=== PATIENT | male | born 1950 | race Caucasian/White ===

== ENCOUNTER 2023-12-03 20:54 | Inpatient (IN) | payer OTHER, SELFPAY ==
[2023-12-03] VITALS (16 sets, daily range): BP systolic 62–145; BP diastolic 25–106; BMI 23.5
[2023-12-03] MEDS: ROCURONIUM 60 MG IV (18:52)
[2023-12-03] MEDS: NSS 1000 IV (18:52)
[2023-12-03] MEDS: AMIDATE 20 MG IV (18:52)
[2023-12-03] MEDS: LEVOPHED 250 IV (18:58)
[2023-12-03 19:01] LABS: % Basophils 0.4 % (0-2); % Eosinophils 2.1 % (0-6); % Immature Granulocytes 1.1 % (0-0.5); % Lymphocytes 53.6 % (20.5-51.1); % Monocytes 6.8 % (1.7-9.3); Absolute Basophils 0.1 10^3/uL (0-0.2); Absolute Eosinophils 0.3 10^3/uL (0-0.7); Absolute Immature Granulocytes 0.2 10^3/uL (0-0.05); Absolute Lymphocytes 7.4 10^3/uL (1.2-3.4); Absolute Monocytes 0.9 10^3/uL (0.1-0.6); Hematocrit 35.8 % (39.0-52.0); Hemoglobin 12.1 g/dL (13.0-18.0); Mean Corp Hgb Conc. 33.8 g/dL (33.0-37.0); Mean Corpuscular Hgb 28.6 pg (27.0-31.0); Mean Corpuscular Volume 84.6 fL (80.0-94.0); Mean Platelet Volume 10.8 fL (7.4-10.4); Nucleated Red Blood Cells % 0 % (-); Platelet Count 283 10^3/uL (130-400); Red Blood Cell Count 4.23 10^6/uL (4.70-6.10); Red Cell Dist. Width 14.4 % (11.5-14.5); White Blood Cell Count 13.8 10^3/uL (4.8-10.8)
[2023-12-03 19:08] LABS: Glucose - Point of Care 261 mg/dl (70-99)
[2023-12-03 19:11] LABS: INR 1.27; PT 15.7 Sec (11.4-14.6)
[2023-12-03 19:16] LABS: ALT (SGPT) 103 U/L (0-50); AST (SGOT) 127 U/L (17-59); Alkaline Phosphatase 121 U/L (38-126); Blood Urea Nitrogen 16 mg/dl (9-20); Calcium 8.2 mg/dl (8.4-10.2); Carbon Dioxide 17 mmol/L (22-30); Chloride 102 mmol/L (98-107); Glucose 292 mg/dl (70-99); Potassium 2.8 mmol/L (3.5-5.1); Sodium 135 mmol/L (135-145); Total Bilirubin 0.9 mg/dl (0.2-1.3); Total Protein 5.3 g/dl (6.3-8.2); eGFR > 60.00
[2023-12-03 19:25] LABS: Lactic Acid 5.4 mmol/L (0.7-2.0); Troponin I < 0.012 ng/ml
--- NOTE | 2023-12-03 19:46 | HPS.HSE ---
Addendum entered and electronically signed by Josh Hughes MD 12/03/23 21:20:
Patient seen and examined independently with [employer]. 73-year-old male past medical history of nonischemic cardiomyopathy with EF of 10%, hypertension, diabetes presenting for acute onset of feeling like he was in a pass out with sudden difficulty
breathing/snoring and change in color was noticed by . performed CPR and called 911. EMS arrived and patient was shocked 1 time by AED. LMA was placed and patient intubated by EMS and patient was brought to the hospital.
Patient has a history of nonischemic cardiomyopathy with echocardiogram 2 weeks ago showing ejection fraction of 10%. Patient follows trial justice Dr. Hercules. He was offered ICD in the past which he declined. She has been stable on guideline
directed medical therapy. No history of ventricular arrhythmias in the past. Patient has been seen by Dr. Bryant here in the past.
In the emergency room patient was noted to be hypotensive and started on Levophed. He received 2 L of IV fluids. Troponin negative. EKG shows sinus rhythm with PVCs, nonspecific T wave inversions, ST depressions in leads V5�V6. Labs showed
leukocytosis, anion gap metabolic acidosis with bicarb of 17, lactic acidosis, transaminitis, hypokalemia with potassium of 2.8.
Patient suffered cardiac arrest likely secondary to ventricular arrhythmia in the setting of nonischemic cardiomyopathy with reduced EF of 10% possibly exacerbated by hypokalemia/hypomagnesemia.
# Cardiac arrest likely secondary to ventricular arrhythmia
# Possible NSTEMI/ cardiogenic shock
# History of nonischemic cardiomyopathy with reduced EF
# Transaminitis secondary to cardiac arrest
# Anion gap metabolic acidosis secondary to lactic acidosis
-Continue maintenance IV fluids
-Bicarbonate push to be given.
-Replete potassium, check magnesium and empirically provide magnesium
-ER noted patient to have gag reflex. Patient Relations Manager recommended cooling protocol. ER spoke with ironer machine and cardiac catheterization was not recommended. Trend troponins, start rectal aspirin, heparin drip.
-PICC line to be placed
-CT PE pending
-Check blood cultures, empiric Zosyn to cover aspiration pneumonia
#Hypokalemia
-Replete potassium, check magnesium and empirically provide magnesium to prevent torsades
#Hyperglycemia secondary to diabetes
-Insulin sliding scale, consider insulin drip if sugars continue to be uncontrolled
Full code
Original Note:
Family Physician
-
Family Physician: * NONE
Chief Complaint
-
cardiac arrest
History of Present Illness
73 year old with PMH for cardiac cardiomyopathy, CHF, type 2 Dm presented to us with cardiac arrest. patient was complaining of headache for past two days. today after dinner he sat on the chair and yelled out saying that he was going to pass out.
all of a sudden he started breathing loudly. noted changing of color in his face. she started CPR and called 911.
upon my evaluation patient is intubated. initiated on Levophed. admitting to ICU for further managment.
Medical History
Past Medical History
Past Medical History: Reports Other
Additional Past Medical History:
CHF
ischemic cardiomyopathy
type 2 Dm
Past Surgical History: Reports Other
Additional Past Surgical History:
cholecystectomy
Social History
Tobacco: Former Smoker
Alcohol: None
Drug: None
Personal:
Living: With Family
Employment: Employed
Family History
Family History: Not pertinent
Allergies / Home Medications
Allergies reflects when Allergies were last updated in [facility].
Home Medications with original date entered in [facility]
Allergy/Medication List:
Allergies
Allergy/AdvReac Type Severity Reaction Status Date / Time
No Known Allergies Allergy Unverified 03/17/14 08:14
Home Medications
carvedilol 3.125 mg tablet 6.25 mg PO BID 03/16/14
aspirin 81 mg tablet,delayed release 81 mg PO DAILY 03/17/14
atorvastatin 80 mg tablet 40 mg PO DAILY 12/03/23
dapagliflozin propanediol 10 mg tablet (Farxiga) 10 mg PO DAILY 12/03/23
furosemide 40 mg tablet 40 mg PO DAILY 12/03/23
metformin 500 mg tablet 500 mg PO BID 12/03/23
multivitamin 1 tab PO DAILY 12/03/23
omega 6-juj-wbb-fish oil 1,000 mg (120 mg-180 mg) capsule (Fish Oil) 1 cap PO DAILY 12/03/23
sacubitril 49 mg-valsartan 51 mg tablet (Entresto) 1 tab PO BID 12/03/23
semaglutide 7 mg tablet (Rybelsus) 3 mg PO DAILY 12/03/23
Review of Systems
-
Unable to obtain full review of systems at this time due to: Patient Intubation
Physical Exam
Vital Signs
Vital Signs
Pulse Resp BP
84 11 62/25
12/03/23 18:52 12/03/23 18:52 12/03/23 19:10
Physical Exam
General: Well Developed, Well Nourished and No Apparent Distress
HEENT: NormoCephalic, Moist mucous membranes and Atraumatic
Respiratory: Clear
Cardiac: S1/S2 and Regular Rhythm; No Murmur or Rub
GI: Soft, Normal Bowel Sounds and Distended; No Organomegaly
Rectal: Deferred by Provider
Musculoskeletal: No Clubbing, No Cyanosis and No Edema
Skin: No Rash
Neuro: Nonfocal/grossly intact
Laboratory Results
-
12/03/23 18:52
12/03/23 18:53
Laboratory Results
PT 15.7 Sec (11.4-14.6) H 12/03/23 18:53
INR 1.27 12/03/23 18:53
APTT 33.0 Sec (23.4-35.0) 12/03/23 18:53
Lactic Acid 5.4 mmol/L (0.7-2.0) H* 12/03/23 18:52
Total Bilirubin 0.9 mg/dl (0.2-1.3) 12/03/23 18:53
AST 127 U/L (17-59) H 12/03/23 18:53
ALT 103 U/L (0-50) H 12/03/23 18:53
Alkaline Phosphatase 121 U/L (38-126) 12/03/23 18:53
Troponin I < 0.012 ng/ml 12/03/23 18:52
Data Reviewed
-
Lab Data: Labs Reviewed by me
Impression/Plan
-
#possible NSTEMI
-hxt of long standing NICM
-as per refused ICD in the past
-heparin drip
-trend trop
-cardiology consulted
#sepsis likely aspiration pneumonia
-wbc 13.8, lactic acid 5.4, hypotension
-UA pending
-head CT pending
-chest x ray pending
-iv zosyn
-blood culture sent from ER
-trend lactic acid
-monitor wbc
#hypokalemia unclear cause.metabolic acidosis
- k 2.8
-iv kcl in ER
-sodium bicarbonate iv push now
-monitor BMP in am
#elevated transaminase likely dehydration
-ast 127,alt 103
-ctm
#type 2 Dm
-sliding scale
-check blood sugar every 6 hours
#DVT prophylaxis
-heparin drip
#CODE status
-full code
--- NOTE | 2023-12-03 19:49 | ED.GENMED ---
History of Present Illness
General
Chief Complaint: Unresponsive
Source: spouse and ambulance crew
Exam Limitations: clinical condition
Time Seen by Provider: 12/03/23 18:57
Travel History
Have you had any contact with someone who has COVID-19?: Unable to Answer
Do you have any symptoms of coronavirus? Fever > 100 degrees, chills, cough, shortness of breath, sore throat, loss of taste or smell, muscle aches, or headache?: Unable to Answer
History of Present Illness
History of Present Illness:
Patient apparently complaining of some vague headaches last 2 days. However went to sudden cardiac arrest at home. started CPR. Medic arrival had a pulse. However unresponsive with very shallow respirations. During intubation patient went
into cardiac arrest again. Intubated with LMA. Remained hypotensive en route.
Past History
Past History
ED Past Medical History: Other (Nonischemic cardiomyopathy)
Phy Exam
Physical Exam
Physical Exam:
CODE EXAM:
VITAL SIGNS: Barely palpable femoral pulse.
GENERAL EXAM: Cyanotic head and neck. Pale otherwise
EYES: Pupils fixed
ENT: Patient intubated. Via LMA
NECK: No venous distention
RESPIRATORY: Equal breath sounds
CARDIAC: Distant heart sounds
VASCULAR: Weak femoral pulses
ABDOMEN: Soft no masses
GUAIAC: Not done
MUSCULOSKELETAL: Unable to evaluate strength
EXTREMITIES: No edema or contractures
SKIN: No rash
PSYCH: Mood, affect unable to evaluate
Course
Orders/Labs/Results
Orders:
Orders
12/03/23 18:49
Electrocardiogram (*1) Urgent
Reason for Study: Other
Other Reason for Exam: Possible Stroke
Bedside Glucose- Treatment ONCE
EKG- Treatment ONCE
IV Insert/Care/Rem.- Treatment PRN
Vital Signs As Directed
Frequency: Other
Weight As Directed
Frequency: Once
Comment: ZERO STRETCHER SCALE FOR ACCURATE WEIGHT
O2 Therapy [RESP] Urgent
Titrate/Wean O2 to maintain O2 sat greater than (%): 93
Special Instructions: MAINTAIN CONTINUOUS O2 SATS > OR = 93%
12/03/23 18:51
CXR Port [CR Chest Portable - 1 View] Urgent
Comment:
Reason For Exam: intubation
Reason Study Needs to be Portable: Unable to Transport
12/03/23 18:52
Complete Blood Count/With Diff Urgent
Lactic Acid Urgent
Troponin I Urgent
Urinalysis Reflex To Culture Urgent
Date Specimen was Collected: 12/03/23
Time Specimen was Collected: 18:49
12/03/23 18:53
Comprehensive Metabolic Panel Urgent
Magnesium Urgent
Comment: ADD ON
PTT Urgent
Prothrombin Time Urgent
12/03/23 18:57
CT Head W/o Iv Contrast Urgent
Comment:
Reason For Exam: Unresponsive
IV Insert/Care/Rem.- Treatment PRN
0.9% Sodium Chloride 1000 ml [Nss] 1,000 ml IV BOLUS
12/03/23 18:58
NORepinephrine 4 MG/250 ML [Levophed] 4 mg in 250 ml IV NOW
Initial dose in mcg/min, then titrate:: 2
Titrate to keep:: MAP > 65 mmHg
Titrate by mcg/min:: 1-2 mcg/min
Frequency of titrations (minutes):: 5
Maximum dose in ICU in mcg/min:: 30
Maximum dose in IMU in mcg/min:: 8
Maximum dose in IVU in mcg/min:: 4
Begin to taper infusion when:: Remained at goal for 4hrs
Taper by mcg/min:: 1-2 mcg/min
Frequency of taper (minutes) if patient maintains goal:: 30
Taper to off?: Yes
If infusion off & no longer maintaining goal:: Contact Provider
12/03/23 19:35
Etomidate [Amidate] 20 mg IV NOW STA
12/03/23 19:40
Potassium Chloride [KCl] 40 meq 0.9% Sodium Chloride 250 ml [Nss] 250 ml IV NOW
12/03/23 19:48
CT Chest Pe Study Urgent
Comment:
Reason For Exam: cardiac arrest
12/03/23 20:13
Heparin Protocol- PTT Orders As Directed
PTT per Heparin protocol: -Obtain CBC and baseline PTT - if not already collected.
-Obtain PTT 6 hours from start of infusion. Then, every 6 hours until 2 consecutive
PTT's are therapeutic. Then, PTT Daily.
-With each rate change, obtain PTT every 6 hours until 2 consecutive PTT's are
therapeutic. Then, PTT Daily.
Notify MD As Directed
Notify physician if: PTT is greater than or equal to 200.
12/03/23 20:15
Admit/Transfer Patient As Directed
Co-Sign Provider:
Level of Care: Inpatient admission
Assign to:: ICU
Physician / Group: [facility] [email or web address]
Diagnosis: NSTEMI
Reason for Hospitalization: NSTEMI
Expected length of stay greater than two midnights?: Yes
ELOS- Estimated Length of Stay in days: 3
I certify the patient meets the requirements for IP care: Yes
Code Status As Directed
Resuscitation Status: Full Code
Blood Culture Q30M
ARPAN Source: Blood/Venous
Specimen Description:
Heparin 38442 Units/250 ml 25,000 units in 250 ml IV PER PROTOCOL
Weight to be used for heparin protocol in kilograms (kg):: 79.5
Protocol:: Cardiac Tx/Acute Coronary
PTT Goal Range to be used:: PTT 73 to 111 seconds
Order type:: Initial
INITIAL Infusion Dose (UNITS/KG/hr) & then follow protocol:: 12 units/kg/hr
Infusion Dose in UNITS/hr & then follow protocol (UNITS/hr):: 1,000
INFUSION RATE in mL/hr & then follow protocol (mL/hr):: 10
PTT less than or equal to 64 seconds:: Increase rate by 200 units/hr (+ 2 mL/hr)
PTT 64.1 to 72.9 seconds:: Increase rate by 100 units/hr (+ 1 mL/hr)
PTT 73 to 111 seconds:: Target Range. No change in rate.
PTT 111.1 to 130.9 seconds:: Decrease rate by 100 units/hr (- 1 mL/hr)
PTT 131 to 199.9 seconds:: HOLD for 1 hr. Then decrease rate by 200 units/hr (- 2 mL/hr)
PTT greater than or equal to 200 seconds:: HOLD for 2 hrs & Notify Provider. Then decrease by 200 units/hr (-
2 mL/hr)
Lab follow-up:: Each change, PTT q6h until 2 consecutive are therapeutic. Then PTT
daily.
12/03/23 20:22
Sodium Bicarbonate 50 meq IV NOW STA
12/03/23 20:28
CARDIOLOGY CONSULT Routine
Consulting Provider: Tiana Pagan
Was physician already notified: Yes
Heparin 4,000 units IV NOW STA
Nursing to Place Non Medication Order As Directed
Physician Order: PTT 6 hours after initial start of Heparin infusion
Above order entered?: Yes
12/03/23 20:29
[employer] Consult Routine
Consulting Provider: Lori Zacarias
Was physician already notified: Yes
12/03/23 20:30
Heparin 32103 Units/250 ml 25,000 units in 250 ml IV PER PROTOCOL
Weight to be used for heparin protocol in kilograms (kg):: 79.5
Protocol:: Cardiac Tx/Acute Coronary
PTT Goal Range to be used:: PTT 73 to 111 seconds
Order type:: Initial
INITIAL Infusion Dose (UNITS/KG/hr) & then follow protocol:: 12 units/kg/hr
Infusion Dose in UNITS/hr & then follow protocol (UNITS/hr):: 1,000
INFUSION RATE in mL/hr & then follow protocol (mL/hr):: 10
PTT less than or equal to 64 seconds:: Increase rate by 200 units/hr (+ 2 mL/hr)
PTT 64.1 to 72.9 seconds:: Increase rate by 100 units/hr (+ 1 mL/hr)
PTT 73 to 111 seconds:: Target Range. No change in rate.
PTT 111.1 to 130.9 seconds:: Decrease rate by 100 units/hr (- 1 mL/hr)
PTT 131 to 199.9 seconds:: HOLD for 1 hr. Then decrease rate by 200 units/hr (- 2 mL/hr)
PTT greater than or equal to 200 seconds:: HOLD for 2 hrs & Notify Provider. Then decrease by 200 units/hr (-
2 mL/hr)
Lab follow-up:: Each change, PTT q6h until 2 consecutive are therapeutic. Then PTT
daily.
12/03/23 20:35
Arterial Blood Gas Urgent
%Oxygen/Room Air: 100
12/03/23 20:37
PICC Line As Directed
12/03/23 20:38
Add On- LAB Stat
Tests Added?: magnesium
Magnesium Sulfate 1 G/D5w [Magnesium Sulfate] 1 gm in 100 ml IV NOW
12/03/23 22:57
0.9% Sodium Chloride 1000 ml [Nss] 1,000 ml IV 30 mls/hr
Dextrose 50%-Water [Dextrose 50% Syringe] 12.5 grams IV [id number] PRN
Glucagon [GlucaGen] 1 mg IM PRN PRN
NORepinephrine 4 MG/250 ML [Levophed] 4 mg in 250 ml IV PER PROTOCOL
Currently infusing. Continue current dose and titrate:: Yes
Titrate to keep:: SBP > 90 mmHg
Titrate by mcg/min:: 1-2 mcg/min
Frequency of titrations (minutes):: 5
Maximum dose in ICU in mcg/min:: 30
Maximum dose in IMU in mcg/min:: 8
Maximum dose in IVU in mcg/min:: 4
Begin to taper infusion when:: Remained at goal for 4hrs
Taper by mcg/min:: 1-2 mcg/min
Frequency of taper (minutes) if patient maintains goal:: 30
Taper to off?: Yes
If infusion off & no longer maintaining goal:: Contact Provider
12/03/23 22:57
Heparin Protocol- PTT Orders As Directed
PTT per Heparin protocol: -Obtain CBC and baseline PTT - if not already collected.
-Obtain PTT 6 hours from start of infusion. Then, every 6 hours until 2 consecutive
PTT's are therapeutic. Then, PTT Daily.
-With each rate change, obtain PTT every 6 hours until 2 consecutive PTT's are
therapeutic. Then, PTT Daily.
Activity As Directed
Activity Level: Bedrest
Bedside Glucose Monitoring As Directed
Frequency: Q6H
Comment: Change to q6h if pt on TPN, tube feeding or not eating
Notify MD As Directed
Notify physician if: PTT is greater than or equal to 200.
Vital Signs As Directed
Frequency: Per unit guidelines
12/03/23 23:00
Complete Blood Count/No Diff Urgent
Comment: Obtain baseline before beginning heparin infusion if not already collected
Lactic Acid Q4H
12/04/23 00:00
Insulin Aspart Corrective Low [Novolog Flexpen-Low Resistance] See Protocol SC Q6
Piperacillin/Tazo 3.375 Gram [Zosyn] 3.375 gram in 50 ml IV Q6H
12/04/23 01:15
Troponin I Q6H
12/04/23 04:14
Complete Blood Count/No Diff IN AM
Glycohemoglobin (HgbA1c) IN AM
Lactic Acid Q4H
Troponin I Q6H
12/04/23 08:00
Aspirin 300 mg RECTAL DAILY
12/05/23 02:46
Complete Blood Count/No Diff Q2D
Comment: Notify MD if platelet count is <130,000 or decreases by 50% from baseline
12/06/23 04:28
Complete Blood Count/No Diff IN AM
12/07/23 03:27
Basic Metabolic Panel IN AM
Complete Blood Count/No Diff Q2D
Comment: Notify MD if platelet count is <130,000 or decreases by 50% from baseline
12/08/23 04:21
Basic Metabolic Panel IN AM
Complete Blood Count/No Diff IN AM
12/09/23 03:52
Complete Blood Count/No Diff Q2D
Comment: Notify MD if platelet count is <130,000 or decreases by 50% from baseline
12/11/23 06:00
Complete Blood Count/No Diff Q2D
Comment: Notify MD if platelet count is <130,000 or decreases by 50% from baseline
12/13/23 06:00
Complete Blood Count/No Diff Q2D
Comment: Notify MD if platelet count is <130,000 or decreases by 50% from baseline
12/15/23 06:00
Complete Blood Count/No Diff Q2D
Comment: Notify MD if platelet count is <130,000 or decreases by 50% from baseline
12/17/23 06:00
Complete Blood Count/No Diff Q2D
Comment: Notify MD if platelet count is <130,000 or decreases by 50% from baseline
12/19/23 06:00
Complete Blood Count/No Diff Q2D
Comment: Notify MD if platelet count is <130,000 or decreases by 50% from baseline
Abnormal Lab Results
12/03/23 12/03/23 12/03/23
18:52 18:53 19:06
WBC 13.8 H 10^3/uL
(4.8-10.8)
RBC 4.23 L 10^6/uL
(4.70-6.10)
Hgb 12.1 L g/dL
(13.0-18.0)
Hct 35.8 L %
(39.0-52.0)
MPV 10.8 H fL
(7.4-10.4)
Abs Immat Gran (auto) 0.2 H 10^3/uL
(0-0.05)
Absolute Lymphs (auto) 7.4 H 10^3/uL
(1.2-3.4)
Absolute Monos (auto) 0.9 H 10^3/uL
(0.1-0.6)
Immature Gran % 1.1 H %
(0-0.5)
Neutrophils % 36.0 L %
(42.2-75.2)
Lymphocytes % 53.6 H %
(20.5-51.1)
PT 15.7 H Sec
(11.4-14.6)
pH
pO2
HCO3
ABG O2 Sat (Measured)
Potassium 2.8 L mmol/L
(3.5-5.1)
Carbon Dioxide 17 L mmol/L
(22-30)
Glucose 292 H mg/dl
(70-99)
Lactic Acid 5.4 H* mmol/L
(0.7-2.0)
Calcium 8.2 L mg/dl
(8.4-10.2)
AST 127 H U/L
(17-59)
ALT 103 H U/L
(0-50)
Total Protein 5.3 L g/dl
(6.3-8.2)
Albumin 3.0 L g/dl
(3.5-5.0)
Urine Glucose 3+ A
(Negative)
POC Glucose 261 H mg/dl
(70-99)
12/03/23
20:35
WBC
RBC
Hgb
Hct
MPV
Abs Immat Gran (auto)
Absolute Lymphs (auto)
Absolute Monos (auto)
Immature Gran %
Neutrophils %
Lymphocytes %
PT
pH 7.19 L*
(7.35-7.45)
pO2 110 H mmHg
(83-108)
HCO3 17.2 L mmol/L
(21-28)
ABG O2 Sat (Measured) 98.4 H %
(94-98)
Potassium
Carbon Dioxide
Glucose
Lactic Acid
Calcium
AST
ALT
Total Protein
Albumin
Urine Glucose
POC Glucose
12/03/23 18:52
12/03/23 18:53
Vital Signs
Initial and Last Documented VS:
Initial Vital Signs
Pulse Resp BP
84 11 88/56
12/03/23 18:52 12/03/23 18:52 12/03/23 18:52
Last Documented Vital Signs
Temp Pulse Resp BP Pulse Ox
97.9 F 90 21 103/71 94
12/09/23 07:21 12/09/23 07:00 12/09/23 07:00 12/09/23 07:00 12/09/23 07:00
Procedures
Intubations
Procedure completed by: Myself
Method of Intubation: glidescope
Tube size (cm): 7.5
Placement confirmed by: auscutation, CXR, capnography, placement corrected and direct visualization
Breath sounds after intubation: equal
Intubation complications: no complications
*Radiology
Radiology exam reviewed: preliminary read by ED provider (Tube slightly down the right mainstem) and radiology read reviewed (Negative head CT. No pulmonary emboli. Possible aspiration pneumonia versus CHF. Edema to the thyroid gland)
*Pulse Oximetry
Patient hypoxic: no
*EKG
Interpretation: abnormal
Comparison EKG: no comparison EKG present
Heart Rate: 85
Rate: normal
Rhythm: sinus and PVC's
Ischemia: other (Anterolateral biphasic T waves with ST depressions laterally.)
*Critical Care Note
Total Time (30-74mins, 75-104mins- exclusive of procedures): 50
Update Note
Update Note:
Multiple discussions with cardiology/invasive. No indication for Engineer Second Assistant at this time. Patient is being supported with pressors. Intubated. Pulse ox stable. I reviewed the CT and see nothing acute. Treating hypokalemia. For completeness a CT
of the chest will be done to rule out pulmonary emboli.
ED Attending Note
-
Portions of this chart may have been created with voice recognition software.� Occasional wrong word or��sound alike� substitutions may have occurred due to the inherent limitations of voice recognition software.
Discharge Plan
Departure
Patient Disposition: Admit
Date of Disposition: 12/03/23
Time of Disposition: 19:54
Presentation/result/management discussed w/ accepting MD/DO: Invasive cardiology/cardi
Discharge Problem:
Cardiopulmonary arrest, History of nonischemic cardiomyopathy
Interventions
Interventions:
*General Assessment Last Done: 12/03/23 18:52
*Neglect/Abuse Screening Last Done: 12/03/23 23:10
ED- Fall Risk Assessment Last Done: 12/03/23 23:23
*Nursing Disposition Last Done: 12/03/23 23:23
ED- Neurological Assessment Last Done: 12/03/23 21:12
Discharge Date and Time
Discharge Date/Time: 12/03/23 23:25
[2023-12-03 19:54] LABS: Urine Albumin Trace (Neg - Trace); Urine Bilirubin Negative (Negative); Urine Character Clear (Clear); Urine Color Yellow; Urine Glucose 3+ (Negative); Urine Ketone Negative (Negative); Urine Leukocyte Negative (Negative); Urine Nitrite Negative (Negative); Urine Occult Blood Negative (Negative); Urine Specific Gravity 1.015 (<1.030); Urine Urobilinogen Negative (Neg - 1+)
[2023-12-03] MEDS: KCL 270 MEQ IV (20:23)
[2023-12-03 20:42] LABS: B.E. -10.7 mmol/L; HCO3 17.2 mmol/L (21-28); O2 Saturation % 98.4 % (94-98); PCO2 45 mmHg (35-48); PO2 110 mmHg (83-108)
[2023-12-03 20:43] LABS: pH 7.19 (7.35-7.45)
[2023-12-03] MEDS: SODIUM BICARBONATE 50 MEQ IV (20:55)
[2023-12-03 21:17] LABS: Magnesium 2.3 mg/dl (1.6-2.3)
[2023-12-03] MEDS: HEPARIN 25000 UNITS/250 ML IV (21:35)
--- NOTE | 2023-12-03 21:37 | CON.CAR ---
Consultation
Consultation Request
Date/Time Consultation Requested: 12/03/23
Date/Time Consultation Performed: 11/2023
Reason for Consultation: Cardiac arrest
Medical History
-
Chief Complaint: cardiac arrest
History of Present Illness:
Primary Fur Dresser: Dr. Bryant / Delisa Morales.
73-year-old male past medical history of nonischemic cardiomyopathy with EF of 10%, hypertension, diabetes presenting for acute onset of feeling like he was in a pass out with sudden difficulty breathing/snoring and change in color was noticed by
.� performed CPR and called 911.� EMS arrived and patient was shocked 1 time by AED.� LMA was placed and patient intubated by EMS and patient was brought to the hospital.
He was having some vague headaches last 2 days.� However went to sudden cardiac arrest at home.� started CPR.� Medic arrival had a pulse.� However unresponsive with very shallow respirations.� During intubation patient went into cardiac arrest
again and shocked x 1.� Intubated with LMA.� Remained hypotensive en route.
In the ER had ETT placed. Head CT done that showed no sign of acute abnormality. Remained hypotensive on pressors. He was unresponsive.
EKG was done that showed nom ischemic. He has a well known hx of HFrEF and had declined ICD in the past. Discussed code status with family and they all in agreement for full code for now.
His mental status remained unchanged.
Bed side ECHO was done that showed no sign of pericardial effusion. The LVEF was roughly 25%. No sign of RV distention.
Past Medical History
Past Medical History: CHF (LVEF 10% @ [facility] - 2 weeks ago. ) and NIDDM
Past Surgical History: Cholecystectomy
Social History
Tobacco: Former Smoker
Alcohol: None
Drug: None
Personal:
Living: With Family
Family History
Family History: Reviewed & Not Pertinent
Allergies / Home Medications
Allergy/AdvReac Type Severity Reaction Status Date / Time
Sulfa (Sulfonamide Allergy Unknown Verified 02/20/24 21:14
Antibiotics)
sulfamethoxazole Allergy Unknown Verified 12/03/23 21:14
[From Bactrim]
trimethoprim [From Bactrim] Allergy Unknown Verified 12/03/23 21:14
Medication Instructions Recorded Confirmed Type
carvedilol 3.125 mg tablet 6.25 mg PO BID 03/16/14 12/03/23 History
aspirin 81 mg tablet,delayed 81 mg PO DAILY 03/17/14 12/03/23 History
release
atorvastatin 80 mg tablet 40 mg PO DAILY 12/03/23 12/03/23 History
dapagliflozin propanediol 10 mg 10 mg PO DAILY 12/03/23 12/03/23 History
tablet (Farxiga)
furosemide 40 mg tablet 40 mg PO DAILY 12/03/23 12/03/23 History
metformin 500 mg tablet 500 mg PO BID 12/03/23 12/03/23 History
multivitamin 1 tab PO DAILY 12/03/23 12/03/23 History
omega 6-wcs-hvl-fish oil 1,000 mg 1 cap PO DAILY 12/03/23 12/03/23 History
(120 mg-180 mg) capsule (Fish Oil)
sacubitril 49 mg-valsartan 51 mg 1 tab PO BID 12/03/23 12/03/23 History
tablet (Entresto)
semaglutide 7 mg tablet (Rybelsus) 3 mg PO DAILY 12/03/23 12/03/23 History
Review of Systems
-
Unable to obtain full review of systems at this time due to: Patient Intubation
History Source: Family
All other systems: Negative unless noted
Physical Exam
Vital Signs
Temp Pulse Resp BP Pulse Ox
96.8 F L 118 16 128/90 98
12/03/23 19:41 12/03/23 21:00 12/03/23 21:00 12/03/23 21:00 12/03/23 21:00
Lab Results
12/03/23 18:53
Troponin I < 0.012 ng/ml 12/03/23 18:52
Physical Exam
General: Intubated
HEENT: Normocephalic
Respiratory: Clear; Negative Crackles
Cardiac: S1/S2, Regular Rhythm (sinus tach) and JVD
GI: Soft and Normal Bowel Sounds
Musculoskeletal: No Clubbing, No Cyanosis and No Edema
Skin: Warm, Dry and Other (was cold and clammy at the time of arrival to the ER)
Neuro: Other
Impression / Plan
-
73 yrs old man with non-ischemic cardiomyopathy, LVEF 10% with recent COVID had vague headaches and developed cardiac arrest at home - possible PEA and got CPR from and was noted to have pulse at the arrival of paramedics and developed
shockable rhythm s/p shock (refused ICD in the past) and is intubated in the field.
Cardiac arrest
- Unclear etiology
- Likely PEA arrest
- EKG is essentially non-ischemic
- Trop is negative
- Bed side ECHO showed no sign of pericardial effusion
- LVEF is probably better than previously reported 10% - may be due to pressors
- Possibility of coronary event is less likely but cannot be ruled out.
- OK to start Heparin - no need for the bolus as patient is going for hypothermia protocol.
- Reassess after warming up to check the mental status.
- Neurology is on board.
Resp failure
- s/p intubated.
- Hypothermia protocol
- admit to ICU
Hypotension
-Previously on Coreg, farxiga, lasix, Entresto, Lipitor and ASA
-Now on pressors.
-wean pressors as tolerated.
-ABG/Arterial line as per cyber systems administrator.
Data Reviewed
-
EKG: Tracing Personally Visualized and interpreted
Radiology: Report Reviewed by me
Ultrasound: Image Personally Visualized and interpreted
Labs: Labs Reviewed by me, Discussed with Physician and Discussed with Family
Old Records: Reviewed
Critical Care Time (in minutes): 65
[2023-12-03] MEDS: MAGNESIUM SULFATE 100 IV (21:57)
--- NOTE | 2023-12-03 22:14 | W.PN.UPDATE ---
Update Note
Progress Note Update
Procedure Note: Arterial Line�
� Left Wrist Arrow 20 (12/15)�
Diagnosis:��Cardiac arrest//hypothermia procotol
IV Line Comments: Uneventful Procedure�
Eric's test completed pre-procedure: Yes�
A-Line Comments: Sterile technique as per standard protocol, Ultrasound guided insertion�
Functioning A-line in situ: Yes�
A-line Insertion Start Time: 2144��
A-line in at:��2149
--- NOTE | 2023-12-03 23:17 | PTCARENOTE ---
patient arrived 1840 via ems from home for cardiac arrest.
1851 patient was bagged suctioned and intubated. patient remained unresponsive however jagged slightly through intubation. ventilator started with 100% oxygen delivered. Levophed started at 1857 (please see DEC). Marroquin cath inserted.
[2023-12-04] VITALS (20 sets, daily range): BP systolic 59–125; BP diastolic 43–94; BMI 22.8
[2023-12-04] MEDS: SUBLIMAZE 50 MCG IV ×3 (00:18→08:33)
[2023-12-04 00:27] LABS: B.E. -5.7 mmol/L; HCO3 19.4 mmol/L (21-28); Ionized Calcium 1.06 mMOL/L (1.15-1.33); O2 Saturation % 99.7 % (94-98); PCO2 36 mmHg (35-48); PO2 194 mmHg (83-108); Sodium 137 mMOL/L (136-145); pH 7.34 (7.35-7.45)
--- NOTE | 2023-12-04 00:29 | W.PN.UPDATE ---
Addendum entered and electronically signed by CINDY Lockwood 12/04/23 04:14:
Rogers replaced, TTM protocol was stopped after 30 to 45 minutes of initiating.
Original Note:
Update Note
Progress Note Update
Patient pulled out samantha with movement. While assessing patient he began to follow commands. TTM protocol stopped.
[2023-12-04 00:34] LABS: Hematocrit 40.7 % (39.0-52.0); Hemoglobin 13.8 g/dL (13.0-18.0); Mean Corp Hgb Conc. 33.9 g/dL (33.0-37.0); Mean Corpuscular Hgb 28.6 pg (27.0-31.0); Mean Corpuscular Volume 84.3 fL (80.0-94.0); Mean Platelet Volume 10.9 fL (7.4-10.4); Platelet Count 320 10^3/uL (130-400); Red Blood Cell Count 4.83 10^6/uL (4.70-6.10); Red Cell Dist. Width 14.5 % (11.5-14.5); White Blood Cell Count 15.2 10^3/uL (4.8-10.8)
[2023-12-04 00:40] LABS: Lactic Acid 3.2 mmol/L (0.7-2.0)
[2023-12-04] MEDS: DIPRIVAN 100 IV ×3 (00:41→23:20)
[2023-12-04] MEDS: NOVOLOG FLEXPEN-LOW RESISTANCE 3 UNITS SC (00:45)
[2023-12-04] MEDS: NSS 1000 IV ×2 (00:53→13:03)
[2023-12-04] MEDS: ZOSYN 50 IV ×2 (00:53→06:21)
[2023-12-04 00:55] LABS: Glucose - Point of Care 276 mg/dl (70-99)
[2023-12-04] MEDS: CALCIUM CHLORIDE 10% SYRINGE 60 MG IV ×2 (01:01→23:05)
[2023-12-04 04:15] LABS: Prealbumin (Transthyretin) 19.7 mg/dl (17.6-36.0); Triglycerides 348 mg/dl (10-149)
[2023-12-04 04:18] LABS: Troponin I 0.181 ng/ml
[2023-12-04 04:25] LABS: HCO3 19.6 mmol/L (21-28); Ionized Calcium 1.22 mMOL/L (1.15-1.33); O2 Saturation % 97.3 % (94-98); PCO2 38 mmHg (35-48); PO2 85 mmHg (83-108); Potassium 3.7 mMOL/L (3.5-5.1); Sodium 139 mMOL/L (136-145); pH 7.32 (7.35-7.45)
[2023-12-04 04:25] LABS: Hematocrit 38.4 % (39.0-52.0); Hemoglobin 13.1 g/dL (13.0-18.0); Mean Corp Hgb Conc. 34.1 g/dL (33.0-37.0); Mean Corpuscular Hgb 28.4 pg (27.0-31.0); Mean Corpuscular Volume 83.3 fL (80.0-94.0); Mean Platelet Volume 10.5 fL (7.4-10.4); Platelet Count 261 10^3/uL (130-400); Red Blood Cell Count 4.61 10^6/uL (4.70-6.10); Red Cell Dist. Width 14.5 % (11.5-14.5); White Blood Cell Count 16.5 10^3/uL (4.8-10.8)
[2023-12-04] MEDS: NSS 250 IV ×2 (04:25→05:03)
--- NOTE | 2023-12-04 04:26 | DOWNTIME ---
There was a [facility] Client Pediatric Immunologist Downtime on 12/04/2023 from 0111 to 12/04/2023 at 0405. Downtime documentation of patient's care, including medication administrations, has been reconciled in the electronic record per guidelines. Refer to the
patient's paper chart under the miscellaneous tab to see printed paper medication records and downtime forms.
[2023-12-04 04:37] LABS: Lactic Acid 2.4 mmol/L (0.7-2.0)
[2023-12-04 04:46] LABS: APTT 84.2 Sec (23.4-35.0)
[2023-12-04 05:02] LABS: ALT (SGPT) 212 U/L (0-50); AST (SGOT) 236 U/L (17-59); Albumin 2.9 g/dl (3.5-5.0); Alkaline Phosphatase 228 U/L (38-126); Blood Urea Nitrogen 22 mg/dl (9-20); Calcium 9.1 mg/dl (8.4-10.2); Carbon Dioxide 18 mmol/L (22-30); Chloride 109 mmol/L (98-107); Direct Bilirubin 1.1 mg/dl (0.0-0.4); Estimated Creatinine Clearance 89 ml/min; Glucose 252 mg/dl (70-99); Potassium 3.8 mmol/L (3.5-5.1); Sodium 140 mmol/L (135-145); Total Bilirubin 1.8 mg/dl (0.2-1.3); Total Protein 5.2 g/dl (6.3-8.2); eGFR > 60.00
[2023-12-04 05:03] LABS: NT-proBNP 4590 pg/ml; Troponin I 0.295 ng/ml
[2023-12-04] MEDS: LEVOPHED 250 IV ×3 (05:04→09:43)
--- NOTE | 2023-12-04 06:00 | PTCARENOTE ---
Addendum entered by Jaimie Alves RN 12/04/23 08:14:
Restraints on for patient protection.
Original Note:
Received patient from ED around 2300, on norepinephrine and heparin gtt. Patient minimally responsive, not following commands, nonpurposeful movements in upper extremities. Began cooling 2322. 0015 patient pulled out samantha with movement, Vamsi
Del [place]illo STAFF MIDWIFE/APPRENTICESHIP DIRECTOR to bedside, while assessing patient began following commands, TTM stopped. Neuro checks Q4, pupils 2, sluggish. Blinks spontaneously, moves all extremities. Started on fentanyl and propofol around 0000, titrated per protocol. Patient
agitated, RASS +2-+3, intermittently following commands. Normal sinus 80s-90s. BP 80s-90s/50s-60s, on norepinephrine and vasopressin gtt titrating per protocol. Received 250 ml bolus x2, see MAR for details. Palpable radial and pedal pulses
bilaterally. 7.5 ETT tube, 23 at the lip, 16/450/40+5. Lung sounds coarse throughout. Thick, sánchez/brown secretions. Abdomen distended, round, obese. Right nare NG tube placed, low intermittent suction. Irrigated with 300 mls of tap water throughout
shift, 300 ml of brown, chunky output. Patient vomited twice, once at 0320, again in the morning around 0530/0600, STAFF MIDWIFE/APPRENTICESHIP DIRECTOR aware. Sputum sent. Patient had large liquid bowel movement, FMS placed, drained 200 of brown liquid stool. Marroquin in place,
draining yellow urine, total output about 1350 for the shift. Marroquin care done. Complete bed bath done twice. Right DL PICC patent, norepinephrine, vasopressin, fentanyl, and propofol infusing through one lumen, bicarb drip infusing through other
lumen, see worklist for details. Right wrist 18 patent, dressing WNL, heparin gtt infusing, see worklist for details. Left AC 18 capped, patent, dressing WNL. Left wrist samantha flushed, zeroed, and leveled. Skin ashy, pale, intact. Labs drawn and
sent. Hourly rounding and patient safety checks ongoing.
[2023-12-04] MEDS: SODIUM BICARBONATE 1150 MEQ IV ×2 (06:12→22:27)
[2023-12-04] MEDS: NOVOLOG FLEXPEN-MODERATE RESISTANCE 3 UNITS SC ×3 (06:18→23:50)
[2023-12-04 06:27] LABS: Glucose - Point of Care 230 mg/dl (70-99)
[2023-12-04] MEDS: PITRESSIN 100 IV ×2 (07:16→17:27)
[2023-12-04] MEDS: NSS IV (07:48)
--- NOTE | 2023-12-04 07:49 | PTCARENOTE ---
Received patient from shift production supervisor. Patient is intubated and sedated. RASS 0 at handoff, patient was able to open eyes and follow some commands, attempted to reach for tube. Adjusted propofol gtt as Kekanto is here for study. Patient is
intubated with #7.5 AC 16/450/5/40%, vent checks as charted. pulse ox at 98%. Patient is in sinus rhythm with PVCs, left radial samantha zero'ed to atmospheric pressure and leveled at phlebostatic axis. Correlating with cuff pressure. Patient NPO,
abdomen softly distended, NG tube to right nare low intermittent suction. FMS for stool collection. Marroquin draining yellow urine. Bilateral wrist restaints on for safety. Will review orders. Infusions and lines as charted in worklist.
--- NOTE | 2023-12-04 07:50 | CON.INTV ---
Consultation
Consultation Request
Date/Time Consultation Requested: 12/04
Date/Time Consultation Performed: 12/04
Reason for Consultation: Critical care
Medical History
-
History of Present Illness:
History obtained from the chart, medical records and obtaining history from by phone and at bedside. 73-year-old male with history of nonischemic cardiomyopathy EF 25%, diabetes, whose history dates back to 10/18/2023 when he was found to have
COVID. The month of October had increased shortness of breath, prompting visit with his primary and cardiology. He was treated with 7 to 10 days of steroids towards the end of October with improvement. Over the last few days he has developed
increased headaches, poor appetite. Yesterday p.m., after dinner he went to sit on the recliner and felt he was going to pass out and called out his 's name. He then became unresponsive, snoring. 911 was called, CPR initiated by .
states that within minutes, ambulance arrived and took over CPR. AED identified shockable rhythm, 1 shock provided. Records suggest that patient had very shallow respirations and had another episode of cardiac arrest during intubation in the field
with LMA. Patient was brought to [facility], where upon arrival pulse 84, breathing 11, blood pressure 88/56. Patient was intubated, CT chest without PE, head CT without acute findings. Cardiology was consulted, ischemia was not
suspected. Heparin drip was started. Patient was unresponsive to stimuli therefore TTM protocol initiated and patient admitted to ICU for further management
Since admission, during initiation of TTM protocol, patient awoke, moving extremities, following commands. TTM protocol discontinued. Patient required pressors, persistent hypotension noted.
Apparently 3 weeks prior to admission had an echocardiogram which showed EF 10%. Bedside echocardiogram suggested 25% ejection fraction
Patient has been on diabetic therapy through endocrinology, is lost 20 pounds with therapy over the last 6 months. However he has had persistent nausea and fatigue from medications per
.
PMH: Covid 10/18/23, CM EF 10% per ECHO 11/2023, hx of NICM, DM
Past Medical History
Past Medical History: None (See above)
Past Surgical History: None (See above)
Social History
Tobacco: Former Smoker
Alcohol: None
Drug: None
Personal:
Living: With Family
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
Family History
Family History: Other (3 sisters Alive with COPD, 7 children alive and well, M , F . Neg for Lung cancer, blood clots)
Allergies / Home Medications
Allergies
Allergy/AdvReac Type Severity Reaction Status Date / Time
Sulfa (Sulfonamide Allergy Unknown Verified 12/03/23 21:14
Antibiotics)
sulfamethoxazole Allergy Unknown Verified 12/03/23 21:14
[From Bactrim]
trimethoprim [From Bactrim] Allergy Unknown Verified 12/03/23 21:14
Home Medications
Medication Instructions Recorded Confirmed Last Taken Type
carvedilol 3.125 mg tablet 6.25 mg PO BID 03/16/14 12/03/23 03/17/14 06:00 History
aspirin 81 mg tablet,delayed 81 mg PO DAILY 03/17/14 12/03/23 03/17/14 06:00 History
release
atorvastatin 80 mg tablet 40 mg PO DAILY 12/03/23 12/03/23 Unknown History
dapagliflozin propanediol 10 mg 10 mg PO DAILY 12/03/23 12/03/23 Unknown History
tablet (Farxiga)
furosemide 40 mg tablet 40 mg PO DAILY 12/03/23 12/03/23 Unknown History
metformin 500 mg tablet 500 mg PO BID 12/03/23 12/03/23 Unknown History
multivitamin 1 tab PO DAILY 12/03/23 12/03/23 Unknown History
omega 2-wkb-lzy-fish oil 1,000 mg 1 cap PO DAILY 12/03/23 12/03/23 Unknown History
(120 mg-180 mg) capsule (Fish Oil)
sacubitril 49 mg-valsartan 51 mg 1 tab PO BID 12/03/23 12/03/23 Unknown History
tablet (Entresto)
semaglutide 7 mg tablet (Rybelsus) 3 mg PO DAILY 12/03/23 12/03/23 Unknown History
Review of Systems
-
Unable to Obtain full review of systems at this time due to: Patient Intubation
History Source: Family
Vitals / Labs / Diagnostic Testing
Vital Signs
Temp Pulse Resp BP Pulse Ox
97.8 F 89 16 80/54 98
12/04/23 07:01 12/04/23 07:00 12/04/23 07:00 12/04/23 07:00 12/04/23 07:25
Lab Data
12/04/23 04:14
12/04/23 05:08
Laboratory Results
12/03/23 12/03/23 12/04/23
18:53 20:35 00:11
PT 15.7 H
INR 1.27
APTT 33.0
pH 7.19 L* 7.34 L
pCO2 45 36
pO2 110 H 194 H
HCO3 17.2 L 19.4 L
O2 Delivery Level
12/04/23 12/04/23
04:14 04:17
PT
INR
APTT 84.2 H
pH 7.32 L
pCO2 38
pO2 85
HCO3 19.6 L
O2 Delivery Level
Diagnostic Testing:
Physical Exam
-
HEENT: Normocephalic, Anicteric and Other (Right IJ, left upper extremity A-line)
Cardiovascular: S1/S2, Regular Rhythm, Murmur (n) and Peripheral Edema (tr)
Respiratory: Wheeze (n), Rales (Few at base), Rhonchi (n), Non-Labored Respirations and Other (ET tube, NG tube)
GI: Soft, Non Distended and Non Tender
Neurology: Other (Sedated but does follow commands, moves extremities)
Skin: Other (No clubbing, cyanosis, no rash)
General: Comfortable
Assessment
-
73-year-old male with history of nonischemic cardiomyopathy EF 10%, recent COVID infection requiring steroids October 2023, diabetes, presents with cardiac arrest, CPR/shock x 1, intubation. Patient unresponsive in the ED, negative CT chest,
negative head CT. TTM protocol initiated and patient admitted to ICU
S/p Cardiac arrest
Arrhythmia versus PEA
CPR/shock x 1 in the field
VDRF, LMA in the field
Intubated in ED
Hypotension, requiring pressors
Etiology unknown (cardiac, sepsis, metabolic)
Leukocytosis
Metabolic acidemia, elevated lactate
Hyperglycemia
Recent Covid 10/18/2023
Conditions present prior to admission
Diabetes, poorly controlled
NICM, EF 10%
Follows cardiology ([facility])
Refused ICD 2016 ([place])
Hypertension/hyperlipidemia
20 pound weight loss
On Rybelsus
Follows endocrine (Bravo)
Distant tobacco history, quit
Plan/recommendations
At this time, patient is critically ill remains on pressors, ventilator dependent
Requiring pressors, currently on vasopressin, norepinephrine. Echocardiogram few weeks ago, EF 10%, presently 25%
Presentation suggest cardiac arrhythmia, PEA. Cannot rule out pulmonary cause/respiratory cause although denies any significant respiratory symptoms
Of note, patient was more short of breath 3 to 4 weeks ago post COVID, completed course of steroid therapy with improvement
Moving forward
Continue with mechanical ventilation, volume-cycled ventilation
Will assess for extubation later today
Metabolic acidemia noted. Wean as able
Continue sedation, wean as able
Airway pressures adequate
Continue antibiotics for possible commune acquired pneumonia based on CT imaging
Antibiotics will be changed from Zosyn to ceftriaxone/doxycycline
Cardiology following, ischemia not suspected
Heparin drip initiated in ED, will discontinue per discussion with cardiology
Patient was unresponsive at time of presentation, woke up during initiation of TTM protocol
Head CT unremarkable
Currently following commands
Continue aspirin therapy
Patient apparently refused ICD around 2015 at which time it was recommended
Daily EKG, follow electrolytes, QT
Sputum culture, blood cultures. UA unremarkable
Check influenza, Covid
Urine output adequate, creatinine stable
Patient on bicarbonate drip since admission
Discontinue, continue KVO
If hypotension persists, we do have some room with boluses, following oxygenation carefully
Maintain potassium greater than 4, magnesium greater than 2
Patient with nausea/emesis overnight, NG tube placed abdominal film with
Gaseous distention of the stomach. Maintain NG tube for now
PPI therapy
Check TSH, check random cortisol
If patient has persistent hypotension, may require stress dose steroids. Completed course of steroids about 3 weeks ago as outpatient
Check lower extremity Dopplers. CT chest negative for PE
Continue mechanical and pharmacological prophylaxis for DVT
Depending on clinical course throughout the day, may require nutrition
Head of bed elevated, aspiration precautions
Reviewed with critical care nursing, respiratory care, pharmacy
Reviewed with primary service, cardiology, diabetic GENERAL SUPERINTENDENT
Reviewed with sister, at bedside
TCCT 55 min
--- NOTE | 2023-12-04 07:50 | CARDSERVDEF ---
Echocardiogram with Definity completed after protocol screening completed. Allergies verified.
Patent IV site: ____Rt AC
IV site flushed with 0.9% NaCl pre and post administration.
Diluted bolus method utilized to enhance visualization of ventricular crockett.
Total volume given: __3.0_ mL
Patient tolerated all procedures well without complications.
--- NOTE | 2023-12-04 08:25 | W.PN.CD ---
Today's Communication / Plan
-
- ECHO today
- wean mechanical ventilation.
- Pressors support - wean levophed. continue vasopressin for now.
Impression / Plan
-
73 yrs old man with non-ischemic cardiomyopathy, LVEF 10% with recent COVID had vague headaches and developed cardiac arrest at home - possible PEA and got CPR from and was noted to have pulse at the arrival of paramedics and developed
shockable rhythm s/p shock (refused ICD in the past) and is intubated in the field.
Cardiac arrest
- Unclear etiology - Leukocytosis with lymphocytosis and recent COVID
- Likely PEA arrest
- EKG is essentially non-ischemic
- Trop is negative
- Bed side ECHO showed no sign of pericardial effusion
- Full ECHO today - with definity - LVEF is 20%. Officical read is pending.
- Possibility of coronary event is less likely but cannot be ruled out.
- Waking up this AM and has purposeful movement. Encouraging but increasing pressors need.
- Neurology is on board.
Resp failure
- s/p intubated.
- ABG improved but still acidotic
- Vent management as per ICU
Hypotension
-Previously on Coreg, farxiga, lasix, Entresto, Lipitor and ASA
-Now on pressors - Levophed and Vasopressin
-Max-ed on Levo and started Vaso overnight.
-Behaving like sepsis.
-wean pressors as tolerated.
HFrEF
-LVEF 10% at baseline
-refused ICD in the past.
-Re-evaluate once recovers
-Hypotensive now - holding GDMT.
Physical Exam
Vital Signs/Labs
Vital Signs
Temp Pulse Resp BP Pulse Ox
97.8 F 97 16 82/64 99
12/04/23 07:01 12/04/23 08:00 12/04/23 08:00 12/04/23 08:00 12/04/23 08:21
12/03/23 12/04/23 12/05/23
06:59 06:59 06:59
Actual Weight 74.09 kg
12/04/23 04:14
12/04/23 05:08
PT 15.7 Sec (11.4-14.6) H 12/03/23 18:53
INR 1.27 12/03/23 18:53
APTT 84.2 Sec (23.4-35.0) H 12/04/23 04:14
Magnesium 2.3 mg/dl (1.6-2.3) 12/03/23 18:53
Triglycerides 348 mg/dl (10-149) H 12/04/23 01:15
12/04/23
04:14
[id number] Pept 4590
LAB Results
12/03/23 12/04/23 12/04/23
18:52 01:15 04:14
Troponin I < 0.012 0.181 H* D 0.295 H* D
Physical Exam
Constitutional: No acute distress and Comfortable
Cardiovascular: Rhythm & rate is regular, JVD present and S1S2 is normal
Respiratory: Labored respirations and Rhonchi Present
GI: Soft and Normal bowel sounds
Neuro/Psych: Other (intubated. purposeful movements. )
Data Reviewed
-
Date of Service: December 04, 2023
Medical Decision Making: Reviewed Test Results, Independent Historian Assessment, Test Interpretation and Review of Case with other Provider
EKG: Tracing Personally Visualized and interpreted
Echo: Tracing Personally Visualized and interpreted
Labs: Labs Reviewed by me
Old Records: Reviewed
Critical Care Time (in minutes): 35
[2023-12-04] MEDS: NSS (PRESERVATIVE FREE) 10 ML IV (08:33)
[2023-12-04] MEDS: PROTONIX IV 40 MG IV (08:33)
[2023-12-04 08:59] LABS: Glycohemoglobin (HgbA1c) 9.5 % (4.0-5.6)
[2023-12-04 09:11] LABS: B.E. -5.1 mmol/L; HCO3 19.9 mmol/L (21-28); O2 Saturation % 99.6 % (94-98); PCO2 36 mmHg (35-48); PO2 154 mmHg (83-108); pH 7.35 (7.35-7.45)
[2023-12-04] MEDS: SUBLIMAZE 100 IV (09:17)
[2023-12-04 09:34] LABS: COVID-19 Antigen Negative (Negative)
--- NOTE | 2023-12-04 09:34 | W.PN.HOSP.TC ---
Today's Communication/Plan
-
see plan in its entirety
Assessment / Plan
Assessment / Plan
Gen: NAD, NCAT, well developed/nourished
Eyes: EOMI, PERRLA, no scleral icterus.
Neck: supple.
CV: RRR, +S1/S2, no m/r/g.
Resp: CTAB, no rales, wheezes, or rhonchi.
Abd: +BS, soft, NT, ND
Skin: No rashes.
Neuro: CN 2-12 intact, non-focal.
Psych: calm.
CTA chest 12/03/23: No PE. There is a confluent parenchymal opacity within the posterior aspect of both lungs, most likely representing pneumonia. No evidence for associated pleural effusion bilaterally. Significantly dilated and rounded left
ventricle. Suggestion of Rishi B lines within the lateral aspect of both lungs, which could represent changes of acute and/or chronic heart failure. Heterogeneity of the thyroid isthmus and the right lobe of the thyroid, with suggestion of edema
adjacent to the thyroid. If further imaging evaluation of the thyroid is desired, consideration for thyroid ultrasound.�
CXR 12/04/23AM: No focal alveolar airspace disease. No large pleural effusions.
Cardiac arrest likely secondary to ventricular arrhythmia:
-with NSTEMI and cardiogenic shock (POA)
-h/o NICM with EF 10% nonischemic cardiomyopathy with reduced EF
-Transaminitis/shock liver secondary to cardiac arrest
-Anion gap metabolic acidosis secondary to lactic acidosis. Lactic acidosis improving, last anion gap was 13.
-currently on Levophed/vasopressin/propofol/fentanyl/bicarb infusion
-Replete potassium, check magnesium and empirically provide magnesium
-ER noted patient to have gag reflex.� Lumber Cutter recommended cooling protocol.� ER spoke with fairing worker and cardiac catheterization was not recommended.�Pt was cooled for about 40min.
-cont ASA/Heparin gtt
Other problems:
Leukocytosis: Doubt acute infection (including pneumonia). Pt remains on empiric Zosyn. Follow BCxs.
Hypokalemia, resolved. Note Mg normal.
DM2 with hyperglycemia: a1c 9.5%, currently on SSI only. Will need basal/bolus insulin. Consult diabetes MANNEQUIN REFINISHER.
Patient's updated at bedside.
Prognosis is unfortunately poor.
Full code
Discussed with RN and Dr. Zacarias.
Total critical care time spent = 48 min
Anticipated Discharge: > 48 hours
Subjective/Interval History
-
Date of Service: December 04, 2023
Intubated/sedated. Opens eyes to touch and voice.
Objective Data
-
Labs:
Laboratory Results
12/04/23 12/04/23 12/04/23
00:11 04:14 04:17
WBC 15.2 H 16.5 H
Hgb 13.8 13.1
Hct 40.7 38.4 L
Plt Count 320 261
APTT 84.2 H
HCO3 19.4 L 19.6 L
Sodium 140
Potassium 3.8 D
Chloride 109 H
Carbon Dioxide 18 L
BUN 22 H
Creatinine 0.8
Glucose 252 H
Calcium 9.1
Total Bilirubin 1.8 H
AST 236 H
ALT 212 H
Alkaline Phosphatase 228 H
12/04/23 12/04/23 12/04/23
05:08 09:04 10:00
WBC
Hgb
Hct
Plt Count
APTT Pending
HCO3 19.9 L
Sodium Cancelled
Potassium Cancelled
Chloride Cancelled
Carbon Dioxide Cancelled
BUN Cancelled
Creatinine Cancelled
Glucose Cancelled
Calcium Cancelled
Total Bilirubin
AST
ALT
Alkaline Phosphatase
Vital Signs:
Vital Signs
Temp Pulse Resp BP Pulse Ox
97.8 F 97 16 82/64 99
12/04/23 07:01 12/04/23 08:00 12/04/23 08:00 12/04/23 08:00 12/04/23 08:21
I&O
12/03/23 12/04/23 12/05/23
06:59 06:59 06:59
Intake Total 1629.0 / 1629.0 468.7 / 468.7
Output Total 2751 / 2751 425 / 425
Balance -1122.0 / -1122.0 43.7 / 43.7
--- NOTE | 2023-12-04 10:07 | PN.DE.MGMTRT ---
Insulin Management
- -
12/04/2023 Diabetes Management Consult
Patient admitted s/p cardiac arrest, currently on ventilator. PMH includes type 2 diabetes, cardiomyopathy. Prior to admission was taking Farxiga 10 mg daily, Rybelsus 3 mg daily metformin 500 mg BID.. reports he really was not that good
with his diabetes,did not check blood sugar. He does see Dr. Bravo, endocrine, and is due for a follow up soon. A1C on admission 9.5%, cr .8, egfr >60.
Glucose has been > 200 on corrective insulin only. Will start lantus 15 units now and daily and continue corrective insulin Q 6 hours. Spoke with Medical Dir, if patient is not extubated by end of day and glucose is not improved will start
glycemic protocol.
Diabetes History
- -
Type of Diabetes: 2
Pre-Admission Diabetes Regimen
12/03/23 12/04/23 12/04/23
18:53 04:14 05:08
Creatinine 1.0 0.8 Cancelled
Lab Results
Hemoglobin A1c 9.5 % (4.0-5.6) H 12/04/23 04:14
Insulin Pump Settings
IP Diabetes Regimen
12/03/23 12/03/23 12/04/23
18:53 19:06 00:44
Glucose 292 H
POC Glucose 261 H 276 H
12/04/23 12/04/23 12/04/23
04:14 05:08 06:15
Glucose 252 H Cancelled
POC Glucose 230 H
Patient Education
[2023-12-04 11:04] LABS: APTT 81.4 Sec (23.4-35.0)
[2023-12-04 11:11] LABS: Magnesium 2.2 mg/dl (1.6-2.3); Potassium 3.7 mmol/L (3.5-5.1)
[2023-12-04] MEDS: LANTUS 0.149999999999999994 UNITS SC (11:19)
[2023-12-04 11:21] LABS: Troponin I 0.569 ng/ml
[2023-12-04] MEDS: ROCEPHIN 1000 MG IV (11:37)
[2023-12-04] MEDS: ASPIRIN 325 MG TUBE (11:37)
[2023-12-04] MEDS: VIBRAMYCIN 100 MG TUBE ×2 (11:37→23:21)
[2023-12-04] MEDS: STERILE WATER FOR INJECTION 10 ML IV (11:37)
[2023-12-04 11:47] LABS: TSH Reflex To Free T4 1.04 uIU/ml (0.47-4.68)
--- NOTE | 2023-12-04 12:00 | PTCARENOTE ---
Patient has been on SBT since 11:15. Family is present, Christina is present at bedside, family extremely supportive. Have turned off Fentanyl gtt as patient is still continuing to have small periods of apnea. Notified painter hand and resident
that fentanyl gtt is on standby. Will send ABG around 12:45
--- NOTE | 2023-12-04 12:04 | CON.INTV ---
Addendum entered and electronically signed by Lori Zacarias MD 12/04/23 13:46:
Patient seen and examined independently by myself.
Agree with below.
Please see my admission note
Original Note:
Documented by User: Mena Rockwell MD, Resident 12/04/23 13:32
Consultation
Consultation Request
Date/Time Consultation Requested: 08:00am
Date/Time Consultation Performed: 08:00am
Medical History
-
Chief Complaint: Cardiac arrest
History of Present Illness:
Pt is a 73 year old male with a history of HFrEF with EF 10%, hypertension, Non-insulin dependent Diabetes, who was at home with his yesterday evening when he complained of feeling like he was going to pass out. He shortly became unresponsive
with labored breathing. His called 911 and administered CPR. EMS arrived and administered one shock. He was intubated by EMS and found to be hypotensive. Continued to be hypotensive requiring pressors. Heparin was given and hypothermic protocol
started. Admitted to ICU.
Of note, he had covid infection around October 18 and was treated with 5 day steroid taper, and complained of headaches within the 2 days leading up to admission.
On arrival, EKG showed non-specific ST abnormalities, Troponin was negative but trended to 0.295 this morning. Bedside Echo (s/p pressors) showed E/F with no evidence of RV distension, Chest CT showed possible HF no PE, CXR showed some pulmonary
edema, possible pneumonia.
Labs showed elevated white count, mildly increased lactate, hypokalemia, hypomagnesemia, ABGs showed improving metabolic acidosis.
�
Past Medical History
Past Medical History: CHF, HTN and NIDDM
Past Surgical History: Cholecystectomy
Social History
Tobacco: Former Smoker (remote history, quit in the )
Alcohol: None
Drug: None
Personal:
Living: With Family
Employment: Employed
Family History
Family History: Reviewed & Not Pertinent
Allergies / Home Medications
Allergies
Allergy/AdvReac Type Severity Reaction Status Date / Time
Sulfa (Sulfonamide Allergy Unknown Verified 12/03/23 21:14
Antibiotics)
sulfamethoxazole Allergy Unknown Verified 12/03/23 21:14
[From Bactrim]
trimethoprim [From Bactrim] Allergy Unknown Verified 12/03/23 21:14
Home Medications
Medication Instructions Recorded Confirmed Last Taken Type
carvedilol 3.125 mg tablet 6.25 mg PO BID Blood Pressure 03/16/14 12/03/23 03/17/14 06:00 History
aspirin 81 mg tablet,delayed 81 mg PO DAILY Blood Clot 03/17/14 12/03/23 03/17/14 06:00 History
release Prevention/Tx
atorvastatin 80 mg tablet 40 mg PO DAILY High Cholesterol 12/03/23 12/03/23 Unknown History
dapagliflozin propanediol 10 mg 10 mg PO DAILY Diabetes 12/03/23 12/03/23 Unknown History
tablet (Farxiga)
furosemide 40 mg tablet 40 mg PO DAILY Fluid 12/03/23 12/03/23 Unknown History
Retention/Swelling
metformin 500 mg tablet 500 mg PO BID Diabetes 12/03/23 12/03/23 Unknown History
multivitamin 1 tab PO DAILY Supplement 12/03/23 12/03/23 Unknown History
omega 8-evm-dnv-fish oil 1,000 mg 1 cap PO DAILY Supplement 12/03/23 12/03/23 Unknown History
(120 mg-180 mg) capsule (Fish Oil)
sacubitril 49 mg-valsartan 51 mg 1 tab PO BID Heart Failure 12/03/23 12/03/23 Unknown History
tablet (Entresto)
semaglutide 7 mg tablet (Rybelsus) 3 mg PO DAILY Diabetes 12/03/23 12/03/23 Unknown History
Review of Systems
-
Unable to Obtain full review of systems at this time due to: Patient Intubation
History Source: Family
Vitals / Labs / Diagnostic Testing
Vital Signs
Temp Pulse Resp BP Pulse Ox
97.8 F 97 14 82/64 99
12/04/23 07:01 12/04/23 11:31 12/04/23 11:31 12/04/23 08:00 12/04/23 11:31
Lab Data
12/04/23 04:14
Laboratory Results
12/03/23 12/03/23 12/04/23
18:53 20:35 00:11
PT 15.7 H
INR 1.27
APTT 33.0
pH 7.19 L* 7.34 L
pCO2 45 36
pO2 110 H 194 H
HCO3 17.2 L 19.4 L
O2 Delivery Level
12/04/23 12/04/23 12/04/23
04:14 04:17 09:04
PT
INR
APTT 84.2 H
pH 7.32 L 7.35
pCO2 38 36
pO2 85 154 H
HCO3 19.6 L 19.9 L
O2 Delivery Level
12/04/23
10:44
PT
INR
APTT 81.4 H
pH
pCO2
pO2
HCO3
O2 Delivery Level
Microbiology
12/04/23 09:05 Nasal Swab Influenza Types A & B (ELLIOT) - Final
Negative for Influenza A & B, NAAT
Negative results must be combined with clinical observations
and patient history.
Nucleic Acid Amplification test (NAAT)performed on the
[employer] platform.
12/04/23 06:15 Endotracheal Gram Stain - Preliminary
Diagnostic Testing:
Physical Exam
-
HEENT: Normocephalic
Cardiovascular: S1/S2, Regular Rhythm, Murmur (negative), Rub (negative), Peripheral Edema (negative) and JVD (negative)
Respiratory: Clear and Other (intubated)
GI: Soft, Other (NG tube) and Other (diarrhea)
Neurology: Other (sedated, some purrposeful movement)
Skin: Warm, Dry and Good Color
General: Fever (negative)
Assessment
-
73-year-old male with history of nonischemic cardiomyopathy EF 10%, recent COVID infection requiring steroids October 2023, diabetes, presents with cardiac arrest, CPR/shock x 1, intubation. Patient unresponsive in the ED, negative CT chest,
negative head CT. TTM protocol initiated and patient admitted to ICU
S/p Cardiac arrest
Arrhythmia versus PEA
CPR/shock x 1 in the field
VDRF, LMA in the field
Intubated in ED
Hypotension, requiring pressors
Etiology unknown (cardiac, sepsis, metabolic)
Leukocytosis
Metabolic acidemia, elevated lactate
Hyperglycemia
Recent Covid 10/18/2023
Conditions present prior to admission
Diabetes, poorly controlled
NICM, EF 10%
Follows cardiology (O'Chaney)
Refused ICD 2016 ([place])
Hypertension/hyperlipidemia
20 pound weight loss
On Rybelsus
Follows endocrine (Bravo)
Distant tobacco history, quit
Plan/recommendations
At this time, patient is critically ill remains on pressors, ventilator dependent.
Ischemic vs arrhythmic cause of cardiac arrest. Unlikely ischemic, heparin discontinued. Continuously hypotensive: Norepinephrine and vasopressin for pressure support. Repeat echo today
Pt is ventilated and sedated. LE Venous doppler pending. Discontinued Zosyn, started Ceftriaxone and Doxycycline (Abx day 1 of 7). Blood and sputum Cx pending. Negative for Covid and Flu. To wean off ventilator support today.
PPI for GI prophylaxis
Non-anion gap metabolic acidosis, resolving. Kidney function normal
Elevated blood sugar: All diabetic medications held. Lantus + corrective insulin Q6 for glycemic control
PT/OT/ SP after extubation. NPO at this time.
Full code

Documented by User: Lori Zacarias MD 12/04/23 13:43
Medical History
-
History of Present Illness:
Pt is a 73 year old male with a history of HFrEF with EF 10%, hypertension, Non-insulin dependent Diabetes, who was at home with his yesterday evening when he complained of feeling like he was going to pass out. He shortly became unresponsive
with labored breathing. His called 911 and administered CPR. EMS arrived and administered one shock. He was intubated by EMS and found to be hypotensive. Continued to be hypotensive requiring pressors. Heparin was given and hypothermic protocol
started. Admitted to ICU.
Of note, he had covid infection around October 18 and was treated with 5 day steroid taper, and complained of headaches within the 2 days leading up to admission.
On arrival, EKG showed non-specific ST abnormalities, Troponin was negative but trended to 0.295 this morning. Bedside Echo (s/p pressors) showed E/F with no evidence of RV distension, Chest CT showed possible HF no PE, CXR showed some pulmonary
edema, possible pneumonia.
Labs showed elevated white count, mildly increased lactate, hypokalemia, hypomagnesemia, ABGs showed improving metabolic acidosis.
�
[2023-12-04] MEDS: LEVOPHED 258 MG IV ×3 (12:09→23:21)
[2023-12-04] MEDS: KCL ELIXIR 20 MEQ TUBE (12:31)
[2023-12-04 12:39] LABS: Glucose - Point of Care 224 mg/dl (70-99)
[2023-12-04 13:06] LABS: B.E. -7.2 mmol/L; HCO3 17.9 mmol/L (21-28); O2 Saturation % 98.6 % (94-98); PCO2 34 mmHg (35-48); PO2 171 mmHg (83-108); pH 7.33 (7.35-7.45)
[2023-12-04 13:22] LABS: Cortisol, Random 46.2 ug/dl
--- NOTE | 2023-12-04 13:46 | W.PN.UPDATE ---
Addendum entered and electronically signed by Lori Zacarias MD 12/04/23 14:22:
Correction
weaning not bleeding
Original Note:
Update Note
Progress Note Update
Patient has been bleeding throughout the day, initially on ASV 100%, then CPAP 5/8, then CPAP 5/5.
Spontaneous tidal volume 700-800, but occasional episodes of apnea noted
Patient appears to be comfortable, Arousable, following commands
Electrolytes adequate, received 20 mEq of potassium earlier this morning.
ABG with persistent metabolic acidemia, likely nongap. Patient having diarrhea, but this is not confirmed preadmission.
Patient had episode of NSVT while I was in the room, appeared to be approximately 15-20 beats. Unfortunately monitoring system is currently down.
Remains on norepinephrine at 24 mcg, vasopressin
On exam, moving air well. Extremities are cool, no rash
Patient completed echocardiogram earlier today, currently obtaining Doppler study.
Moving forward
We will continue with mechanical ventilation for now, transition back to ASV 80%
ABG in the morning
Unclear why patient has metabolic acidemia, may be from diarrhea. Follow metabolic panel
Will give 1 dose of amiodarone 150 mg x 1 bolus
Reviewed with cardiology. Dr. Gutierrez to evaluate.
May require amiodarone drip
Trop trend noted. ASA continues
Cards following
I would prefer to hold off on extubation until amiodarone therapy is started and acidemia has improved.
Check daily EKG as previously discussed
Reviewed above at length with critical care nursing, respiratory care
Briefly reviewed with cardiology (Ej)
Reviewed with at bedside.
TCCT 30 min
[2023-12-04 13:47] LABS: HCO3 19.6 mmol/L (21-28); O2 Saturation % 99.6 % (94-98); PCO2 38 mmHg (35-48); PO2 168 mmHg (83-108); pH 7.32 (7.35-7.45)
--- NOTE | 2023-12-04 14:23 | PTCARENOTE ---
Patient back on ASV, patient still continued to have episodes of apnea. Had run of VT while being assessed and preparing for extubation. Dr. Zacarias called Cardiology and amiodarone dose ordered. Will hold off on extubation at this time,
restarted fentanyl gtt at 25mcg and propfol at 10 as charted on DEC.
--- NOTE | 2023-12-04 14:26 | W.PN.UPDATE ---
Update Note
Progress Note Update
Dr. Zacarias notified us that pt had run of NSVT.
Given recent cardiac arrest terminated with AED shock we will initiate IV amiodarone. Pt has a central line.
[2023-12-04] MEDS: CORDARONE 103 MG IV (14:27)
[2023-12-04] MEDS: CORDARONE 518 MG IV (15:08)
[2023-12-04] MEDS: SOLU-CORTEF 50 MG IV ×2 (15:17→22:27)
--- NOTE | 2023-12-04 15:17 | CM ---
CM met with pt spouse, dtr and multiple extended family members in ICU waiting room
Pt and spouse reside in a 2[address] with 1 JOLIE
Full flight to second floor (6, landing, 6)
Pt is independent at baseline with his ADLs without any ADs, drives+
Pt only DME is [facility]
Pt has no hx of VN or SNF
Pt insured through [facility] with Rx coverage
PCP- Diego Estevez
Rx- Cheryl/Violet
Pt currently in ICU on vent
Family educated on role of CM and scope of services discussed
CM will continue to follow pt for dc planning
Pt will likely benefit from PT/OT once medically appropriate
Discharge Disposition- plan for home, watch for higher needs
[2023-12-04 15:18] LABS: Lipase 84 U/L (23-300)
--- NOTE | 2023-12-04 16:30 | PTCARENOTE ---
Patient remains intubated, restarted sedation and pain medication. Family support provided, as they were upset regarding decision to not extubate today. Have started amio gtt. Holding NSS @30 at this time. Steroids given, will recheck POC sugar
at 1800. Full bed bath and linen change.
[2023-12-04] MEDS: LOVENOX 40 MG SC (17:27)
[2023-12-04] MEDS: NOVOLOG FLEXPEN-MODERATE RESISTANCE 1 UNITS SC (17:36)
[2023-12-04 17:39] LABS: Glucose - Point of Care 193 mg/dl (70-99)
[2023-12-04 17:42] LABS: Magnesium 2.2 mg/dl (1.6-2.3)
--- NOTE | 2023-12-04 20:12 | PTCARENOTE ---
Addendum entered by Jaimie Alves RN 12/04/23 22:24:
Right DL PICC patent, WNL. PIVs patent, WNL.
Original Note:
Received patient in bed, family at bedside. Intubated, sedated, restrained. Titrating norepinephrine per order for MAP >65, pressure 80s/50s. Palpable radial and pedal pulses bilaterally, weak pedal pulses. Normal sinus, 70s-80s. 7.5 ETT, 22 at the
lip. ASV, 80% MV, 40% FiO2, PEEP of 5. Lung sounds coarse posteriorly. Saturating 98%. Abdomen soft, round, distended. Hypoactive bowel sounds. Marroquin in place, draining yellow urine. FMS in place, draining brown liquid stool. Norepinephrine,
vasopressin, fentanyl, propofol, and amiodarone gtt on, see worklist for details. Emotional support provided to family. Hourly rounding and patient safety checks ongoing.
[2023-12-04 20:43] LABS: B.E. -7.4 mmol/L; HCO3 17.3 mmol/L (21-28); Ionized Calcium 1.14 mMOL/L (1.15-1.33); O2 Saturation % 99.4 % (94-98); PCO2 32 mmHg (35-48); PO2 164 mmHg (83-108); pH 7.34 (7.35-7.45)
[2023-12-04 21:10] LABS: Blood Urea Nitrogen 25 mg/dl (9-20); Calcium 8.4 mg/dl (8.4-10.2); Carbon Dioxide 14 mmol/L (22-30); Chloride 106 mmol/L (98-107); Estimated Creatinine Clearance 78 ml/min; Glucose 226 mg/dl (70-99); Sodium 138 mmol/L (135-145); eGFR > 60.00
[2023-12-04] MEDS: SODIUM BICARBONATE 50 MEQ IV (22:27)
[2023-12-04 23:50] LABS: Glucose - Point of Care 207 mg/dl (70-99)
[2023-12-05] VITALS (18 sets, daily range): BP systolic 89–108; BP diastolic 59–72; BMI 23.9
--- NOTE | 2023-12-05 | PTCARENOTE ---
Patient assessment unchanged from previous. Responds to verbal and tactile stimulation. Labs sent, mouth care done, repositioned. Hourly rounding and patient safety checks ongoing.
[2023-12-05 03:07] LABS: Hematocrit 36.8 % (39.0-52.0); Hemoglobin 12.6 g/dL (13.0-18.0); Mean Corp Hgb Conc. 34.2 g/dL (33.0-37.0); Mean Corpuscular Hgb 28.3 pg (27.0-31.0); Mean Corpuscular Volume 82.7 fL (80.0-94.0); Mean Platelet Volume 11.1 fL (7.4-10.4); Platelet Count 359 10^3/uL (130-400); Red Blood Cell Count 4.45 10^6/uL (4.70-6.10); Red Cell Dist. Width 14.9 % (11.5-14.5); White Blood Cell Count 17.2 10^3/uL (4.8-10.8)
[2023-12-05 03:54] LABS: ALT (SGPT) 190 U/L (0-50); AST (SGOT) 75 U/L (17-59); Albumin 3.1 g/dl (3.5-5.0); Alkaline Phosphatase 205 U/L (38-126); Blood Urea Nitrogen 26 mg/dl (9-20); Carbon Dioxide 17 mmol/L (22-30); Chloride 109 mmol/L (98-107); Direct Bilirubin 0.8 mg/dl (0.0-0.4); Estimated Creatinine Clearance 70 ml/min; Glucose 209 mg/dl (70-99); Potassium 4.1 mmol/L (3.5-5.1); Sodium 139 mmol/L (135-145); Total Bilirubin 1.1 mg/dl (0.2-1.3); Total Protein 5.4 g/dl (6.3-8.2); eGFR > 60.00
[2023-12-05] MEDS: SOLU-CORTEF 50 MG IV ×2 (04:15→10:35)
--- NOTE | 2023-12-05 04:49 | PTCARENOTE ---
Patient assessment unchanged from previous. ETT yu replaced, tube moved to the left side. Mouth care and jones care done. CHG bed bath done, put on new sheets. Repositioned. Hourly rounding and patient safety checks ongoing.
[2023-12-05 05:03] LABS: Cortisol, Random 62.7 ug/dl
[2023-12-05] MEDS: LEVOPHED 258 MG IV ×2 (05:05→12:06)
[2023-12-05] MEDS: NOVOLOG FLEXPEN-MODERATE RESISTANCE 1 UNITS SC (05:08)
[2023-12-05 05:19] LABS: Glucose - Point of Care 184 mg/dl (70-99)
--- NOTE | 2023-12-05 07:15 | PTCARENOTE ---
Received patient from operations supervisor 2nd shift. Patient intubated, sedated, RASS -2. Patient remains on ASV, oxygen saturation is 99%, vent checks as charted in worklist. PAtient is SR on monitor with frequent PVCs, no edema noted, bilatera lower extremiteis
are cool, pulses weak. Patient has NG tube to right nare, low intermittent suction, brown bilious drainage noted. Patient also has FMS in place. Vikas mccartney for critical I&Os. All medication gtts verified during hand off as charted. Will review
orders
[2023-12-05] MEDS: LANTUS 0.149999999999999994 UNITS SC (07:20)
[2023-12-05] MEDS: LOW STRENGTH ASPIRIN 81 MG TUBE (07:20)
[2023-12-05] MEDS: NSS (PRESERVATIVE FREE) 10 ML IV (07:21)
[2023-12-05] MEDS: PROTONIX IV 40 MG IV (07:21)
--- NOTE | 2023-12-05 07:39 | W.PN.INTV ---
Today's Communication / Plan
Recommendations
Wean sedation, SBT as able
Wean off pressors
Remains on amiodarone drip
Continue antibiotics, follow cultures
Follow blood sugars, moderate sliding scale
Mechanical and pharmacological DVT prophylaxis
Assessment
-
73-year-old male with history of nonischemic cardiomyopathy EF 10%, recent COVID infection requiring steroids October 2023, diabetes, presents with cardiac arrest, CPR/shock x 1, intubation. Patient unresponsive in the ED, negative CT chest,
negative head CT. TTM protocol initiated and patient admitted to ICU
S/p Cardiac arrest
Arrhythmia versus PEA
CPR/shock x 1 in the field
VDRF, LMA in the field
Intubated in ED
Hypotension, requiring pressors
Etiology unknown (cardiac, sepsis, metabolic)
Leukocytosis
Metabolic acidemia, elevated lactate
Hyperglycemia
Recent Covid 10/18/2023
Conditions present prior to admission
Diabetes, poorly controlled
NICM, EF 10%
Follows cardiology (O'Chaney)
Refused ICD 2016 ([place])
Hypertension/hyperlipidemia
20 pound weight loss
On Rybelsus
Follows endocrine (Bravo)
Distant tobacco history, quit
Plan/recommendations
At this time, patient is critically ill remains on pressors, ventilator dependent
Currently on norepinephrine at 20 mcg, vasopressin
Mild secretions noted. Bicarbonate drip started overnight by BUS CLEANER for serum bicarbonate of 14
Urine output adequate
Remains on ASV 80%, adequate ventilation, oxygenation. Nongap acidosis noted
Echocardiogram few weeks ago, EF 10%, presently 25%
Presentation suggest cardiac arrhythmia, PEA. Cannot rule out pulmonary cause/respiratory cause although denies any significant respiratory symptoms
Of note, patient was more short of breath 3 to 4 weeks ago post COVID, completed course of steroid therapy with improvement
Moving forward
We will pursue SBT today
Discontinue bicarbonate drip, transition to LR
Hopefully can extubate later today
Metabolic acidemia noted. Wean as able
Chest x-ray without acute findings
Airway pressures adequate
Continue antibiotics for possible commune acquired pneumonia based on CT imaging
Antibiotics will be changed from Zosyn to ceftriaxone/doxycycline
Cardiology following, ischemia not suspected
Heparin drip discontinued
Patient was unresponsive at time of presentation, woke up during initiation of TTM protocol
Head CT unremarkable
Currently following commands
Continue aspirin therapy
Patient apparently refused ICD around 2015 at which time it was recommended
Daily EKG, follow electrolytes, QT
Eventual ischemic workup
Remains on amiodarone
Sputum culture, blood cultures. UA unremarkable
Influenza, COVID-negative
Urine output adequate, creatinine stable
If hypotension persists, we do have some room with boluses, following oxygenation carefully
Maintain potassium greater than 4, magnesium greater than 2
Patient with nausea/emesis overnight, NG tube placed abdominal film with
Gaseous distention of the stomach. Maintain NG tube for now
PPI therapy
Continue stress dose steroids for now but based on cortisol measurements prior to initiation of therapy, likely not adrenal deficient
Appreciate input from diabetic BUS CLEANER, follow blood sugars
Dopplers negative for DVT
CT chest negative for PE
Continue mechanical and pharmacological prophylaxis for DVT
Depending on clinical course throughout the day, may require nutrition
Head of bed elevated, aspiration precautions
Reviewed with critical care nursing, respiratory care, pharmacy
Reviewed with primary service, cardiology
Reviewed with at bedside
TCCT 40 min
Subjective Dataa
Subjective Data
Date of Service:
Date of Service: December 05, 2023
Subjective:
Patient remains critically ill, on norepinephrine and vasopressin. Required sedation overnight. Bicarbonate drip was started overnight for serum bicarbonate of 14. Blood sugars remain elevated. Remains afebrile. Maintained on ASV overnight.
Minimal secretions
Objective Data
Data Reviewed
Vital Signs / I&O / Oxygen:
Vital Signs
Temp Pulse Resp BP Pulse Ox
98.2 F 73 12 76/57 99
12/05/23 04:32 12/05/23 06:00 12/05/23 06:00 12/04/23 20:00 12/05/23 06:00
Intake and Output
12/04/23 12/05/23 12/06/23
06:59 06:59 06:59
Intake Total 1629.0 / 1629.0 3060.2 / 3060.2
Output Total 2751 / 2751 2329 / 2329
Balance -1122.0 / -1122.0 731.2 / 731.2
SaO2 [ASV] 99
SaO2 [CPAP/PSV] 99
SaO2 [A/C] 99
SaO2 99
Physical Exam
General: Comfortable and Other (Right IJ, upper extremity a-line)
HEENT: Normocephalic and Anicteric
Cardiovascular: S1-S2, Regular Rhythm, Murmur (n), Rub (n) and Peripheral Edema (tr)
Respiratory: Wheeze (n), Crackles (n), Rhonchi (n), Non-Labored Respirations and ET Tube
GI: Soft, Non Distended and Non Tender
Neurology: Lethargic (Sedated, moves extremities, follows commands)
Skin: Cyanosis (n), Jaundice (n) and Rash (n)
Labs/Micro/Reports
Lab Data
12/05/23 02:46
12/05/23 02:46
Laboratory Results
12/04/23 12/04/23 12/04/23
09:04 10:44 12:55
APTT 81.4 H
pH 7.35 7.33 L
pCO2 36 34 L
pO2 154 H 171 H
HCO3 19.9 L 17.9 L
O2 Delivery Level
12/04/23 12/04/23
13:36 20:25
APTT
pH 7.32 L 7.34 L
pCO2 38 32 L
pO2 168 H 164 H
HCO3 19.6 L 17.3 L
O2 Delivery Level
Microbiology
12/04/23 04:56 Blood/Venous Blood Culture - Preliminary
No Growth in 24 hours- Final report to follow
12/04/23 02:53 Blood/Venous Blood Culture - Preliminary
No Growth in 24 hours- Final report to follow
12/04/23 09:05 Nasal Swab Influenza Types A & B (ELLIOT) - Final
Negative for Influenza A & B, NAAT
Negative results must be combined with clinical observations
and patient history.
Nucleic Acid Amplification test (NAAT)performed on the
[employer] platform.
12/04/23 06:15 Endotracheal Gram Stain - Preliminary
--- NOTE | 2023-12-05 07:56 | PTCARENOTE ---
Stopped bicarb gtt per Dr. Zacarias.
[2023-12-05] MEDS: DIPRIVAN 100 IV (08:16)
[2023-12-05 08:20] LABS: HCO3 18.8 mmol/L (21-28); O2 Saturation % 99.9 % (94-98); PCO2 34 mmHg (35-48); PO2 182 mmHg (83-108); pH 7.35 (7.35-7.45)
--- NOTE | 2023-12-05 08:25 | W.PN.CD ---
Addendum entered and electronically signed by Yamil Bryant MD 12/05/23 10:34:
reviewed with interventional . Possible cath tomorrow
Original Note:
Today's Communication / Plan
-
-Patient remains on pressors. Wean as tolerated. Would wean vasopressin first
-Continue IV amiodarone-
-Continue to assess mental status as he recovers
-Vent management and weaning as directed by Dr Zacarias
-Will continue to assess timing for cardiac catheterization. Will continue to monitor mental status and clinical course as we determine appropriateness for ICD
Impression / Plan
-
73 yrs old man with non-ischemic cardiomyopathy, LVEF 10% with recent COVID had vague headaches and developed cardiac arrest at home - possible PEA and got CPR from and was noted to have pulse at the arrival of paramedics and developed
shockable rhythm s/p shock (refused ICD in the past) and is intubated in the field.
Cardiac arrest
-
- Witnessed arrest. initiated CPR review of records from doubler operator suggest patient had a EGD shockable rhythm and 1 shock provided. Patient brought to ER with pulse and ultimately was intubated in ER. Has remained on pressors.
-Known history of nonischemic cardiomyopathy with no recent assessment of CAD ejection fraction on echo this admission 15-20%Unclear etiology - Leukocytosis with lymphocytosis and recent COVID
-Peak troponin 0.5.
- Opens eyes to voice and was moving fingers to command yesterday. Patient with some purposeful movements today trying to pull ET tube out currently on propofol.
-Maintained on Levophed and vasopressin.
- Eventual plan for cardiac catheterization and based on mental status and clinical course will assess appropriateness and timing of ICD
VT. -in the setting of severely reduced left ventricular function note suggest patient had 1 shock by AED in the field yesterday while in ICU a self-limited run of VT was reported and patient now on IV amiodarone. Due to some technical issues there
is not a printed strip of the rhythm above..
-Continue IV amiodarone
Hypotension Wean pressors as tolerated would favor weaning vasopressin first.
VDRF
- Vent management And weaningas per Pulmonary/critical care.
HFrEF
-LVEF 10% at baseline
-refused ICD in the past.
-GDMT limited by hypotension
-Eventual catheter reassess for coronary artery disease
Physical Exam
Vital Signs/Labs
Vital Signs
Temp Pulse Resp BP Pulse Ox
98.1 F 74 11 76/57 99
12/05/23 08:02 12/05/23 07:00 12/05/23 07:00 12/04/23 20:00 12/05/23 07:45
12/04/23 12/05/23 12/06/23
06:59 06:59 06:59
Actual Weight 74.09 kg 77.8 kg
12/05/23 02:46
12/05/23 02:46
PT 15.7 Sec (11.4-14.6) H 12/03/23 18:53
INR 1.27 12/03/23 18:53
APTT 81.4 Sec (23.4-35.0) H 12/04/23 10:44
Magnesium 2.2 mg/dl (1.6-2.3) 12/04/23 17:15
Triglycerides 348 mg/dl (10-149) H 12/04/23 01:15
12/04/23
04:14
Lja-X-Rzbltkmbmoo Pept 4590
LAB Results
12/03/23 12/04/23 12/04/23
18:52 01:15 04:14
Troponin I < 0.012 0.181 H* D 0.295 H* D
12/04/23
10:44
Troponin I 0.569 H* D
Physical Exam
Constitutional: Other (Vented sedated. Periodically movements to try to pull ET tube)
Cardiovascular: Rhythm & rate is regular
Respiratory: Other (Clear vented breath sounds anteriorly no wheezes or rhonchi)
GI: Soft and Other (No masses)
Neuro/Psych: Other (Sedated. Mental status as noted above)
. Radial A-line and PICC line
Data Reviewed
-
Date of Service: December 05, 2023
--- NOTE | 2023-12-05 09:12 | PN.DE.MGMTRT ---
Insulin Management
- -
12/04/2023 Diabetes Management Consult
Patient admitted s/p cardiac arrest, currently on ventilator. PMH includes type 2 diabetes, cardiomyopathy. Prior to admission was taking Farxiga 10 mg daily, Rybelsus 3 mg daily metformin 500 mg BID.. reports he really was not that good
with his diabetes,did not check blood sugar. He does see Dr. Bravo, endocrine, and is due for a follow up soon. A1C on admission 9.5%, cr .8, egfr >60.
Glucose has been > 200 on corrective insulin only. Will start lantus 15 units now and daily and continue corrective insulin Q 6 hours. Spoke with Hide Or Skin Buffer, if patient is not extubated by end of day and glucose is not improved will start
glycemic protocol.
12/05/2023 Diabetes Management Follow up
Patient remains intubated. Received Lantus 15 units in AM started yesterday with corrective insulin. Glucose remained stable overnight requiring 1 to 3 units corrective insulin Q 6 hours. Will continue lantus 15 units in AM and add novolog 3
units Q 6 hours. Will change moderate corrective to low.
Diabetes History
- -
Type of Diabetes: 2
Pre-Admission Diabetes Regimen
12/04/23 12/05/23
20:25 02:46
Creatinine 0.9 1.0
Lab Results
Hemoglobin A1c 9.5 % (4.0-5.6) H 12/04/23 04:14
Insulin Pump Settings
IP Diabetes Regimen
12/04/23 12/04/23 12/04/23
12:27 17:28 20:25
Glucose 226 H
POC Glucose 224 H 193 H
12/04/23 12/05/23 12/05/23
23:40 02:46 05:08
Glucose 209 H
POC Glucose 207 H 184 H
Meal type: Breakfast
Patient Education
[2023-12-05] MEDS: LR 1000 IV (10:36)
[2023-12-05 11:01] LABS: B.E. -6.6 mmol/L; HCO3 18.3 mmol/L (21-28); O2 Saturation % 99.7 % (94-98); PCO2 34 mmHg (35-48); PO2 180 mmHg (83-108); pH 7.34 (7.35-7.45)
[2023-12-05 11:25] LABS: Troponin I 0.313 ng/ml
--- NOTE | 2023-12-05 11:58 | W.PN.UPDATE ---
Update Note
Progress Note Update
Patient weaned on CPAP throughout this morning.
Significant coughing, pulling for tube, agitation. Heart rate goes up in the 120s.
When calm down, heart rate improved to 100s
Chest exam with few scattered rhonchi
ABG reviewed. Persistent metabolic acidosis noted
Moving forward
Proceeded to extubation without difficulty.
Patient does have adequate cough but does not need reminding for airway clearance
NG tube remains in place
Chest exam with few rhonchi, no wheezes, good air exchange
Discussed with patient importance of airway clearance
Will have BiPAP to be used as needed and place nightly given metabolic acidemia
Can try ice chips
Follow NG output. Consider discontinuing NG tube depending on GI status
Patient is following commands, shrug shoulders, does not like idea of possible reintubation
and daughter at bedside. Unclear what type of hypoxic damage may have been done to the brain with cardiac arrest.
Also brought up CODE STATUS given patient's refusal of ICD in the past and risk for reintubation, risk for recurrent arrhythmias
Reviewed this at length multiple times with
Encouraged ongoing discussion with patient and family members
Reviewed with critical care nursing, respiratory care, family at bedside
Updated cardiology and primary service
TCCT 37 min
--- NOTE | 2023-12-05 12:00 | PTCARENOTE ---
Received patient from wash and greaser. Patient intubated, sedated, RASS -2. Patient remains on ASV, oxygen saturation is 99%, vent checks as charted in worklist. PAtient is SR on monitor with frequent PVCs, no edema noted, bilatera lower extremiteis
are cool, pulses weak. Patient has NG tube to right nare, low intermittent suction, brown bilious drainage noted. Patient also has FMS in place. Vikas mccartney for critical I&Os. All medication gtts verified during hand off as charted. Will review
orders
--- NOTE | 2023-12-05 12:03 | PTCARENOTE ---
Patient has been successfully extubated, vasopressin is off, levophed down to 12mcg. Patient is conversant with family at bedside. NG tube will remain in place at this time.
[2023-12-05 12:04] LABS: Glucose - Point of Care 212 mg/dl (70-99)
--- NOTE | 2023-12-05 12:06 | W.PN.HOSP.TC ---
Today's Communication/Plan
-
see bold
Assessment / Plan
Assessment / Plan
Gen: NAD, opens eyes to voice, NCAT, well developed/nourished
Eyes: EOMI, PERRLA, no scleral icterus.
Neck: supple.
CV: RRR, +S1/S2, no m/r/g.
Resp: CTAB anteriorly, no rales, wheezes, or rhonchi.
Abd: +BS, soft, NT, ND
Skin: No rashes.
Neuro: CN 2-12 intact, non-focal.
Psych: calm.
12/04/23 06:15 Endotracheal Respiratory Culture - Preliminary
Usual Respiratory Nelda
12/04/23 06:15 Endotracheal Gram Stain - Preliminary
12/04/23 04:56 Blood/Venous Blood Culture - Preliminary
No Growth in 24 hours- Final report to follow
12/04/23 02:53 Blood/Venous Blood Culture - Preliminary
No Growth in 24 hours- Final report to follow
12/04/23 09:05 Nasal Swab Influenza Types A & B (ELLIOT) - Final
Negative for Influenza A & B, NAAT
Negative results must be combined with clinical observations
and patient history.
Nucleic Acid Amplification test (NAAT)performed on the
[employer] ID NOW platform.
CTA chest 12/03/23: No PE. There is a confluent parenchymal opacity within the posterior aspect of both lungs, most likely representing pneumonia. No evidence for associated pleural effusion bilaterally. Significantly dilated and rounded left
ventricle. Suggestion of Rishi B lines within the lateral aspect of both lungs, which could represent changes of acute and/or chronic heart failure. Heterogeneity of the thyroid isthmus and the right lobe of the thyroid, with suggestion of edema
adjacent to the thyroid. If further imaging evaluation of the thyroid is desired, consideration for thyroid ultrasound.�
CXR 12/04/23AM: No focal alveolar airspace disease. No large pleural effusions.
Echo: Severely reduced left ventricular systolic function.Left ventricle is
�moderately dilated. Global severe hypokinesis.
�Left ventricular ejection fraction is 15-20% by Watkins's method.
�Normal right ventricular systolic function.
�Mild-moderate central mitral regurgitation.
�Compared to prior study of 02/09/16 LVEF was 25 to 30% with severe global
�hypokinesis also noted at that time.
Cardiac arrest due to VT:
-1 AED shock in the field (refused ICD in the past for chronic NICM/HFrEF)
-ER noted patient to have gag reflex.� Marketing Sales Supervisor recommended cooling protocol.� ER spoke with office cashier and cardiac catheterization was not recommended.�Pt was cooled for about 40min.
-with NSTEMI and cardiogenic shock (POA)
-h/o NICM with EF 10% nonischemic cardiomyopathy with reduced EF. Echo above with EF 15-20%.
-Transaminitis/shock liver secondary to cardiac arrest
-Anion gap metabolic acidosis secondary to lactic acidosis (lactic acidosis now resolved). Last anion gap was 13.
-was on Levophed/vasopressin/propofol/fentanyl/bicarb infusion, now on Levophed only from this list of meds, wean as tolerated
-was on heparin gtt, now off
-Currently on stress dose steroids
-cont Amio gtt
-cont ASA
-extubated 12/05/23AM
-cath at some point
Other problems:
Leukocytosis: Doubt acute infection (including pneumonia). Pt was on empiric Zosyn, now on Rocephin/Doxy. BCxs NGTD. check Procal.
Hypokalemia, resolved. Note Mg normal.
DM2 with hyperglycemia: a1c 9.5%, cont Lantus/Novolog Q6H, SSI/accuchecks. Diabetes IMPROVEMENT SPECIALIST following.
Patient's updated at bedside.
Prognosis is unfortunately poor.
FULL/Lovenox
Discussed with RN and Dr. Zacarias.
Total critical care time spent = 33 min
Anticipated Discharge: > 48 hours
Subjective/Interval History
-
Date of Service: December 05, 2023
Pt opens eyes to voice. Has been asking for water.
Objective Data
-
Labs:
Laboratory Results
12/05/23 12/05/23 12/05/23
02:46 08:11 10:54
WBC 17.2 H
Hgb 12.6 L
Hct 36.8 L
Plt Count 359 D
HCO3 18.8 L 18.3 L
Sodium 139
Potassium 4.1
Chloride 109 H
Carbon Dioxide 17 L
BUN 26 H
Creatinine 1.0
Glucose 209 H
Calcium 9.0
Total Bilirubin 1.1
AST 75 H
ALT 190 H
Alkaline Phosphatase 205 H
Vital Signs:
Vital Signs
Temp Pulse Resp BP Pulse Ox
98.6 F 85 16 108/69 98
12/05/23 11:18 12/05/23 10:17 12/05/23 10:17 12/05/23 10:00 12/05/23 11:10
I&O
12/04/23 12/05/23 12/06/23
06:59 06:59 06:59
Intake Total 1629.0 / 1629.0 3060.2 / 3258.6 527.1 / 527.1
Output Total 2751 / 2751 2329 / 2349 170 / 170
Balance -1122.0 / -1122.0 731.2 / 909.6 357.1 / 357.1
[2023-12-05] MEDS: NOVOLOG FLEXPEN 3 UNITS SC ×2 (12:08→17:24)
[2023-12-05] MEDS: FLUSH (NSS) 1 FLUSH IV ×2 (12:08→12:09)
[2023-12-05] MEDS: NOVOLOG FLEXPEN-LOW RESISTANCE 2 UNITS SC ×2 (12:08→17:24)
[2023-12-05] MEDS: FLUSH (NSS) 10 FLUSH IV ×2 (12:09→12:10)
[2023-12-05] MEDS: STERILE WATER FOR INJECTION 10 ML IV (12:15)
[2023-12-05] MEDS: ROCEPHIN 1000 MG IV (12:15)
[2023-12-05] MEDS: VIBRAMYCIN 100 MG TUBE (12:16)
[2023-12-05] MEDS: CORDARONE 518 MG IV (13:01)
--- NOTE | 2023-12-05 14:11 | CM ---
CM following re: discharge planning.
Discussed in rounds, reviewed pt's chart, met with pt and pt's family during Rounds meeting. Per Rounds meeting, pt admitted with cardiac arrest due to VT, intubated by EMS and found to be hypotensive. Pt successfully extubated today at 11:15 a.m
to 4L NC with saturation of 94%.
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
PT and OT will evaluate the pt to determine a level of functioning and after care recommendations.
D/C plan: sebastian lovett anticipated no needs. Spouse to transport at discharge.
CM will follow with discharge plan updates as hospitalization progresses
--- NOTE | 2023-12-05 15:37 | PTCARENOTE ---
Patient has been awake, cooperative, speaking with family, bilateral wrist restraints removed. Now plan is to wean off levo gtt. currently at 10mcg. Full bed bath and linen change complete.
[2023-12-05 15:43] LABS: Procalcitonin 3.73 ng/ml (0.0-0.25)
[2023-12-05] MEDS: LOVENOX 40 MG SC (17:23)
[2023-12-05 17:29] LABS: Glucose - Point of Care 201 mg/dl (70-99)
[2023-12-05] MEDS: SUBLIMAZE 25 MCG IV (21:04)
--- NOTE | 2023-12-05 21:18 | PTCARENOTE ---
received pt from tamara RN, family at bedside while assessments completed. patient offers no c/o pain at this time, lungs remain decreased with poor inspiratory effort, coarse in b/l bases. patient has soft whispering voice, and is using his
acapella device as ordered. patient is axox3, with soft whisper like voice but patient able to follow commands, b/l pedal pulses absent, posterior tibial present with Doppler, Left weaker than Right. NG tube intact and clamped, Marroquin patent for
yellow urine. Levo remains at 8 mcg with a map of 66.
family leaving for evening will update with any changes if needed
[2023-12-05 23:31] LABS: Glucose - Point of Care 151 mg/dl (70-99)
[2023-12-06] VITALS (103 sets, daily range): BP systolic 89–161; BP diastolic 52–145; BMI 24.1
[2023-12-06] MEDS: SUBLIMAZE 25 MCG IV (00:01)
[2023-12-06] MEDS: NOVOLOG FLEXPEN 3 UNITS SC ×3 (00:02→17:26)
[2023-12-06] MEDS: NOVOLOG FLEXPEN-LOW RESISTANCE 1 UNITS SC ×2 (00:02→05:58)
[2023-12-06] MEDS: VIBRAMYCIN 100 MG TUBE ×2 (00:10→11:54)
[2023-12-06] MEDS: ZOFRAN 4 MG IV (01:24)
[2023-12-06] MEDS: LEVOPHED 258 MG IV (03:21)
[2023-12-06 04:37] LABS: B.E. 1.5 mmol/L; HCO3 25.9 mmol/L (21-28); O2 Saturation % 99.5 % (94-98); PCO2 39 mmHg (35-48); PO2 131 mmHg (83-108); pH 7.43 (7.35-7.45)
[2023-12-06 04:38] LABS: Hematocrit 34.8 % (39.0-52.0); Hemoglobin 11.8 g/dL (13.0-18.0); Mean Corp Hgb Conc. 33.9 g/dL (33.0-37.0); Mean Corpuscular Hgb 28.4 pg (27.0-31.0); Mean Corpuscular Volume 83.9 fL (80.0-94.0); Mean Platelet Volume 10.8 fL (7.4-10.4); Platelet Count 327 10^3/uL (130-400); Red Blood Cell Count 4.15 10^6/uL (4.70-6.10); Red Cell Dist. Width 15.4 % (11.5-14.5); White Blood Cell Count 15.7 10^3/uL (4.8-10.8)
[2023-12-06 05:28] LABS: ALT (SGPT) 132 U/L (0-50); AST (SGOT) 38 U/L (17-59); Albumin 2.9 g/dl (3.5-5.0); Alkaline Phosphatase 159 U/L (38-126); Blood Urea Nitrogen 34 mg/dl (9-20); Calcium 8.5 mg/dl (8.4-10.2); Carbon Dioxide 23 mmol/L (22-30); Chloride 111 mmol/L (98-107); Direct Bilirubin 0.7 mg/dl (0.0-0.4); Estimated Creatinine Clearance 79 ml/min; Glucose 162 mg/dl (70-99); Potassium 3.7 mmol/L (3.5-5.1); Sodium 140 mmol/L (135-145); Total Bilirubin 0.7 mg/dl (0.2-1.3); Total Protein 5.3 g/dl (6.3-8.2); eGFR > 60.00
[2023-12-06 06:19] LABS: Glucose - Point of Care 155 mg/dl (70-99)
[2023-12-06] MEDS: PROTONIX IV 40 MG IV (07:46)
[2023-12-06] MEDS: LOW STRENGTH ASPIRIN 81 MG TUBE (07:47)
[2023-12-06] MEDS: NSS (PRESERVATIVE FREE) 10 ML IV (07:47)
[2023-12-06] MEDS: LANTUS 0.149999999999999994 UNITS SC (07:47)
[2023-12-06 07:59] LABS: Glucose - Point of Care 160 mg/dl (70-99)
--- NOTE | 2023-12-06 07:59 | PN.DE.MGMTRT ---
Insulin Management
- -
12/04/2023 Diabetes Management Consult
Patient admitted s/p cardiac arrest, currently on ventilator. PMH includes type 2 diabetes, cardiomyopathy. Prior to admission was taking Farxiga 10 mg daily, Rybelsus 3 mg daily metformin 500 mg BID.. reports he really was not that good
with his diabetes,did not check blood sugar. He does see Dr. Bravo, endocrine, and is due for a follow up soon. A1C on admission 9.5%, cr .8, egfr >60.
Glucose has been > 200 on corrective insulin only. Will start Lantus 15 units now and daily and continue corrective insulin Q 6 hours. Spoke with Radioisotope Technologist, if patient is not extubated by end of day and glucose is not improved will start
glycemic protocol.
12/05/2023 Diabetes Management Follow up
Patient remains intubated. Received Lantus 15 units in AM started yesterday with corrective insulin. Glucose remained stable overnight requiring 1 to 3 units corrective insulin Q 6 hours. Will continue Lantus 15 units in AM and add NovoLog 3
units Q 6 hours. Will change moderate corrective to low.
12/06/2023: Diabetes Management F/U:
Pt was extubated yesterday but remains NPO with ice chips, awaiting speech eval.
Was started on NovoLog 3 units Q6 hrs due to persistent Hyperglycemia. Glucose has improved, FBG 162 this AM.
Will make no changes to current regimen: Lantus 15 units in AM and NovoLog 3 units Q6H with low corrective Q6 hrs
Will closely follow and make necessary changes from Q6 hrs insulin to his OP regimen in addition to the Lantus once cleared for a diet.
Diabetes History
- -
Type of Diabetes: 2 requiring insulin
Pre-Admission Diabetes Regimen
12/06/23
04:28
Creatinine 0.9
Lab Results
Hemoglobin A1c 9.5 % (4.0-5.6) H 12/04/23 04:14
Insulin Pump Settings
IP Diabetes Regimen
12/05/23 12/05/23 12/05/23
11:54 17:18 23:20
Glucose
POC Glucose 212 H 201 H 151 H
12/06/23 12/06/23
04:28 05:58
Glucose 162 H
POC Glucose 155 H
Meal type: Breakfast
Patient Education
--- NOTE | 2023-12-06 08:40 | W.PN.CD ---
Today's Communication / Plan
-
mental status improving
cath today
transition amiodarone to oral after cath if patient able to take PO
Patietn will be seen by EP over weekend and appropriate timing of ICD can be assessed.
Impression / Plan
-
73 yrs old man with non-ischemic cardiomyopathy, LVEF 10% with recent COVID had vague headaches and developed cardiac arrest at home - possible PEA and got CPR from and was noted to have pulse at the arrival of paramedics and developed
shockable rhythm s/p shock (refused ICD in the past) and is intubated in the field.
Cardiac arrest
-
- Witnessed arrest. initiated CPR review of records from loom cleaner suggest patient had a EGD shockable rhythm and 1 shock provided. Patient brought to ER with pulse and ultimately was intubated in ER. Has remained on pressors.
-Known history of nonischemic cardiomyopathy with no recent assessment of CAD ejection fraction on echo this admission 15-20%Unclear etiology - Leukocytosis with lymphocytosis and recent COVID
-Peak troponin 0.5.
-Extubated 12/05/23
-More awake and interactive - oreinted to DH
-weaning pressors now down to Levo - 4
- Plan for cath today reviewed procedure and risks with patietn and with . Both in agreement.
- ICD - declined in past. Await cath and EP to assess appropriate timing. Hopefully patien will now be agreeable.
VT. -in the setting of severely reduced left ventricular function note suggest patient had 1 shock by AED in the field yesterday while in ICU a self-limited run of VT was reported and patient now on IV amiodarone. Due to some technical issues there
is not a printed strip of the rhythm above..
-Continue IV amiodarone
Hypotension Wean pressors as tolerated would favor weaning vasopressin first.
VDRF
- extubated 12/05/23. Rest status stable
HFrEF
-LVEF 10% at baseline
-refused ICD in the past.
-GDMT limited by hypotension
-Eventual catheter reassess for coronary artery disease
mental status - improving . More awake and interactive - oriented to DH
Physical Exam
Vital Signs/Labs
Vital Signs
Temp Pulse Resp BP Pulse Ox
98.6 F 96 17 106/73 95
12/06/23 00:19 12/06/23 08:00 12/06/23 08:00 12/06/23 08:00 12/06/23 08:00
12/05/23 12/06/23 12/07/23
06:59 06:59 06:59
Actual Weight 77.8 kg 78.2 kg
12/06/23 04:28
12/06/23 04:28
PT 15.7 Sec (11.4-14.6) H 12/03/23 18:53
INR 1.27 12/03/23 18:53
APTT 81.4 Sec (23.4-35.0) H 12/04/23 10:44
Magnesium 2.2 mg/dl (1.6-2.3) 12/04/23 17:15
Triglycerides 348 mg/dl (10-149) H 12/04/23 01:15
12/04/23
04:14
Zry-N-Prpmtspwyhk Pept 4590
LAB Results
12/03/23 12/04/23 12/04/23
18:52 01:15 04:14
Troponin I < 0.012 0.181 H* D 0.295 H* D
12/04/23 12/05/23
10:44 10:54
Troponin I 0.569 H* D 0.313 H*
Physical Exam
Constitutional: No acute distress
Cardiovascular: Rhythm & rate is regular
Respiratory: Respiratory effort normal
GI: Soft
Neuro/Psych: Alert and Other (tired but oriented to DH)
Data Reviewed
-
Date of Service: December 06, 2023
Medical Decision Making: Reviewed Test Results
Medical Tests (PFT, Pathology etc): Report Reviewed by me
Labs: Labs Reviewed by me
--- NOTE | 2023-12-06 09:28 | PTCARENOTE ---
Pt oriented x3, drowsy but easily aroused.
Sinus rhythm with first degree and BBB.
A-line no longer reading BP therefore d/c'd
Received on 4L NC. Attempted to wean off. 89% on room air. Now 94% on 2L.
Bibasilar crackles noted posteriorly
NGT clamped. Speech consult ordered but on hold d/t plan for cath today.
Marroquin draining clear yellow.
Remains on Amio gtt. Levophed weaned to 4mcg/min
CHG, cath care, and mouth care complete.
--- NOTE | 2023-12-06 11:01 | W.PN.HOSP.TC ---
Addendum entered and electronically signed by Byron Rossi MD 12/06/23 13:07:
Acute hypoxemic respiratory failure
Original Note:
Today's Communication/Plan
-
see bold
Assessment / Plan
Assessment / Plan
Gen: NAD, awake and alert, NCAT, well developed/nourished
Eyes: EOMI, PERRLA, no scleral icterus.
Neck: supple.
CV: remains RRR, +S1/S2, no m/r/g.
Resp: remains CTAB anteriorly, no rales, wheezes, or rhonchi.
Abd: +BS, soft, NT, ND
Skin: No rashes.
Neuro: CN 2-12 intact, non-focal.
Psych: calm.
12/04/23 06:15 Endotracheal Respiratory Culture - Preliminary
Usual Respiratory Nelda
12/04/23 06:15 Endotracheal Gram Stain - Preliminary
12/04/23 04:56 Blood/Venous Blood Culture - Preliminary
No Growth in 24 hours- Final report to follow
12/04/23 02:53 Blood/Venous Blood Culture - Preliminary
No Growth in 24 hours- Final report to follow
12/04/23 09:05 Nasal Swab Influenza Types A & B (ELLIOT) - Final
Negative for Influenza A & B, NAAT
Negative results must be combined with clinical observations
and patient history.
Nucleic Acid Amplification test (NAAT)performed on the
[employer] ID NOW platform.
CTA chest 12/03/23: No PE. There is a confluent parenchymal opacity within the posterior aspect of both lungs, most likely representing pneumonia. No evidence for associated pleural effusion bilaterally. Significantly dilated and rounded left
ventricle. Suggestion of Rishi B lines within the lateral aspect of both lungs, which could represent changes of acute and/or chronic heart failure. Heterogeneity of the thyroid isthmus and the right lobe of the thyroid, with suggestion of edema
adjacent to the thyroid. If further imaging evaluation of the thyroid is desired, consideration for thyroid ultrasound.�
CXR 12/04/23AM: No focal alveolar airspace disease. No large pleural effusions.
Echo: Severely reduced left ventricular systolic function.Left ventricle is
�moderately dilated. Global severe hypokinesis.
�Left ventricular ejection fraction is 15-20% by Watkins's method.
�Normal right ventricular systolic function.
�Mild-moderate central mitral regurgitation.
�Compared to prior study of 02/09/16 LVEF was 25 to 30% with severe global
�hypokinesis also noted at that time.
Cardiac arrest due to VT:
-1 AED shock in the field (refused ICD in the past for chronic NICM/HFrEF)
-ER noted patient to have gag reflex.� Recreation Aide recommended cooling protocol.� ER spoke with director summer sessions and cardiac catheterization was not recommended.�Pt was cooled for about 40min.
-with NSTEMI and cardiogenic shock (POA)
-h/o NICM with EF 10% nonischemic cardiomyopathy with reduced EF. Echo above with EF 15-20%.
-Transaminitis/shock liver secondary to cardiac arrest
-Anion gap metabolic acidosis secondary to lactic acidosis (lactic acidosis now resolved). Last anion gap was 13.
-was on Levophed/vasopressin/propofol/fentanyl/bicarb infusion, now on Levophed only from this list of meds, wean as tolerated
-was on heparin gtt, now off
-Currently on stress dose steroids
-cont Amio gtt
-cont ASA
-extubated 12/05/23AM
-cath today
Other problems:
Leukocytosis: with elevated procal, bacterial pneumonia is a possibiligy. Pt was on empiric Zosyn, cont on Rocephin/Doxy. BCxs NGTD.
Hypokalemia, resolved. Note Mg normal.
DM2 with hyperglycemia: a1c 9.5%, cont Lantus/Novolog Q6H, SSI/accuchecks. Diabetes HELPER MARBLE FINISHER following.
Patient's updated at bedside.
Prognosis is unfortunately poor.
FULL/Lovenox
Anticipated Discharge: > 48 hours
Subjective/Interval History
-
Date of Service: December 06, 2023
Objective Data
-
Labs:
Laboratory Results
12/06/23
04:28
WBC 15.7 H
Hgb 11.8 L
Hct 34.8 L
Plt Count 327
HCO3 25.9
Sodium 140
Potassium 3.7
Chloride 111 H
Carbon Dioxide 23
BUN 34 H
Creatinine 0.9
Glucose 162 H
Calcium 8.5
Total Bilirubin 0.7
AST 38
ALT 132 H
Alkaline Phosphatase 159 H
Vital Signs:
Vital Signs
Temp Pulse Resp BP Pulse Ox
98.6 F 89 12 97/66 96
12/06/23 00:19 12/06/23 10:23 12/06/23 10:23 12/06/23 10:23 12/06/23 10:23
I&O
12/05/23 12/06/23 12/07/23
06:59 06:59 06:59
Intake Total 3060.2 / 3258.6 1912.0 / 1983.7 337.4 / 337.4
Output Total 2329 / 2349 1160 / 1160 130 / 130
Balance 731.2 / 909.6 752.0 / 823.7 207.4 / 207.4
[2023-12-06] MEDS: LR 1000 IV (11:44)
[2023-12-06] MEDS: ROCEPHIN 1000 MG IV (11:46)
[2023-12-06] MEDS: STERILE WATER FOR INJECTION 10 ML IV (11:46)
[2023-12-06] MEDS: NOVOLOG FLEXPEN-LOW RESISTANCE SC ×3 (11:47→23:38)
[2023-12-06] MEDS: FLUSH (NSS) 10 FLUSH IV (11:47)
[2023-12-06] MEDS: NOVOLOG FLEXPEN SC (11:48)
[2023-12-06] MEDS: FLUSH (NSS) 1 FLUSH IV (11:52)
[2023-12-06 11:56] LABS: Glucose - Point of Care 135 mg/dl (70-99)
--- NOTE | 2023-12-06 12:06 | PN.CDI ---
CDI
- -
CDI:
Physician Documentation Request
Admit Date: 12/03/23 20:54
Dear Doctor Flo,
Patient admitted following cardiac arrest.
12/03 Cardiology Consult: 'presenting for acute onset of feeling like he was in a pass out with sudden difficulty breathing/snoring and change in color was noticed by ...Medic arrival had a pulse.� However unresponsive with very shallow
respirations.'
12/04 Railroad Construction Director Consult: 'VDRF, LMA in the field, Intubated in ED'
12/04 PCN: '16/450/40+5. Lung sounds coarse throughout. Thick, sánchez/brown secretions.'
Selected Entries
12/03/23
20:18 12/03/23
20:48
% Oxygen delivered 100 100
Clarify which of the following accurately represents the diagnosis associated with intubation:
Acute respiratory failure, POA, resolved (specify hypoxic, hypercapnic, ect.)
Airway protection
Other
Unable to determine
Additional information for Respiratory Failure:
Recognized criteria for Respiratory Failure (Source: [facility] Hospitalist Aug 2013)
ABGs: (1 or more) Symptoms Please indicate type if known
1. p)2 <60 or RA SPO2 <91% on RA 1. Tachypnea, SOB, dyspnea Hypoxic
2. pCO2 50 and pH <7.35 2. Use of accessory muscles Hypercapnic
3. pO2 decrease of pCO2 increase by 3. Pallor or cyanosis Hypoxic and Hypercapnic
10 mmHg from baseline if known 4. Anxiety or restlessness Unable to determine
5. Unable to speak in full sentences
Supplemental O2 of > 40% (5LPM) Intubation is not required
Use of terms such as suspected, likely, concern for, or probable (associated with a specific diagnosis that is being evaluated, monitored, or treated as if it exists) are acceptable and can be coded in the inpatient setting, when documented at the
time of discharge.
Thank you,
Liane Walden RN, BSN
CDI Specialist
Available via [employer] text
Please use your independent medical judgment in providing your response.
--- NOTE | 2023-12-06 12:12 | PTCARENOTE ---
All assessments unchanged. Pt transferred to feed mill lab technician.
[2023-12-06 13:46] LABS: ACT-LR - POC 266 Seconds (116-155)
--- NOTE | 2023-12-06 14:05 | ITS.CL.ANGIO ---
Plate Painter Apprentice - Angioplasty
Angioplasty
Procedure Report:
CARDIAC CATHETERIZATION REPORT
Date of Procedure: 12/06/2023
Referring: Yamil Bryant M.D.
Indication: [id number] cardiac arrest, cardiogenic shock.
PROCEDURE:
1. Right heart catheterization.
2. Left heart catheterization.
3. Coronary angiography.
4. Successful PCI of a 90% distal AV groove circumflex lesion.
5. Successful PCI of a 90% mid AV groove circumflex into the primary obtuse marginal.
ACCESS:
6 Swedish right radial artery.
5 Swedish left antecubital vein using modified Seldinger technique under ultrasound guidance.
CATHETERS:
1. 5 Swedish balloon wedge.
2. 5 Swedish JL 3.5.
3. 5 Swedish JR4.
4. 6 Swedish EBU 3.5 guiding catheter
HEMODYNAMIC DATA
Weight (kg): 78.0
AO (s/d/x mmHg): 89/64/74
LV (s/x mmHg): 90/24
PCWP (a/v/x mmHg): 36/42/32
PA (s/d/x mmHg): 60/35/43
RV (s/x mmHg): 60/15
RA (a/v/x mmHg): 17/18/15
SVC SvO2 (%): 63.6
PA SvO2 (%): 53.0
SaO2 (%): 91.0
Hbg (g/dL): 11.8
CO (L/min): 3.98
CI (L/min/m2): 2.02
TPG (mmHg): 11
PVR (Garcia Units): 2.76
SVR (dynes*seconds*cm^-5): 1186
AVO2 Diff (Volume %): 6.10
AV gradient (x, mmHg): None.
AV area (cm2): Normal.
LEFT VENTRICULOGRAPHY: Not performed.
CORONARY ANGIOGRAPHY
Dominance: Right.
Left Main: Normal size, bifurcating vessel. There is some minor plaquing at the distal aspect.
LAD: Normal size vessel giving rise to 2 diagonals. There is diffuse, moderate disease without discrete stenosis in the entire mid vessel.
Ramus: Congenitally absent.
Circumflex: Normal size, nondominant vessel giving rise to 2 obtuse marginals. OM1 is a small, sub-1 mm vessel. OM 2 is a significant vessel supplying much of the lateral wall. There is a 90% lesion in the mid circumflex, right at the origin of
the second obtuse marginal. There is a 90% lesion in the AV groove circumflex, distal to the OM2 ostium. There is EVAN II flow in the distal circumflex/OM 2 vessels.
RCA: Normal size, dominant vessel that appears chronically totally occluded in its mid section. The distal RCA supplied by collaterals from the left system.
INTERVENTIONS
1. Successful PCI of the 90% distal AV groove circumflex lesion (Medtronic [place] 2.0 x 15 VICKY) with reduction in stenosis to 0%, maintaining EVAN-3 flow.
2. Successful PCI of the 90% mid AV groove circumflex into the dominant marginal (Medtronic [place] 2.25 x 18 VICKY) with reduction in stenosis to 0%, restoring EVAN-3 flow.
Narrative:
I had a thoughtful and thorough discussion with Dr. Bryant regarding the appropriateness of PCI in this context, specifically the low level of troponin, his rapid atrial fibrillation and relatively low blood pressure. Ultimately, the decision was
made to proceed with percutaneous coronary intervention. The diagnostic catheter was removed over a wire and a 6Fr EBU 3.5 guiding catheter was advanced to the aortic root and seated in the left main coronary artery. Additional heparin was given and
a Power Turn Flex wire was advanced into the second obtuse marginal. The 90% mid circumflex lesion was predilated with a 2.0 x 12 semi-compliant balloon to 12 lisa. On repeat angiography, it became clear that the AV groove circumflex lesion was more
severe and the vessel somewhat larger than originally appreciated. The power turn flex wire was pulled back to the bifurcation and redirected into the AV groove circumflex. The 90% circumflex lesion was dilated with a 2.0 x 12 semicompliant
balloon. The semi-compliant balloon was removed and a Medtronic [place] 2.0 x 15 drug-eluting stent was advanced into the distal circumflex, beyond the origin of the second obtuse marginal. The stent was deployed at 12 atmospheres. The stent
balloon was removed. The power turn flex wire was then pulled back into the circumflex and redirected into the obtuse marginal. A Medtronic [place] 2.25 x 18 drug-eluting stent was advanced. Meticulous care was taken while positioning the
stent, ensuring that the entire lesion was covered, jailing the AV groove circumflex but preserving flow into the larger vessel. The stent was deployed at 12 lisa. Angiography was performed in orthogonal views, confirming good stent expansion and
an excellent angiographic result with preservation of flow in both the obtuse marginal as well as the AV groove circumflex. Nitroglycerin 100 mcg was given intracoronary with improved size of the AV groove circumflex. The coronary wire was
withdrawn and the guide was disengaged from the artery. The catheter was removed over a standard J-wire.
Closure Device: Vascular band for the right radial artery, manual pressure for the left antecubital vein.
Radiation dose (mGy): 659.93
DAP (cm2.Gy): 44.2559
Fluoroscopy time (minutes): 9.4
Sedation time (minutes): 0
CONCLUSIONS:
1. 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
and a 90% mid circumflex lesion leading into the second OM, status post successful PCI (Medtronic [place] 2.25 x 18 VICKY) with reduction in all stenoses to 0%, jailing the origin of the distal circumflex but restoring EVAN-3 flow throughout the
entire circumflex system.
2. Severely elevated filling pressures (LVEDP = 24 mmHg, PCWP = 32 mmHg at 78.0 kg) with depressed cardiac index on vasopressor/inotrope (CI = 2.02 L/min/m� on norepinephrine 3 mcg/kg/min) consistent with cardiogenic shock.
3. Atrial fibrillation with rapid ventricular response.
4. At least moderate pulmonary hypertension, WHO group 2.
RECOMMENDATIONS:
1. Expectant management after cardiac catheterization via right radial and left antecubital approach.
2. Limited weight bearing on the right wrist for one week.
3. Antithrombotic therapy with clopidogrel and therapeutic anticoagulation for at least 12 months.
4. Consider DC cardioversion for atrial fibrillation with poor hemodynamics.
5. The patient may require mechanical circulatory support.
Copy to: Yamil Bryant M.D., Aquiles Card D.Aster.
Checo Drew DO, FACC, FACP
--- NOTE | 2023-12-06 14:35 | CM ---
CM following re: discharge planning.
Discussed in rounds, reviewed pt's chart, met with pt . Pt's spouse participated in Rounds meeting. Per Rounds meeting, pt admitted with cardiac arrest due to VT, intubated by EMS and found to be hypotensive. Pt successfully extubated yesterday at
11:15 a.m to 4L NC with saturation of 94%. Currently requires 4L NC, remains NPO.
Pt lives with spouse 2SH, 2 steps to enter and pt is independent in all areas COPPER PLATER.
PT and OT will evaluate the pt to determine a level of functioning and after care recommendations.
D/C plan: uncertain at this time and will depend on pt's progress
CM will follow with discharge plan updates as hospitalization progresses
--- NOTE | 2023-12-06 15:10 | PTOTSP ---
Speech Language Pathology
Pt seen for clinical bedside swallow evaluation completed. Pt drowsy but responding to HYDRO PLANT TECHNICIAN. Large bore NGT in place to suction. P.O. trials of ice chips and thin water via straw (x1) provided. Adequate oral phase with extremely limited
consistencies trialed. Immediate wet cough with each trial. Further trials deferred. Pt is at increased risk for aspiration given hoarse vocal quality and recent intubation.
Recommend:
(1) NPO
(2) Oral care 4x/day with suctioning as needed
(3) Allow ice chips post oral care given supervision per Aspiration Risk Hydration Protocol (ARHP)
(4) HYDRO PLANT TECHNICIAN to continue to follow
--- NOTE | 2023-12-06 15:38 | PTCARENOTE ---
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 New afib. Per labor gang supervisor RN, pt arrived to labor gang supervisor afib 130s. Pt was sinus rhythm in 90s on departure. EKG done. Cardiology notified. Amio gtt continues. Levophed increased from 3 to 8mcg/min while in labor gang supervisor. Right
TR band intact. Left brachial access d/c'd with manual pressure per labor gang supervisor. Palpable left radial and brachial pulses. Good cap refill bilaterally. Trace edema RUE, +1 LUE.
Pt reported chest pain on arrival to unit but when further investigated stated, 'no, it's my stomach'. Pt reports nausea. NGT hooked back up to suction on arrival to unit. No output at this time.
97% on 3L NC.
clear yellow urine via jones.
Doppler pedal pulses.
all other assessments unchanged.
--- NOTE | 2023-12-06 15:50 | W.PN.INTV ---
Addendum entered and electronically signed by Lori Zacarias MD 12/06/23 16:46:
Patient seen and examined independently by myself.
Agree with plan below. Please review my note as well.
Original Note:
Today's Communication / Plan
Recommendations
Dual antiplatelet therapy
Continue amioderone for arrhythmia
Monitor BMP
Wean off pressors as tolerated
Okay to remove jones when weaned off levo
Continue broad spectrum abx
Assessment
-
73-year-old male with history of nonischemic cardiomyopathy EF 10%, recent COVID infection requiring steroids October 2023, diabetes, presents with cardiac arrest, CPR/shock x 1, intubation. Patient unresponsive in the ED, negative CT chest,
negative head CT. TTM protocol initiated and patient admitted to ICU
S/p Cardiac arrest
Arrhythmia versus PEA
CPR/shock x 1 in the field
VDRF, LMA in the field
Intubated in ED
Hypotension, requiring pressors
Etiology unknown (cardiac, sepsis, metabolic)
Leukocytosis
Metabolic acidemia, elevated lactate
Hyperglycemia
Recent Covid 10/18/2023
Conditions present prior to admission
Diabetes, poorly controlled
NICM, EF 10%
Follows cardiology ([facility])
Refused ICD 2016 ([place])
Hypertension/hyperlipidemia
20 pound weight loss
On Rybelsus
Follows endocrine ([facility])
Distant tobacco history, quit
Plan/recommendations
Metabolic acidosis currently resolved
Echocardiogram few weeks ago, EF 10%, presently 25%
Presentation suggest cardiac arrhythmia, PEA. Cannot rule out pulmonary cause/respiratory cause although denies any significant respiratory symptoms
Of note, patient was more short of breath 3 to 4 weeks ago post COVID, completed course of steroid therapy with improvement
Moving forward
We will pursue SBT today
Discontinue bicarbonate drip, transition to LR
Hopefully can extubate later today
Metabolic acidemia noted. Wean as able
Chest x-ray without acute findings
Airway pressures adequate
Continue antibiotics for possible commune acquired pneumonia based on CT imaging
Antibiotics will be changed from Zosyn to ceftriaxone/doxycycline
Cardiology following, cardiac cathterization done to explore ischemic cause on 12/06. Report as follows:
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
and a 90% mid circumflex lesion leading into the second OM, status post successful PCI (Medtronic [place] 2.25 x 18 VICKY) with reduction in all stenoses to 0%, jailing the origin of the distal circumflex but restoring EVAN-3 flow throughout the
entire circumflex system.
2.� Severely elevated filling pressures (LVEDP = 24 mmHg, PCWP = 32 mmHg at 78.0 kg) with depressed cardiac index on vasopressor/inotrope (CI = 2.02 L/min/m� on norepinephrine 3 mcg/kg/min) consistent with cardiogenic shock.
3.� Atrial fibrillation with rapid ventricular response.
4.� At least moderate pulmonary hypertension, WHO group 2.
EKG 12/06 showed afib with RVR
Dual antiplatelet therapy with Aspirin + clopidogrel
Patient apparently refused ICD around 2015 at which time it was recommended
Daily EKG, follow electrolytes, QT
Remains on amiodarone
Sputum culture, blood cultures. UA unremarkable
Influenza, COVID-negative
Urine output adequate, creatinine stable
If hypotension persists, we do have some room with boluses, following oxygenation carefully
Maintain potassium greater than 4, magnesium greater than 2
Patient with nausea/emesis. Possible ileus. Abdominal film nonobstructive with gaseous distention of the stomach. Maintain NG tube for now.
PPI therapy
Dopplers negative for DVT
CT chest negative for PE
Continue mechanical and pharmacological prophylaxis for DVT
Depending on clinical course throughout the day, may require nutrition
Head of bed elevated, aspiration precautions
Subjective Dataa
Subjective Data
Date of Service:
Date of Service: December 06, 2023
Subjective:
Pt with improved mental status. Appropriate responses to questions
Review of Systems
Cardiopulmonary: Sputum Production and Chest Pain
GI: Abdominal Pain and Nausea
Genitourinary: Jones
Objective Data
Data Reviewed
Vital Signs / I&O / Oxygen:
Vital Signs
Temp Pulse Resp BP Pulse Ox
98 F 133 20 109/99 94
12/06/23 14:56 12/06/23 14:30 12/06/23 14:30 12/06/23 14:30 12/06/23 14:30
Intake and Output
12/05/23 12/06/23 12/07/23
06:59 06:59 06:59
Intake Total 3060.2 / 3258.6 1912.0 / 1983.7 459.5 / 459.5
Output Total 2329 / 2349 1160 / 1160 160 / 160
Balance 731.2 / 909.6 752.0 / 823.7 299.5 / 299.5
SaO2 [ASV] 99
SaO2 [CPAP/PSV] 99
SaO2 [A/C] 99
SaO2 94
Nasal Cannula flow liters per 2
minute
Physical Exam
General: Comfortable and Other (Right IJ, upper extremity a-line)
HEENT: Normocephalic, Anicteric and Other (nasogastric tube)
Cardiovascular: S1-S2, Regular Rhythm (tachycardic), Murmur (n), Rub (n), Peripheral Edema (tr) and Cool Extremities
Respiratory: Clear, Wheeze (n), Crackles (n), Rhonchi (n) and Non-Labored Respirations
GI: Soft, Non Distended and Non Tender
Neurology: Awake, Alert, Oriented and Other (fatigued)
Skin: Warm, Dry, Cyanosis (n), Jaundice (n) and Rash (n)
Labs/Micro/Reports
Lab Data
12/06/23 04:28
12/06/23 04:28
Laboratory Results
12/06/23
04:28
pH 7.43
pCO2 39
pO2 131 H
HCO3 25.9
O2 Delivery Level Not Reportable
Microbiology
12/04/23 06:15 Endotracheal Respiratory Culture - Final
Dari albicans
12/04/23 06:15 Endotracheal Gram Stain - Final
12/04/23 04:56 Blood/Venous Blood Culture - Preliminary
No Growth in 48 hours- Final report to follow
12/04/23 02:53 Blood/Venous Blood Culture - Preliminary
No Growth in 48 hours- Final report to follow
12/04/23 09:05 Nasal Swab Influenza Types A & B (ELLIOT) - Final
Negative for Influenza A & B, NAAT
Negative results must be combined with clinical observations
and patient history.
Nucleic Acid Amplification test (NAAT)performed on the
[employer] platform.
[2023-12-06] MEDS: CORDARONE 103 MG IV ×2 (16:13→21:33)
--- NOTE | 2023-12-06 16:29 | W.PN.INTV ---
Today's Communication / Plan
Recommendations
Status post catheterizations, results reviewed
Antiplatelet therapy continues
Maintain n.p.o., failed speech and swallow eval. NG tube in place
Anticoagulation per cardiology status post cardioversion
Continue amiodarone
Remains high risk situation
Assessment
-
73-year-old male with history of nonischemic cardiomyopathy EF 10%, recent COVID infection requiring steroids October 2023, diabetes, presents with cardiac arrest, CPR/shock x 1, intubation. Patient unresponsive in the ED, negative CT chest,
negative head CT. TTM protocol initiated and patient admitted to ICU
S/p Cardiac arrest
Arrhythmia versus PEA
CPR/shock x 1 in the field
VDRF, LMA in the field
Intubated in ED
Hypotension, requiring pressors
Etiology unknown (cardiac, sepsis, metabolic)
S/p RHC/LHC 12/06/2023
PCWP 32, mPAP 43, cardiac index 2.02.
PCI 90% distal circumflex lesion, PCI 90% mid circumflex
Atrial fibrillation with rapid ventricular response
Leukocytosis
Metabolic acidemia, elevated lactate
Hyperglycemia
Recent Covid 10/18/2023
Conditions present prior to admission
Diabetes, poorly controlled
NICM, EF 10%
Follows cardiology ([facility])
Refused ICD 2016 ([place])
Hypertension/hyperlipidemia
20 pound weight loss
On Rybelsus
Follows endocrine ([facility])
Distant tobacco history, quit
Plan/recommendations
At this time, patient remains critically ill
Reviewed catheterization results, PCI x 2 circumflex
Significant elevated filling pressures noted
Patient with atrial fibrillation, rapid ventricular response, heart rate 120s to 150s
Moving forward
Given ischemic cardiomyopathy, ongoing intermittent shortness of breath, chest pain, nausea, plan for DC cardioversion
Amiodarone therapy has been going since last 36 hours
Cardiology at the bedside. Anesthesia at the bedside.
Dipper Van, etomidate given, 300 J DC cardioversion completed with conversion to sinus rhythm. Blood pressure systolic 90s post cardioversion. Precardioversion systolic pressure 110s
Patient metabolic acidosis has resolved
Would prefer BiPAP at night. We will order BiPAP at night 10/5 with 2 L
Continue amiodarone per cardiology
Echocardiogram few weeks ago, EF 10%, presently 25%
Given cardiac catheterization findings, likely arrhythmia/PEA
Dual antiplatelet therapy with Aspirin + clopidogrel
Patient apparently refused ICD around 2015 at which time it was recommended
Daily EKG, follow electrolytes, QT
Continue antibiotics for possible commune acquired pneumonia based on CT imaging
Antibiotics will be changed from Zosyn to ceftriaxone/doxycycline, will discontinue doxycycline
Sputum culture, blood cultures. UA unremarkable
Influenza, COVID-negative
Urine output adequate, creatinine stable
If hypotension persists, we do have some room with boluses, following oxygenation carefully
Maintain potassium greater than 4, magnesium greater than 2
Will discontinue norepinephrine and continue vasopressin, minimize inotropic/chronotropic stimulus
Patient with nausea/emesis. Possible ileus. Abdominal film on nonobstructive with gaseous distention of the stomach. Maintain NG tube for now.
PPI therapy
Suspect nausea may be related to tachycardia, ischemia. Follow
Dopplers negative for DVT
CT chest negative for PE
Continue mechanical and pharmacological prophylaxis for DVT
Will likely require initiation of anticoagulation. Will defer to cardiology.
Depending on clinical course throughout the day, may require nutrition
Head of bed elevated, aspiration precautions
The above reviewed at length with critical care nursing, respiratory care, pharmacy, cardiology, primary service throughout the day
TCCT 85 min
DATA
Cardiology following, cardiac cathterization done to explore ischemic cause on 12/06. Report as follows:
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
and a 90% mid circumflex lesion leading into the second OM, status post successful PCI (Medtronic [place] 2.25 x 18 VICKY) with reduction in all stenoses to 0%, jailing the origin of the distal circumflex but restoring EVAN-3 flow throughout the
entire circumflex system.
2.� Severely elevated filling pressures (LVEDP = 24 mmHg, PCWP = 32 mmHg at 78.0 kg) with depressed cardiac index on vasopressor/inotrope (CI = 2.02 L/min/m� on norepinephrine 3 mcg/kg/min) consistent with cardiogenic shock.
3.� Atrial fibrillation with rapid ventricular response.
4.� At least moderate pulmonary hypertension, WHO group 2.
Subjective Dataa
Subjective Data
Date of Service:
Date of Service: December 06, 2023
Subjective:
Patient remains critically ill. Complaining of nausea, shortness of breath, chest pain intermittently throughout the day. NG tube in place. Norepinephrine was weaned down to 4 mcg. Catheterization completed. Patient now on atrial fibrillation
with rapid ventricular response
Objective Data
Data Reviewed
Vital Signs / I&O / Oxygen:
Vital Signs
Temp Pulse Resp BP Pulse Ox
98 F 133 20 109/99 94
12/06/23 14:56 12/06/23 14:30 12/06/23 14:30 12/06/23 14:30 12/06/23 14:30
Intake and Output
12/05/23 12/06/23 12/07/23
06:59 06:59 06:59
Intake Total 3060.2 / 3258.6 1912.0 / 1983.7 667.1 / 667.1
Output Total 2329 / 2349 1160 / 1160 370 / 370
Balance 731.2 / 909.6 752.0 / 823.7 297.1 / 297.1
SaO2 [ASV] 99
SaO2 [CPAP/PSV] 99
SaO2 [A/C] 99
SaO2 94
Nasal Cannula flow liters per 2
minute
Physical Exam
General: Comfortable and Other (Right upper extremity PICC line)
HEENT: Normocephalic, Anicteric and Other (nasogastric tube)
Cardiovascular: S1-S2, Irregular Rhythm, Murmur (n), Rub (n), Peripheral Edema (tr) and Cool Extremities
Respiratory: Clear, Wheeze (n), Crackles (n), Rhonchi (n) and Non-Labored Respirations
GI: Soft, Non Distended and Non Tender
Neurology: Awake, Alert and Other (fatigued)
Skin: Warm, Dry, Cyanosis (n), Jaundice (n) and Rash (n)
Labs/Micro/Reports
Lab Data
12/06/23 04:28
12/06/23 04:28
Laboratory Results
12/06/23
04:28
pH 7.43
pCO2 39
pO2 131 H
HCO3 25.9
O2 Delivery Level Not Reportable
Microbiology
12/04/23 06:15 Endotracheal Respiratory Culture - Final
Dari albicans
12/04/23 06:15 Endotracheal Gram Stain - Final
12/04/23 04:56 Blood/Venous Blood Culture - Preliminary
No Growth in 48 hours- Final report to follow
12/04/23 02:53 Blood/Venous Blood Culture - Preliminary
No Growth in 48 hours- Final report to follow
12/04/23 09:05 Nasal Swab Influenza Types A & B (ELLIOT) - Final
Negative for Influenza A & B, NAAT
Negative results must be combined with clinical observations
and patient history.
Nucleic Acid Amplification test (NAAT)performed on the
[employer] platform.
--- NOTE | 2023-12-06 16:36 | PTCARENOTE ---
Cardioverted 300J at 1622 with anaesthesia, Dr Shepherd and Dr Zacarias at bedside. Converted from Afib 120-150s to NSR HR 85. Levophed off. BP 103/60
--- NOTE | 2023-12-06 16:40 | W.PN.UPDATE ---
Update Note
Progress Note Update
Called to see patient for AF with RVR. Patient does not feel it. Review of tele shows it started around 12:10 PM. HR is marginal despite being on amiodarone since admit. Likewise, he just came off pressors and may need to restart given sagging BP.
I would call this AF/RVR with hemodynamic compromise and pursue DCCV. I discussed with the patient the risks, benefits, and alternatives of DCCV including stroke, , and intubation. He deferred the decision to his . She would like to
proceed.
A single 300J shock resulted in NSR. His BP decreased with anesthesia but rebounded with treatment.
Will add AC to his DAPT for one week (no evidence of bleeding) and then stop ASA
Critically ill 70 minutes including coordination with nursing, poly operator, anesthesia, and family.
[2023-12-06 17:34] LABS: Glucose - Point of Care 146 mg/dl (70-99)
--- NOTE | 2023-12-06 20:00 | PTCARENOTE ---
Received pt resting in bed with family at bedside. Pt. drowsy but arouses easily. Ox3. Flat affect. Complaints of being uncomfortable. Repositioned. Reports nausea- IM tigan given. No chest pain or SOB at this time. NSR on tele. HR 80s. BP stable
off pressors. Amio gtt at 0.5mg/min infusing via R PICC. L brachial pulse and R radial pulse normal (cath sites). UEs warm. Cath sites with bandaids c/d/i. L arm with ecchymosis and +1 edema, soft. R DP pulse weak, L DP by doppler, B/L PTs by
doppler. Feet cold- reportedly unchanged from prior. On 3L NC. Spo2 97%. Lungs with fine crackles half way up posteriorly. Poor effort. NG tube to LIWS with min to no output currently. Placement verified. Hypoactive bowel sounds. Marroquin in place
draining yellow urine- see I&O. R PICC with amio and LR @ 40ml/hr as ordered. L Hand INT patent and capped. Mouth care provided
[2023-12-06] MEDS: ELIQUIS 5 MG PO (20:12)
[2023-12-06] MEDS: CORDARONE 518 MG IV (20:24)
[2023-12-06] MEDS: TIGAN 200 MG IM (20:34)
--- NOTE | 2023-12-06 21:25 | W.PN.UPDATE ---
Update Note
Progress Note Update
Patient heart rate now back in Afib rate 110-120s sustained, SBP 100s. Patient denies chest pain or discomfort. Discussed with Dr. Gutierrez, filing and polishing supervisor, recommendations received: restart amiodarone gtt at 1mg, restart amio protocol and give 150mg
amio bolus over 30 minutes (hopefully to avoid hypotension.) Updated RN and placed orders.
--- NOTE | 2023-12-06 21:35 | PTCARENOTE ---
Pt. back into afib at about 2110. HR 120s-130s. BULL LADLE TENDER notified and discussed with cardiology. Rebolus amio and then increase amio gtt to 1mg/min from 0.5. BP 110s/60s. Pt asymptomatic.
--- NOTE | 2023-12-06 22:29 | PTCARENOTE ---
L brachial pulse weakened from prior site check. Remains palpable. Arm appears more ecchymotic than prior. Edema unchanged. Remains soft. CONTROLLER MECHANIC notified. Ultrasound of LUE ordered. Will monitor closely
[2023-12-06] MEDS: BENADRYL 25 MG IV (22:58)
[2023-12-06 23:35] LABS: Glucose - Point of Care 130 mg/dl (70-99)
[2023-12-07] VITALS (34 sets, daily range): BP systolic 88–140; BP diastolic 60–89; BMI 24.5
--- NOTE | 2023-12-07 | PTCARENOTE ---
Pt reassessed. Back in NSR, HR 80s. VSS. Pt. resting
[2023-12-07] MEDS: NOVOLOG FLEXPEN 3 UNITS SC ×4 (00:32→18:24)
[2023-12-07] MEDS: VIBRAMYCIN 100 MG TUBE (00:32)
[2023-12-07] MEDS: TIGAN 200 MG IM ×2 (03:17→17:23)
[2023-12-07 03:55] LABS: Hematocrit 34.7 % (39.0-52.0); Hemoglobin 11.6 g/dL (13.0-18.0); Mean Corp Hgb Conc. 33.4 g/dL (33.0-37.0); Mean Corpuscular Hgb 29.1 pg (27.0-31.0); Mean Platelet Volume 11.1 fL (7.4-10.4); Platelet Count 244 10^3/uL (130-400); Red Blood Cell Count 3.99 10^6/uL (4.70-6.10); Red Cell Dist. Width 15.3 % (11.5-14.5)
[2023-12-07] MEDS: MORPHINE SULFATE 1 MG IV ×3 (03:59→21:36)
--- NOTE | 2023-12-07 04:02 | PTCARENOTE ---
Pt complaining of nausea- Tigan given with decent effect per pt. Also complaining of chest pain that he states 'has been ongoing' but he has reported no pain when asked other times throughout the night. SCADA OPERATOR notified. Morphine ordered and given.
Remains NSR, HR 80-90s, BP stable. Weaned to 2L.
[2023-12-07 04:16] LABS: Blood Urea Nitrogen 33 mg/dl (9-20); Calcium 8.3 mg/dl (8.4-10.2); Carbon Dioxide 26 mmol/L (22-30); Chloride 110 mmol/L (98-107); Estimated Creatinine Clearance 79 ml/min; Glucose 152 mg/dl (70-99); Potassium 3.9 mmol/L (3.5-5.1); Sodium 139 mmol/L (135-145); eGFR > 60.00
--- NOTE | 2023-12-07 05:04 | PTCARENOTE ---
Pt been NSR since before 2300 last night. Discussed with MARINE RAILWAY OPERATOR and decided to trial amio gtt down to 0.5mg/min- gtt adjusted.
[2023-12-07] MEDS: NOVOLOG FLEXPEN-LOW RESISTANCE SC ×2 (05:41→12:51)
[2023-12-07 05:48] LABS: Glucose - Point of Care 141 mg/dl (70-99)
[2023-12-07] MEDS: KCL ELIXIR 20 MEQ PO (05:59)
--- NOTE | 2023-12-07 07:11 | W.PN.INTV ---
Today's Communication / Plan
Recommendations
Eliquis has been started per cardiology
Left upper extremity DVT noted. Repeat ultrasound next week
Continue amiodarone
Remove NG tube
Speech and swallow evaluation
Diuresis per cardiology, follow electrolytes
Assessment
-
73-year-old male with history of nonischemic cardiomyopathy EF 10%, recent COVID infection requiring steroids October 2023, diabetes, presents with cardiac arrest, CPR/shock x 1, intubation. Patient unresponsive in the ED, negative CT chest,
negative head CT. TTM protocol initiated and patient admitted to ICU
S/p Cardiac arrest
Arrhythmia versus PEA
CPR/shock x 1 in the field
VDRF, LMA in the field
Intubated in ED
Hypotension, requiring pressors
Etiology unknown (cardiac, sepsis, metabolic)
S/p RHC/LHC 12/06/2023
PCWP 32, mPAP 43, cardiac index 2.02.
PCI 90% distal circumflex lesion, PCI 90% mid circumflex
Atrial fibrillation with rapid ventricular response
s/p DCV 12/06/23
Leukocytosis
Metabolic acidemia, elevated lactate
Hyperglycemia
Recent Covid 10/18/2023
Left upper extremity DVT per ultrasound
Conditions present prior to admission
Diabetes, poorly controlled
NICM, EF 10%
Follows cardiology (RossyChaney)
Refused ICD 2016 (Manny)
Hypertension/hyperlipidemia
20 pound weight loss
On Rybelsus
Follows endocrine ([facility])
Distant tobacco history, quit
Plan/recommendations
At this time, patient remains critically ill, on amiodarone drip
Patient has not right a complains including nausea, abdominal pain, shortness of breath
Reviewed catheterization results, PCI x 2 circumflex
Significant elevated filling pressures noted
Patient with atrial fibrillation, rapid ventricular response, heart rate 120s to 150s, presently improved intermittently with sinus/atrial fibrillation status post DC cardioversion 12/06
Chest x-ray suggestive of heart failure, pulm edema
Moving forward
Continue with management per cardiology
Amiodarone therapy continues
Plan for diuresis noted
Patient metabolic acidosis has resolved
Would prefer BiPAP at night. Patient not using
Will discontinue
Continue amiodarone per cardiology
Echocardiogram few weeks ago, EF 10%, presently 25%
Given cardiac catheterization findings, likely arrhythmia/PEA
Dual antiplatelet therapy with Aspirin + clopidogrel
Patient apparently refused ICD around 2015 at which time it was recommended
EKG 12/07 normal sinus rhythm, QTc 483
Daily EKG, follow electrolytes, QT
Remains on Eliquis
Continue antibiotics for possible commune acquired pneumonia based on CT imaging
Remains on ceftriaxone
Sputum culture, blood cultures. UA unremarkable
Influenza, COVID-negative
Urine output adequate, creatinine stable
Discontinue NG tube, no drainage
PPI therapy
Suspect nausea may be related to tachycardia, ischemia. Follow
Left upper extremity Doppler positive for DVT. Patient on Eliquis
Repeat in the next week
CT chest negative for PE
Continue mechanical and pharmacological prophylaxis for DVT
Eliquis has been started per cardiology
Reevaluate speech and swallow once NG tube removed
The above reviewed at length with critical care nursing, respiratory care, cardiology
TCCT 35 min
DATA
Cardiology following, cardiac cathterization done to explore ischemic cause on 12/06. Report as follows:
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
and a 90% mid circumflex lesion leading into the second OM, status post successful PCI (Medtronic [place] 2.25 x 18 VICKY) with reduction in all stenoses to 0%, jailing the origin of the distal circumflex but restoring EVAN-3 flow throughout the
entire circumflex system.
2.� Severely elevated filling pressures (LVEDP = 24 mmHg, PCWP = 32 mmHg at 78.0 kg) with depressed cardiac index on vasopressor/inotrope (CI = 2.02 L/min/m� on norepinephrine 3 mcg/kg/min) consistent with cardiogenic shock.
3.� Atrial fibrillation with rapid ventricular response.
4.� At least moderate pulmonary hypertension, WHO group 2.
Subjective Dataa
Subjective Data
Date of Service:
Date of Service: December 07, 2023
Subjective:
Patient remains comfortable appearing but has bright complaints including nausea, abdominal pain, shortness of breath. NG tube in place but minimal drainage. Family at bedside. Remains on amiodarone drip, in and out of atrial fibrillation/sinus
rhythm. Remains critically ill
Objective Data
Data Reviewed
Vital Signs / I&O / Oxygen:
Vital Signs
Temp Pulse Resp BP Pulse Ox
97.5 F 93 12 134/75 96
12/07/23 05:41 12/07/23 06:00 12/07/23 06:00 12/07/23 06:00 12/07/23 06:00
Intake and Output
12/06/23 12/07/23 12/08/23
06:59 06:59 06:59
Intake Total 1912.0 / 1983.7 1777.1 / 1777.1
Output Total 1160 / 1160 950 / 950
Balance 752.0 / 823.7 827.1 / 827.1
SaO2 [ASV] 99
SaO2 [CPAP/PSV] 99
SaO2 [A/C] 99
SaO2 96
Nasal Cannula flow liters per 3
minute
Physical Exam
General: Comfortable and Other (Right upper extremity PICC line)
HEENT: Normocephalic, Anicteric and Other (nasogastric tube)
Cardiovascular: S1-S2, Irregular Rhythm, Murmur (n), Rub (n), Peripheral Edema (tr) and Cool Extremities
Respiratory: Clear, Wheeze (n), Crackles (n), Rhonchi (n) and Non-Labored Respirations
GI: Soft, Non Distended and Non Tender
Neurology: Awake, Alert and Other (fatigued)
Skin: Warm, Dry, Cyanosis (n), Jaundice (n) and Rash (n)
Labs/Micro/Reports
Lab Data
12/07/23 03:27
12/07/23 03:27
Microbiology
12/04/23 04:56 Blood/Venous Blood Culture - Preliminary
No Growth in 72 hours- Final report to follow
12/04/23 02:53 Blood/Venous Blood Culture - Preliminary
No Growth in 72 hours- Final report to follow
12/04/23 06:15 Endotracheal Respiratory Culture - Final
Dari albicans
12/04/23 06:15 Endotracheal Gram Stain - Final
12/04/23 09:05 Nasal Swab Influenza Types A & B (ELLIOT) - Final
Negative for Influenza A & B, NAAT
Negative results must be combined with clinical observations
and patient history.
Nucleic Acid Amplification test (NAAT)performed on the
[employer] platform.
[2023-12-07 08:14] LABS: Glucose - Point of Care 155 mg/dl (70-99)
--- NOTE | 2023-12-07 08:31 | W.PN.HOSP.TC ---
Today's Communication/Plan
-
see bold
Assessment / Plan
Assessment / Plan
Gen: NAD, awake and alert, NCAT, well developed/nourished
Eyes: EOMI, PERRLA, no scleral icterus.
Neck: supple.
CV: continues to remain RRR, +S1/S2, no m/r/g. sternal palpation reproduces chest pain.
Resp: continues to remain CTAB anteriorly, no rales, wheezes, or rhonchi.
Abd: +BS, soft, NT, ND
Skin: No rashes.
Neuro: CN 2-12 intact, non-focal.
Psych: normal mood and affect
12/04/23 04:56 Blood/Venous Blood Culture - Preliminary
No Growth in 72 hours- Final report to follow
12/04/23 02:53 Blood/Venous Blood Culture - Preliminary
No Growth in 72 hours- Final report to follow
12/04/23 06:15 Endotracheal Respiratory Culture - Final
Dari albicans
12/04/23 06:15 Endotracheal Gram Stain - Final
12/04/23 09:05 Nasal Swab Influenza Types A & B (ELLIOT) - Final
Negative for Influenza A & B, NAAT
Negative results must be combined with clinical observations
and patient history.
Nucleic Acid Amplification test (NAAT)performed on the
[employer] platform.
CTA chest 12/03/23: No PE. There is a confluent parenchymal opacity within the posterior aspect of both lungs, most likely representing pneumonia. No evidence for associated pleural effusion bilaterally. Significantly dilated and rounded left
ventricle. Suggestion of Rishi B lines within the lateral aspect of both lungs, which could represent changes of acute and/or chronic heart failure. Heterogeneity of the thyroid isthmus and the right lobe of the thyroid, with suggestion of edema
adjacent to the thyroid. If further imaging evaluation of the thyroid is desired, consideration for thyroid ultrasound.�
CXR 12/04/23AM: No focal alveolar airspace disease. No large pleural effusions.
Echo: Severely reduced left ventricular systolic function.Left ventricle is
�moderately dilated. Global severe hypokinesis.
�Left ventricular ejection fraction is 15-20% by Watkins's method.
�Normal right ventricular systolic function.
�Mild-moderate central mitral regurgitation.
�Compared to prior study of 02/09/16 LVEF was 25 to 30% with severe global
�hypokinesis also noted at that time.
Cardiac cath 12/06/23:
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
and a 90% mid circumflex lesion leading into the second OM, status post successful PCI (Medtronic [place] 2.25 x 18 VIKCY) with reduction in all stenoses to 0%, jailing the origin of the distal circumflex but restoring EVAN-3 flow throughout the
entire circumflex system.
2.� Severely elevated filling pressures (LVEDP = 24 mmHg, PCWP = 32 mmHg at 78.0 kg) with depressed cardiac index on vasopressor/inotrope (CI = 2.02 L/min/m� on norepinephrine 3 mcg/kg/min) consistent with cardiogenic shock.
3.� Atrial fibrillation with rapid ventricular response.
4.� At least moderate pulmonary hypertension, WHO group 2.
Cardiac arrest due to VT:
-1 AED shock in the field (refused ICD in the past for chronic NICM/HFrEF)
-ER noted patient to have gag reflex.� Drafter Refrigeration recommended cooling protocol.� ER spoke with planting machine crewman and cardiac catheterization was not recommended.�Pt was cooled for about 40min.
-with NSTEMI and cardiogenic shock (POA)
-h/o NICM with EF 10% nonischemic cardiomyopathy with reduced EF. Echo above with EF 15-20%.
-Transaminitis/shock liver secondary to cardiac arrest
-Anion gap metabolic acidosis secondary to lactic acidosis (lactic acidosis now resolved). Last anion gap was 13.
-was on Levophed/vasopressin/propofol/fentanyl/bicarb infusion, now off of all of these meds
-extubated 12/05/23AM
-was on heparin gtt, now off
-was on stress dose steroids, now off
-cath 12/06/23 as above, notable for placement of 2 stents, depressed cardiac index on vasopressor/inotrope consistent with cardiogenic shock, moderate pulmonary hypertension
-cont ASA/Plavix
Afib with RVR
-s/p cardioversion on 12/06/23
-cont Amio gtt, Eliquis
Other problems:
Leukocytosis: with elevated procal, bacterial pneumonia is likely. Pt was on empiric Zosyn, cont on Rocephin/Doxy. BCxs NGTD. Leukocytosis has now resolved.
Hypokalemia, resolved. Note Mg normal.
DM2 with hyperglycemia: a1c 9.5%, cont Lantus/Novolog Q6H, SSI/accuchecks. Diabetes ADMINISTRATIVE AND PROGRAM SPECIALIST following.
Patient's updated at bedside.
Prognosis is unfortunately poor.
FULL/Lovenox
Anticipated Discharge: > 48 hours
Subjective/Interval History
-
Date of Service: December 07, 2023
Pt continues to c/o chest discomfort. Also 'stomach pain.'
Objective Data
-
Labs:
Laboratory Results
12/07/23
03:27
WBC 9.0
Hgb 11.6 L
Hct 34.7 L
Plt Count 244 D
Sodium 139
Potassium 3.9
Chloride 110 H
Carbon Dioxide 26
BUN 33 H
Creatinine 0.9
Glucose 152 H
Calcium 8.3 L
Vital Signs:
Vital Signs
Temp Pulse Resp BP Pulse Ox
97.7 F 93 12 134/75 96
12/07/23 07:38 12/07/23 06:00 12/07/23 06:00 12/07/23 06:00 12/07/23 06:00
I&O
12/06/23 12/07/23 12/08/23
06:59 06:59 06:59
Intake Total 1912.0 / 1983.7 1777.1 / 1777.1
Output Total 1160 / 1160 950 / 950
Balance 752.0 / 823.7 827.1 / 827.1
[2023-12-07] MEDS: ELIQUIS 5 MG PO ×2 (08:53→20:05)
[2023-12-07] MEDS: LOW STRENGTH ASPIRIN 81 MG TUBE (08:53)
[2023-12-07] MEDS: PROTONIX IV 40 MG IV (08:53)
[2023-12-07] MEDS: PLAVIX 75 MG PO (08:53)
[2023-12-07] MEDS: LANTUS 0.149999999999999994 UNITS SC (08:54)
[2023-12-07] MEDS: NSS (PRESERVATIVE FREE) 10 ML IV (08:54)
--- NOTE | 2023-12-07 09:00 | PTCARENOTE ---
Pt received this am. Assessment as documented. Resting with eyes closed but answers appropriately. Pt denies pain. No SOB. NGT + placement via air bolus. Marroquin draining kristina urine.
--- NOTE | 2023-12-07 11:58 | W.PN.CD ---
Today's Communication / Plan
-
Diuresis, IV
Later add GDMT for HFrEF
Later decide when to stop the ASA
Amio IV for now
ICD just prior to hospital discharge if patient wishes
Impression / Plan
-
73 yrs old man with non-ischemic cardiomyopathy, LVEF 10% with recent COVID had vague headaches and developed cardiac arrest at home - possible PEA and got CPR from and was noted to have pulse at the arrival of paramedics and developed
shockable rhythm s/p shock (refused ICD in the past) and is intubated in the field.
Cardiac arrest, shock delivered by AED (see above)
- NSVT here
- Cardiac arrest was therefore from VT/VF
- ICD predischarge if pt wishes. Amio for at least 6-12 months if he gets ICD and mcfp Amio if no ICD. If amio tolerated. Will need amio surveillance
Paroxysmal AFib
- Now in NSR after more amiodarone
- At least short term amiodarone but given cardiac arrest Amio for 1 year is reasonable
- On Eliquis 5 BID
CAD
- S/p PCI to mLCx and an OM on 12/06/2023
- Residual 100% RCA
- On ASA + Plavix. Also on Eliquis. At some point will go to Plavix + Eliquis for the one year post PCI then possibly single agent Eliquis...
Acute HFrEF
- at cath 12/06/2023: LVEDP = 24 mmHg, PCWP = 32 mmHg at 78.0 kg
- heart failure worsening on CXR
- He should have all GDMT as tolerated added over time (not all at once): SGLT2-I, MRA, HF BB, RAAS (REEAM-i or ARB or ARNI) as tolerated
- Needs IV diuresis now
Physical Exam
Vital Signs/Labs
Vital Signs
Temp Pulse Resp BP Pulse Ox
97.7 F 87 17 133/80 96
12/07/23 07:38 12/07/23 11:00 12/07/23 11:00 12/07/23 11:00 12/07/23 11:00
12/06/23 12/07/23 12/08/23
06:59 06:59 06:59
Actual Weight 78.2 kg 79.7 kg
12/07/23 03:27
12/07/23 03:27
PT 15.7 Sec (11.4-14.6) H 12/03/23 18:53
INR 1.27 12/03/23 18:53
APTT 81.4 Sec (23.4-35.0) H 12/04/23 10:44
Magnesium 2.2 mg/dl (1.6-2.3) 12/04/23 17:15
Triglycerides 348 mg/dl (10-149) H 12/04/23 01:15
12/04/23
04:14
[id number] Pept 4590
LAB Results
12/05/23 12/07/23
10:54 06:00
Troponin I 0.313 H* Cancelled
Physical Exam
EENT: Anicteric
Cardiovascular: Rhythm & rate is regular, Pedal edema is absent and JVD present
Respiratory: Respiratory effort normal and Crackles Present
GI: Soft and Distention absent
Data Reviewed
-
Date of Service: December 07, 2023
[2023-12-07] MEDS: FLUSH (NSS) 10 FLUSH IV (12:05)
[2023-12-07 12:36] LABS: Glucose - Point of Care 146 mg/dl (70-99)
[2023-12-07] MEDS: STERILE WATER FOR INJECTION 10 ML IV (12:49)
[2023-12-07] MEDS: ROCEPHIN 1000 MG IV (12:49)
[2023-12-07] MEDS: LASIX 40 MG IV ×2 (12:49→17:04)
[2023-12-07] MEDS: FLUSH (NSS) 1 FLUSH IV ×2 (12:50→15:13)
--- NOTE | 2023-12-07 13:00 | PTOTSP ---
ST Dysphagia Follow up/Tx
Mild oral dysphagia; mildly extended yet effective mastication with min oral residuals which cleared with thin liquid wash
Pt received awake/alert at the bedside. RN removed NG prior to session. Multiple family members were present. HOB raised upright for PO trials of puree, regular solids and thin liquids. Demo mildly extended yet effective mastication with min oral
residuals which cleared with thin liquid wash. Thin liquids by straw sip swallow appears prompt. No overt s/sx of aspiration observed during this session.
Recommend
1. Advance to Regular Solids / Thin liquids
2. Maintain aspiration precautions and meal set up with feeding assist as needed
3. Small bites, moisten solids with gravy/sauce as needed, small/single sips and slow rate
4. Meds whole/single with sips of water or placed in apple sauce
5. VASCULAR SURGEON following; monitor diet tolerance, strategy training/education as indicated
--- NOTE | 2023-12-07 13:00 | PTCARENOTE ---
NGT removed per pattern grader. Pt AAOx3. Family at bedside. Update given. Support offered.
[2023-12-07] MEDS: CORDARONE 103 MG IV (15:14)
[2023-12-07] MEDS: LR 1000 IV (16:43)
[2023-12-07] MEDS: VIBRAMYCIN 100 MG PO (16:43)
[2023-12-07] MEDS: VIBRAMYCIN TUBE (16:47)
--- NOTE | 2023-12-07 16:52 | PTCARENOTE ---
Addendum entered by Karena Paulino RN 12/07/23 16:54:
Late entry 1500
Original Note:
Pt noted to be in Afib. HR 120-150. Dr Gutierrez aware. Amio bolus given and drip increased to 1. Pt now in SR. rate 90's.
--- NOTE | 2023-12-07 16:54 | PTCARENOTE ---
Pt OOB in chair with mod assist of 2. Tolerated well.
[2023-12-07] MEDS: CORDARONE 518 MG IV (17:05)
[2023-12-07 17:24] LABS: Glucose - Point of Care 175 mg/dl (70-99)
[2023-12-07] MEDS: NOVOLOG FLEXPEN-LOW RESISTANCE 1 UNITS SC (18:24)
--- NOTE | 2023-12-07 20:00 | PTCARENOTE ---
Patient received in bed, AAOX3, flat affect. NSR on monitor, afebrile, blood pressure as documented. Bilateral upper extremities with trace edema, palpable pulses R>L, no edema noted to lower extremities, cool and pale, doppler pulses bilaterally.
Lungs diminished, pulse ox 97% on 2L. Shallow. Abdomen soft with positive bowel sounds, complaining of nausea. Left arm with bruising. RDL PICC with IVF and Amiodarone gtt infusing as documented. Updated on plan of care, call acstro within reach.
Family at bedside
--- NOTE | 2023-12-07 21:42 | PTCARENOTE ---
Patient complaining of generalized pain, prn morphine given, at bedside. No other changes in assessment
[2023-12-07] MEDS: BENADRYL 25 MG IV (22:18)
[2023-12-08] VITALS (25 sets, daily range): BP systolic 89–118; BP diastolic 57–87; BMI 24.2
[2023-12-08] MEDS: VIBRAMYCIN 100 MG PO ×3 (00:11→19:29)
[2023-12-08] MEDS: NOVOLOG FLEXPEN-LOW RESISTANCE SC ×5 (00:11→16:57)
[2023-12-08 00:21] LABS: Glucose - Point of Care 125 mg/dl (70-99)
[2023-12-08] MEDS: NOVOLOG FLEXPEN 3 UNITS SC (00:30)
[2023-12-08] MEDS: TIGAN 200 MG IM ×2 (01:47→08:42)
--- NOTE | 2023-12-08 01:50 | PTCARENOTE ---
Patient complaining of nausea and chest discomfort with coughing, notified Mary WHITE, prn tigan and morphine given.
[2023-12-08] MEDS: MORPHINE SULFATE 2 MG IV ×2 (02:18→06:12)
--- NOTE | 2023-12-08 04:33 | PTCARENOTE ---
Patient resting with eyes closed, labs drawn. No other changes in assessment
[2023-12-08 04:40] LABS: Hematocrit 34.9 % (39.0-52.0); Hemoglobin 11.8 g/dL (13.0-18.0); Mean Corp Hgb Conc. 33.8 g/dL (33.0-37.0); Mean Corpuscular Volume 85.7 fL (80.0-94.0); Mean Platelet Volume 10.8 fL (7.4-10.4); Platelet Count 260 10^3/uL (130-400); Red Blood Cell Count 4.07 10^6/uL (4.70-6.10); Red Cell Dist. Width 14.8 % (11.5-14.5); White Blood Cell Count 9.2 10^3/uL (4.8-10.8)
[2023-12-08 05:12] LABS: Blood Urea Nitrogen 38 mg/dl (9-20); Carbon Dioxide 26 mmol/L (22-30); Chloride 106 mmol/L (98-107); Estimated Creatinine Clearance 65 ml/min; Glucose 123 mg/dl (70-99); Magnesium 2.1 mg/dl (1.6-2.3); Potassium 3.4 mmol/L (3.5-5.1); Sodium 135 mmol/L (135-145); eGFR > 60.00
[2023-12-08] MEDS: KCL 270 MEQ IV (06:11)
--- NOTE | 2023-12-08 07:17 | W.PN.INTV ---
Today's Communication / Plan
Recommendations
Advance diet as able
Repeat procalcitonin. If normal, discontinue antibiotics
Amiodarone, Lasix per cardiology
Plavix/aspirin/Eliquis per cardiology
Eventual ICD
Assessment
-
73-year-old male with history of nonischemic cardiomyopathy EF 10%, recent COVID infection requiring steroids October 2023, diabetes, presents with cardiac arrest, CPR/shock x 1, intubation. Patient unresponsive in the ED, negative CT chest,
negative head CT. TTM protocol initiated and patient admitted to ICU
S/p Cardiac arrest
Arrhythmia versus PEA
CPR/shock x 1 in the field
VDRF, LMA in the field
Intubated in ED
Hypotension, requiring pressors
Etiology unknown (cardiac, sepsis, metabolic)
S/p RHC/LHC 12/06/2023
PCWP 32, mPAP 43, cardiac index 2.02.
PCI 90% distal circumflex lesion, PCI 90% mid circumflex
Atrial fibrillation with rapid ventricular response
s/p DCV 12/06/23
Leukocytosis
Metabolic acidemia, elevated lactate
Hyperglycemia
Recent Covid 10/18/2023
Left upper extremity DVT per ultrasound
Conditions present prior to admission
Diabetes, poorly controlled
NICM, EF 10%
Follows cardiology (O'Chaney)
Refused ICD 2015 (Manny)
Hypertension/hyperlipidemia
20 pound weight loss
On Rybelsus
Follows endocrine ([facility])
Distant tobacco history, quit
Plan/recommendations
At this time, patient remains critically ill, on amiodarone drip
Heart rate at times goes up into the 130s�140s, spontaneously [id number] between sinus rhythm and atrial fibrillation
Dry heaving this morning
NG tube removed
Patient has not eaten or drank due to emesis/nausea
Moving forward
Reviewed catheterization results, PCI x 2 circumflex
Significant elevated filling pressures noted
Patient with atrial fibrillation, rapid ventricular response, heart rate 120s to 150s, presently improved intermittently with sinus/atrial fibrillation status post DC cardioversion 12/06
Chest x-ray suggestive of heart failure, pulm edema
Has yet to be negative fluid status.
Lasix per cardiology, following closely
Amiodarone therapy continues, being transitioned by mouth
Of note, patient required DC cardioversion 12/06
Echocardiogram few weeks ago, EF 10%, presently 25%
Given cardiac catheterization findings, likely arrhythmia/PEA
Dual antiplatelet therapy with Aspirin + clopidogrel. Eliquis resumed
Patient apparently refused ICD around 2015 at which time it was recommended
Daily EKG, follow electrolytes, QT
Patient metabolic acidosis has resolved
Would prefer BiPAP at night. Patient not using
Will discontinue
Continue antibiotics for possible commune acquired pneumonia based on CT imaging
Remains on ceftriaxone
Sputum culture, blood cultures. UA unremarkable
Influenza, COVID-negative
White count resolved
Trend procalcitonin with low threshold to discontinue if normal
Urine output adequate, creatinine stable
Discontinue NG tube, no drainage
PPI therapy
Suspect nausea may be related to tachycardia, ischemia. Follow
Left upper extremity Doppler positive for DVT. Patient on Eliquis
Repeat in the next week
CT chest negative for PE
Continue mechanical and pharmacological prophylaxis for DVT
Eliquis has been started per cardiology
Reevaluate speech and swallow
NG tube has been removed. Advance diet per speech and swallow
Continue with aspiration precautions
The above reviewed at length with critical care nursing, respiratory care
TCCT 31 min
DATA
Cardiology following, cardiac cathterization done to explore ischemic cause on 12/06. Report as follows:
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
and a 90% mid circumflex lesion leading into the second OM, status post successful PCI (Medtronic [place] 2.25 x 18 VICKY) with reduction in all stenoses to 0%, jailing the origin of the distal circumflex but restoring EVAN-3 flow throughout the
entire circumflex system.
2.� Severely elevated filling pressures (LVEDP = 24 mmHg, PCWP = 32 mmHg at 78.0 kg) with depressed cardiac index on vasopressor/inotrope (CI = 2.02 L/min/m� on norepinephrine 3 mcg/kg/min) consistent with cardiogenic shock.
3.� Atrial fibrillation with rapid ventricular response.
4.� At least moderate pulmonary hypertension, WHO group 2.
Subjective Dataa
Subjective Data
Date of Service:
Date of Service: December 08, 2023
Subjective:
Patient remains critically ill, on amiodarone drip. Does feel slightly improved compared to yesterday, more conversant. Still has occasional chest pain, shortness of breath, dry heaving/nausea. NG tube has been removed. Urine output adequate.
Intermittent tachycardia noted, seems to be improved compared to yesterday p.m.
Objective Data
Data Reviewed
Vital Signs / I&O / Oxygen:
Vital Signs
Temp Pulse Resp BP Pulse Ox
97.7 F 80 9 93/67 97
12/08/23 03:20 12/08/23 04:00 12/08/23 02:00 12/08/23 04:00 12/08/23 04:00
Intake and Output
12/07/23 12/08/23 12/09/23
06:59 06:59 06:59
Intake Total 1777.1 / 1833.8 2083.2 / 2083.2
Output Total 950 / 1000 1020 / 1020
Balance 827.1 / 833.8 1063.2 / 1063.2
SaO2 [ASV] 99
SaO2 [CPAP/PSV] 99
SaO2 [A/C] 99
SaO2 97
Nasal Cannula flow liters per 2
minute
Physical Exam
General: Comfortable and Other (Right upper extremity PICC line)
HEENT: Normocephalic, Anicteric and Other (nasogastric tube)
Cardiovascular: S1-S2, Irregular Rhythm, Murmur (n), Rub (n), Peripheral Edema (tr) and Cool Extremities
Respiratory: Clear, Wheeze (n), Crackles (n), Rhonchi (n) and Non-Labored Respirations
GI: Soft, Non Distended and Non Tender
Neurology: Awake, Alert and Other (fatigued)
Skin: Warm, Dry, Cyanosis (n), Jaundice (n) and Rash (n)
Labs/Micro/Reports
Lab Data
12/08/23 04:21
12/08/23 04:21
Microbiology
12/04/23 04:56 Blood/Venous Blood Culture - Preliminary
No Growth in 4 days- Final report to follow
12/04/23 02:53 Blood/Venous Blood Culture - Preliminary
Positive culture in progress
12/04/23 02:53 Blood/Venous Gram Stain - Preliminary
12/04/23 06:15 Endotracheal Respiratory Culture - Final
Dari albicans
12/04/23 06:15 Endotracheal Gram Stain - Final
[2023-12-08 07:58] LABS: Glucose - Point of Care 126 mg/dl (70-99)
[2023-12-08] MEDS: PLAVIX 75 MG PO (07:58)
[2023-12-08] MEDS: ELIQUIS 5 MG PO ×2 (07:58→19:29)
[2023-12-08] MEDS: LOW STRENGTH ASPIRIN 81 MG TUBE (07:58)
[2023-12-08] MEDS: PROTONIX IV 40 MG IV (07:59)
[2023-12-08] MEDS: LANTUS 0.149999999999999994 UNITS SC (07:59)
[2023-12-08] MEDS: NSS (PRESERVATIVE FREE) 10 ML IV (07:59)
[2023-12-08] MEDS: LASIX 40 MG IV ×2 (07:59→16:51)
--- NOTE | 2023-12-08 08:16 | W.PN.HOSP.TC ---
Today's Communication/Plan
-
see bold
Assessment / Plan
Assessment / Plan
Gen: NAD, awake and alert, NCAT, well developed/nourished
Eyes: EOMI, PERRLA, no scleral icterus.
Neck: supple.
CV: continues to remain RRR, +S1/S2, no m/r/g. sternal palpation reproduces chest pain.
Resp: continues to remain CTAB anteriorly, no rales, wheezes, or rhonchi.
Abd: +BS, soft, NT, ND
Skin: No rashes.
Neuro: CN 2-12 intact, non-focal.
Psych: normal mood and affect
12/04/23 04:56 Blood/Venous Blood Culture - Preliminary
No Growth in 4 days- Final report to follow
12/04/23 02:53 Blood/Venous Blood Culture - Preliminary
Positive culture in progress
12/04/23 02:53 Blood/Venous Gram Stain - Preliminary
12/04/23 06:15 Endotracheal Respiratory Culture - Final
Dari albicans
12/04/23 06:15 Endotracheal Gram Stain - Final
12/04/23 09:05 Nasal Swab Influenza Types A & B (ELLIOT) - Final
Negative for Influenza A & B, NAAT
Negative results must be combined with clinical observations
and patient history.
Nucleic Acid Amplification test (NAAT)performed on the
[employer] ID NOW platform.
CTA chest 12/03/23: No PE. There is a confluent parenchymal opacity within the posterior aspect of both lungs, most likely representing pneumonia. No evidence for associated pleural effusion bilaterally. Significantly dilated and rounded left
ventricle. Suggestion of Rishi B lines within the lateral aspect of both lungs, which could represent changes of acute and/or chronic heart failure. Heterogeneity of the thyroid isthmus and the right lobe of the thyroid, with suggestion of edema
adjacent to the thyroid. If further imaging evaluation of the thyroid is desired, consideration for thyroid ultrasound.�
CXR 2/21/24AM: No focal alveolar airspace disease. No large pleural effusions.
Echo: Severely reduced left ventricular systolic function.Left ventricle is
�moderately dilated. Global severe hypokinesis.
�Left ventricular ejection fraction is 15-20% by Watkins's method.
�Normal right ventricular systolic function.
�Mild-moderate central mitral regurgitation.
�Compared to prior study of 02/09/16 LVEF was 25 to 30% with severe global
�hypokinesis also noted at that time.
Cardiac cath 12/06/23:
1.� Right dominant circulation with a chronic total occlusion of the mid RCA, moderate, diffuse disease of the mid LAD without discrete lesion, a 90% lesion in the distal AV groove circumflex status post PCI (Medtronic Trevor [place] 2.0 x 15 VICKY)
and a 90% mid circumflex lesion leading into the second OM, status post successful PCI (Medtronic Trevor [place] 2.25 x 18 VICKY) with reduction in all stenoses to 0%, jailing the origin of the distal circumflex but restoring EVAN-3 flow throughout the
entire circumflex system.
2.� Severely elevated filling pressures (LVEDP = 24 mmHg, PCWP = 32 mmHg at 78.0 kg) with depressed cardiac index on vasopressor/inotrope (CI = 2.02 L/min/m� on norepinephrine 3 mcg/kg/min) consistent with cardiogenic shock.
3.� Atrial fibrillation with rapid ventricular response.
4.� At least moderate pulmonary hypertension, WHO group 2.
Cardiac arrest due to VT:
-1 AED shock in the field (refused ICD in the past for chronic NICM/HFrEF)
-ER noted patient to have gag reflex.� Frame Tender recommended cooling protocol.� ER spoke with psychometrist and cardiac catheterization was not recommended.�Pt was cooled for about 40min.
-with NSTEMI and cardiogenic shock (POA)
-h/o NICM with EF 10% nonischemic cardiomyopathy with reduced EF. Echo above with EF 15-20%.
-Transaminitis/shock liver secondary to cardiac arrest
-Anion gap metabolic acidosis secondary to lactic acidosis (lactic acidosis now resolved). Last anion gap was 13.
-was on Levophed/vasopressin/propofol/fentanyl/bicarb infusion, now off of all of these meds
-extubated 12/05/23AM
-was on heparin gtt, now off
-was on stress dose steroids, now off
-cath 12/06/23 as above, notable for placement of 2 stents, depressed cardiac index on vasopressor/inotrope consistent with cardiogenic shock, moderate pulmonary hypertension
-cont ASA/Plavix
-ICD just prior to discharge (assuming pt agrees)
Acute on chronic HFrEF:
-IV Lasix started 12/07/24
Afib with RVR:
-s/p cardioversion on 12/06/23
-on 12/07/23 pt was in afib to 140s, Amio gtt remains at 1mg/hr, converted back to SR
-cont Amio gtt, Eliquis
Other problems:
Leukocytosis: with elevated procal, bacterial pneumonia is likely. Pt was on empiric Zosyn (started 12/04/23AM), cont on Rocephin/Doxy. BCxs NGTD. Leukocytosis has now resolved.
Hypokalemia, resolved. Note Mg normal.
DM2 with hyperglycemia: a1c 9.5%, cont Lantus/Novolog Q6H, SSI/accuchecks. Diabetes WOOD ROUTER following.
Patient's updated at bedside.
Prognosis is unfortunately poor.
FULL/Eliquis
Anticipated Discharge: > 48 hours
Subjective/Interval History
-
Date of Service: December 08, 2023
Pt says CP improving. c/o nausea and vomiting.
Objective Data
-
Labs:
Laboratory Results
12/08/23
04:21
WBC 9.2
Hgb 11.8 L
Hct 34.9 L
Plt Count 260
Sodium 135
Potassium 3.4 L
Chloride 106
Carbon Dioxide 26
BUN 38 H
Creatinine 1.1
Glucose 123 H
Calcium 8.0 L
Vital Signs:
Vital Signs
Temp Pulse Resp BP Pulse Ox
97.8 F 80 9 93/67 97
12/08/23 07:55 12/08/23 04:00 12/08/23 02:00 12/08/23 04:00 12/08/23 04:00
I&O
12/07/23 12/08/23 12/09/23
06:59 06:59 06:59
Intake Total 1777.1 / 1833.8 2083.2 / 2083.2
Output Total 950 / 1000 1020 / 1020
Balance 827.1 / 833.8 1063.2 / 1063.2
[2023-12-08] MEDS: CORDARONE 518 MG IV (08:37)
[2023-12-08] MEDS: NOVOLOG FLEXPEN SC ×4 (08:49→16:57)
--- NOTE | 2023-12-08 09:08 | PTCARENOTE ---
Pt received this am. Assessment as documented. + nausea and gagging. Tigan given as ordered. Pt resting in bed. Denies SOD. c/o occasional pain center of chest with palpation and movement.
--- NOTE | 2023-12-08 10:29 | W.PN.CD ---
Today's Communication / Plan
-
Continue IV Lasix, has not lost weight yet
Add Aldactone 25 a day
Add Farxiga 10 mg a day
Later add HF BB and RAAS (REEMA-i/ARB/ARNI)
Dry weight has not been determined
Stop IV Amio today and move to PO Amio
Pt agreeable to predischarge ICD placment
Impression / Plan
-
73 yrs old man with non-ischemic cardiomyopathy, LVEF 10% with recent COVID had vague headaches and developed cardiac arrest at home - possible PEA and got CPR from and was noted to have pulse at the arrival of paramedics and developed
shockable rhythm s/p shock (refused ICD in the past) and is intubated in the field.
Cardiac arrest, shock delivered by AED (see above)
- NSVT here
- Cardiac arrest was therefore from VT/VF
- ICD predischarge
- Amio for at least 6-12 months if he gets ICD and assisted Amio if no ICD. If amio tolerated. Will need amio surveillance
Paroxysmal AFib
- Now in NSR after more amiodarone
- At least short term amiodarone but given cardiac arrest Amio for 1 year is reasonable
- On Eliquis 5 BID
CAD
- S/p PCI to mLCx and an OM on 12/06/2023
- Residual 100% RCA
- On ASA + Plavix. Also on Eliquis. At some point will go to Plavix + Eliquis for the one year post PCI then possibly single agent Eliquis...
Acute HFrEF
- at cath 12/06/2023: LVEDP = 24 mmHg, PCWP = 32 mmHg at 78.0 kg
- heart failure worsening on CXR
- He should have all GDMT as tolerated added over time (not all at once): SGLT2-I, MRA, HF BB, RAAS (REEMA-i or ARB or ARNI) as tolerated
- Needs IV diuresis now
Physical Exam
Vital Signs/Labs
Vital Signs
Temp Pulse Resp BP Pulse Ox
97.8 F 89 18 94/73 96
12/08/23 07:55 12/08/23 08:00 12/08/23 08:00 12/08/23 08:00 12/08/23 09:06
12/07/23 12/08/23 12/09/23
06:59 06:59 06:59
Actual Weight 79.7 kg
12/08/23 04:21
12/08/23 04:21
PT 15.7 Sec (11.4-14.6) H 12/03/23 18:53
INR 1.27 12/03/23 18:53
APTT 81.4 Sec (23.4-35.0) H 12/04/23 10:44
Magnesium 2.1 mg/dl (1.6-2.3) 12/08/23 04:21
Triglycerides 348 mg/dl (10-149) H 12/04/23 01:15
12/04/23
04:14
Oet-E-Oqchareqtfs Pept 4590
LAB Results
12/05/23 12/07/23
10:54 06:00
Troponin I 0.313 H* Cancelled
Physical Exam
Constitutional: No acute distress
Cardiovascular: Rhythm & rate is regular and Pedal edema is absent
Respiratory: Respiratory effort normal and Lungs clear to auscul.
GI: Soft and Distention absent
Neuro/Psych: AO x 3
Data Reviewed
-
Date of Service: December 08, 2023
[2023-12-08 11:51] LABS: Glucose - Point of Care 129 mg/dl (70-99)
[2023-12-08] MEDS: ALDACTONE 25 MG PO (13:46)
[2023-12-08] MEDS: ROCEPHIN 1000 MG IV (13:46)
[2023-12-08] MEDS: FLUSH (NSS) 1 FLUSH IV (13:47)
[2023-12-08] MEDS: STERILE WATER FOR INJECTION 10 ML IV (13:47)
--- NOTE | 2023-12-08 15:17 | PTCARENOTE ---
Pt OOB with assist of 2. AM care complete. Family at bedside
[2023-12-08] MEDS: FLUSH (NSS) 10 FLUSH IV (16:48)
[2023-12-08] MEDS: MUCINEX 600 MG PO ×2 (16:51→19:29)
[2023-12-08 17:06] LABS: Glucose - Point of Care 138 mg/dl (70-99)
--- NOTE | 2023-12-08 20:00 | PTCARENOTE ---
Received pt resting in bed with family at bedside. AAOx3. Anxious at times. PADRON but weak LEs. No complaints of pain at this time. NSR on tele, HR 80-90s. BP 108/75. Afebrile. B/L PT and R DP pulses weak on palpation, L DP by doppler. LEs cool and
pale. R radial normal, L radial weak. L arm with ecchymosis and +1 edema. On 2L NC, pulse ox 97%. Lungs CTA. 1800cal diab diet with 1200ml fluid restriction. Very poor appetite, taking sips of water and [place]. Reports flatus. + bowel sounds.
Marroquin draining yellow urine. R DL PICC with amio gtt and LR as ordered. Amio at 1mg/min at change of shift, discussed with STICK INSERTER and decided to trial back down to 0.5mg. Will monitor closely.
[2023-12-08 21:06] LABS: Glucose - Point of Care 127 mg/dl (70-99)
[2023-12-08] MEDS: LR IV (21:45)
[2023-12-09] VITALS (28 sets, daily range): BP systolic 83–140; BP diastolic 47–106; BMI 24.8
[2023-12-09] MEDS: CORDARONE 518 MG IV (03:42)
[2023-12-09 04:04] LABS: Hematocrit 33.8 % (39.0-52.0); Hemoglobin 11.6 g/dL (13.0-18.0); Mean Corp Hgb Conc. 34.3 g/dL (33.0-37.0); Mean Corpuscular Hgb 28.9 pg (27.0-31.0); Mean Corpuscular Volume 84.3 fL (80.0-94.0); Platelet Count 253 10^3/uL (130-400); Red Blood Cell Count 4.01 10^6/uL (4.70-6.10); Red Cell Dist. Width 14.5 % (11.5-14.5); White Blood Cell Count 9.4 10^3/uL (4.8-10.8)
[2023-12-09 04:19] LABS: ALT (SGPT) 71 U/L (0-50); AST (SGOT) 25 U/L (17-59); Blood Urea Nitrogen 37 mg/dl (9-20); Calcium 7.7 mg/dl (8.4-10.2); Carbon Dioxide 25 mmol/L (22-30); Chloride 104 mmol/L (98-107); Estimated Creatinine Clearance 71 ml/min; Glucose 120 mg/dl (70-99); Potassium 3.3 mmol/L (3.5-5.1); Sodium 132 mmol/L (135-145); eGFR > 60.00
--- NOTE | 2023-12-09 04:23 | PTCARENOTE ---
Pt rested on and off overnight. Pt. seems in better spirits this AM, discussing what he wants to order for breakfast. AM labs obtained. Weaned off O2, pulse ox 96% on RA. Remains NSR, amio gtt at 0.5mg/min.
[2023-12-09 04:34] LABS: Procalcitonin 0.23 ng/ml (0.0-0.25)
[2023-12-09] MEDS: KCL 270 MEQ IV (04:43)
[2023-12-09] MEDS: NOVOLOG FLEXPEN-LOW RESISTANCE SC ×3 (07:33→16:51)
[2023-12-09] MEDS: NOVOLOG FLEXPEN SC ×3 (07:33→16:50)
[2023-12-09 07:40] LABS: Glucose - Point of Care 81 mg/dl (70-99)
--- NOTE | 2023-12-09 08:12 | W.PN.INTV ---
Today's Communication / Plan
Recommendations
Transitioned to oral Amioderone
Repeat EKG to re-asess QTc
Repeat abdominal xray --> noncontributory
Started Buspirone for anxiety
Continue ceftriaxone only, Doxycycline discontinued -finish 7 days of ceftriaxone
NPO past midnight for ICD implantation tomorrow
Assessment
-
73-year-old male with history of nonischemic cardiomyopathy EF 10%, recent COVID infection requiring steroids October 2023, diabetes, presents with cardiac arrest, CPR/shock x 1, intubation. Patient unresponsive in the ED, negative CT chest,
negative head CT. TTM protocol initiated and patient admitted to ICU
S/p Cardiac arrest
Arrhythmia versus PEA
CPR/shock x 1 in the field
VDRF, LMA in the field
Intubated in ED
Hypotension, requiring pressors
Etiology unknown (cardiac, sepsis, metabolic)
S/p RHC/LHC 12/06/2023
PCWP 32, mPAP 43, cardiac index 2.02.
PCI 90% distal circumflex lesion, PCI 90% mid circumflex
Atrial fibrillation with rapid ventricular response
s/p DCV 12/06/23
Leukocytosis
Acute HFrEF
Metabolic acidemia, elevated lactate
Hyperglycemia
Recent Covid 10/18/2023
Left upper extremity occlusive superficial thrombus per ultrasound on 12/07/2023
Conditions present prior to admission
Diabetes, poorly controlled
NICM, EF 10%
Follows cardiology ([facility])
Refused ICD 2015 (Manny)
Hypertension/hyperlipidemia
20 pound weight loss
On Rybelsus
Follows endocrine ([facility])
Distant tobacco history, quit
Hx of anxiety
Plan/recommendations
Patient is starting to improve --> he is NPO p MN for ICD placement tomorrow
Patient still has episodic A-fib with RVR episodes with HR jumping into mid 130s --> continuous telemetry, goal HR <110bpm, may need to be re-loaded with amio 150mg x 10 mins, keep K>4, Mg>2
Heart rate spontaneously [id number] between sinus rhythm and atrial fibrillation
Nausea and dry heaving resolved after PO doxy stopped
Patient has not eaten or drank due to emesis/nausea --> he is now able to tolerate PO diet since doxy was stopped
Moving forward
Reviewed catheterization results, PCI x 2 circumflex
Significant elevated filling pressures noted
Patient with atrial fibrillation, rapid ventricular response, heart rate 120s to 150s, presently improved intermittently with sinus/atrial fibrillation status post DC cardioversion 12/06, although he still has episodic tachycardia
Chest x-ray suggestive of heart failure, pulm edema
Has yet to be negative fluid status.
Lasix per cardiology, following closely
Amiodarone therapy continues, now on PO load
Echocardiogram few weeks ago, EF 10%, presently 15-20%
Given cardiac catheterization findings, likely arrhythmia/PEA
Dual antiplatelet therapy with Aspirin + clopidogrel. Eliquis resumed
Patient apparently refused ICD around 2015 at which time it was recommended
Daily EKG, follow electrolytes, QT
He is now NPO p MN for ICD placement for secondary prevention given his Hx of cardiac arrest and low LVEF and he is at high risk for SCD
Patient metabolic acidosis has resolved
Would prefer BiPAP at night. Patient not using
It was discontinued
Continue antibiotics for possible community acquired pneumonia based on CT imaging
Remains on ceftriaxone/doxy --> given his normal WBC for 3rd day in row and has gotten 5 days already of doxy, can DC PO doxy today, and continue rocephin for total of 7 days
Sputum culture, blood cultures. UA unremarkable
Influenza, COVID-negative
White count resolved
Trend procalcitonin to assure there is source control
Urine output adequate, creatinine stable
NG tube previously DC'd
PPI therapy
Suspect nausea may be related to PO doxy, perhaps in setting of recent Rybelsus - continue to monitor.
Considering pt has Hx of anxiety and seems overwhelmed as per , I will start Buspar and assess for response. Will continue to follow clinically and adjust as needed. Will consult psych if needed.
Left upper extremity Doppler positive for superficial thrombus --> given it is occlusive, continue Eliquis
Repeat in the next week
CT chest negative for PE
Continue mechanical and pharmacological prophylaxis for DVT
Eliquis has been started per cardiology given a-fib
Reevaluate speech and swallow
NG tube has been removed. DIGESTER CAPPER saw patient today --> recommended to continue regular solids/thin liquids with general aspiration precautions. Consider VSE if difficulty noted with meals. DIGESTER CAPPER to continue to follow
The above reviewed at length with critical care nursing, respiratory care and patient's bedside RN.
Critical care statement: A total of 40 minutes of critical care time was provided for this patient today. This includes management of unstable vital signs, evaluation of the patient at bedside, reviewing the patient's pertinent medical records
including radiographs, microbiology, laboratory evaluations, and discussion with primary team, consultants, pharmacy, nutrition, physical therapy, case management, charge nurse, critical care nursing, and respiratory therapy.
DATA:
Cardiology following, cardiac cathterization done to explore ischemic cause on 12/06. Report as follows:
1.� Right dominant circulation with a chronic total occlusion of the mid RCA, moderate, diffuse disease of the mid LAD without discrete lesion, a 90% lesion in the distal AV groove circumflex status post PCI (Medtronic Trevor [place] 2.0 x 15 VICKY)
and a 90% mid circumflex lesion leading into the second OM, status post successful PCI (Medtronic Trevor [place] 2.25 x 18 VICKY) with reduction in all stenoses to 0%, jailing the origin of the distal circumflex but restoring EVAN-3 flow throughout the
entire circumflex system.
2.� Severely elevated filling pressures (LVEDP = 24 mmHg, PCWP = 32 mmHg at 78.0 kg) with depressed cardiac index on vasopressor/inotrope (CI = 2.02 L/min/m� on norepinephrine 3 mcg/kg/min) consistent with cardiogenic shock.
3.� Atrial fibrillation with rapid ventricular response.
4.� At least moderate pulmonary hypertension, WHO group 2.
Left Upper Extremity US 12-07-2023:
Impression: ACUTE OCCLUSIVE THROMBOSIS throughout the LEFT CEPHALIC VEIN in the left upper arm.
Subjective Dataa
Subjective Data
Date of Service:
Date of Service: December 09, 2023
Chief Complaint: Box Lidder Follow Up
Subjective:
Seen this AM. HR 91, BP 110/87. O2-sat 95% on room air. Remains nauseous when he tries to eat or take pills. Off pressors since Saturday. Spoke with this morning during rounds. Answered all her questions to her satisfaction. Patient has
been afebrile overnight.
Review of Systems
General: Other (Negative unless mentioned above)
Objective Data
Data Reviewed
Vital Signs / I&O / Oxygen:
Vital Signs
Temp Pulse Resp BP Pulse Ox
97.9 F 90 21 103/71 94
12/09/23 07:21 12/09/23 07:00 12/09/23 07:00 12/09/23 07:00 12/09/23 07:00
Intake and Output
12/08/23 12/09/23 12/10/23
06:59 06:59 06:59
Intake Total 2229.8 / 2303.1 2146.6 / 2163.3 33.4 / 33.4
Output Total 1020 / 1045 1110 / 1110 55 / 55
Balance 1209.8 / 1258.1 1036.6 / 1053.3 -21.6 / -21.6
SaO2 [ASV] 99
SaO2 [CPAP/PSV] 99
SaO2 [A/C] 99
SaO2 94
Nasal Cannula flow liters per 2
minute
Physical Exam
General: Comfortable and Other (Right upper extremity PICC line)
HEENT: Normocephalic and Anicteric
Cardiovascular: S1-S2, Murmur (n), Rub (n), Peripheral Edema (negative b/l) and Cool Extremities
Respiratory: Wheeze (n), Crackles (left anterior hemithorax), Rhonchi (n), Non-Labored Respirations and Accessory Resp Muscle Use (negative)
GI: Soft, Non Distended and Non Tender
Neurology: Awake and Alert
Skin: Warm, Dry, Cyanosis (n), Jaundice (n) and Rash (n)
Labs/Micro/Reports
Lab Data
12/09/23 03:52
12/09/23 03:52
Microbiology
12/04/23 04:56 Blood/Venous Blood Culture - Final
No Growth - Final Report
12/04/23 02:53 Blood/Venous Blood Culture - Preliminary
Diptheroids
12/04/23 02:53 Blood/Venous Gram Stain - Preliminary
12/04/23 06:15 Endotracheal Respiratory Culture - Final
Dari albicans
12/04/23 06:15 Endotracheal Gram Stain - Final
[2023-12-09] MEDS: FARXIGA 10 MG PO (08:14)
[2023-12-09] MEDS: PACERONE 400 MG PO ×2 (08:14→19:49)
[2023-12-09] MEDS: VIBRAMYCIN 100 MG PO (08:14)
[2023-12-09] MEDS: PLAVIX 75 MG PO (08:14)
[2023-12-09] MEDS: MUCINEX 600 MG PO ×2 (08:15→19:49)
[2023-12-09] MEDS: ALDACTONE 25 MG PO (08:15)
[2023-12-09] MEDS: PROTONIX IV 40 MG IV (08:15)
[2023-12-09] MEDS: ELIQUIS 5 MG PO ×2 (08:15→19:51)
[2023-12-09] MEDS: NSS (PRESERVATIVE FREE) 10 ML IV (08:15)
[2023-12-09] MEDS: LOW STRENGTH ASPIRIN 81 MG TUBE (08:15)
[2023-12-09] MEDS: LASIX 40 MG IV ×2 (08:17→16:47)
--- NOTE | 2023-12-09 08:22 | W.PN.HOSP.TC ---
Today's Communication/Plan
-
ICD tomorrow
Please see below
Assessment / Plan
Assessment / Plan
Physical Exam
Gen: Not in acute distress
HEENT: Normocephalic
Neck: Supple.
CV: continues to remain RRR, +S1/S2
Resp: continues to remain CTAB anteriorly, no rales, wheezes, or rhonchi.
Abd: +BS, soft, NT, ND
Skin: Warm. Dry.
Neuro: CN 2-12 intact, non-focal.
Psych: normal mood and affect

12/04/23 04:56 Blood/Venous Blood Culture - Preliminary
No Growth in 4 days- Final report to follow
12/04/23 02:53 Blood/Venous Blood Culture - Preliminary
Positive culture in progress
12/04/23 02:53 Blood/Venous Gram Stain - Preliminary
12/04/23 06:15 Endotracheal Respiratory Culture - Final
Dari albicans
12/04/23 06:15 Endotracheal Gram Stain - Final
12/04/23 09:05 Nasal Swab Influenza Types A & B (ELLIOT) - Final
Negative for Influenza A & B, NAAT
Negative results must be combined with clinical observations
and patient history.
Nucleic Acid Amplification test (NAAT)performed on the
[employer] ID NOW platform.
CTA chest 12/03/23: No PE. There is a confluent parenchymal opacity within the posterior aspect of both lungs, most likely representing pneumonia. No evidence for associated pleural effusion bilaterally. Significantly dilated and rounded left
ventricle. Suggestion of Rishi B lines within the lateral aspect of both lungs, which could represent changes of acute and/or chronic heart failure. Heterogeneity of the thyroid isthmus and the right lobe of the thyroid, with suggestion of edema
adjacent to the thyroid. If further imaging evaluation of the thyroid is desired, consideration for thyroid ultrasound.�
CXR 12/04/23AM: No focal alveolar airspace disease. No large pleural effusions.
Echo: Severely reduced left ventricular systolic function.Left ventricle is
�moderately dilated. Global severe hypokinesis.
�Left ventricular ejection fraction is 15-20% by Watkins's method.
�Normal right ventricular systolic function.
�Mild-moderate central mitral regurgitation.
�Compared to prior study of 02/09/16 LVEF was 25 to 30% with severe global
�hypokinesis also noted at that time.
Cardiac cath 12/06/23:
1.� Right dominant circulation with a chronic total occlusion of the mid RCA, moderate, diffuse disease of the mid LAD without discrete lesion, a 90% lesion in the distal AV groove circumflex status post PCI (Medtronic Trevor [place] 2.0 x 15 VICKY)
and a 90% mid circumflex lesion leading into the second OM, status post successful PCI (Medtronic [place] 2.25 x 18 VICKY) with reduction in all stenoses to 0%, jailing the origin of the distal circumflex but restoring EVAN-3 flow throughout the
entire circumflex system.
2.� Severely elevated filling pressures (LVEDP = 24 mmHg, PCWP = 32 mmHg at 78.0 kg) with depressed cardiac index on vasopressor/inotrope (CI = 2.02 L/min/m� on norepinephrine 3 mcg/kg/min) consistent with cardiogenic shock.
3.� Atrial fibrillation with rapid ventricular response.
4.� At least moderate pulmonary hypertension, WHO group 2.

Assessment/Plan
Cardiac arrest due to VT, shock delivered by AED
Non-Sustained Ventricular Tachycardia
Cardiogenic Shock
-1 AED shock in the field (refused ICD in the past for chronic NICM/HFrEF)
-ER noted patient to have gag reflex.� Body Shop Worker recommended cooling protocol.� ER spoke with chief deputy sheriff and cardiac catheterization was not recommended.�Pt was cooled for about 40min.
-with NSTEMI and cardiogenic shock (POA)
-h/o NICM with EF 10% nonischemic cardiomyopathy with reduced EF. Echo above with EF 15-20%.
-Transaminitis/shock liver secondary to cardiac arrest
-Anion gap metabolic acidosis secondary to lactic acidosis (lactic acidosis now resolved). Last anion gap was 13.
-was on Levophed/vasopressin/propofol/fentanyl/bicarb infusion, now off of all of these meds
-extubated 12/05/23AM
-was on heparin gtt, now off
-was on stress dose steroids, now off
-cath 12/06/23 as above, notable for placement of 2 stents, depressed cardiac index on vasopressor/inotrope consistent with cardiogenic shock, moderate pulmonary hypertension
-cont ASA/Plavix
-ICD planned for 12/09/23
Acute on chronic HFrEF
-IV Lasix started 12/07/24
-Patient should have all GDMT as tolerated added over time (not all at once): SGLT2-I, MRA, HF BB, RAAS (REEMA-i or ARB or ARNI) as tolerated
Afib with RVR
-s/p cardioversion on 12/06/23
-on 12/07/23 pt was in afib to 140s, Amio gtt remains at 1mg/hr, converted back to SR
-Continue Amiodarone gtt, Eliquis
Hypokalemia
-Replaced, monitor
Other problems:
Leukocytosis: with elevated procal, bacterial pneumonia is likely. Pt was on empiric Zosyn (started 12/04/23AM), cont on Rocephin/Doxy. BCxs NGTD. Leukocytosis has now resolved.
Hypokalemia, resolved. Note Mg normal.
DM2 with hyperglycemia: a1c 9.5%, cont Lantus/Novolog Q6H, SSI/accuchecks. Diabetes OPHTHALMIC PHOTOGRAPHER following.
Patient's updated at bedside.
Prognosis is unfortunately poor.
FULL/Eliquis
Anticipated Discharge: > 48 hours
Subjective/Interval History
-
Date of Service: December 09, 2023
Patient was seen and examined. He reported nausea and vomiting, chest pain has improved.
Objective Data
-
Labs:
Laboratory Results
12/09/23
03:52
WBC 9.4
Hgb 11.6 L
Hct 33.8 L
Plt Count 253
Sodium 132 L
Potassium 3.3 L
Chloride 104
Carbon Dioxide 25
BUN 37 H
Creatinine 1.0
Glucose 120 H
Calcium 7.7 L
AST 25
ALT 71 H
Vital Signs:
Vital Signs
Temp Pulse Resp BP Pulse Ox
97.9 F 90 21 103/71 94
12/09/23 07:21 12/09/23 07:00 12/09/23 07:00 12/09/23 07:00 12/09/23 07:00
I&O
12/08/23 12/09/23 12/10/23
06:59 06:59 06:59
Intake Total 2229.8 / 2303.1 2146.6 / 2163.3 16.7 / 16.7
Output Total 1020 / 1045 1110 / 1110
Balance 1209.8 / 1258.1 1036.6 / 1053.3 16.7 / 16.7
--- NOTE | 2023-12-09 08:33 | PN.DE.MGMTRT ---
Insulin Management
- -
12/04/2023 Diabetes Management Consult
Patient admitted s/p cardiac arrest, currently on ventilator. PMH includes type 2 diabetes, cardiomyopathy. Prior to admission was taking Farxiga 10 mg daily, Rybelsus 3 mg daily metformin 500 mg BID.. reports he really was not that good
with his diabetes,did not check blood sugar. He does see Dr. Bravo, endocrine, and is due for a follow up soon. A1C on admission 9.5%, cr .8, egfr >60.
Glucose has been > 200 on corrective insulin only. Will start Lantus 15 units now and daily and continue corrective insulin Q 6 hours. Spoke with New Car Salesperson, if patient is not extubated by end of day and glucose is not improved will start
glycemic protocol.
12/05/2023 Diabetes Management Follow up
Patient remains intubated. Received Lantus 15 units in AM started yesterday with corrective insulin. Glucose remained stable overnight requiring 1 to 3 units corrective insulin Q 6 hours. Will continue Lantus 15 units in AM and add NovoLog 3
units Q 6 hours. Will change moderate corrective to low.
12/06/2023: Diabetes Management F/U:
Pt was extubated yesterday but remains NPO with ice chips, awaiting speech eval.
Was started on NovoLog 3 units Q6 hrs due to persistent Hyperglycemia. Glucose has improved, FBG 162 this AM.
Will make no changes to current regimen: Lantus 15 units in AM and NovoLog 3 units Q6H with low corrective Q6 hrs
Will closely follow and make necessary changes from Q6 hrs insulin to his OP regimen in addition to the Lantus once cleared for a diet.
12/09/2023: Diabetes Management F/U:
Pt was started on a diet, appetite is poor, states he feels better today. Family at bedside.
Glucose stable, FBG 120 this AM, premeal 81 to 138.
Will make no changes to current regimen: Lantus 15 units in AM and NovoLog 3 units AC with low corrective
Pt states that he was having a lot of GI adverse rxns to oral regimen which is why he stopped taking the Rybelsus and Metformin. He is requesting no oral meds and states he is willing to continue insulin injections at discharge.
Diabetes History
- -
Type of Diabetes: 2 requiring insulin
Pre-Admission Diabetes Regimen
12/09/23
03:52
Creatinine 1.0
Lab Results
Hemoglobin A1c 9.5 % (4.0-5.6) H 12/04/23 04:14
Insulin Pump Settings
IP Diabetes Regimen
12/08/23 12/08/23 12/08/23
11:39 16:55 20:55
Glucose
POC Glucose 129 H 138 H 127 H
12/09/23 12/09/23
03:52 07:29
Glucose 120 H
POC Glucose 81
Meal type: Lunch
Amount consumed: 75%
Patient Education
--- NOTE | 2023-12-09 08:51 | PTCARENOTE ---
Pt reports nausea. Gagging and coughing up mucus. Pt refused Tigan. States that he thinks it is from too many pills.
--- NOTE | 2023-12-09 09:20 | W.PN.INTV ---
Today's Communication / Plan
Recommendations
Transitioned to oral Amioderone
Repeat EKG
Repeat abdominal xray
Started Buspirone for anxiety
Continue ceftriaxone only, Doxycycline discontinued
Assessment
-
73-year-old male with history of nonischemic cardiomyopathy EF 10%, recent COVID infection requiring steroids October 2023, diabetes, presents with cardiac arrest, CPR/shock x 1, intubation. Patient unresponsive in the ED, negative CT chest,
negative head CT. TTM protocol initiated and patient admitted to ICU
S/p Cardiac arrest
Arrhythmia versus PEA
CPR/shock x 1 in the field
VDRF, LMA in the field
Intubated in ED
Hypotension, requiring pressors
Etiology unknown (cardiac, sepsis, metabolic)
S/p RHC/LHC 12/06/2023
PCWP 32, mPAP 43, cardiac index 2.02.
PCI 90% distal circumflex lesion, PCI 90% mid circumflex
Atrial fibrillation with rapid ventricular response
s/p DCV 12/06/23
Leukocytosis
Metabolic acidemia, elevated lactate
Hyperglycemia
Recent Covid 10/18/2023
Left upper extremity DVT per ultrasound
Conditions present prior to admission
Diabetes, poorly controlled
NICM, EF 10%
Follows cardiology (O'Chaney)
Refused ICD 2016 (Manny)
Hypertension/hyperlipidemia
20 pound weight loss
On Rybelsus
Follows endocrine (Bravo)
Distant tobacco history, quit
Plan/recommendations
At this time, patient remains critically ill, on PO Amioderone
NG tube removed 12/07
Patient has been unable to tolerate PO intake due to nausea/dry heaving
Moving forward
Patient has been in sinus rhythm for the past day, status post DC cardioversion 12/06 and subsequent switching from sinus rhythm to afib+RVR
Chest x-ray suggestive of heart failure, pulm edema: appropriate urine output but I&O not yet negative. Continue Lasix and Spironolactone per cardiology
Amiodarone therapy continues, transitioned to oral 400mg BID today
Cardiac cath + 2 stents 12/06. Dual antiplatelet therapy with Aspirin + clopidogrel. Eliquis resumed
Consider resuming beta huy
Patient refused ICD around 2015 at which time it was recommended. states that he is agreeable to it now.
Daily EKG, follow electrolytes, QT
Patient metabolic acidosis has resolved
Abx day 6 for possible commune acquired pneumonia based on CT imaging. Continue ceftriaxone. Doxycycline discontinued due to nausea, abdominal pain
Sputum culture, blood cultures. UA unremarkable
Influenza, COVID-negative
White count resolved
Urine output adequate, creatinine stable.
PPI therapy. Suspect nausea may be related to acute coronary syndrome. Trimethrobenzamide has not helped nausea. Will repeat abdominal xray today.
Left upper extremity Doppler positive for DVT. Patient on Eliquis
Repeat in the next week
CT chest negative for PE
Continue mechanical and pharmacological prophylaxis for DVT
Pt on diabetic diet if tolerable
Continue with aspiration precautions
Subjective Dataa
Subjective Data
Date of Service:
Date of Service: December 09, 2023
Subjective:
Pt looks and feels better today. He has remained in sinus rhythm throughout yesterday leading to today. He is more conversant and expressive, responds to questions adequately. Complains of fatigue, poor sleep overnight, chest pain and nausea with
inability to tolerate food or liquids.
Review of Systems
General: Fever (n) and Satisfactory Appetite (n)
Cardiopulmonary: Dyspnea, Sputum Production, Chest Pain, Edema (n) and Lower Extremity Pain (n)
GI: Abdominal Pain, Nausea, Vomiting and Diarrhea (n)
Genitourinary: [place]
Objective Data
Data Reviewed
Vital Signs / I&O / Oxygen:
Vital Signs
Temp Pulse Resp BP Pulse Ox
97.9 F 103 19 138/87 95
02/26/24 07:21 12/09/23 09:00 12/09/23 09:00 12/09/23 09:00 12/09/23 09:00
Intake and Output
12/08/23 12/09/23 12/10/23
06:59 06:59 06:59
Intake Total 2229.8 / 2303.1 2146.6 / 2163.3 33.4 / 33.4
Output Total 1020 / 1045 1110 / 1110 55 / 55
Balance 1209.8 / 1258.1 1036.6 / 1053.3 -21.6 / -21.6
SaO2 [ASV] 99
SaO2 [CPAP/PSV] 99
SaO2 [A/C] 99
SaO2 95
Nasal Cannula flow liters per 2
minute
Physical Exam
General: Comfortable, Poor Appetite and Other (Right upper extremity PICC line)
HEENT: Normocephalic, Anicteric and Other (nasogastric tube)
Cardiovascular: S1-S2, Murmur (n), Rub (n), Peripheral Edema (n) and Calf Tenderness (n)
Respiratory: Clear, Wheeze (n), Crackles (n), Rhonchi (n) and Non-Labored Respirations
GI: Non Distended
Neurology: Awake, Alert, Oriented and Other (fatigued)
Skin: Warm, Dry, Cyanosis (n), Jaundice (n), Rash (n) and Bruising (n)
Labs/Micro/Reports
Lab Data
12/09/23 03:52
12/09/23 03:52
Microbiology
12/04/23 04:56 Blood/Venous Blood Culture - Final
No Growth - Final Report
12/04/23 02:53 Blood/Venous Blood Culture - Preliminary
Diptheroids
12/04/23 02:53 Blood/Venous Gram Stain - Preliminary
12/04/23 06:15 Endotracheal Respiratory Culture - Final
Dari albicans
12/04/23 06:15 Endotracheal Gram Stain - Final
[2023-12-09] MEDS: LANTUS 0.149999999999999994 UNITS SC (10:50)
--- NOTE | 2023-12-09 11:30 | W.PN.CD ---
Today's Communication / Plan
-
- ICD in AM
- RHC in AM
- NPO afte midnight.
Impression / Plan
-
73 yrs old man with non-ischemic cardiomyopathy, LVEF 10% with recent COVID had vague headaches and developed cardiac arrest at home - possible PEA and got CPR from and was noted to have pulse at the arrival of paramedics and developed
shockable rhythm s/p shock (refused ICD in the past) and is intubated in the field.
Cardiac arrest, shock delivered by AED (see above)
- NSVT here
- Cardiac arrest was therefore from VT/VF
- ICD plan for tomorrow. WBC count is normalized. still on Rocephin. Will give gram postive coverage for implant.
- Amio for at least 6-12 months if he gets ICD and custodial Amio if no ICD. If amio tolerated. Will need amio surveillance
Paroxysmal AFib
- Now in NSR after more amiodarone
- At least short term amiodarone but given cardiac arrest Amio for 1 year is reasonable
- On Eliquis 5 BID
Hypokalemia
-s/p supplemented
-Normal Cr, will give another dose this evening.
CAD
- S/p PCI to mLCx and an OM on 12/06/2023
- Residual 100% RCA
- On ASA + Plavix. Also on Eliquis. At some point will go to Plavix + Eliquis for the one year post PCI then possibly single agent Eliquis...
Acute HFrEF
- at cath 12/06/2023: LVEDP = 24 mmHg, PCWP = 32 mmHg at 78.0 kg
- heart failure worsening on CXR
- He should have all GDMT as tolerated added over time (not all at once): SGLT2-I, MRA, HF BB, RAAS (REEMA-i or ARB or ARNI) as tolerated
- Needs IV diuresis now
- Plan for RHC with ICD implant.
Physical Exam
Vital Signs/Labs
Vital Signs
Temp Pulse Resp BP Pulse Ox
98.2 F 103 19 138/87 95
12/09/23 11:21 12/09/23 09:00 12/09/23 09:00 12/09/23 09:00 12/09/23 09:00
12/08/23 12/09/23 12/10/23
06:59 06:59 06:59
Actual Weight 80.5 kg
12/09/23 03:52
12/09/23 03:52
PT 15.7 Sec (11.4-14.6) H 12/03/23 18:53
INR 1.27 12/03/23 18:53
APTT 81.4 Sec (23.4-35.0) H 12/04/23 10:44
Magnesium 2.1 mg/dl (1.6-2.3) 12/08/23 04:21
Triglycerides 348 mg/dl (10-149) H 12/04/23 01:15
12/04/23
04:14
R[place]-O-[place] Pept 4590
LAB Results
12/07/23
06:00
Troponin I Cancelled
Physical Exam
Constitutional: No acute distress and Comfortable
EENT: Anicteric and Moist mucous membranes
Cardiovascular: Rhythm & rate is regular, Pedal edema is absent, JVD pressure is normal and Systolic murmur absent
Respiratory: Respiratory effort normal and Lungs clear to auscul.
GI: Soft, Non tender and Normal bowel sounds
Neuro/Psych: Alert, Oriented and AO x 3
Other: Cardiac Device Site
Data Reviewed
-
Date of Service: December 09, 2023
Medical Decision Making: Reviewed Test Results, Independent Historian Assessment, Test Interpretation and Review of Case with other Provider
EKG: Tracing Personally Visualized and interpreted (Went back to AF this AM - now in sinus rhythm. )
Echo: Report Reviewed by me
Labs: Labs Reviewed by me
Old Records: Reviewed
Critical Care Time (in minutes): 31
[2023-12-09] MEDS: FLUSH (NSS) IV ×2 (12:15→12:17)
[2023-12-09] MEDS: ROCEPHIN 1000 MG IV (12:15)
[2023-12-09] MEDS: STERILE WATER FOR INJECTION 10 ML IV (12:15)
[2023-12-09] MEDS: BUSPAR PO (12:15)
[2023-12-09 12:21] LABS: Glucose - Point of Care 104 mg/dl (70-99)
--- NOTE | 2023-12-09 12:48 | PTCARENOTE ---
Pt AAOx3. States, 'I feel better today'
Transitioned from IV to PO Amiodarone this am. Sinus rhythm at that time. At 10:11, went back into Afib. EKG done. Dr Pagan notified. New order for Digoxin. At 11:56, transitioned back into NSR prior to med given. Again spoke with MD.
Holding Digoxin at this time.
Pt denies nausea at this time. Ordered lunch.
Good urine output after receiving IV Lasix. See I&Os.
All other assessments unchanged.
[2023-12-09] MEDS: KCL 40 MEQ PO (14:49)
--- NOTE | 2023-12-09 15:02 | PTCARENOTE ---
Pt OOB in chair. 2 assist. Gait unsteady.
Remains NSR with occasional PVCs.
Lungs CTA On room air.
Improved appetite for lunch. Denies nausea at this time.
To bedside commode for small brown formed stool with steak of bright red blood. Reports straining. made aware.
Clear yellow urine via jones.
All other assessments unchanged.
--- NOTE | 2023-12-09 15:08 | CM ---
Chart reviewed. CM following for d/c planning
NGT d/'ed on 12/07. NPO - n/v
Remains on antibiotics
Transitioning to oral amioderone
CM will follow for needs at d/c
[2023-12-09 17:01] LABS: Glucose - Point of Care 127 mg/dl (70-99)
[2023-12-09] MEDS: BUSPAR 10 MG PO (19:51)
[2023-12-09] MEDS: KCL 20 MEQ PO (19:51)
--- NOTE | 2023-12-09 20:44 | PTCARENOTE ---
received pt from [facility], assessments completed and charted. patient OOB to chair, family at beside. patient offers no c/o nausea at this time , he has felt better since eating some lunch and dinner. patient knows he will be NPO at midnight for
AICD procedure in am.
patient taking his HS pills with jello and applesauce to avoid any nausea, patient wants all pills at once so he can try to sleep tonight without interruption if possible
jones patient for large amounts of clear yellow urine, patient ast x2 to BS, had medium BM at 1930.
phone and personal belongings with in reach - family planning on leaving at 9pm.
[2023-12-09 23:15] LABS: Glucose - Point of Care 197 mg/dl (70-99)
[2023-12-10] VITALS (20 sets, daily range): BP systolic 84–123; BP diastolic 44–98; BMI 24.6
--- NOTE | 2023-12-10 04:15 | PTCARENOTE ---
patient resting comfortably all night, offers no c//o pain or discomfort. no c/o nausea. remains npo for aicd today
no changes in assessment, personal belongings with in reach at all times
[2023-12-10 05:29] LABS: Hematocrit 33.4 % (39.0-52.0); Hemoglobin 11.7 g/dL (13.0-18.0); Mean Corpuscular Hgb 29.5 pg (27.0-31.0); Mean Corpuscular Volume 84.1 fL (80.0-94.0); Platelet Count 286 10^3/uL (130-400); Red Blood Cell Count 3.97 10^6/uL (4.70-6.10); Red Cell Dist. Width 14.4 % (11.5-14.5); White Blood Cell Count 10.2 10^3/uL (4.8-10.8)
[2023-12-10 05:51] LABS: Blood Urea Nitrogen 32 mg/dl (9-20); Calcium 8.1 mg/dl (8.4-10.2); Carbon Dioxide 29 mmol/L (22-30); Chloride 100 mmol/L (98-107); Estimated Creatinine Clearance 79 ml/min; Glucose 103 mg/dl (70-99); Potassium 3.7 mmol/L (3.5-5.1); Sodium 134 mmol/L (135-145); eGFR > 60.00
[2023-12-10 07:38] LABS: Glucose - Point of Care 108 mg/dl (70-99)
--- NOTE | 2023-12-10 07:49 | PN.DE.MGMTRT ---
Insulin Management
- -
12/04/2023 Diabetes Management Consult
Patient admitted s/p cardiac arrest, currently on ventilator. PMH includes type 2 diabetes, cardiomyopathy. Prior to admission was taking Farxiga 10 mg daily, Rybelsus 3 mg daily metformin 500 mg BID.. reports he really was not that good
with his diabetes,did not check blood sugar. He does see Dr. Bravo, endocrine, and is due for a follow up soon. A1C on admission 9.5%, cr .8, egfr >60.
Glucose has been > 200 on corrective insulin only. Will start Lantus 15 units now and daily and continue corrective insulin Q 6 hours. Spoke with Landing Gear Mechanic, if patient is not extubated by end of day and glucose is not improved will start
glycemic protocol.
12/05/2023 Diabetes Management Follow up
Patient remains intubated. Received Lantus 15 units in AM started yesterday with corrective insulin. Glucose remained stable overnight requiring 1 to 3 units corrective insulin Q 6 hours. Will continue Lantus 15 units in AM and add NovoLog 3
units Q 6 hours. Will change moderate corrective to low.
12/06/2023: Diabetes Management F/U:
Pt was extubated yesterday but remains NPO with ice chips, awaiting speech eval.
Was started on NovoLog 3 units Q6 hrs due to persistent Hyperglycemia. Glucose has improved, FBG 162 this AM.
Will make no changes to current regimen: Lantus 15 units in AM and NovoLog 3 units Q6H with low corrective Q6 hrs
Will closely follow and make necessary changes from Q6 hrs insulin to his OP regimen in addition to the Lantus once cleared for a diet.
12/09/2023: Diabetes Management F/U:
Pt was started on a diet, appetite is poor, states he feels better today. Family at bedside.
Glucose stable, FBG 120 this AM, premeal 81 to 138.
Will make no changes to current regimen: Lantus 15 units in AM and NovoLog 3 units AC with low corrective
Pt states that he was having a lot of GI adverse rxns to oral regimen which is why he stopped taking the Rybelsus and Metformin. He is requesting no oral meds and states he is willing to continue insulin injections at discharge.
12/10/2023 Diabetes management Follow up
Glucose remains stable, 81 to 127 with one elevation 197 @ hs most likely due to taking hs medication with applesauce and jello. Patient appetite poor yesterday but did take small amount lunch and dinner. Fasting this AM 108. Patient for procedure
today. Will make no change to current regimen lantus 15 units in AM with 3 units novolog AC. Will follow.
Diabetes History
- -
Type of Diabetes: 2 requiring insulin
Pre-Admission Diabetes Regimen
12/10/23
04:57
Creatinine 0.9
Lab Results
Hemoglobin A1c 9.5 % (4.0-5.6) H 12/04/23 04:14
Insulin Pump Settings
IP Diabetes Regimen
12/09/23 12/09/23 12/09/23
12:10 16:50 23:03
Glucose
POC Glucose 104 H 127 H 197 H
12/10/23 12/10/23
04:57 07:27
Glucose 103 H
POC Glucose 108 H
Meal type: Breakfast
Patient Education
[2023-12-10] MEDS: NOVOLOG FLEXPEN-LOW RESISTANCE SC ×3 (08:00→18:01)
[2023-12-10] MEDS: NOVOLOG FLEXPEN SC (08:00)
[2023-12-10] MEDS: LOW STRENGTH ASPIRIN 81 MG TUBE (08:07)
[2023-12-10] MEDS: PACERONE 400 MG PO ×2 (08:07→19:58)
[2023-12-10] MEDS: NSS (PRESERVATIVE FREE) 10 ML IV (08:07)
[2023-12-10] MEDS: PLAVIX 75 MG PO (08:07)
[2023-12-10] MEDS: MUCINEX 600 MG PO ×2 (08:07→19:59)
[2023-12-10] MEDS: ALDACTONE 25 MG PO (08:07)
[2023-12-10] MEDS: PROTONIX IV 40 MG IV (08:07)
[2023-12-10] MEDS: FARXIGA 10 MG PO (08:07)
[2023-12-10] MEDS: LASIX 40 MG IV ×2 (08:08→15:40)
[2023-12-10] MEDS: BUSPAR 10 MG PO ×2 (08:08→19:59)
--- NOTE | 2023-12-10 08:11 | PN.CDI ---
CDI
- -
CDI:
Physician Documentation Request
Admit Date: 12/03/23 20:54
Dear Doctor Armando,
Patient admitted following cardiac arrest.
12/08 Cardiology PN: 'Acute HFrEF
- at cath 12/06/2023: LVEDP = 24 mmHg, PCWP = 32 mmHg at 78.0 kg
- heart failure worsening on CXR
- He should have all GDMT as tolerated added over time (not all at once): SGLT2-I, MRA, HF BB, RAAS (REEMA-i or ARB or ARNI) as tolerated
- Needs IV diuresis now'
12/09 Hospitalist PN: 'Acute on chronic HFrEF -IV Lasix started 12/07/24'
Please provide further specificity regarding the most likely acuity of CHF you are evaluating, treating or monitoring.
Acute
Acute on chronic
Other
Use of terms such as suspected, likely, concern for, or probable (associated with a specific diagnosis that is being evaluated, monitored, or treated as if it exists) are acceptable and can be coded in the inpatient setting, when documented at the
time of discharge.
Thank you,
Liane Walden RN, BSN
CDI Specialist
Available via [place] text
Please use your independent medical judgment in providing your response.
--- NOTE | 2023-12-10 08:15 | PN.CDI ---
CDI
- -
CDI:
Physician Documentation Request
Admit Date: 12/03/23 20:54
Dear Doctor Armando,
Patient admitted following cardiac arrest.
12/07 Peripheral venous upper extremity left: 'ACUTE OCCLUSIVE THROMBOSIS throughout the LEFT CEPHALIC VEIN in the left upper arm.'
Please indicate in your progress notes if you are in agreement that the above diagnosis is valid for this patient:
____ - Acute thrombus is a valid diagnosis (Please include it in your progress notes)
____ - Acute thrombus is not a valid diagnosis for this patient
____ - Acute thrombus is not yet confirmed but remains a suspected condition
____ - Other
____ - Unable to determine
Use of terms such as suspected, likely, concern for, or probable are acceptable for a diagnosis that is being evaluated, monitored or treated as if it exists and can be coded in the inpatient setting, when documented at the time of discharge.
Thank you,
Liane Walden RN, BSN
CDI Specialist
Available via [place] text
Please use your independent medical judgment in providing your response.
--- NOTE | 2023-12-10 08:43 | W.PN.INTV ---
Today's Communication / Plan
Recommendations
s/p ICD today
PT
Replete K>4, Mg>2
Last day ABx today
Recommend to repeat CXR in 4-6 weeks to follow his PNA to resolution.
Downgrade pt out of ICU to IVU. Stress Engineer/pulmonary service will now sign off. Please reconsult if there are any additional questions/concerns, or if respiratory status deteriorates.
Assessment
-
73-year-old male with history of nonischemic cardiomyopathy EF 10%, recent COVID infection requiring steroids October 2023, diabetes, presents with cardiac arrest, CPR/shock x 1, intubation. Patient unresponsive in the ED, negative CT chest,
negative head CT. TTM protocol initiated and patient admitted to ICU
S/p Cardiac arrest
Arrhythmia versus PEA
CPR/shock x 1 in the field
VDRF, LMA in the field
Intubated in ED
CAP in lower lobes b/l
Hypotension, requiring pressors - pt now normotensive
Etiology mixed between cardiac & sepsis from PNA with hypovolemia
S/p RHC/LHC 12/06/2023
PCWP 32, mPAP 43, cardiac index 2.02.
PCI 90% distal circumflex lesion, PCI 90% mid circumflex
Atrial fibrillation with rapid ventricular response
s/p DCV 12/06/23
Leukocytosis
Acute HFrEF
Metabolic acidemia, elevated lactate
Hyperglycemia
Recent Covid 10/18/2023
Left upper extremity occlusive superficial thrombus per ultrasound on 12/07/2023
Conditions present prior to admission
Diabetes, poorly controlled
NICM, EF 10%
Follows cardiology ([facility])
Refused ICD 2016 (Manny)
Hypertension/hyperlipidemia
20 pound weight loss
On Rybelsus
Follows endocrine ([facility])
Distant tobacco history, quit
Hx of anxiety
Plan/recommendations
Patient has markedly improved; he underwent ICD placement today and there were no complications.
No more episodes of tachycardia since yesterday
Heart rate spontaneously [id number] between sinus rhythm and atrial fibrillation
Nausea and dry heaving resolved after PO doxy stopped
Patient has not eaten or drank due to emesis/nausea --> he is now able to tolerate PO diet since doxy was stopped
Moving forward
Reviewed catheterization results, PCI x 2 circumflex
Significant elevated filling pressures noted
Chest x-ray suggestive of heart failure, pulm edema
Maintain net negative fluid balance as tolerated
Lasix per cardiology, following closely
Amiodarone therapy continues, now on PO load
Echocardiogram few weeks ago, EF 10%, presently 15-20%
Given cardiac catheterization findings, likely arrhythmia/PEA
Dual antiplatelet therapy with Aspirin + clopidogrel. Eliquis resumed
Patient apparently refused ICD around 2015 at which time it was recommended
Daily EKG, follow electrolytes, QTc - improved today as of today - 443ms
Patient metabolic acidosis has resolved
Would prefer BiPAP at night. Patient not using
It was discontinued
Continue antibiotics for possible community acquired pneumonia based on CT imaging
Remains on ceftriaxone/doxy --> given his normal WBC for 3 days in a row (as of 12/09) and had received 5 days already of doxy, PO doxy DC'd on 12/09, and continue rocephin for total of 7 days - last day today
Sputum culture, blood cultures. UA unremarkable
Influenza, COVID-negative
White count resolved
Trend procalcitonin to assure there is source control
Recommend to repeat CXR in 4-6 weeks to follow his PNA to resolution.
Urine output adequate, creatinine stable
NG tube previously DC'd
PPI therapy
Suspect nausea related to PO doxy, perhaps in setting of recent Rybelsus - continue to monitor.
Considering pt has Hx of anxiety and seems overwhelmed as per , started Buspar on 12/09 and assess for response. Will continue to follow clinically and adjust as needed. Will consult psych if needed.
Left upper extremity Doppler positive for superficial thrombus --> given it is occlusive, continue Eliquis
Repeat in the next week
CTA chest negative for PE on 12/03/2023
Continue mechanical and pharmacological prophylaxis for DVT
Eliquis has been started per cardiology given a-fib
Reevaluate speech and swallow
NG tube has been removed. AVIONICS MANAGER saw patient on 12/09 --> recommended to continue regular solids/thin liquids with general aspiration precautions. Consider VSE if difficulty noted with meals. AVIONICS MANAGER to continue to follow
The above reviewed at length with critical care nursing, respiratory care and patient's bedside RN.
Dispo: Downgrade pt out of ICU to IVU. Patient doing well on room air, saturating 98%. Stress Engineer/pulmonary service will now sign off. Thank you for allowing us to be involved in the care of this patient. Please reconsult if there are any
additional questions/concerns, or if respiratory status deteriorates.
DATA:
Cardiology following, cardiac cathterization done to explore ischemic cause on 12/06. Report as follows:
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
and a 90% mid circumflex lesion leading into the second OM, status post successful PCI (Medtronic Sellers Gerlaw 2.25 x 18 VICKY) with reduction in all stenoses to 0%, jailing the origin of the distal circumflex but restoring EVAN-3 flow throughout the
entire circumflex system.
2.� Severely elevated filling pressures (LVEDP = 24 mmHg, PCWP = 32 mmHg at 78.0 kg) with depressed cardiac index on vasopressor/inotrope (CI = 2.02 L/min/m� on norepinephrine 3 mcg/kg/min) consistent with cardiogenic shock.
3.� Atrial fibrillation with rapid ventricular response.
4.� At least moderate pulmonary hypertension, WHO group 2.
Left Upper Extremity US 2-24-2024:
Impression: ACUTE OCCLUSIVE THROMBOSIS throughout the LEFT CEPHALIC VEIN in the left upper arm.
CXR 12-10-2923:
Left-sided cardiac device insertion.
Right PICC line with tip in SVC.
No pneumothorax.
Mild patchy right basilar opacification which could represent subsegmental atelectasis and/or pneumonia as well as minor right costophrenic angle blunting which could represent tiny right pleural effusion.
Subjective Dataa
Subjective Data
Date of Service:
Date of Service: December 10, 2023
Chief Complaint: Stress Engineer Follow Up
Subjective:
Seen this AM. Going for ICD today. Abdominal pain improved. Nausea almost fully resolved. Bowel movement yesterday with few blood streaks - Hb stable this AM.. No repeat BM since yesterday, but he says his abd pain is better. No esau blood
seen from rectum.
Review of Systems
General: Other (12 point ROS performed and is negative unless mentioned above.)
Objective Data
Data Reviewed
Vital Signs / I&O / Oxygen:
Vital Signs
Temp Pulse Resp BP Pulse Ox
98.3 F 87 12 97/65 96
12/10/23 07:43 12/09/23 19:49 12/09/23 18:00 12/09/23 19:49 12/09/23 20:00
Intake and Output
12/09/23 12/10/23 12/11/23
06:59 06:59 06:59
Intake Total 2146.6 / 2163.3 1173.4 / 1173.4
Output Total 1110 / 1110 3620 / 3620
Balance 1036.6 / 1053.3 -2446.6 / -2446.6
SaO2 [ASV] 99
SaO2 [CPAP/PSV] 99
SaO2 [A/C] 99
SaO2 96
Nasal Cannula flow liters per 2
minute
Physical Exam
General: Comfortable and Other (Right upper extremity PICC line)
HEENT: Normocephalic and Anicteric
Cardiovascular: S1-S2, Murmur (n), Rub (n) and Peripheral Edema (negative b/l)
Respiratory: Clear, Wheeze (n), Crackles (negative), Rhonchi (n), Non-Labored Respirations and Accessory Resp Muscle Use (negative)
GI: Soft, Non Distended, Tender (slightly tender in periumbilical region) and Normal Bowel Sounds
Neurology: AO x 3 and Tremors (negative)
Skin: Warm, Dry, Cyanosis (n), Jaundice (n), Rash (n) and Bruising (n)
Labs/Micro/Reports
Lab Data
12/10/23 04:57
12/10/23 04:57
Microbiology
12/04/23 04:56 Blood/Venous Blood Culture - Final
No Growth - Final Report
12/04/23 02:53 Blood/Venous Blood Culture - Preliminary
Diptheroids
12/04/23 02:53 Blood/Venous Gram Stain - Preliminary
--- NOTE | 2023-12-10 10:00 | PTCARENOTE ---
Pt received this am. Assessment as documented. Pt pleasant and cooperative. Support offered. Report given and pt to laboratory technologist for AICD insertion.
--- NOTE | 2023-12-10 11:17 | W.PN.CD ---
Today's Communication / Plan
-
- ICD today
Impression / Plan
-
73 yrs old man with non-ischemic cardiomyopathy, LVEF 10% with recent COVID had vague headaches and developed cardiac arrest at home - possible PEA and got CPR from and was noted to have pulse at the arrival of paramedics and developed
shockable rhythm s/p shock (refused ICD in the past) and is intubated in the field.
Cardiac arrest, shock delivered by AED (see above)
- NSVT here
- Cardiac arrest was therefore from VT/VF
- ICD today
- Amio for at least 6-12 months if he gets ICD and buttermilk drier operator Amio if no ICD. If amio tolerated. Will need amio surveillance
Paroxysmal AFib
- Now in NSR after more amiodarone
- At least short term amiodarone but given cardiac arrest Amio for 1 year is reasonable
- On Eliquis 5 BID
Hypokalemia
-s/p supplemented
-Normal Cr, will give another dose this evening.
CAD
- S/p PCI to mLCx and an OM on 12/06/2023
- Residual 100% RCA
- On ASA + Plavix. Also on Eliquis. At some point will go to Plavix + Eliquis for the one year post PCI then possibly single agent Eliquis...
Acute HFrEF
- at cath 12/06/2023: LVEDP = 24 mmHg, PCWP = 32 mmHg at 78.0 kg
- heart failure stable.
- He should have all GDMT as tolerated added over time (not all at once): SGLT2-I, MRA, HF BB, RAAS (REEMA-i or ARB or ARNI) as tolerated
- appears well compensated now.
- Diuresis as needed.
Physical Exam
Vital Signs/Labs
Vital Signs
Temp Pulse Resp BP Pulse Ox
98.3 F 88 12 114/68 96
12/10/23 07:43 12/10/23 09:00 12/10/23 09:00 12/10/23 09:00 12/09/23 20:00
12/09/23 12/10/23 12/11/23
06:59 06:59 06:59
Actual Weight 80.5 kg 80.1 kg
12/10/23 04:57
12/10/23 04:57
PT 15.7 Sec (11.4-14.6) H 12/03/23 18:53
INR 1.27 12/03/23 18:53
APTT 81.4 Sec (23.4-35.0) H 12/04/23 10:44
Magnesium 2.1 mg/dl (1.6-2.3) 12/08/23 04:21
Triglycerides 348 mg/dl (10-149) H 12/04/23 01:15
12/04/23
04:14
Jfr-F-Flluopnykpt Pept 4590
Physical Exam
Constitutional: No acute distress and Comfortable
EENT: Anicteric and Moist mucous membranes
Cardiovascular: Rhythm & rate is regular, Pedal edema is absent and Systolic murmur present
Respiratory: Respiratory effort normal, Lungs clear to auscul. and Wheeze Absent
GI: Soft, Distention absent and Non tender
Neuro/Psych: Alert, Oriented and AO x 3
Other: Cardiac Device Site
Data Reviewed
-
Date of Service: December 10, 2023
Medical Decision Making: Reviewed Test Results, Tests Ordered, Independent Historian Assessment, Test Interpretation and Review of Case with other Provider
EKG: Tracing Personally Visualized and interpreted
Echo: Report Reviewed by me
X-Ray/CT/US/MRI/NUC/PET: Image Personally Visualized and interpreted
Labs: Labs Reviewed by me
Old Records: Reviewed
Critical Care Time (in minutes): 31
--- NOTE | 2023-12-10 11:19 | ITS.CL.ICD ---
Digital Circuit Designer - ICD
Implantable Cardioverter Defibrillator
Procedure Report:
Dual Chamber Implantable Cardioverter Defibrillator Placement:
Mr. Aldana is a very pleasant 73 years old gentleman with cardiac arrest with LVEF of 15-20% on GDMT for years and had refused ICD in the past but now s/p cardiac arrest and is interested in ICD implantation, underwent cardaic cath as well and has
100% occluded RCA and LCx and OM was treated. He also has paroxysmal atrial fibrillation and now on Amiodarone is recommended a dual chamber ICD placement.
Indications: Secondary prevention of ventricular arrhythmia.
Date of the Procedure: 12/10/2023
Pre-Operative Diagnosis: Ischemic cardiomyopathy with sustained Ventricular Tachycardia with infarcted scar substrate
Post-Operative Diagnosis: Ischemic cardiomyopathy with sustained Ventricular Tachycardia with infarcted scar substrate
Procedure Performed: DUAL CHAMBER IMPLANTABLE CARDIOVERTER DEFIBRILLATOR IMPLANTATION
Performing Physician:
Tiana Pagan MD
Assistants:
EP staff
Anesthesia:
See anesthesia records
Detailed Description of the Procedure:
The patient was identified using hospital identification and informed consent obtained for the procedure. The risks were explained including, but not limited to: Bleeding, infection, arrhythmia, stroke, vascular/cardiac/lung puncture, surgery,
pacemaker dependency/device malfunction. All questions were answered.
The patient was brought to the electrophysiology laboratory in stable condition in fasting state. Continuous electrocardiographic and hemodynamic monitoring was initiated. The initial rhythm was atrial fibrillation.
The procedure site was meticulously prepared with surgical scrub and allowed to dry with no pooling. Sterile draping was applied to cover the procedure site. The image intensifier was draped with sterile bag and positioned over the patient.
The left infraclavicular region was prepped and draped in the usual sterile fashion. Local anesthesia was administered subcutaneously using 1% lidocaine / epinephrine.
The axillary vein was accessed using the fluoroscopic guidance using the micro-puncture apparatus and vascular sheath was introduced over the guidewire for lead access. The guide wire was advanced into the inferior vena cava. The wire was retained
and two guide wires were placed in axillary vein. Using the sheaths, atrial and ventricular leads were placed. These were advanced into the right ventricle and the right atrium.
The right ventricular lead was secured in position with an active fixation technique at the apical septal location.
Cardioversion:
A 150 J was applied that failed to convert him to sinus rhythm.
The RA lead was attached in the right atrial appendage with active fixation. The atrial lead dislodged spontaneously. The lead was repositioned.
Another 200J shock was given to test the atrial lead. The shock was again and sinus achieved but it was short lived.
The atrial lead was dislodged again. The decision was made to replace the active atrial lead to passive lead.
The passive atrial lead was deployed into the right atrial appendage with passive ari lodging.
There was excellent sensing, pacing, and impedance from the leads, with no diaphragmatic stimulation at 10 V output.�Bovie cautery, antibiotics, and fluoroscopy were used.
The sheath was withdrawn, and the thresholds remained acceptable. A pursestring suture using 2-0 Vicryl was made around the insertion of the leads. The leads were secured in position at the venous entry site with 0-silk. A pocket was fashioned
contiguous to the incision. The electrode terminals were connected to the pulse generator, which was placed into the pocket.
The generator was anchored to the underlying fascia using silk suture.
The wound was irrigated thoroughly with antibiotic solution.
A TYRX pouch was placed around the generator and leads.
A surgiflo was deposited into the pocket due to triple anticoagulation.
The wound was closed in 3 layers using 2-0 VLoc sutures followed by 2 layers of 4-0 V-loc sutures. Steri-Strips and a bandage were applied externally.�
Procedure End:
The procedure was tolerated well. A pressure bandage was applied to the incision area.
Estimated Blood loss:
5 cc
Fluoro time:
1.4min / 4.6mGy
Specimens Removed:
No cultures and no specimens were obtained. No intraoperative pathology was identified.
Urine output:
None
Packs / Drains/ Tubes:
None
Instrument / Sponge Count Correct:
Yes
Complications of the Procedure:
None
Condition of Patient at Time of Transfer:
Hemodynamically stable with no neurological or vascular compromise.
Device information:�
Generator: Zyante; Model: [id number]; Serial # [id number]�
Atrial Lead: Medtronic; Model: 4574-53; Serial # [id number]�
Measured data in the right atrium was sensing of 2 mV, impedance of 779 ohms and threshold of 0.75 V at 0.4ms�
RV Lead: Medtronic; Model: 6935M-62; Serial # [id number]
Measured data in the RV lead was sensing of 20 mV, impedance of 551ohms and threshold of 0.75 V at 0.4ms�
PROGRAMMING PARAMETERS:�
Devyn parameter settings were AAIR <=>DDDR 60-130 bpm. �
����������� Mode switch: On
����������� Paced AV delay: 130 ms
����������� Sensed AV delay: 100 ms
����������� Rate Adaptive A-V Interval: Off
Output parameters:
����������������������� Amplitude (V)������������� Pulse Width (ms)������� Sensitivity (mV)
����������� RA: ����� 3.5 ����������������� 0.4������������������ 0.3
����������� RV:������ 3.5������������������ 0.4������������������ 0.3
Tachy parameter settings:
����������� SVT discrimination: On
����������� AF/AFl: On
����������� SVT limit: 260 msec
����������� VT zone:
����������������������� Slow VT: 133 - 167 bpm --> Monitor
����������������������� Fast VT : 167 - 188 bpm --> ATP x 3 then Shock x4 �
����������������������� VF: >88 bpm--> shock x6 (ATP before and during)
Summary:
Successful implantation of MRI compatible dual chamber Medtronic implantable Cardioverter Defibrillator.�
Results/Recommendations:
-Please follow up CXR�
1. Please provide patient with adequate pain control�
Instructions to be given to patient:�
- Please follow up with [facility] at [address] [place] [address] ([phone]) to get your wound checked within 14 days of your discharge.
- Do not soak incision site until after it is evaluated at cardiology clinic. OK to showers followed by dab dry the area. No baths or swimming until then. Sponge baths are OK.�
- Allow 'steri strips' to fall off on their own�
- Do not lift left elbow above shoulder, particularly with sudden jerking movements, for 1 month�
- Do not lift anything weighing more than 5 pounds with the left arm for 1 month�
- If you notice any fevers, shortness of breath, lightheadedness, chest pain, or worsening swelling in the wound site, please contact the arrhythmia clinic, contact your review coordinator, or present to the hospital for evaluation.�
Tiana Pagan MD [facility]
Electrophysiology
[2023-12-10] MEDS: LANTUS 0.149999999999999994 UNITS SC (11:21)
[2023-12-10 11:46] LABS: Phosphorus 3.1 mg/dl (2.5-4.5)
[2023-12-10] MEDS: NOVOLOG FLEXPEN 3 UNITS SC ×2 (11:51→17:59)
[2023-12-10 11:52] LABS: Glucose - Point of Care 87 mg/dl (70-99)
[2023-12-10 12:19] LABS: Magnesium 1.9 mg/dl (1.6-2.3)
[2023-12-10] MEDS: KCL 40 MEQ PO (12:21)
[2023-12-10] MEDS: ROCEPHIN 1000 MG IV (12:36)
[2023-12-10] MEDS: STERILE WATER FOR INJECTION 10 ML IV (12:36)
--- NOTE | 2023-12-10 12:53 | PTCARENOTE ---
Pt returned from carpenter/labor. L shoulder dressing dry and intact. Arm immobilizer in place.
--- NOTE | 2023-12-10 13:42 | W.PN.INTV ---
Today's Communication / Plan
Recommendations
Status post successful ICD implantation, monitor closely
Cardiac PT consult
Follow electrolytes and replenish as needed
Possible downgrade from ICU today
Assessment
-
73-year-old male with history of nonischemic cardiomyopathy EF 10%, recent COVID infection requiring steroids October 2023, diabetes, presents with cardiac arrest, CPR/shock x 1, intubation. Patient unresponsive in the ED, negative CT chest,
negative head CT. TTM protocol initiated and patient admitted to ICU
S/p Cardiac arrest
Arrhythmia versus PEA
CPR/shock x 1 in the field
VDRF, LMA in the field
Intubated in ED
Hypotension, requiring pressors
Etiology unknown (cardiac, sepsis, metabolic)
S/p RHC/LHC 12/06/2023
PCWP 32, mPAP 43, cardiac index 2.02.
PCI 90% distal circumflex lesion, PCI 90% mid circumflex
Atrial fibrillation with rapid ventricular response
s/p DCV 12/06/23
Leukocytosis
Acute HFrEF
Metabolic acidemia, elevated lactate
Hyperglycemia
Recent Covid 10/18/2023
Left upper extremity occlusive superficial thrombus per ultrasound on 12/07/2023
Conditions present prior to admission
Diabetes, poorly controlled
NICM, EF 10%
Follows cardiology (O'Chaney)
Refused ICD 2016 (Manny)
Hypertension/hyperlipidemia
20 pound weight loss
On Rybelsus
Follows endocrine ([facility])
Distant tobacco history, quit
Hx of anxiety
Plan/recommendations
S/P ICD implantation
Patient still has episodic A-fib with RVR episodes with HR jumping into mid 130s --> continuous telemetry, goal HR <110bpm, may need to be re-loaded with amio 150mg x 10 mins, keep K>4, Mg>2
Heart rate spontaneously fidy-drh-axejf between sinus rhythm and atrial fibrillation
Nausea and dry heaving resolved after PO doxy stopped
Patient has not eaten or drank due to emesis/nausea --> he is now able to tolerate PO diet since doxy was stopped
Moving forward
Reviewed catheterization results, PCI x 2 circumflex
Significant elevated filling pressures noted
Patient with atrial fibrillation, rapid ventricular response, heart rate 120s to 150s, presently improved intermittently with sinus/atrial fibrillation status post DC cardioversion 12/06, although he still has episodic tachycardia
Chest x-ray suggestive of heart failure, pulm edema
Has yet to be negative fluid status.
Lasix per cardiology, following closely
Amiodarone therapy continues, now on PO load
Echocardiogram few weeks ago, EF 10%, presently 15-20%
Given cardiac catheterization findings, likely arrhythmia/PEA
Dual antiplatelet therapy with Aspirin + clopidogrel. Eliquis resumed
Patient apparently refused ICD around 2015 at which time it was recommended, agreeable now
Daily EKG, follow electrolytes, QT
ICD placement this AM given his Hx of cardiac arrest and low LVEF and he is at high risk for SCD
Patient metabolic acidosis has resolved
Would prefer BiPAP at night. Patient not using
It was discontinued
Day 7 of abx treatment for community acquired pneumonia based on CT imaging
Doxycycline discontinued due to abdominal discomfort and nausea. Leukocytosis resolved 4 days ago. Ceftriaxone course completed today
Sputum culture, blood cultures. UA unremarkable
Influenza, COVID-negative
Urine output adequate, creatinine stable
NG tube previously DC'd
PPI therapy: IV converted to PO today
Nausea resolved after DC'd Doxy, perhaps in setting of recent Rybelsus
Considering pt has Hx of anxiety and seems overwhelmed as per , Buspar started. Assess for response. Will continue to follow clinically and adjust as needed. Will consult psych if needed.
Left upper extremity Doppler positive for superficial thrombus --> given it is occlusive, continue Eliquis
Repeat in the next week
CT chest negative for PE
Continue mechanical and pharmacological prophylaxis for DVT
Eliquis has been started per cardiology given a-fib
Diet is regular (diabetic/low cholesterol) solids/thin liquids with general aspiration precautions. Consider VSE if difficulty noted with meals. CALENDER RUNNER to continue to follow
Subjective Dataa
Subjective Data
Date of Service:
Date of Service: December 10, 2023
Chief Complaint: Community Midwife Follow Up
Subjective:
Pt feels better, appetite is improved, nausea is mostly resolved. There is mild chest pain and cough.
Review of Systems
General: Fever (n) and Satisfactory Appetite
Cardiopulmonary: Cough, Sputum Production, Chest Pain, Edema (n) and Lower Extremity Pain (n)
GI: Abdominal Pain (mild), Nausea (n), Vomiting (n), Diarrhea (n) and Constipation (n)
Genitourinary: Marroquin
Objective Data
Data Reviewed
Vital Signs / I&O / Oxygen:
Vital Signs
Temp Pulse Resp BP Pulse Ox
97.4 F 81 15 94/74 96
12/10/23 12:03 12/10/23 12:07 12/10/23 12:07 12/10/23 12:07 12/09/23 20:00
Intake and Output
12/09/23 12/10/23 12/11/23
06:59 06:59 06:59
Intake Total 2146.6 / 2163.3 1173.4 / 1173.4
Output Total 1110 / 1110 3620 / 3620
Balance 1036.6 / 1053.3 -2446.6 / -2446.6
SaO2 [ASV] 99
SaO2 [CPAP/PSV] 99
SaO2 [A/C] 99
SaO2 96
Nasal Cannula flow liters per 2
minute
Physical Exam
General: Comfortable and Other (Right upper extremity PICC line)
HEENT: Normocephalic and Anicteric
Cardiovascular: S1-S2, Murmur (n), Rub (n), Peripheral Edema (negative b/l) and Cool Extremities
Respiratory: Clear, Wheeze (n), Non-Labored Respirations and Accessory Resp Muscle Use (negative)
GI: Soft, Non Distended and Tender (mildly tender)
Neurology: Awake, Alert, Oriented and AO x 3
Skin: Warm, Dry, Cyanosis (n), Jaundice (n), Rash (n) and Bruising (n)
Labs/Micro/Reports
Lab Data
12/10/23 04:57
12/10/23 04:57
Microbiology
12/04/23 02:53 Blood/Venous Blood Culture - Final
Diptheroids
12/04/23 02:53 Blood/Venous Gram Stain - Final
12/04/23 04:56 Blood/Venous Blood Culture - Final
No Growth - Final Report
--- NOTE | 2023-12-10 15:21 | CM ---
CM following re: discharge planning.
Discussed in rounds, reviewed pt's chart, met with pt and pt's spouse at bedside.
Per Spouse pt is very very weak. CM requested PT, OT and tour production supervisor consult to evaluate the pt. ST indicates skilled services at discharge. Pt might need acute level of rehab.
D/C plan: Awaiting for PT, OT, tour production supervisor evaluations to determine a level of care at discharge.
CM will follow with discharge plan updates as hospitalization progresses
[2023-12-10] MEDS: ANCEF 5 IV ×2 (15:39→23:55)
--- NOTE | 2023-12-10 16:11 | PTCARENOTE ---
recd pt 1515, handoff at bedside. arm immobilizer in place. Bruising remains unchanged L arm, PICC intact R arm. denies need for pain med at present. In recliner, visiting with family. Will use IS with encouragement 750 ml
--- NOTE | 2023-12-10 18:00 | PTCARENOTE ---
taken to radiology for chest xray. back to room, gown changed, forgetful at times. family visiting.
[2023-12-10 18:01] LABS: Glucose - Point of Care 113 mg/dl (70-99)
--- NOTE | 2023-12-10 18:41 | W.PN.HOSP.TC ---
Today's Communication/Plan
-
Please see below
Transfer to IVU
Assessment / Plan
Assessment / Plan
Physical Exam
Gen: Not in acute distress
HEENT: Normocephalic
Neck: Supple.
CV: continues to remain RRR, +S1/S2
Resp: continues to remain CTAB anteriorly, no rales, wheezes, or rhonchi.
Abd: +BS, soft, NT, ND
Skin: Warm. Dry.
Neuro: CN 2-12 intact, non-focal.
Psych: normal mood and affect

12/04/23 04:56 Blood/Venous Blood Culture - Preliminary
No Growth in 4 days- Final report to follow
12/04/23 02:53 Blood/Venous Blood Culture - Preliminary
Positive culture in progress
12/04/23 02:53 Blood/Venous Gram Stain - Preliminary
12/04/23 06:15 Endotracheal Respiratory Culture - Final
Dari albicans
12/04/23 06:15 Endotracheal Gram Stain - Final
12/04/23 09:05 Nasal Swab Influenza Types A & B (ELLIOT) - Final
Negative for Influenza A & B, NAAT
Negative results must be combined with clinical observations
and patient history.
Nucleic Acid Amplification test (NAAT)performed on the
[employer] NOW platform.
CTA chest 12/03/23: No PE. There is a confluent parenchymal opacity within the posterior aspect of both lungs, most likely representing pneumonia. No evidence for associated pleural effusion bilaterally. Significantly dilated and rounded left
ventricle. Suggestion of Rishi B lines within the lateral aspect of both lungs, which could represent changes of acute and/or chronic heart failure. Heterogeneity of the thyroid isthmus and the right lobe of the thyroid, with suggestion of edema
adjacent to the thyroid. If further imaging evaluation of the thyroid is desired, consideration for thyroid ultrasound.�
CXR 12/04/23AM: No focal alveolar airspace disease. No large pleural effusions.
Echo: Severely reduced left ventricular systolic function.Left ventricle is
�moderately dilated. Global severe hypokinesis.
�Left ventricular ejection fraction is 15-20% by Watkins's method.
�Normal right ventricular systolic function.
�Mild-moderate central mitral regurgitation.
�Compared to prior study of 02/09/16 LVEF was 25 to 30% with severe global
�hypokinesis also noted at that time.
Cardiac cath 12/06/23:
1.� Right dominant circulation with a chronic total occlusion of the mid RCA, moderate, diffuse disease of the mid LAD without discrete lesion, a 90% lesion in the distal AV groove circumflex status post PCI (Medtronic [place] 2.0 x 15 VICKY)
and a 90% mid circumflex lesion leading into the second OM, status post successful PCI (Medtronic [place] 2.25 x 18 VICKY) with reduction in all stenoses to 0%, jailing the origin of the distal circumflex but restoring EVAN-3 flow throughout the
entire circumflex system.
2.� Severely elevated filling pressures (LVEDP = 24 mmHg, PCWP = 32 mmHg at 78.0 kg) with depressed cardiac index on vasopressor/inotrope (CI = 2.02 L/min/m� on norepinephrine 3 mcg/kg/min) consistent with cardiogenic shock.
3.� Atrial fibrillation with rapid ventricular response.
4.� At least moderate pulmonary hypertension, WHO group 2.

Assessment/Plan
Cardiac arrest due to VT, shock delivered by AED
Non-Sustained Ventricular Tachycardia
Cardiogenic Shock
-1 AED shock in the field (refused ICD in the past for chronic NICM/HFrEF)
-ER noted patient to have gag reflex.� Guest History Clerk recommended cooling protocol.� ER spoke with drama director and cardiac catheterization was not recommended.�Pt was cooled for about 40min.
-with NSTEMI and cardiogenic shock (POA)
-h/o NICM with EF 10% nonischemic cardiomyopathy with reduced EF. Echo above with EF 15-20%.
-Transaminitis/shock liver secondary to cardiac arrest
-Anion gap metabolic acidosis secondary to lactic acidosis (lactic acidosis now resolved). Last anion gap was 13.
-was on Levophed/vasopressin/propofol/fentanyl/bicarb infusion, now off of all of these meds
-extubated 12/05/23AM
-was on heparin gtt, now off
-was on stress dose steroids, now off
-cath 12/06/23 as above, notable for placement of 2 stents, depressed cardiac index on vasopressor/inotrope consistent with cardiogenic shock, moderate pulmonary hypertension
-cont ASA/Plavix
-ICD placed on 12/10/23 morning
Acute on chronic HFrEF
-IV Lasix started 12/07/24
-Patient should have all GDMT as tolerated added over time (not all at once): SGLT2-I, MRA, HF BB, RAAS (REEMA-i or ARB or ARNI) as tolerated
Afib with RVR
-s/p cardioversion on 12/06/23
-on 12/07/23 pt was in afib to 140s, Amio gtt, converted back to SR
-Continue Amiodarone, Eliquis (on Aspirin, Plavix and Eliquis - at some point as per cardiology, will go to Plavix + Eliquis for the one year post PCI then possibly single agent Eliquis)
ACUTE OCCLUSIVE THROMBOSIS throughout the LEFT CEPHALIC VEIN in the left upper arm
-Continue Eliquis
Hypokalemia
-Replaced, monitor
Other problems:
Leukocytosis: with elevated procal, bacterial pneumonia is likely. Pt was on empiric Zosyn (started 12/04/23AM), cont on Rocephin completed on 12/10/23; Doxy dc'd due to GI symptoms (nausea and dry heaving). BCxs NGTD. Leukocytosis has now resolved.
Repeat CXR in 4-6 weeks to follow his PNA to resolution.
Hypokalemia, resolved. Note Mg normal.
DM2 with hyperglycemia: a1c 9.5%, cont Lantus/Novolog Q6H, SSI/accuchecks. Diabetes BOTANY TEACHER following.
Anxiety - Continue Buspar as per documentation designer
Patient's updated at bedside.
Re-evaluate speech and swallow.
Prognosis is unfortunately poor.
FULL/Eliquis
Anticipated Discharge: > 48 hours
Subjective/Interval History
-
Date of Service: December 10, 2023
Objective Data
-
Vital Signs:
Vital Signs
Temp Pulse Resp BP Pulse Ox
97.8 F 90 17 101/74 100
12/10/23 15:11 12/10/23 16:00 12/10/23 16:00 12/10/23 16:00 12/10/23 16:00
I&O
12/09/23 12/10/23 12/11/23
06:59 06:59 06:59
Intake Total 2146.6 / 2163.3 1173.4 / 1173.4 1250 / 1250
Output Total 1110 / 1110 3620 / 3620 700 / 700
Balance 1036.6 / 1053.3 -2446.6 / -2446.6 550 / 550
[2023-12-10] MEDS: ELIQUIS 5 MG PO (19:59)
--- NOTE | 2023-12-10 20:31 | PTCARENOTE ---
Received patient OOB to chair, family at bedside. AAOx3, following commands, moves all extremities, left arm immobilizer in place. Gait steady, one person assist, assisted back to bed. Normal sinus, 90s. AICD in place, dressing CDI, original post-op
dressing intact. Weak palpable pedal pulses bilaterally, palpable radial pulses bilaterally. +1 bilateral edema in ankles, trace generalized anasarca. Left arm bruised. 100% on room air, diminished lung sounds throughout. Decreased appetite but
improving, ate 85% of dinner. Hypoactive bowel sounds, abdomen soft. Urinal to void, put out 300 ml of clear yellow urine. Right DL PICC patent, WNL. Hourly rounding and patient safety checks ongoing.
[2023-12-10] MEDS: TYLENOL 650 MG PO (20:54)
[2023-12-10] MEDS: MORPHINE SULFATE 1 MG IV (22:52)
[2023-12-10 23:00] LABS: Glucose - Point of Care 103 mg/dl (70-99)
[2023-12-11] VITALS (22 sets, daily range): BP systolic 76–153; BP diastolic 53–124; PULSE 97–110; O2SAT 97; BMI 23.6
--- NOTE | 2023-12-11 00:06 | PTCARENOTE ---
Patient complaining of 8/10 pain in left shoulder, gave tylenol, patient reports it did not help. Patient received morphine, reports pain is tolerable now at a 5/10. Otherwise patient assessment unchanged from previous, hourly rounding and patient
safety checks ongoing.
[2023-12-11] MEDS: TYLENOL 650 MG PO ×3 (02:17→22:48)
[2023-12-11 04:32] LABS: Hemoglobin 10.7 g/dL (13.0-18.0); Mean Corp Hgb Conc. 34.5 g/dL (33.0-37.0); Mean Corpuscular Hgb 28.6 pg (27.0-31.0); Mean Corpuscular Volume 82.9 fL (80.0-94.0); Mean Platelet Volume 10.6 fL (7.4-10.4); Platelet Count 284 10^3/uL (130-400); Red Blood Cell Count 3.74 10^6/uL (4.70-6.10); Red Cell Dist. Width 14.7 % (11.5-14.5); White Blood Cell Count 9.8 10^3/uL (4.8-10.8)
--- NOTE | 2023-12-11 04:53 | PTCARENOTE ---
Report given to Rayray PACHECO in IVU, patient transferred via wheelchair with no issues.
[2023-12-11 05:10] LABS: Blood Urea Nitrogen 21 mg/dl (9-20); Calcium 7.8 mg/dl (8.4-10.2); Carbon Dioxide 32 mmol/L (22-30); Chloride 102 mmol/L (98-107); Estimated Creatinine Clearance 79 ml/min; Glucose 95 mg/dl (70-99); Magnesium 1.9 mg/dl (1.6-2.3); Potassium 3.5 mmol/L (3.5-5.1); Sodium 134 mmol/L (135-145); eGFR > 60.00
[2023-12-11 05:20] LABS: NT-proBNP 7520 pg/ml
--- NOTE | 2023-12-11 05:24 | PTCARENOTE ---
received patient from the ICU. AAOx3. patient appears to be impulsive in his movements-needs frequent reminders. SR on tele. bp 124/74. L chest site CDI. patient states improved pain after Tylenol dose. arm immobilizer intact. oob x1 assist,
unsteady at times. reviewed plan of care with patient and verbalized understanding. patient updated his Christina on new room. call castro within reach.
[2023-12-11] MEDS: MUCINEX 600 MG PO ×2 (08:23→20:29)
[2023-12-11] MEDS: ELIQUIS 5 MG PO ×2 (08:23→20:29)
[2023-12-11] MEDS: PACERONE 400 MG PO ×2 (08:23→20:29)
[2023-12-11] MEDS: PROTONIX 40 MG PO (08:23)
[2023-12-11] MEDS: LOW STRENGTH ASPIRIN 81 MG TUBE (08:23)
--- NOTE | 2023-12-11 08:23 | PTOTSP ---
Speech Language Pathology
New PARAFFIN PLANT OPERATOR orders required post general anesthesia to continue to follow.
[2023-12-11] MEDS: PLAVIX 75 MG PO (08:24)
[2023-12-11] MEDS: FARXIGA 10 MG PO (08:24)
[2023-12-11] MEDS: BUSPAR 10 MG PO ×2 (08:24→20:29)
[2023-12-11] MEDS: LASIX 40 MG IV ×2 (08:24→16:24)
[2023-12-11] MEDS: ALDACTONE 25 MG PO (08:24)
[2023-12-11 08:30] LABS: Glucose - Point of Care 123 mg/dl (70-99)
[2023-12-11 08:30] LABS: Glucose - Point of Care 114 mg/dl (70-99)
[2023-12-11] MEDS: NOVOLOG FLEXPEN-LOW RESISTANCE SC ×3 (08:32→17:51)
[2023-12-11] MEDS: LANTUS 0.149999999999999994 UNITS SC (08:39)
[2023-12-11] MEDS: NOVOLOG FLEXPEN 3 UNITS SC ×2 (08:40→17:53)
--- NOTE | 2023-12-11 08:42 | PN.DE.MGMTRT ---
Insulin Management
- -
12/04/2023 Diabetes Management Consult
Patient admitted s/p cardiac arrest, currently on ventilator. PMH includes type 2 diabetes, cardiomyopathy. Prior to admission was taking Farxiga 10 mg daily, Rybelsus 3 mg daily metformin 500 mg BID.. reports he really was not that good
with his diabetes,did not check blood sugar. He does see Dr. Bravo, endocrine, and is due for a follow up soon. A1C on admission 9.5%, cr .8, egfr >60.
Glucose has been > 200 on corrective insulin only. Will start Lantus 15 units now and daily and continue corrective insulin Q 6 hours. Spoke with Instrument Technologist, if patient is not extubated by end of day and glucose is not improved will start
glycemic protocol.
12/05/2023 Diabetes Management Follow up
Patient remains intubated. Received Lantus 15 units in AM started yesterday with corrective insulin. Glucose remained stable overnight requiring 1 to 3 units corrective insulin Q 6 hours. Will continue Lantus 15 units in AM and add NovoLog 3
units Q 6 hours. Will change moderate corrective to low.
12/06/2023: Diabetes Management F/U:
Pt was extubated yesterday but remains NPO with ice chips, awaiting speech eval.
Was started on NovoLog 3 units Q6 hrs due to persistent Hyperglycemia. Glucose has improved, FBG 162 this AM.
Will make no changes to current regimen: Lantus 15 units in AM and NovoLog 3 units Q6H with low corrective Q6 hrs
Will closely follow and make necessary changes from Q6 hrs insulin to his OP regimen in addition to the Lantus once cleared for a diet.
12/09/2023: Diabetes Management F/U:
Pt was started on a diet, appetite is poor, states he feels better today. Family at bedside.
Glucose stable, FBG 120 this AM, premeal 81 to 138.
Will make no changes to current regimen: Lantus 15 units in AM and NovoLog 3 units AC with low corrective
Pt states that he was having a lot of GI adverse rxns to oral regimen which is why he stopped taking the Rybelsus and Metformin. He is requesting no oral meds and states he is willing to continue insulin injections at discharge.
12/10/2023 Diabetes management Follow up
Glucose remains stable, 81 to 127 with one elevation 197 @ hs most likely due to taking hs medication with applesauce and jello. Patient appetite poor yesterday but did take small amount lunch and dinner. Fasting this AM 108. Patient for procedure
today. Will make no change to current regimen lantus 15 units in AM with 3 units novolog AC. Will follow.
12/11/2023 Diabetes management Follow up
S/P ICD placement yesterday, doing well. Glucose remains stable 87 to 113. Will make no change to current regimen, lantus 15 units in AM with novolog 3 units AC. Required no corrective insulin for past 48 hours.
Diabetes History
- -
Type of Diabetes: 2 requiring insulin
Pre-Admission Diabetes Regimen
12/11/23
04:16
Creatinine 0.9
Lab Results
Hemoglobin A1c 9.5 % (4.0-5.6) H 12/04/23 04:14
Insulin Pump Settings
IP Diabetes Regimen
12/10/23 12/10/23 12/10/23
11:41 17:50 22:48
Glucose
POC Glucose 87 113 H 103 H
12/11/23 12/11/23 12/11/23
04:16 08:02 08:29
Glucose 95
POC Glucose 114 H 123 H
Meal type: Dinner
Meal type: Lunch
Amount consumed: 85%
Amount consumed: 75%
Patient Education
[2023-12-11 10:51] LABS: Albumin 2.8 g/dl (3.5-5.0)
--- NOTE | 2023-12-11 11:17 | W.PN.CD ---
Today's Communication / Plan
-
- PT/OT
- Cardiac rehab
- Replace K (3.5 today)
Impression / Plan
-
73 yrs old man with non-ischemic cardiomyopathy, LVEF 10% with recent COVID had vague headaches and developed cardiac arrest at home - possible PEA and got CPR from and was noted to have pulse at the arrival of paramedics and developed
shockable rhythm s/p shock (refused ICD in the past) and is intubated in the field.
Cardiac arrest, shock delivered by AED (see above)
- NSVT here
- Cardiac arrest was therefore from VT/VF
- s/p ICD - Medtronic dual chamber 12/10/23
- Amio for at least 6-12 months if he gets ICD and terminal make up operator Amio if no ICD. If amio tolerated. Will need amio surveillance
Paroxysmal AFib
- Now in NSR after more amiodarone
- Amiodarone with cardiac arrest -for 1 year is reasonable
- On Eliquis 5 BID
Hypokalemia
-s/p supplemented
-Normal Cr, will give another dose this evening.
CAD
- S/p PCI to mLCx and an OM on 12/06/2023
- Residual 100% RCA
- Plan for ASA, Plavix and Eliquis. Plan for triple therapy for a week then switch to Eliquis /Plavix. Plan for Eliquis alone from december 2024 if no change.
- Last dose of ASA on 12/13/23.
Acute HFrEF
- at cath 12/06/2023: LVEDP = 24 mmHg, PCWP = 32 mmHg at 78.0 kg
- heart failure stable.
- He should have all GDMT as tolerated added over time (not all at once): SGLT2-I, MRA, HF BB, RAAS (REEMA-i or ARB or ARNI) as tolerated
- appears well compensated now.
- Diuresis as needed.
Physical Exam
Vital Signs/Labs
Vital Signs
Temp Pulse Resp BP Pulse Ox
97.2 F 105 16 126/97 100
12/11/23 08:18 12/11/23 09:20 12/11/23 08:18 12/11/23 09:20 12/11/23 08:18
12/10/23 12/11/23 12/12/23
06:59 06:59 06:59
Actual Weight 80.1 kg 76.6 kg
12/11/23 04:16
12/11/23 04:16
PT 15.7 Sec (11.4-14.6) H 12/03/23 18:53
INR 1.27 12/03/23 18:53
APTT 81.4 Sec (23.4-35.0) H 12/04/23 10:44
Magnesium 1.9 mg/dl (1.6-2.3) 12/11/23 04:16
Triglycerides 348 mg/dl (10-149) H 12/04/23 01:15
12/04/23 12/11/23
04:14 04:16
Wcy-[id number]-Cctrjapnplt Pept [id number]
Physical Exam
Constitutional: No acute distress and Comfortable
EENT: Anicteric and Moist mucous membranes
Cardiovascular: Rhythm & rate is regular, Pedal edema is absent, JVD pressure is normal and Systolic murmur present
Respiratory: Respiratory effort normal, Wheeze Absent and Crackles Absent
GI: Soft, Non tender and Normal bowel sounds
Neuro/Psych: Alert, Oriented, AO x 3 and Motor deficits absent
Other: Cardiac Device Site
Data Reviewed
-
Date of Service: December 11, 2023
Medical Decision Making: Reviewed Test Results, Independent Historian Assessment and Test Interpretation
EKG: Tracing Personally Visualized and interpreted
Echo: Report Reviewed by me
Labs: Labs Reviewed by me
Old Records: Reviewed
[2023-12-11 11:55] LABS: Glucose - Point of Care 93 mg/dl (70-99)
[2023-12-11 13:22] LABS: Glucose - Point of Care 73 mg/dl (70-99)
[2023-12-11] MEDS: NOVOLOG FLEXPEN SC (13:26)
--- NOTE | 2023-12-11 14:27 | W.PN.HOSP.TC ---
Today's Communication/Plan
-
PT/OT
IV Lasix
Pain control
Assessment / Plan
Assessment / Plan
Physical Exam
Gen: Not in acute distress
HEENT: Normocephalic
Neck: Supple.
CV: continues to remain RRR, +S1/S2
Resp: continues to remain CTAB anteriorly, no rales, wheezes, or rhonchi.
Abd: +BS, soft, NT, ND
Skin: Warm. Dry.
Neuro: CN 2-12 intact, non-focal.
Psych: Normal mood and affect

12/04/23 04:56 Blood/Venous Blood Culture - Preliminary
No Growth in 4 days- Final report to follow
12/04/23 02:53 Blood/Venous Blood Culture - Preliminary
Positive culture in progress
12/04/23 02:53 Blood/Venous Gram Stain - Preliminary
12/04/23 06:15 Endotracheal Respiratory Culture - Final
Dari albicans
12/04/23 06:15 Endotracheal Gram Stain - Final
12/04/23 09:05 Nasal Swab Influenza Types A & B (ELLIOT) - Final
Negative for Influenza A & B, NAAT
Negative results must be combined with clinical observations
and patient history.
Nucleic Acid Amplification test (NAAT)performed on the
[employer] NOW platform.
CTA chest 12/03/23: No PE. There is a confluent parenchymal opacity within the posterior aspect of both lungs, most likely representing pneumonia. No evidence for associated pleural effusion bilaterally. Significantly dilated and rounded left
ventricle. Suggestion of Rishi B lines within the lateral aspect of both lungs, which could represent changes of acute and/or chronic heart failure. Heterogeneity of the thyroid isthmus and the right lobe of the thyroid, with suggestion of edema
adjacent to the thyroid. If further imaging evaluation of the thyroid is desired, consideration for thyroid ultrasound.�
CXR 12/04/23AM: No focal alveolar airspace disease. No large pleural effusions.
Echo: Severely reduced left ventricular systolic function.Left ventricle is
�moderately dilated. Global severe hypokinesis.
�Left ventricular ejection fraction is 15-20% by Watkins's method.
�Normal right ventricular systolic function.
�Mild-moderate central mitral regurgitation.
�Compared to prior study of 02/09/16 LVEF was 25 to 30% with severe global
�hypokinesis also noted at that time.
Cardiac cath 12/06/23:
1.� Right dominant circulation with a chronic total occlusion of the mid RCA, moderate, diffuse disease of the mid LAD without discrete lesion, a 90% lesion in the distal AV groove circumflex status post PCI (Medtronic [place] 2.0 x 15 VICKY)
and a 90% mid circumflex lesion leading into the second OM, status post successful PCI (Medtronic [place] 2.25 x 18 VICKY) with reduction in all stenoses to 0%, jailing the origin of the distal circumflex but restoring EVAN-3 flow throughout the
entire circumflex system.
2.� Severely elevated filling pressures (LVEDP = 24 mmHg, PCWP = 32 mmHg at 78.0 kg) with depressed cardiac index on vasopressor/inotrope (CI = 2.02 L/min/m� on norepinephrine 3 mcg/kg/min) consistent with cardiogenic shock.
3.� Atrial fibrillation with rapid ventricular response.
4.� At least moderate pulmonary hypertension, WHO group 2.

Assessment/Plan
Cardiac arrest due to VT, shock delivered by AED
Non-Sustained Ventricular Tachycardia
Cardiogenic Shock
-1 AED shock in the field (refused ICD in the past for chronic NICM/HFrEF)
-ER noted patient to have gag reflex.� Senior Policy Advisor recommended cooling protocol.� ER spoke with editor newspaper and cardiac catheterization was not recommended.�Pt was cooled for about 40min.
-with NSTEMI and cardiogenic shock (POA)
-h/o NICM with EF 10% nonischemic cardiomyopathy with reduced EF. Echo above with EF 15-20%.
-Transaminitis/shock liver secondary to cardiac arrest
-was on Levophed/vasopressin/propofol/fentanyl/bicarb infusion, now off of all of these meds
-extubated 12/05/23AM
-was on heparin gtt, now off
-was on stress dose steroids, now off
-cath 12/06/23 as above, notable for placement of 2 stents, depressed cardiac index on vasopressor/inotrope consistent with cardiogenic shock, moderate pulmonary hypertension
-cont ASA/Plavix/Eliquis plan for triple therapy for a week then switch to Eliquis /Plavix. Plan for Eliquis alone from december 2024 if no change, as per cardiology
-Last dose of Aspirin should be on 12/13/23
-ICD placed on 12/10/23 morning - Medtronic dual chamber 12/10/23
-Continue Amiodarone
Acute on Chronic HFrEF
-IV Lasix started 12/07/24
-Patient should have all GDMT as tolerated added over time (not all at once): SGLT2-I, MRA, HF BB, RAAS (REEMA-i or ARB or ARNI) as tolerated
Atrial Fibrillation with Rapid Ventricular Response
-s/p cardioversion on 12/06/23
-on 12/07/23 pt was in afib to 140s, Amio gtt, converted back to SR
-Continue Amiodarone, Eliquis (on Aspirin, Plavix and Eliquis - �plan for triple therapy for a week then switch to Eliquis /Plavix. Plan for Eliquis alone from december 2024 if no change)
-Last dose of Aspirin should be on 12/13/23
ACUTE OCCLUSIVE THROMBOSIS throughout the LEFT CEPHALIC VEIN in the left upper arm
-Continue Eliquis
Hypokalemia
-Replaced, monitor
Other problems:
Leukocytosis: with elevated procal, bacterial pneumonia is likely. Pt was on empiric Zosyn (started 12/04/23AM), cont on Rocephin completed on 12/10/23; Doxy dc'd due to GI symptoms (nausea and dry heaving). BCxs NGTD. Leukocytosis has now resolved.
Repeat CXR in 4-6 weeks to follow his PNA to resolution.
Hypokalemia, resolved. Note Mg normal.
DM2 with hyperglycemia: a1c 9.5%, cont Lantus/Novolog Q6H, SSI/accuchecks. Diabetes CALL OUT CLERK following. (Patient stated that he was having a lot of gastrointestinal adverse reactions to oral regimen which is why he stopped taking the Rybelsus and
Metformin. He is requesting no oral meds and states he is willing to continue insulin injections at discharge).
Anxiety - Continue Buspar as per child welfare consultant
Patient's updated at bedside.
Re-evaluate speech and swallow.
Prognosis is unfortunately poor.
FULL/Eliquis
Anticipated Discharge: 24 - 48 hours
Subjective/Interval History
-
Date of Service: December 11, 2023
Patient was seen and examined. He reported soreness and his pain at his ICD implantation site, denied any other new significant complaints or issues.
Objective Data
-
Labs:
Laboratory Results
12/11/23
04:16
WBC 9.8
Hgb 10.7 L
Hct 31.0 L
Plt Count 284
Sodium 134 L
Potassium 3.5
Chloride 102
Carbon Dioxide 32 H
BUN 21 H
Creatinine 0.9
Glucose 95
Calcium 7.8 L
Vital Signs:
Vital Signs
Temp Pulse Resp BP Pulse Ox
98 F 86 16 139/84 97
12/11/23 11:38 12/11/23 12:00 12/11/23 11:38 12/11/23 11:38 12/11/23 11:38
I&O
12/10/23 12/11/23 12/12/23
06:59 06:59 06:59
Intake Total 1173.4 / 1173.4 1520 / 1520
Output Total 3620 / 3620 1800 / 1800 600 / 600
Balance -2446.6 / -2446.6 -280 / -280 -600 / -600
--- NOTE | 2023-12-11 15:54 | CM ---
CM following for DC planning needs.
Pt. transferred to IVU from ICU.
Reviewed initial assessment. Pt. resides w/ spouse in a private, 2 story home. Functionally, patient is quite indep. w/ ADLs, mobility without the use of any assisted device.
Spoke w/ PT, recommendation is for acute rehab placement.
Met w/ patient at bedside. AUGUSTINE was also present. Reviewed PT recommendation. Discussed [place] [facility]. Pt. amendable to this. He is hopeful that his functionality will cont. to improve and he may not need rehab but would agree to it if needed. Referral
sent to [facility]. Will await determination. Will need PMR eval; consult placed 12/10.
Will cont. to follow.
[2023-12-11 17:13] LABS: Glucose - Point of Care 109 mg/dl (70-99)
--- NOTE | 2023-12-11 19:00 | PTCARENOTE ---
report received from previous RN, walking rounds done. pt in bed, AAOx4. pt denies any pain. VSS. NSR on monitor. POX 96% on room air. PIV intact and patent. see worklist for full assessment, VS, and interventions. pt resting comfortably.
[2023-12-11 20:36] LABS: Glucose - Point of Care 146 mg/dl (70-99)
[2023-12-12] VITALS (8 sets, daily range): BP systolic 86–100; BP diastolic 51–70
--- NOTE | 2023-12-12 05:00 | PTCARENOTE ---
no changes in assessment overnight, VSS. SR. room air. AM labs drawn and sent. pt sleeping between care.
[2023-12-12 05:25] LABS: Blood Urea Nitrogen 16 mg/dl (9-20); Carbon Dioxide 30 mmol/L (22-30); Chloride 101 mmol/L (98-107); Estimated Creatinine Clearance 71 ml/min; Glucose 88 mg/dl (70-99); Phosphorus 4.2 mg/dl (2.5-4.5); Potassium 3.3 mmol/L (3.5-5.1); Sodium 134 mmol/L (135-145); eGFR > 60.00
[2023-12-12 08:38] LABS: Glucose - Point of Care 93 mg/dl (70-99)
--- NOTE | 2023-12-12 08:51 | PN.DE.MGMTRT ---
Insulin Management
- -
12/04/2023 Diabetes Management Consult
Patient admitted s/p cardiac arrest, currently on ventilator. PMH includes type 2 diabetes, cardiomyopathy. Prior to admission was taking Farxiga 10 mg daily, Rybelsus 3 mg daily metformin 500 mg BID.. reports he really was not that good
with his diabetes,did not check blood sugar. He does see Dr. Bravo, endocrine, and is due for a follow up soon. A1C on admission 9.5%, cr .8, egfr >60.
Glucose has been > 200 on corrective insulin only. Will start Lantus 15 units now and daily and continue corrective insulin Q 6 hours. Spoke with Hand Ii Cutter, if patient is not extubated by end of day and glucose is not improved will start
glycemic protocol.
12/05/2023 Diabetes Management Follow up
Patient remains intubated. Received Lantus 15 units in AM started yesterday with corrective insulin. Glucose remained stable overnight requiring 1 to 3 units corrective insulin Q 6 hours. Will continue Lantus 15 units in AM and add NovoLog 3
units Q 6 hours. Will change moderate corrective to low.
12/06/2023: Diabetes Management F/U:
Pt was extubated yesterday but remains NPO with ice chips, awaiting speech eval.
Was started on NovoLog 3 units Q6 hrs due to persistent Hyperglycemia. Glucose has improved, FBG 162 this AM.
Will make no changes to current regimen: Lantus 15 units in AM and NovoLog 3 units Q6H with low corrective Q6 hrs
Will closely follow and make necessary changes from Q6 hrs insulin to his OP regimen in addition to the Lantus once cleared for a diet.
12/09/2023: Diabetes Management F/U:
Pt was started on a diet, appetite is poor, states he feels better today. Family at bedside.
Glucose stable, FBG 120 this AM, premeal 81 to 138.
Will make no changes to current regimen: Lantus 15 units in AM and NovoLog 3 units AC with low corrective
Pt states that he was having a lot of GI adverse rxns to oral regimen which is why he stopped taking the Rybelsus and Metformin. He is requesting no oral meds and states he is willing to continue insulin injections at discharge.
12/10/2023 Diabetes management Follow up
Glucose remains stable, 81 to 127 with one elevation 197 @ hs most likely due to taking hs medication with applesauce and jello. Patient appetite poor yesterday but did take small amount lunch and dinner. Fasting this AM 108. Patient for procedure
today. Will make no change to current regimen lantus 15 units in AM with 3 units novolog AC. Will follow.
12/11/2023 Diabetes management Follow up
S/P ICD placement yesterday, doing well. Glucose remains stable 87 to 113. Will make no change to current regimen, lantus 15 units in AM with novolog 3 units AC. Required no corrective insulin for past 48 hours.
12/12/2023 Diabetes Management Follow up
Patient glucose 73 pre lunch yesterday, glucose range 109 to 146. Will reduce AM lantus to 12 units and continue 3 units novolog AC with low corrective insulin.
Diabetes History
- -
Type of Diabetes: 2
Pre-Admission Diabetes Regimen
12/12/23
04:26
Creatinine 1.0
Lab Results
Hemoglobin A1c 9.5 % (4.0-5.6) H 12/04/23 04:14
Insulin Pump Settings
IP Diabetes Regimen
12/11/23 12/11/23 12/11/23
11:55 13:20 17:10
Glucose
POC Glucose 93 73 109 H
12/11/23 12/12/23 12/12/23
20:34 04:26 08:36
Glucose 88
POC Glucose 146 H 93
Meal type: Dinner
Amount consumed: 100%
Patient Education
[2023-12-12] MEDS: NOVOLOG FLEXPEN 3 UNITS SC ×3 (09:24→17:54)
[2023-12-12] MEDS: FARXIGA 10 MG PO (09:25)
[2023-12-12] MEDS: PACERONE 400 MG PO ×2 (09:25→20:24)
[2023-12-12] MEDS: ELIQUIS 5 MG PO ×2 (09:25→20:25)
[2023-12-12] MEDS: MUCINEX 600 MG PO ×2 (09:25→20:24)
[2023-12-12] MEDS: LOW STRENGTH ASPIRIN 81 MG TUBE (09:25)
[2023-12-12] MEDS: LASIX 40 MG IV ×2 (09:25→16:44)
[2023-12-12] MEDS: PLAVIX 75 MG PO (09:26)
[2023-12-12] MEDS: NOVOLOG FLEXPEN-LOW RESISTANCE SC ×3 (09:26→17:56)
[2023-12-12] MEDS: BUSPAR 10 MG PO ×2 (09:26→20:24)
[2023-12-12] MEDS: PROTONIX 40 MG PO (09:26)
[2023-12-12] MEDS: ALDACTONE 25 MG PO (09:26)
[2023-12-12] MEDS: LANTUS SC (09:50)
[2023-12-12] MEDS: LANTUS 0.119999999999999996 UNITS SC (11:07)
[2023-12-12 11:08] LABS: Glucose - Point of Care 170 mg/dl (70-99)
[2023-12-12] MEDS: KCL 40 MEQ PO (12:09)
--- NOTE | 2023-12-12 12:26 | PTOTSP ---
Speech Language Pathology
Pt seen for dysphagia tx. Sitting upright in recliner upon arrival. He reported continued sensation of fullness in throat with increased phlegm and some significant coughing episodes, not typically related to P.O. Observed white patchy areas on
lingual surface. Attempted to brush tongue with toothbrush to see if these were related to oral care, but this did not help and caused discomfort for pt. Given this coupled with feeling of fullness in throat/scratchy sensation with swallowing,
question thrush. RN and MD notified.
Seen with P.O. trials of puree and thin liquids via straw. No oral or overt pharyngeal difficulty noted. WBC is normal.
Recommend:
(1) Continue regular solids/thin liquids
(2) General aspiration precautions
(3) Meds as tolerated
(4) Will hold on VSE as WBC WNL and pt does not endorse signs of aspiration with meals
(5) Meds as tolerated
(6) HAIRSPRING VIBRATOR to continue to follow
[2023-12-12 12:31] LABS: Glucose - Point of Care 129 mg/dl (70-99)
--- NOTE | 2023-12-12 12:45 | W.PN.CD ---
Today's Communication / Plan
-
- stable from cardiac stand point
- Can switch to lasix 40 mg QD
Impression / Plan
-
73 yrs old man with non-ischemic cardiomyopathy, LVEF 10% with recent COVID had vague headaches and developed cardiac arrest at home - possible PEA and got CPR from and was noted to have pulse at the arrival of paramedics and developed
shockable rhythm s/p shock (refused ICD in the past) and is intubated in the field.
Cardiac arrest, shock delivered by AED (see above)
- NSVT here
- Cardiac arrest was therefore from VT/VF
- s/p ICD - Medtronic dual chamber 12/10/23
- Amio for at least 6-12 months if he gets ICD and chcf Amio if no ICD. If amio tolerated. Will need amio surveillance
Paroxysmal AFib
- Now in NSR after more amiodarone
- Amiodarone with cardiac arrest -for 1 year is reasonable
- On Eliquis 5 BID
Hypokalemia
-s/p supplemented
-Normal Cr, will give another dose this evening.
CAD
- S/p PCI to mLCx and an OM on 12/06/2023
- Residual 100% RCA
- Plan for ASA, Plavix and Eliquis. Plan for triple therapy for a week then switch to Eliquis /Plavix. Plan for Eliquis alone from december 2024 if no change.
- Last dose of ASA on 12/13/23.
Acute HFrEF
- at cath 12/06/2023: LVEDP = 24 mmHg, PCWP = 32 mmHg at 78.0 kg
- heart failure stable.
- He should have all GDMT as tolerated added over time (not all at once): SGLT2-I, MRA, HF BB, RAAS (REEMA-i or ARB or ARNI) as tolerated
- appears well compensated now.
- Diuresis as needed.
Physical Exam
Vital Signs/Labs
Vital Signs
Temp Pulse Resp BP Pulse Ox
98.4 F 91 20 96/60 95
12/12/23 12:26 12/12/23 12:28 12/12/23 12:26 12/12/23 12:28 12/12/23 12:42
12/11/23 12/12/23 12/13/23
06:59 06:59 06:59
Actual Weight 76.6 kg
12/11/23 04:16
12/12/23 04:26
PT 15.7 Sec (11.4-14.6) H 12/03/23 18:53
INR 1.27 12/03/23 18:53
APTT 81.4 Sec (23.4-35.0) H 12/04/23 10:44
Magnesium 2.0 mg/dl (1.6-2.3) 12/12/23 04:26
Triglycerides 348 mg/dl (10-149) H 12/04/23 01:15
12/04/23 12/11/23
04:14 04:16
[id number]-E-Ixkoynfrwqv Pept [id number]
Physical Exam
Constitutional: No acute distress and Comfortable
EENT: Anicteric and Moist mucous membranes
Cardiovascular: Rhythm & rate is regular, JVD pressure is normal and Pedal edema present
Respiratory: Respiratory effort normal, Wheeze Absent and Crackles Absent
GI: Soft, Non tender and Normal bowel sounds
Neuro/Psych: Alert, Oriented and AO x 3
Other: Cath Site
Data Reviewed
-
Date of Service: December 12, 2023
--- NOTE | 2023-12-12 15:01 | CM ---
Addendum entered by VALARIE Tavarez 12/12/23 16:09:
Per [facility], bed should be avail. tomorrow, 12/12.
Still need PMR eval-awaiting evaluation.
Will need updated PT-OT eval, TT to PT to prioritize for 12/12.
Will need to submit auth request to insurance with updated PT, PMR eval.
Will follow.
Original Note:
CM following for DC planning needs.
Met with patient at bedside. He feels well. He is hopeful for transfer soon. MD informs that patient is medically stable to go to rehab.
[facility] to [facility]-there is no available beds at this time. Uncertain if they can accept. Await call back.
Will need PMR eval-not completed yet.
Will need insurance authorization for transfer to [facility].
[2023-12-12] MEDS: MYCELEX TROCHE 10 MG PO ×2 (16:27→22:36)
--- NOTE | 2023-12-12 17:23 | W.PN.HOSP.TC ---
Today's Communication/Plan
-
[facility] placement pending
Lower blood pressures - have asked cardiology if any medication reduction/adjustments are needed from their standpoint
Assessment / Plan
Assessment / Plan
Physical Exam
Gen: Not in acute distress
HEENT: Normocephalic
Neck: Supple.
CV: continues to remain RRR, +S1/S2
Resp: continues to remain CTAB anteriorly, no rales, wheezes, or rhonchi.
Abd: +BS, soft, NT, ND
Skin: Warm. Dry.
Neuro: CN 2-12 intact, non-focal.
Psych: Normal mood and affect

12/04/23 04:56 Blood/Venous Blood Culture - Preliminary
No Growth in 4 days- Final report to follow
12/04/23 02:53 Blood/Venous Blood Culture - Preliminary
Positive culture in progress
12/04/23 02:53 Blood/Venous Gram Stain - Preliminary
12/04/23 06:15 Endotracheal Respiratory Culture - Final
Dari albicans
12/04/23 06:15 Endotracheal Gram Stain - Final
12/04/23 09:05 Nasal Swab Influenza Types A & B (ELLIOT) - Final
Negative for Influenza A & B, NAAT
Negative results must be combined with clinical observations
and patient history.
Nucleic Acid Amplification test (NAAT)performed on the
[employer] platform.
CTA chest 12/03/23: No PE. There is a confluent parenchymal opacity within the posterior aspect of both lungs, most likely representing pneumonia. No evidence for associated pleural effusion bilaterally. Significantly dilated and rounded left
ventricle. Suggestion of Rishi B lines within the lateral aspect of both lungs, which could represent changes of acute and/or chronic heart failure. Heterogeneity of the thyroid isthmus and the right lobe of the thyroid, with suggestion of edema
adjacent to the thyroid. If further imaging evaluation of the thyroid is desired, consideration for thyroid ultrasound.�
CXR 12/04/23AM: No focal alveolar airspace disease. No large pleural effusions.
Echo: Severely reduced left ventricular systolic function.Left ventricle is
�moderately dilated. Global severe hypokinesis.
�Left ventricular ejection fraction is 15-20% by Watkins's method.
�Normal right ventricular systolic function.
�Mild-moderate central mitral regurgitation.
�Compared to prior study of 02/09/16 LVEF was 25 to 30% with severe global
�hypokinesis also noted at that time.
Cardiac cath 12/06/23:
1.� Right dominant circulation with a chronic total occlusion of the mid RCA, moderate, diffuse disease of the mid LAD without discrete lesion, a 90% lesion in the distal AV groove circumflex status post PCI (Medtronic [place] 2.0 x 15 VICKY)
and a 90% mid circumflex lesion leading into the second OM, status post successful PCI (Medtronic [place] 2.25 x 18 VICKY) with reduction in all stenoses to 0%, jailing the origin of the distal circumflex but restoring EVAN-3 flow throughout the
entire circumflex system.
2.� Severely elevated filling pressures (LVEDP = 24 mmHg, PCWP = 32 mmHg at 78.0 kg) with depressed cardiac index on vasopressor/inotrope (CI = 2.02 L/min/m� on norepinephrine 3 mcg/kg/min) consistent with cardiogenic shock.
3.� Atrial fibrillation with rapid ventricular response.
4.� At least moderate pulmonary hypertension, WHO group 2.

Assessment/Plan
Cardiac arrest due to VT, shock delivered by AED
Non-Sustained Ventricular Tachycardia
Cardiogenic Shock
-1 AED shock in the field (refused ICD in the past for chronic NICM/HFrEF)
-ER noted patient to have gag reflex.� Javascript Application Developer recommended cooling protocol.� ER spoke with palliative nurse and cardiac catheterization was not recommended.�Pt was cooled for about 40min.
-with NSTEMI and cardiogenic shock (POA)
-h/o NICM with EF 10% nonischemic cardiomyopathy with reduced EF. Echo above with EF 15-20%.
-Transaminitis/shock liver secondary to cardiac arrest
-was on Levophed/vasopressin/propofol/fentanyl/bicarb infusion, now off of all of these meds
-extubated 12/05/23AM
-was on heparin gtt, now off
-was on stress dose steroids, now off
-cath 12/06/23 as above, notable for placement of 2 stents, depressed cardiac index on vasopressor/inotrope consistent with cardiogenic shock, moderate pulmonary hypertension
-cont ASA/Plavix/Eliquis plan for triple therapy for a week then switch to Eliquis /Plavix. Plan for Eliquis alone from december 2024 if no change, as per cardiology
-Last dose of Aspirin should be on 12/13/23
-ICD placed on 12/10/23 morning - Medtronic dual chamber 12/10/23
-Continue Amiodarone
Acute on Chronic HFrEF
-IV Lasix started 12/07/24
-Patient should have all GDMT as tolerated added over time (not all at once): SGLT2-I, MRA, HF BB, RAAS (REEMA-i or ARB or ARNI) as tolerated
Atrial Fibrillation with Rapid Ventricular Response
-s/p cardioversion on 12/06/23
-on 12/07/23 pt was in afib to 140s, Amio gtt, converted back to SR
-Continue Amiodarone, Eliquis (on Aspirin, Plavix and Eliquis - �plan for triple therapy for a week then switch to Eliquis /Plavix. Plan for Eliquis alone from december 2024 if no change)
-Last dose of Aspirin should be on 12/13/23
ACUTE OCCLUSIVE THROMBOSIS throughout the LEFT CEPHALIC VEIN in the left upper arm
-Continue Eliquis
Hypokalemia
-Replaced, monitor
Other problems:
Leukocytosis: with elevated procal, bacterial pneumonia is likely. Pt was on empiric Zosyn (started 12/04/23AM), cont on Rocephin completed on 12/10/23; Doxy dc'd due to GI symptoms (nausea and dry heaving). BCxs NGTD. Leukocytosis has now resolved.
Repeat CXR in 4-6 weeks to follow his PNA to resolution.
Hypokalemia, resolved. Note Mg normal.
DM2 with hyperglycemia: a1c 9.5%, cont Lantus/Novolog Q6H, SSI/accuchecks. Diabetes FAST FOOD CASHIER following. (Patient stated that he was having a lot of gastrointestinal adverse reactions to oral regimen which is why he stopped taking the Rybelsus and
Metformin. He is requesting no oral meds and states he is willing to continue insulin injections at discharge).
Anxiety - Continue Buspar as per digital asset coordinator
Patient's updated at bedside.
Re-evaluate speech and swallow.
Prognosis is unfortunately poor.
FULL/Eliquis
Anticipated Discharge: > 48 hours
Subjective/Interval History
-
Date of Service: December 12, 2023
Patient was seen and examined. He reported feeling overall okay, no new significant chest pain or new significant shortness of breath.
Objective Data
-
Labs:
Laboratory Results
12/12/23
04:26
Sodium 134 L
Potassium 3.3 L
Chloride 101
Carbon Dioxide 30
BUN 16
Creatinine 1.0
Glucose 88
Calcium 8.0 L
Vital Signs:
Vital Signs
Temp Pulse Resp BP Pulse Ox
98.4 F 88 20 100/68 99
12/12/23 15:12 12/12/23 16:44 12/12/23 15:12 12/12/23 16:44 12/12/23 15:12
I&O
12/11/23 12/12/23 12/13/23
06:59 06:59 06:59
Intake Total 1520 / 1520 960 / 960
Output Total 1800 / 1800 1000 / 1000 900 / 900
Balance -280 / -280 -1000 / -1000 60 / 60
[2023-12-12] MEDS: MYCELEX TROCHE PO (17:39)
[2023-12-12 17:58] LABS: Glucose - Point of Care 105 mg/dl (70-99)
[2023-12-12 22:36] LABS: Glucose - Point of Care 118 mg/dl (70-99)
[2023-12-13] VITALS (12 sets, daily range): BP systolic 86–107; BP diastolic 56–66; PULSE 94; BMI 22.8
--- NOTE | 2023-12-13 00:48 | PTCARENOTE ---
Received pt at handoff. AOX3. Tele- SR. HR 80s. Assessment noted as documented. Offers no complaints of dizziness/discomfort/pain. L chest Aquacel c/d/i. POC reviewed w/ pt. Verbalizes understanding. Currently in bed; call gloria w/in reach.
[2023-12-13 06:15] LABS: Hematocrit 30.5 % (39.0-52.0); Hemoglobin 10.3 g/dL (13.0-18.0); Mean Corp Hgb Conc. 33.8 g/dL (33.0-37.0); Mean Corpuscular Hgb 28.2 pg (27.0-31.0); Mean Corpuscular Volume 83.6 fL (80.0-94.0); Mean Platelet Volume 10.5 fL (7.4-10.4); Platelet Count 278 10^3/uL (130-400); Red Blood Cell Count 3.65 10^6/uL (4.70-6.10); Red Cell Dist. Width 15.2 % (11.5-14.5); White Blood Cell Count 8.8 10^3/uL (4.8-10.8)
[2023-12-13 06:24] LABS: ALT (SGPT) 22 U/L (0-50); AST (SGOT) 21 U/L (17-59); Magnesium 2.1 mg/dl (1.6-2.3); Phosphorus 3.8 mg/dl (2.5-4.5)
--- NOTE | 2023-12-13 07:28 | PN.DE.MGMTRT ---
Insulin Management
- -
12/04/2023 Diabetes Management Consult
Patient admitted s/p cardiac arrest, currently on ventilator. PMH includes type 2 diabetes, cardiomyopathy. Prior to admission was taking Farxiga 10 mg daily, Rybelsus 3 mg daily metformin 500 mg BID.. reports he really was not that good
with his diabetes,did not check blood sugar. He does see Dr. Bravo, endocrine, and is due for a follow up soon. A1C on admission 9.5%, cr .8, egfr >60.
Glucose has been > 200 on corrective insulin only. Will start Lantus 15 units now and daily and continue corrective insulin Q 6 hours. Spoke with Bleach Analyst, if patient is not extubated by end of day and glucose is not improved will start
glycemic protocol.
12/05/2023 Diabetes Management Follow up
Patient remains intubated. Received Lantus 15 units in AM started yesterday with corrective insulin. Glucose remained stable overnight requiring 1 to 3 units corrective insulin Q 6 hours. Will continue Lantus 15 units in AM and add NovoLog 3
units Q 6 hours. Will change moderate corrective to low.
12/06/2023: Diabetes Management F/U:
Pt was extubated yesterday but remains NPO with ice chips, awaiting speech eval.
Was started on NovoLog 3 units Q6 hrs due to persistent Hyperglycemia. Glucose has improved, FBG 162 this AM.
Will make no changes to current regimen: Lantus 15 units in AM and NovoLog 3 units Q6H with low corrective Q6 hrs
Will closely follow and make necessary changes from Q6 hrs insulin to his OP regimen in addition to the Lantus once cleared for a diet.
12/09/2023: Diabetes Management F/U:
Pt was started on a diet, appetite is poor, states he feels better today. Family at bedside.
Glucose stable, FBG 120 this AM, premeal 81 to 138.
Will make no changes to current regimen: Lantus 15 units in AM and NovoLog 3 units AC with low corrective
Pt states that he was having a lot of GI adverse rxns to oral regimen which is why he stopped taking the Rybelsus and Metformin. He is requesting no oral meds and states he is willing to continue insulin injections at discharge.
12/10/2023 Diabetes management Follow up
Glucose remains stable, 81 to 127 with one elevation 197 @ hs most likely due to taking hs medication with applesauce and jello. Patient appetite poor yesterday but did take small amount lunch and dinner. Fasting this AM 108. Patient for procedure
today. Will make no change to current regimen Lantus 15 units in AM with 3 units NovoLog AC. Will follow.
12/11/2023 Diabetes management Follow up
S/P ICD placement yesterday, doing well. Glucose remains stable 87 to 113. Will make no change to current regimen, Lantus 15 units in AM with NovoLog 3 units AC. Required no corrective insulin for past 48 hours.
12/12/2023 Diabetes Management Follow up
Patient glucose 73 pre lunch yesterday, glucose range 109 to 146. Will reduce AM Lantus to 12 units and continue 3 units NovoLog AC with low corrective insulin.
12/13/2023: Diabetes Management F/U:
Lantus reduce yesterday to 12 units, NO FBG done this AM. All other glucose remains stable and in range 93 to 170.
Will make no changes to current regimen, Lantus 12 units in AM and NovoLog 3 units AC with low corrective insulin.
Diabetes History
- -
Type of Diabetes: 2
Pre-Admission Diabetes Regimen
Lab Results
Hemoglobin A1c 9.5 % (4.0-5.6) H 12/04/23 04:14
Insulin Pump Settings
IP Diabetes Regimen
12/12/23 12/12/23 12/12/23
08:36 11:06 12:29
POC Glucose 93 170 H 129 H
12/12/23 12/12/23
17:56 22:35
POC Glucose 105 H 118 H
Patient Education
--- NOTE | 2023-12-13 08:01 | W.PN.CD ---
Today's Communication / Plan
-
- awaiting placement. I will sign off - please call with questions
- MEDS: Plavix 75 po qd, Eliquis 5 po BID, Lasix 40 po BID, KCl 20 meq Daily, Farxiga 10 po qd, spironolactone 25 po qd, amiodarone 400 BID for now
- Follow up: Eneida Abreu Dec 16 at 9:40. [facility] after
Impression / Plan
-
Impression: 73M with NICM 10% with cardiac arrest at home - possible PEA and got CPR from and was noted to have pulse at the arrival of paramedics and developed shockable rhythm s/p shock
Plan
Cardiac arrest, shock delivered by AED (see above)
- s/p ICD - Medtronic dual chamber 12/10/23
- Amio for at least 6-12 months if he gets ICD and retirement Amio if no ICD
Paroxysmal AFib
- Now in NSR after more amiodarone
- Amiodarone with cardiac arrest -for 1 year is reasonable
- On Eliquis 5 BID
Hypokalemia
-s/p supplemented. G
-Normal Cr, will give another dose this evening.
CAD
- S/p PCI to mLCx and an OM on 12/06/2023
- Residual 100% RCA
- Plan for ASA, Plavix and Eliquis. Plan for triple therapy for a week then switch to Eliquis /Plavix. Plan for Eliquis alone from december 2024 if no change.
- Last dose of ASA on 12/13/23 (today)
Acute HFrEF
- at cath 12/06/2023: LVEDP = 24 mmHg, PCWP = 32 mmHg at 78.0 kg
- heart failure stable.
- He should have all GDMT as tolerated added over time (not all at once): SGLT2-I, MRA, HF BB, RAAS (REEMA-i or ARB or ARNI) as tolerated
- appears well compensated now.
- lower Lasix to oral
Dispo
- awaiting placement. I will sign off - please call with questions
- MEDS: Plavix 75 po qd, Eliquis 5 po BID, Lasix 40 po BID, KCl 20 meq Daily, Farxiga 10 po qd, spironolactone 25 po qd, amiodarone 400 BID for now
- Follow up: Eneida Abreu Mar 5 at 9:40. [facility] after
Laboratory Data
12/12/23 12/13/23
05:41
Hgb 10.3 L
Potassium 3.3 L
Generic Name Dose Route Start Last Admin
Trade Name Freq PRN Reason Stop Dose Admin
Aspirin 81 mg 12/05/23 08:00
Aspirin 81 Mg Chewable Tablet TUBE 01/02/24 07:59
DAILY SAMANTHA
Clopidogrel Bisulfate 75 mg 12/07/23 08:00
Clopidogrel 75 Mg Tablet PO 01/04/24 07:59
DAILY SAMANTHA
Apixaban 5 mg 12/06/23 20:00
Apixaban (Eliquis) 5 Mg Tablet PO 01/03/24 19:59
BID SAMANTHA
Furosemide 40 mg 12/07/23 12:00
Furosemide 40 Mg (10 Mg/Ml) 4 Ml Vial IV 01/04/24 11:59
BID AT 0800,1600 SAMANTHA
Dapagliflozin 10 mg 12/09/23 08:00
Dapagliflozin (Farxiga) 10 Mg Tablet PO 01/06/24 07:59
DAILY SAMANTHA
Spironolactone 25 mg 12/08/23 11:00
Spironolactone 25 Mg Tablet PO 01/05/24 10:59
DAILY SAMANTHA
Amiodarone HCl 400 mg 12/09/23 08:00
Amiodarone 200 Mg Tablet PO 01/06/24 07:59
BID SAMANTHA
Physical Exam
Vital Signs/Labs
Vital Signs
Temp Pulse Resp BP Pulse Ox
36.8 C 84 16 97/66 96
12/13/23 05:21 12/13/23 05:21 12/13/23 05:21 12/13/23 05:21 12/13/23 05:21
12/12/23 12/13/23 12/14/23
06:59 06:59 06:59
Actual Weight 163 lb 5.8 oz
12/13/23 05:41
12/12/23 04:26
PT 15.7 Sec (11.4-14.6) H 12/03/23 18:53
INR 1.27 12/03/23 18:53
APTT 81.4 Sec (23.4-35.0) H 12/04/23 10:44
Magnesium 2.1 mg/dl (1.6-2.3) 12/13/23 05:41
Triglycerides 348 mg/dl (10-149) H 12/04/23 01:15
12/04/23 12/11/23
04:14 04:16
[id number]-Zuvjpnsylvz Pept [id number]
Physical Exam
Constitutional: No acute distress
EENT: Anicteric and Moist mucous membranes
Cardiovascular: Rhythm & rate is regular, Pedal edema is absent, Systolic murmur absent and Diastolic murmur absent
Respiratory: Respiratory effort normal
GI: Soft, Distention absent and Normal bowel sounds
Neuro/Psych: Alert and Oriented
Other: Cardiac Device Site (C/D/I. No hematoma or fullness (on triple therapy))
Data Reviewed
-
Date of Service: December 13, 2023
[2023-12-13 08:48] LABS: Glucose - Point of Care 109 mg/dl (70-99)
[2023-12-13] MEDS: NOVOLOG FLEXPEN-LOW RESISTANCE SC ×3 (08:53→18:07)
[2023-12-13] MEDS: PROTONIX 40 MG PO (09:11)
[2023-12-13] MEDS: BUSPAR 10 MG PO ×2 (09:11→21:00)
[2023-12-13] MEDS: ALDACTONE 25 MG PO (09:11)
[2023-12-13] MEDS: PLAVIX 75 MG PO (09:12)
[2023-12-13] MEDS: FARXIGA 10 MG PO (09:12)
[2023-12-13] MEDS: LANTUS 0.119999999999999996 UNITS SC (09:12)
[2023-12-13] MEDS: MYCELEX TROCHE 10 MG PO ×3 (09:12→22:49)
[2023-12-13] MEDS: ELIQUIS 5 MG PO ×2 (09:12→20:26)
[2023-12-13] MEDS: LOW STRENGTH ASPIRIN 81 MG TUBE (09:12)
[2023-12-13] MEDS: PACERONE 400 MG PO ×2 (09:12→20:26)
[2023-12-13] MEDS: MUCINEX 600 MG PO ×2 (09:12→20:26)
[2023-12-13] MEDS: NOVOLOG FLEXPEN 3 UNITS SC ×3 (09:13→18:37)
--- NOTE | 2023-12-13 09:24 | CON.MD ---
Consultation - Medical
-
Referring Provider: Dr. Gary Girard
Chief Complaint: NSTEMI
History of Present Illness: 73-year-old right-handed male with PMH (as below) including nonischemic cardiomyopathy with an EF of 10% presented to [facility] on 12/03/2023 with cardiac arrest. Has been having headaches for 2 days and yelled
out he was going to pass out with agonal breathing. started CPR and called 911. He was intubated for respiratory failure and started on Levophed for hypotension. Repeat echocardiogram with an EF 15-20% with severe global hypokinesis. CT of
the chest without acute findings, no pulmonary embolism. Extubated on 12/05. Had cardiac cath on 12/06/2023 with PCI 90% distal circumflex lesion, PCI 90% mid circumflex. Developed A-fib with RVR and required cardioversion which resulted in normal
sinus rhythm. Found to have a left upper extremity DVT and started on Eliquis. Noted with bilateral pneumonia and started on antibiotics. With plan for repeat chest x-ray in 4 to 6 weeks. Status post dual-chamber ICD placement 12/10/2023. Per
cardiology Eliquis /Plavix. Plan for Eliquis alone from december 2024 if no change.
Past Medical History: Ischemic cardiomyopathy/CHF, type 2 diabetes, HTN, COVID-19
Procedure History: Cholecystectomy
Family History: None documented
Social History:
Functional Level Premorbidly: Independent with all activities
Functional Level Currently:�� Min assist stand to sit, min assist ambulating 50 feet without an assistive device. Having problems with low blood pressure and dizziness. Min assist lower extremity self-care.
Tobacco: Former smoker
Alcohol: Denies
Drug use: Denies
Lives with: Spouse
24-hour assistance available: No
Number of floors: 2
# steps to enter: 1
# steps to second floor: 8+4
Potential First floor set up: No
Driving: Yes
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
�
Allergies:
Allergy/AdvReac Type Severity Reaction Status Date / Time
Sulfa (Sulfonamide Allergy Unknown Verified 12/03/23 21:14
Antibiotics)
sulfamethoxazole Allergy Unknown Verified 12/03/23 21:14
[From Bactrim]
trimethoprim [From Bactrim] Allergy Unknown Verified 12/03/23 21:14
Review of Systems:
Constitutional: (x) abNormal _fatigue
Eye: (x) Normal _
Ear/Nose/Throat: (x) Normal _
Respiratory: (x) Normal _
Cardiovascular: (x) abNormal _cardiac arrest and stent. Mild chest pain with activity. Limited motion and some left upper chest pain from ICD placement
Gastrointestinal: (x) Normal _
Genitourinary: (x) Normal _
Musculoskeletal: (x) Normal _
Integumentary: (x) abNormal _ICD incision
Neurologic: (x) Normal _
Psychiatric: (x) Normal _
Endocrine: (x) Normal _
Hematologic/Lymphatic: (x) Normal _
Allergic/Immunologic: (x) Normal _
Medications:
Active Current Visit Medication List
Category Date Time Status
Acetaminophen [Tylenol] Med 12/10/23 11:08 Active
650 mg PO Q4HPRN PRN
Amiodarone [Pacerone] Med 12/09/23 08:00 Active
400 mg PO BID
Apixaban [Eliquis] Med 12/06/23 20:00 Active
5 mg PO BID
Aspirin Chewable [Low Strength Aspirin] Med 12/05/23 08:00 Active
81 mg TUBE DAILY
Bisacodyl [Dulcolax] Med 12/08/23 16:10 Active
10 mg RECTAL DAILYPRN PRN
Buspirone [Buspar] Med 12/09/23 10:15 Active
10 mg PO BID
Clopidogrel Bisulfate [Plavix] Med 12/07/23 08:00 Active
75 mg PO DAILY
Clotrimazole [Mycelex Collin] Med 12/12/23 15:00 Active
10 mg PO 5/D
Dapagliflozin [Farxiga] Med 12/09/23 08:00 Active
10 mg PO DAILY
Dextrose 50%-Water [Dextrose 50% Syringe] Med 12/03/23 22:57 Active
12.5 grams IV [id number] PRN
Flush (0.9% Sodium Chloride) [Flush (Nss)] Med 12/03/23 22:00 Active
See Dose Instructions IV PER PROTOCOL
Furosemide [Lasix] Med 12/13/23 16:00 Active
40 mg PO BID AT 0800,1600
Glucagon [GlucaGen] Med 12/03/23 22:57 Active
1 mg IM PRN PRN
Guaifenesin [Mucinex] Med 12/08/23 20:00 Active
600 mg PO Q12
Insulin Aspart Corrective Low [Novolog Flexpen-Low Med 12/08/23 09:00 Active
Resistance]
See Protocol SC AC
Insulin Aspart Pen [Novolog Flexpen] Med 12/08/23 09:00 Active
3 units SC AC
Insulin Glargine Lantus [Lantus] 12 units Med 12/12/23 11:00 Active
Subcutaneous Insulin Syringe [Syringe-Insulin] 0 unit
SC DAILY
Pantoprazole [Protonix] Med 12/11/23 08:00 Active
40 mg PO DAILY
Spironolactone [Aldactone] Med 12/08/23 11:00 Active
25 mg PO DAILY
Trimethobenzamide [Tigan] Med 12/06/23 20:30 Active
200 mg IM Q6HPRN PRN
Vitals:
Temp Pulse Resp BP Pulse Ox
97.9 F 84 20 86/60 97
12/13/23 11:46 12/13/23 11:51 12/13/23 11:46 12/13/23 11:51 12/13/23 11:46
Height 5 ft 11 in
Actual Weight 74.1 kg
Body Mass Index (BMI) 22.8
Physical Exam:
General Appearance/Observation: Well-developed, well-nourished male in no apparent distress.
Pain/Comfort Assessment: Denies
Mood/Affect: Appropriate
Integumentary/Operative Site: Left chest dressing over ICD site, mild bruising and swelling with some bruising down the left arm to the elbow.
�� Pressure Ulcer Evaluation: absent over heels.
��
Eyes: Conjunctiva/Lids: normal ��� Pupils: pupils equal round and reactive to light and Accommodation
Ears/Nose/Throat: oral mucosa moist,� throat clear.��No thrush noted���������� lips/Teeth/Gums: normal
Cardiovascular: Heart: regular, no murmur
Pulses: dorsalis pedis palpable bilaterally
Respiratory: Respiratory Effort/Chest Expansion: normal ������ Auscultation: Clear to auscultation bilaterally
Gastrointestinal: abdomen not tender, no distension, normal abdominal bowel sounds
Genitourinary: No Marroquin
Extremities: Edema: Minimal pitting edema both legs cyanosis: None Trophic changes: None
Neurology Exam:
Orientation: Alert, Oriented to self, Time, Place
Memory: Intact for recent medical concerns
Calculation: Intact
Comprehension: Intact
Two step command: Intact
Cranial Nerves:
�� CNII: Pupillary light reflex: Intact��� Visual Field: Intact
�� CN III, IV, : Extraocular muscles: Intact
�� CN V: Facial Sensation at Forehead: Intact, Maxilla: Intact, Mandible: Intact
�� CN VII: Facial movement: Symmetric
�� CN VIII: Hearing: Normal
�� CN IX/X: Speech & swallow: Normal, Position of Uvula: Midline
�� CN XI: Shoulder shrug: Symmetric
�� CN XII: Tongue protrusion: Midline
Sensory:
�� Light touch: Intact in bilateral upper and lower extremities, except for decreased over the right deep peroneal distribution at the base of the right dorsal first and second toe
Reflexes:
�� Patellar: 2+ bilaterally
�� Achilles: 0 bilaterally
�� Babinski: Down going bilaterally
�� Clonus: None
�� Lary: Negative bilaterally
Cerebellar: Dysmetria/Ataxia: None
Musculoskeletal:Motor: (Manual muscle scale 0-5)
Muscle SA EF WE EE FF FA HF KE DF EHL PF
Right� 5 5 5 5 5 5 5 1 1 5
Left >3 5 >3 5 5 5 5 5 5 5
Tone: Normal in all extremities
Range of Motion: Passively within normal limits in all extremities, except for left shoulder not tested with pacemaker precautions
Lab Results
Laboratory Data
12/13/23 05:41
12/12/23 04:26
PT 15.7 Sec (11.4-14.6) H 12/03/23 18:53
INR 1.27 12/03/23 18:53
APTT 81.4 Sec (23.4-35.0) H 12/04/23 10:44
Total Bilirubin 0.7 mg/dl (0.2-1.3) 12/06/23 04:28
Direct Bilirubin 0.7 mg/dl (0.0-0.4) H 12/06/23 04:28
AST 21 U/L (17-59) 12/13/23 05:41
ALT 22 U/L (0-50) 12/13/23 05:41
Alkaline Phosphatase 159 U/L (38-126) H 12/06/23 04:28
Total Protein 5.3 g/dl (6.3-8.2) L 12/06/23 04:28
Albumin 2.8 g/dl (3.5-5.0) L 12/11/23 09:44
�
Diagnostic Results: as per HPI
Assessment
73-year-old R-handed M PMH (Ischemic cardiomyopathy/CHF, type 2 diabetes, HTN, COVID-19) with 12/03/2023 cardiac arrest with acute hypoxic respiratory failure and hypotension with left/right cardiac cath 12/06/2023 with PCI 90% distal circumflex
lesion, PCI 90% mid circumflex, A-fib with RVR requiring cardioversion, L UE DVT on Eliquis, B/L pneumonia, s/p dual-chamber ICD 12/10/23 with pacemaker precautions��resulting in ADL and ambulatory dysfunction.
and started on antibiotics. With plan for repeat chest x-ray in 4 to 6 weeks. Status post dual-chamber ICD placement 12/10/2023. Per cardiology Eliquis /Plavix. Plan for Eliquis alone from december 2024 if no change.
Plan
PM&R PT/OT to increase independence with ADLs, improve balance, coordination, endurance, strength, mobility, community reintegration, decreased burden of care on others and family education.
NSTEMI/CAD s/p PCI 12/06/2023: Secondary prophylaxis with Plavix, statin. Not on beta-huy.
Right foot drop: Appears to be right deep peroneal injury likely secondary to compression. Multi-Podus boots when in bed with kickstand laterally. Discussed with patient and his . Could get EMG in future if they want a definitive diagnosis
but clinically appears to be deep peroneal nerve injury versus other neuropathy or stroke.
HTN: Lasix, spironolactone monitor closely
Coronary artery disease : Aspirin, statin, not on beta-huy
Atrial fibrillation with RVR:�Eliquis anticoagulation and rate control with amiodarone.������������������������������������������
CHF: EF 10�15%, not on beta huy, Lasix, spironolactone, Farxiga, monitor fluid status
-Has AICD: Has some bruising and swelling, monitor closely
Thrush: No visible thrush on exam today. Was on steroids after having COVID. Getting Mycelex troches
DM II: Accu-Cheks, insulin sliding scale, aspart, lantus.
Bilateral pneumonia: Completed course of antibiotics.� Guaifenesin for thick secretions.� Repeat chest x-ray in 4 to 6 weeks.����
Acute left upper extremity DVT: Eliquis
Bilateral lower extremity edema: Monitor for now. On Lasix. Would avoid teds with CHF.
Normocytic anemia: Has some bruising, likely secondary to procedures and bruising.� Continue to monitor.
FEN: Cardiac diet
Psych: Psychology consult.� Monitor mood, adjust BuSpar as needed.
Skin: monitor for pressure sores/rashes/lesions.
Pain: acetaminophen as needed.
Bowel: Colace and Senna, PRN bisacodyl.
Bladder: No urinary difficulties
GI Prophylaxis: Pantoprazole
Pulmonary: Incentive spirometry
Safety: Continue to reinforce assistance with all transfers.
Code Status:� Full code
Dispo (date/plan/equipment needs): Home with family care.
Functional and Medical Goals: Modified Independent with ADL�s, ambulation, transfers
Discharge Destination: Acute inpatient rehabilitation
Case discussed with patient, , hospitalist.
A total of 60 minutes were spent with the patient preparing for the evaluation, obtaining history, performing examination and evaluation, counseling, data review, case management, care coordination, service order dispatcher, and EMR documentation.
Summary of recommendations:
- Discharge Destination: Acute inpatient rehabilitation
CAD s/p PCI 12/06/2023: Secondary prophylaxis with Plavix, statin. Not on beta-huy.
Right foot drop: Appears to be right deep peroneal injury likely secondary to compression. Multi-Podus boots when in bed with kickstand laterally. Discussed with patient and his . Could get EMG in future if they want a definitive diagnosis
but clinically appears to be deep peroneal nerve injury versus other neuropathy or stroke.
HTN: Lasix, spironolactone monitor closely
Coronary artery disease : Aspirin, statin, not on beta-huy
Atrial fibrillation with RVR:�Eliquis anticoagulation and rate control with amiodarone.������������������������������������������
CHF: EF 10�15%, not on beta huy, Lasix, spironolactone, Farxiga, monitor fluid status
-Has AICD: Has some bruising and swelling, monitor closely
Thrush: No visible thrush on exam today. Was on steroids after having COVID. Getting Mycelex troches
DM II: Accu-Cheks, insulin sliding scale, aspart, lantus.
Bilateral pneumonia: Completed course of antibiotics.� Guaifenesin for thick secretions.� Repeat chest x-ray in 4 to 6 weeks.����
Acute left upper extremity DVT: Eliquis
Normocytic anemia: Has some bruising, likely secondary to procedures and bruising.� Continue to monitor.
Thank you for allowing me to care for your patient. Please contact me with any questions or concerns.
[2023-12-13] MEDS: LASIX IV (09:38)
[2023-12-13] MEDS: MYCELEX TROCHE PO ×2 (12:33→18:36)
[2023-12-13 12:36] LABS: Glucose - Point of Care 131 mg/dl (70-99)
--- NOTE | 2023-12-13 14:16 | CM ---
CM following for DC planning needs.
PMR consult completed w/ recommendation for Acute Rehab. Updated PT-OT evals completed.
Bed at [facility] available today.
Pt. is medically stable per Attadolph MOSER.
Submitted all clinical to [facility], ; pending ref# [id number]. Sent all clinical information to [facility] for review (f: [phone]).
Awaiting approval. Once approved, will plan to transfer to [facility].
[2023-12-13] MEDS: LASIX 40 MG PO (16:14)
--- NOTE | 2023-12-13 17:38 | W.PN.HOSP.TC ---
Today's Communication/Plan
-
Placement pending
Assessment / Plan
Assessment / Plan
Physical Exam
Gen: Not in acute distress
HEENT: Normocephalic
Neck: Supple.
CV: continues to remain RRR, +S1/S2
Resp: continues to remain CTAB anteriorly, no rales, wheezes, or rhonchi.
Abd: +BS, soft, NT, ND
Skin: Warm. Dry.
Neuro: CN 2-12 intact, non-focal.
Psych: Normal mood and affect

12/04/23 04:56 Blood/Venous Blood Culture - Preliminary
No Growth in 4 days- Final report to follow
12/04/23 02:53 Blood/Venous Blood Culture - Preliminary
Positive culture in progress
12/04/23 02:53 Blood/Venous Gram Stain - Preliminary
12/04/23 06:15 Endotracheal Respiratory Culture - Final
Dari albicans
12/04/23 06:15 Endotracheal Gram Stain - Final
12/04/23 09:05 Nasal Swab Influenza Types A & B (ELLIOT) - Final
Negative for Influenza A & B, NAAT
Negative results must be combined with clinical observations
and patient history.
Nucleic Acid Amplification test (NAAT)performed on the
[employer] NOW platform.
CTA chest 12/03/23: No PE. There is a confluent parenchymal opacity within the posterior aspect of both lungs, most likely representing pneumonia. No evidence for associated pleural effusion bilaterally. Significantly dilated and rounded left
ventricle. Suggestion of Rishi B lines within the lateral aspect of both lungs, which could represent changes of acute and/or chronic heart failure. Heterogeneity of the thyroid isthmus and the right lobe of the thyroid, with suggestion of edema
adjacent to the thyroid. If further imaging evaluation of the thyroid is desired, consideration for thyroid ultrasound.�
CXR 12/04/23AM: No focal alveolar airspace disease. No large pleural effusions.
Echo: Severely reduced left ventricular systolic function.Left ventricle is
�moderately dilated. Global severe hypokinesis.
�Left ventricular ejection fraction is 15-20% by Watkins's method.
�Normal right ventricular systolic function.
�Mild-moderate central mitral regurgitation.
�Compared to prior study of 02/09/16 LVEF was 25 to 30% with severe global
�hypokinesis also noted at that time.
Cardiac cath 12/06/23:
1.� Right dominant circulation with a chronic total occlusion of the mid RCA, moderate, diffuse disease of the mid LAD without discrete lesion, a 90% lesion in the distal AV groove circumflex status post PCI (Medtronic [place] 2.0 x 15 VICKY)
and a 90% mid circumflex lesion leading into the second OM, status post successful PCI (Medtronic [place] Blair 2.25 x 18 VICKY) with reduction in all stenoses to 0%, jailing the origin of the distal circumflex but restoring EVAN-3 flow throughout the
entire circumflex system.
2.� Severely elevated filling pressures (LVEDP = 24 mmHg, PCWP = 32 mmHg at 78.0 kg) with depressed cardiac index on vasopressor/inotrope (CI = 2.02 L/min/m� on norepinephrine 3 mcg/kg/min) consistent with cardiogenic shock.
3.� Atrial fibrillation with rapid ventricular response.
4.� At least moderate pulmonary hypertension, WHO group 2.

Assessment/Plan
Cardiac arrest due to VT, shock delivered by AED
Non-Sustained Ventricular Tachycardia
Cardiogenic Shock
-1 AED shock in the field (refused ICD in the past for chronic NICM/HFrEF)
-ER noted patient to have gag reflex.� Shuttleless Loom Weaver recommended cooling protocol.� ER spoke with calculation reviewer and cardiac catheterization was not recommended.�Pt was cooled for about 40min.
-with NSTEMI and cardiogenic shock (POA)
-h/o NICM with EF 10% nonischemic cardiomyopathy with reduced EF. Echo above with EF 15-20%.
-Transaminitis/shock liver secondary to cardiac arrest
-was on Levophed/vasopressin/propofol/fentanyl/bicarb infusion, now off of all of these meds
-extubated 12/05/23AM
-was on heparin gtt, now off
-was on stress dose steroids, now off
-cath 12/06/23 as above, notable for placement of 2 stents, depressed cardiac index on vasopressor/inotrope consistent with cardiogenic shock, moderate pulmonary hypertension
-cont ASA/Plavix/Eliquis plan for triple therapy for a week then switch to Eliquis /Plavix. Plan for Eliquis alone from december 2024 if no change, as per cardiology
-Last dose of Aspirin should be on 12/13/23
-ICD placed on 12/10/23 morning - Medtronic dual chamber 12/10/23
-Continue Amiodarone
Acute on Chronic HFrEF
-IV Lasix started 12/07/24
-Continue Lasix 40 po BID, KCl 20 meq Daily, Farxiga 10 po qd, spironolactone 25 po qd
-Patient should have all GDMT as tolerated added over time (not all at once): SGLT2-I, MRA, HF BB, RAAS (REEMA-i or ARB or ARNI) as tolerated
Atrial Fibrillation with Rapid Ventricular Response
-s/p cardioversion on 12/06/23
-on 12/07/23 pt was in afib to 140s, Amio gtt, converted back to SR
-Continue Amiodarone 400 mg PO BID, Eliquis (on Aspirin, Plavix and Eliquis - �plan for triple therapy for a week then switch to Eliquis /Plavix. Plan for Eliquis alone from December 2024 if no change)
-Last dose of Aspirin should be on 12/13/23
ACUTE OCCLUSIVE THROMBOSIS throughout the LEFT CEPHALIC VEIN in the left upper arm
-Continue Eliquis
Right Foot Drop likely secondary to right deep peroneal injury likely secondary to compression
-Multi-Podus boots when in bed with kickstand laterally, as per building maintenance supervisor
Hypokalemia
-Replaced, monitor
Other problems:
Leukocytosis: with elevated procal, bacterial pneumonia is likely. Pt was on empiric Zosyn (started 12/04/23AM), cont on Rocephin completed on 12/10/23; Doxy dc'd due to GI symptoms (nausea and dry heaving). BCxs NGTD. Leukocytosis has now resolved.
Repeat CXR in 4-6 weeks to follow his PNA to resolution.
Hypokalemia, resolved. Note Mg normal.
DM2 with hyperglycemia: a1c 9.5%, cont Lantus/Novolog Q6H, SSI/accuchecks. Diabetes CAST SHELL GRINDER following. (Patient stated that he was having a lot of gastrointestinal adverse reactions to oral regimen which is why he stopped taking the Rybelsus and
Metformin. He is requesting no oral meds and states he is willing to continue insulin injections at discharge).
Anxiety - Continue Buspar as per superintendent landfill operations
Patient's updated at bedside.
Re-evaluate speech and swallow.
FULL/Eliquis
Anticipated Discharge: > 48 hours
Subjective/Interval History
-
Date of Service: December 13, 2023
Patient was seen and examined. He denied any new chest pain (except for surgical site chest pain) and denied any other new significant symptoms.
Objective Data
-
Labs:
Laboratory Results
12/13/23
05:41
WBC 8.8
Hgb 10.3 L
Hct 30.5 L
Plt Count 278
AST 21
ALT 22
Vital Signs:
Vital Signs
Temp Pulse Resp BP Pulse Ox
97.9 F 86 20 89/60 97
12/13/23 11:46 12/13/23 16:14 12/13/23 11:46 12/13/23 16:14 12/13/23 11:46
I&O
12/12/23 12/13/23 12/14/23
06:59 06:59 06:59
Intake Total 960 / 960
Output Total 1000 / 1000 900 / 900
Balance -1000 / -1000 60 / 60
[2023-12-13 17:59] LABS: Glucose - Point of Care 128 mg/dl (70-99)
--- NOTE | 2023-12-13 19:30 | PTCARENOTE ---
Assumed care. Patient awake and watching TV. SR on telemetry, +1 pitting and ankle edema.Left chest wall Aquacel dressing intact and dry. Left upper extremity bruised. Using urinal at bedside. Medications given with water. Mouth sores, medication
per MAR, call castro in reach
[2023-12-13 22:05] LABS: Glucose - Point of Care 139 mg/dl (70-99)
[2023-12-14] VITALS (10 sets, daily range): BP systolic 90–105; BP diastolic 54–69; PULSE 95–107; BMI 22.8
[2023-12-14 05:48] LABS: ALT (SGPT) 21 U/L (0-50); AST (SGOT) 23 U/L (17-59)
[2023-12-14 07:23] LABS: Glucose - Point of Care 121 mg/dl (70-99)
[2023-12-14] MEDS: NOVOLOG FLEXPEN 3 UNITS SC ×3 (08:12→17:18)
[2023-12-14] MEDS: NOVOLOG FLEXPEN-LOW RESISTANCE SC (08:12)
--- NOTE | 2023-12-14 09:00 | PTCARENOTE ---
Rec'd pt AAOx3 from prev nsg shift w/no c/o CP or SOB. Pt's VS stable & pt SR on telemetry monitoring. Pt does c/o 'mild pain' at his new AICD site at his L upper chest. Also c/o 'mild 3/10 pain' where CPR was done on his chest. Pt declining pain
meds at this time. Pt OOB w/1P contact guard assist. Call castro within reach & no addtl needs at this time.
[2023-12-14] MEDS: ELIQUIS 5 MG PO ×2 (09:59→21:18)
[2023-12-14] MEDS: MUCINEX 600 MG PO ×2 (09:59→21:18)
[2023-12-14] MEDS: LANTUS 0.119999999999999996 UNITS SC (09:59)
[2023-12-14] MEDS: MYCELEX TROCHE 10 MG PO ×3 (09:59→21:19)
[2023-12-14] MEDS: PLAVIX 75 MG PO (09:59)
[2023-12-14] MEDS: FARXIGA 10 MG PO (10:00)
[2023-12-14] MEDS: LASIX 40 MG PO ×2 (10:00→16:26)
[2023-12-14] MEDS: PACERONE 400 MG PO ×2 (10:00→21:19)
[2023-12-14] MEDS: PROTONIX 40 MG PO (10:00)
[2023-12-14] MEDS: ALDACTONE 25 MG PO (10:26)
[2023-12-14] MEDS: BUSPAR 10 MG PO ×2 (10:26→21:19)
[2023-12-14 12:15] LABS: Glucose - Point of Care 175 mg/dl (70-99)
[2023-12-14] MEDS: MYCELEX TROCHE PO ×2 (12:23→17:18)
[2023-12-14] MEDS: NOVOLOG FLEXPEN-LOW RESISTANCE 1 UNITS SC ×2 (12:24→17:18)
[2023-12-14 14:03] LABS: Hematocrit 36.4 % (39.0-52.0); Hemoglobin 12.1 g/dL (13.0-18.0); Mean Corp Hgb Conc. 33.2 g/dL (33.0-37.0); Mean Corpuscular Hgb 28.5 pg (27.0-31.0); Mean Corpuscular Volume 85.6 fL (80.0-94.0); Platelet Count 290 10^3/uL (130-400); Red Blood Cell Count 4.25 10^6/uL (4.70-6.10); Red Cell Dist. Width 15.5 % (11.5-14.5); White Blood Cell Count 8.6 10^3/uL (4.8-10.8)
[2023-12-14 14:37] LABS: Blood Urea Nitrogen 17 mg/dl (9-20); Calcium 8.8 mg/dl (8.4-10.2); Carbon Dioxide 30 mmol/L (22-30); Chloride 96 mmol/L (98-107); Estimated Creatinine Clearance 87 ml/min; Glucose 184 mg/dl (70-99); Magnesium 2.3 mg/dl (1.6-2.3); Phosphorus 3.9 mg/dl (2.5-4.5); Potassium 4.3 mmol/L (3.5-5.1); Sodium 134 mmol/L (135-145); eGFR > 60.00
--- NOTE | 2023-12-14 16:07 | W.PN.HOSP.TC ---
Today's Communication/Plan
-
Continue monitoring blood pressure closely
Pending placement
Assessment / Plan
Assessment / Plan
Physical Exam
Gen: Not in acute distress
HEENT: Normocephalic
Neck: Supple.
CV: continues to remain RRR, +S1/S2
Resp: continues to remain CTAB anteriorly, no rales, wheezes, or rhonchi.
Abd: +BS, soft, NT, ND
Skin: Warm. Dry.
Neuro: CN 2-12 intact, non-focal.
Psych: Normal mood and affect

12/04/23 04:56 Blood/Venous Blood Culture - Preliminary
No Growth in 4 days- Final report to follow
12/04/23 02:53 Blood/Venous Blood Culture - Preliminary
Positive culture in progress
12/04/23 02:53 Blood/Venous Gram Stain - Preliminary
12/04/23 06:15 Endotracheal Respiratory Culture - Final
Dari albicans
12/04/23 06:15 Endotracheal Gram Stain - Final
12/04/23 09:05 Nasal Swab Influenza Types A & B (ELLIOT) - Final
Negative for Influenza A & B, NAAT
Negative results must be combined with clinical observations
and patient history.
Nucleic Acid Amplification test (NAAT)performed on the
[employer] NOW platform.
CTA chest 12/03/23: No PE. There is a confluent parenchymal opacity within the posterior aspect of both lungs, most likely representing pneumonia. No evidence for associated pleural effusion bilaterally. Significantly dilated and rounded left
ventricle. Suggestion of Rishi B lines within the lateral aspect of both lungs, which could represent changes of acute and/or chronic heart failure. Heterogeneity of the thyroid isthmus and the right lobe of the thyroid, with suggestion of edema
adjacent to the thyroid. If further imaging evaluation of the thyroid is desired, consideration for thyroid ultrasound.�
CXR 12/04/23AM: No focal alveolar airspace disease. No large pleural effusions.
Echo: Severely reduced left ventricular systolic function.Left ventricle is
�moderately dilated. Global severe hypokinesis.
�Left ventricular ejection fraction is 15-20% by Watkins's method.
�Normal right ventricular systolic function.
�Mild-moderate central mitral regurgitation.
�Compared to prior study of 02/09/16 LVEF was 25 to 30% with severe global
�hypokinesis also noted at that time.
Cardiac cath 12/06/23:
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
and a 90% mid circumflex lesion leading into the second OM, status post successful PCI (Medtronic [place] 2.25 x 18 VICKY) with reduction in all stenoses to 0%, jailing the origin of the distal circumflex but restoring EVAN-3 flow throughout the
entire circumflex system.
2.� Severely elevated filling pressures (LVEDP = 24 mmHg, PCWP = 32 mmHg at 78.0 kg) with depressed cardiac index on vasopressor/inotrope (CI = 2.02 L/min/m� on norepinephrine 3 mcg/kg/min) consistent with cardiogenic shock.
3.� Atrial fibrillation with rapid ventricular response.
4.� At least moderate pulmonary hypertension, WHO group 2.

Assessment/Plan
Cardiac arrest due to VT, shock delivered by AED
Non-Sustained Ventricular Tachycardia
Cardiogenic Shock
-1 AED shock in the field (refused ICD in the past for chronic NICM/HFrEF)
-ER noted patient to have gag reflex.� Marketing Rep recommended cooling protocol.� ER spoke with rubber extrusion machine operator and cardiac catheterization was not recommended.�Pt was cooled for about 40min.
-with NSTEMI and cardiogenic shock (POA)
-h/o NICM with EF 10% nonischemic cardiomyopathy with reduced EF. Echo above with EF 15-20%.
-Transaminitis/shock liver secondary to cardiac arrest
-was on Levophed/vasopressin/propofol/fentanyl/bicarb infusion, now off of all of these meds
-extubated 12/05/23AM
-was on heparin gtt, now off
-was on stress dose steroids, now off
-cath 12/06/23 as above, notable for placement of 2 stents, depressed cardiac index on vasopressor/inotrope consistent with cardiogenic shock, moderate pulmonary hypertension
-cont ASA/Plavix/Eliquis plan for triple therapy completed for a week. Now on Eliquis /Plavix. Plan for Eliquis alone from December 2024 if no change, as per cardiology
-Last dose of Aspirin was on 12/13/23
-ICD placed on 12/10/23 morning - Medtronic dual chamber 12/10/23
-Continue Amiodarone
Acute on Chronic HFrEF
-IV Lasix started 12/07/24
-Continue Lasix 40 po BID, KCl 20 meq Daily, Farxiga 10 po qd, spironolactone 25 po qd
-Patient should have all GDMT as tolerated added over time (not all at once): SGLT2-I, MRA, HF BB, RAAS (REEMA-i or ARB or ARNI) as tolerated
Atrial Fibrillation with Rapid Ventricular Response
-s/p cardioversion on 12/06/23
-on 12/07/23 pt was in afib to 140s, Amio gtt, converted back to SR
-Continue Amiodarone 400 mg PO BID, Eliquis
-Last dose of Aspirin was on 12/13/23
ACUTE OCCLUSIVE THROMBOSIS throughout the LEFT CEPHALIC VEIN in the left upper arm
-Continue Eliquis
Right Foot Drop likely secondary to right deep peroneal injury likely secondary to compression
-Multi-Podus boots when in bed with kickstand laterally, as per post manager
Hypokalemia
-Replaced, monitor
Other problems:
Leukocytosis: with elevated procal, bacterial pneumonia is likely. Pt was on empiric Zosyn (started 12/04/23AM), cont on Rocephin completed on 12/10/23; Doxy dc'd due to GI symptoms (nausea and dry heaving). BCxs NGTD. Leukocytosis has now resolved.
Repeat CXR in 4-6 weeks to follow his PNA to resolution.
Hypokalemia, resolved. Note Mg normal.
DM2 with hyperglycemia: a1c 9.5%, cont Lantus/Novolog Q6H, SSI/accuchecks. Diabetes PROGRAM CLERK following. (Patient stated that he was having a lot of gastrointestinal adverse reactions to oral regimen which is why he stopped taking the Rybelsus and
Metformin. He is requesting no oral meds and states he is willing to continue insulin injections at discharge).
Anxiety - Continue Buspar as per attending urologist
Patient's updated at bedside.
Re-evaluate speech and swallow.
FULL/Eliquis
Anticipated Discharge: > 48 hours
Subjective/Interval History
-
Date of Service: December 14, 2023
Patient was seen and examined. He denied any new significant symptoms or complaints.
Objective Data
-
Labs:
Laboratory Results
12/14/23 12/14/23
04:59 13:56
WBC 8.6
Hgb 12.1 L
Hct 36.4 L
Plt Count 290
Sodium 134 L
Potassium 4.3 D
Chloride 96 L
Carbon Dioxide 30
BUN 17
Creatinine 0.8
Glucose 184 H
Calcium 8.8
AST 23
ALT 21
Vital Signs:
Vital Signs
Temp Pulse Resp BP Pulse Ox
98.4 F 93 20 92/64 96
12/14/23 15:59 12/14/23 15:00 12/14/23 15:59 12/14/23 12:10 12/14/23 15:59
I&O
12/13/23 12/14/23 12/15/23
06:59 06:59 06:59
Intake Total 960 / 960 960 / 960
Output Total 900 / 900 300 / 300 200 / 200
Balance 60 / 60 -300 / -300 760 / 760
[2023-12-14 17:18] LABS: Glucose - Point of Care 151 mg/dl (70-99)
[2023-12-14 21:23] LABS: Glucose - Point of Care 167 mg/dl (70-99)
[2023-12-15] VITALS (8 sets, daily range): BP systolic 82–98; BP diastolic 57–66; BMI 22.6
--- NOTE | 2023-12-15 01:38 | PTCARENOTE ---
Patient with no complaints overnight. Walking in the hallway with his . SR in the 80's, +1 ankle edema. Left chest was Aquacel dressing dry and intact. Bruising to left arm and shoulder unchanged. Call castro in reach
[2023-12-15 05:28] LABS: Hematocrit 29.7 % (39.0-52.0); Hemoglobin 10.1 g/dL (13.0-18.0); Mean Corpuscular Hgb 28.3 pg (27.0-31.0); Mean Corpuscular Volume 83.2 fL (80.0-94.0); Platelet Count 269 10^3/uL (130-400); Red Blood Cell Count 3.57 10^6/uL (4.70-6.10); Red Cell Dist. Width 15.4 % (11.5-14.5); White Blood Cell Count 10.2 10^3/uL (4.8-10.8)
[2023-12-15 05:56] LABS: ALT (SGPT) 23 U/L (0-50); AST (SGOT) 22 U/L (17-59)
[2023-12-15 08:03] LABS: Glucose - Point of Care 124 mg/dl (70-99)
[2023-12-15] MEDS: NOVOLOG FLEXPEN-LOW RESISTANCE SC ×2 (08:44→17:38)
[2023-12-15] MEDS: NOVOLOG FLEXPEN 3 UNITS SC ×3 (08:51→18:08)
[2023-12-15] MEDS: ELIQUIS 5 MG PO ×2 (10:03→20:54)
[2023-12-15] MEDS: FARXIGA 10 MG PO (10:03)
[2023-12-15] MEDS: MUCINEX 600 MG PO ×2 (10:03→20:54)
[2023-12-15] MEDS: MYCELEX TROCHE 10 MG PO ×3 (10:03→20:54)
[2023-12-15] MEDS: PROTONIX 40 MG PO (10:03)
[2023-12-15] MEDS: PLAVIX 75 MG PO (10:03)
--- NOTE | 2023-12-15 10:15 | PTCARENOTE ---
Pt's BP low this AM, pt initially asked this RN to wait until he ate his breakfast before taking AM meds. On recheck at 0950 pt's BP still low at 89/60. Pt asymptomatic & sitting OOB to CH. No dizziness, CP, or SOB per pt. This RN contacted
Hospitalist & Cardiology re: low BP & AM meds. Aldactone & furosemide held per Cardiology. Discussed plan of care w/pt & pt agreeable to plan. Pt w/call castro within reach & no addtl needs at this time.
[2023-12-15] MEDS: LANTUS 0.119999999999999996 UNITS SC (10:16)
[2023-12-15] MEDS: LASIX PO ×2 (10:16→16:10)
[2023-12-15] MEDS: ALDACTONE PO (10:17)
[2023-12-15] MEDS: BUSPAR 10 MG PO ×2 (10:17→20:55)
[2023-12-15] MEDS: PACERONE 400 MG PO ×2 (10:18→20:53)
[2023-12-15] MEDS: MYCELEX TROCHE PO ×2 (12:10→17:39)
[2023-12-15 12:14] LABS: Glucose - Point of Care 173 mg/dl (70-99)
[2023-12-15] MEDS: NOVOLOG FLEXPEN-LOW RESISTANCE 1 UNITS SC (12:14)
[2023-12-15] MEDS: TYLENOL 650 MG PO (16:04)
--- NOTE | 2023-12-15 16:16 | W.PN.HOSP.TC ---
Today's Communication/Plan
-
Hypotension - holding Aldactone and Lasix after talking with Dr. Aquino
Placement pending
Assessment / Plan
Assessment / Plan
Physical Exam
Gen: Not in acute distress
HEENT: Normocephalic
Neck: Supple.
CV: continues to remain RRR, +S1/S2
Resp: continues to remain CTAB anteriorly, no rales, wheezes, or rhonchi.
Abd: +BS, soft, NT, ND
Skin: Warm. Dry.
Neuro: CN 2-12 intact, non-focal.
Psych: Normal mood and affect

12/04/23 04:56 Blood/Venous Blood Culture - Preliminary
No Growth in 4 days- Final report to follow
12/04/23 02:53 Blood/Venous Blood Culture - Preliminary
Positive culture in progress
12/04/23 02:53 Blood/Venous Gram Stain - Preliminary
12/04/23 06:15 Endotracheal Respiratory Culture - Final
Dari albicans
12/04/23 06:15 Endotracheal Gram Stain - Final
12/04/23 09:05 Nasal Swab Influenza Types A & B (ELLIOT) - Final
Negative for Influenza A & B, NAAT
Negative results must be combined with clinical observations
and patient history.
Nucleic Acid Amplification test (NAAT)performed on the
[employer] NOW platform.
CTA chest 12/03/23: No PE. There is a confluent parenchymal opacity within the posterior aspect of both lungs, most likely representing pneumonia. No evidence for associated pleural effusion bilaterally. Significantly dilated and rounded left
ventricle. Suggestion of Rishi B lines within the lateral aspect of both lungs, which could represent changes of acute and/or chronic heart failure. Heterogeneity of the thyroid isthmus and the right lobe of the thyroid, with suggestion of edema
adjacent to the thyroid. If further imaging evaluation of the thyroid is desired, consideration for thyroid ultrasound.�
CXR 12/04/23AM: No focal alveolar airspace disease. No large pleural effusions.
Echo: Severely reduced left ventricular systolic function.Left ventricle is
�moderately dilated. Global severe hypokinesis.
�Left ventricular ejection fraction is 15-20% by Watkins's method.
�Normal right ventricular systolic function.
�Mild-moderate central mitral regurgitation.
�Compared to prior study of 02/09/16 LVEF was 25 to 30% with severe global
�hypokinesis also noted at that time.
Cardiac cath 12/06/23:
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
and a 90% mid circumflex lesion leading into the second OM, status post successful PCI (Medtronic [place] 2.25 x 18 VICKY) with reduction in all stenoses to 0%, jailing the origin of the distal circumflex but restoring EVAN-3 flow throughout the
entire circumflex system.
2.� Severely elevated filling pressures (LVEDP = 24 mmHg, PCWP = 32 mmHg at 78.0 kg) with depressed cardiac index on vasopressor/inotrope (CI = 2.02 L/min/m� on norepinephrine 3 mcg/kg/min) consistent with cardiogenic shock.
3.� Atrial fibrillation with rapid ventricular response.
4.� At least moderate pulmonary hypertension, WHO group 2.

Assessment/Plan
Cardiac arrest due to VT, shock delivered by AED
Non-Sustained Ventricular Tachycardia
Cardiogenic Shock
-1 AED shock in the field (refused ICD in the past for chronic NICM/HFrEF)
-ER noted patient to have gag reflex.� In Store Marketing Representative recommended cooling protocol.� ER spoke with heavy duty diesel mechanic and cardiac catheterization was not recommended.�Pt was cooled for about 40min.
-with NSTEMI and cardiogenic shock (POA)
-h/o NICM with EF 10% nonischemic cardiomyopathy with reduced EF. Echo above with EF 15-20%.
-Transaminitis/shock liver secondary to cardiac arrest
-was on Levophed/vasopressin/propofol/fentanyl/bicarb infusion, now off of all of these meds
-extubated 12/05/23AM
-was on heparin gtt, now off
-was on stress dose steroids, now off
-cath 12/06/23 as above, notable for placement of 2 stents, depressed cardiac index on vasopressor/inotrope consistent with cardiogenic shock, moderate pulmonary hypertension
-cont ASA/Plavix/Eliquis plan for triple therapy completed for a week. Now on Eliquis /Plavix. Plan for Eliquis alone from December 2024 if no change, as per cardiology
-Last dose of Aspirin was on 12/13/23
-ICD placed on 12/10/23 morning - Medtronic dual chamber 12/10/23
-Continue Amiodarone
Acute on Chronic HFrEF
-Status post IV Lasix
-Continue KCl 20 meq Daily, Farxiga 10 po qd
-Due to hypotension, hold spironolactone 25 mg po daily and Lasix 40 mg po BID
-Patient should have all GDMT as tolerated added over time (not all at once): SGLT2-I, MRA, HF BB, RAAS (REEMA-i or ARB or ARNI) as tolerated
Atrial Fibrillation with Rapid Ventricular Response
-s/p cardioversion on 12/06/23
-on 12/07/23 pt was in afib to 140s, Amio gtt, converted back to SR
-Continue Amiodarone 400 mg PO BID and Eliquis
-Last dose of Aspirin was on 12/13/23
ACUTE OCCLUSIVE THROMBOSIS throughout the LEFT CEPHALIC VEIN in the left upper arm
-Continue Eliquis
Right Foot Drop likely secondary to right deep peroneal injury likely secondary to compression
-Multi-Podus boots when in bed with kickstand laterally, as per night stocker
Hypokalemia
-Replaced, monitor
Other problems:
Leukocytosis: with elevated procal, bacterial pneumonia is likely. Pt was on empiric Zosyn (started 12/04/23AM), cont on Rocephin completed on 12/10/23; Doxy dc'd due to GI symptoms (nausea and dry heaving). BCxs NGTD. Leukocytosis has now resolved.
Repeat CXR in 4-6 weeks to follow his PNA to resolution.
Hypokalemia, resolved. Note Mg normal.
DM2 with hyperglycemia: a1c 9.5%, cont Lantus/Novolog Q6H, SSI/accuchecks. Diabetes LINE TENDER following. (Patient stated that he was having a lot of gastrointestinal adverse reactions to oral regimen which is why he stopped taking the Rybelsus and
Metformin. He is requesting no oral meds and states he is willing to continue insulin injections at discharge).
Anxiety - Continue Buspar as per bait painter
Patient's updated at bedside.
Re-evaluate speech and swallow.
FULL/Eliquis
Anticipated Discharge: > 48 hours
Subjective/Interval History
-
Date of Service: December 15, 2023
Patient was seen and examined. He denied any chest pain or shortness of breath, he did report slight dizziness (associated with low blood pressure at about the same time) in the afternoon when he went up to go the bathroom.
Objective Data
-
Labs:
Laboratory Results
12/15/23
05:15
WBC 10.2
Hgb 10.1 L
Hct 29.7 L
Plt Count 269
AST 22
ALT 23
Vital Signs:
Vital Signs
Temp Pulse Resp BP Pulse Ox
98.4 F 88 18 87/63 97
12/15/23 16:03 12/15/23 16:03 12/15/23 16:03 12/15/23 16:03 12/15/23 16:03
I&O
12/14/23 12/15/23 12/16/23
06:59 06:59 06:59
Intake Total 960 / 960
Output Total 300 / 300 200 / 200
Balance -300 / -300 760 / 760
--- NOTE | 2023-12-15 16:20 | PTCARENOTE ---
Pt's PM BP 87/63, HR 88; Pt reports feeling 'mildy dizzy' the last time he was up to the BR. MD notified & pt's PO BID Lasix and Aldactone now on hold until pt is reevaluated tomm. Plan of care ongoing.
[2023-12-15 16:53] LABS: Glucose - Point of Care 149 mg/dl (70-99)
[2023-12-16] VITALS (7 sets, daily range): BP systolic 89–108; BP diastolic 58–71; BMI 22.7
[2023-12-16 06:13] LABS: ALT (SGPT) 22 U/L (0-50); AST (SGOT) 27 U/L (17-59); Blood Urea Nitrogen 16 mg/dl (9-20); Calcium 8.2 mg/dl (8.4-10.2); Carbon Dioxide 28 mmol/L (22-30); Chloride 102 mmol/L (98-107); Estimated Creatinine Clearance 87 ml/min; Glucose 117 mg/dl (70-99); Potassium 3.9 mmol/L (3.5-5.1); Sodium 132 mmol/L (135-145); eGFR > 60.00
--- NOTE | 2023-12-16 07:50 | W.PN.CD ---
Today's Communication / Plan
-
- Holding Lasix. Probably can start prn in 1-2 days based on symptoms and weight
- Start Coreg 3.125 mg BID from tomorrow if BP tolerates.
Impression / Plan
-
Impression: 73M with NICM 10% with cardiac arrest at home - possible PEA and got CPR from and was noted to have pulse at the arrival of paramedics and developed shockable rhythm s/p shock
Plan
Cardiac arrest, shock delivered by AED (see above)
- s/p ICD - Medtronic dual chamber 12/10/23
- Amio for at least 12 months
Paroxysmal AFib
- Now in NSR after more amiodarone
- Amiodarone with cardiac arrest -for 1 year is reasonable
- On Eliquis 5 BID
Hypokalemia
-s/p supplemented. G
-Normal Cr, will give another dose this evening.
CAD
- S/p PCI to mLCx and an OM on 12/06/2023
- Residual 100% RCA
- s/p ASA, Plavix and Eliquis for a week. Now on Eliquis /Plavix. Plan for Eliquis alone from december 2024 if no change.
- Last dose of ASA on 12/13/23.
Acute HFrEF
- at cath 12/06/2023: LVEDP = 24 mmHg, PCWP = 32 mmHg at 78.0 kg s/p diuresed.
- heart failure stable.
- He should have all GDMT as tolerated added over time (currently on Aldactone, Farxiga, and amiodarone/Lasix.
- Will add Coreg 3.125 mg BID from tomorrow. (limited due to hypotension. Plan for Entresto as outpatient once BP is stabilized.
- appears well compensated now.
- lower Lasix to oral QD prn as outpatient regimen.
Dispo
- awaiting placement.
- MEDS: Plavix 75 po qd, Eliquis 5 po BID, Lasix 40 po QD prn, KCl 20 meq with lasix, Farxiga 10 po qd, spironolactone 25 po qd, amiodarone 400 QD, Coreg 3.125 mg BID for now
- Follow up: [facility]. Will have the wound check tomorrow. BMP in one week after discharge with follow up at [place].
Laboratory Data
12/12/23 12/13/23
05:41
Hgb 10.3 L
Potassium 3.3 L
Generic Name Dose Route Start Last Admin
Trade Name Freq PRN Reason Stop Dose Admin
Aspirin 81 mg 12/05/23 08:00
Aspirin 81 Mg Chewable Tablet TUBE 01/02/24 07:59
DAILY SAMANTHA
Clopidogrel Bisulfate 75 mg 12/07/23 08:00
Clopidogrel 75 Mg Tablet PO 01/04/24 07:59
DAILY SAMANTHA
Apixaban 5 mg 12/06/23 20:00
Apixaban (Eliquis) 5 Mg Tablet PO 01/03/24 19:59
BID SAMANTHA
Furosemide 40 mg 12/07/23 12:00
Furosemide 40 Mg (10 Mg/Ml) 4 Ml Vial IV 01/04/24 11:59
BID AT 0800,1600 SAMANTHA
Dapagliflozin 10 mg 12/09/23 08:00
Dapagliflozin (Farxiga) 10 Mg Tablet PO 01/06/24 07:59
DAILY SAMANTHA
Spironolactone 25 mg 12/08/23 11:00
Spironolactone 25 Mg Tablet PO 01/05/24 10:59
DAILY SAMANTHA
Amiodarone HCl 400 mg 12/09/23 08:00
Amiodarone 200 Mg Tablet PO 01/06/24 07:59
BID SAMANTHA
Physical Exam
Vital Signs/Labs
Vital Signs
Temp Pulse Resp BP Pulse Ox
98 F 88 18 87/63 97
12/15/23 20:00 12/15/23 16:03 12/15/23 16:03 12/15/23 16:03 12/15/23 16:03
12/15/23 12/16/23 12/17/23
06:59 06:59 06:59
Actual Weight 73.4 kg
12/15/23 05:15
12/16/23 05:22
PT 15.7 Sec (11.4-14.6) H 12/03/23 18:53
INR 1.27 12/03/23 18:53
APTT 81.4 Sec (23.4-35.0) H 12/04/23 10:44
Magnesium 2.3 mg/dl (1.6-2.3) 12/14/23 13:56
Triglycerides 348 mg/dl (10-149) H 12/04/23 01:15
12/04/23 12/11/23
04:14 04:16
Kiq-N-Tvaryixthwd Pept [id number]
Physical Exam
Constitutional: No acute distress and Comfortable
EENT: Anicteric and Moist mucous membranes
Cardiovascular: Rhythm & rate is regular, Pedal edema is absent, JVD pressure is normal and Systolic murmur present
Respiratory: Respiratory effort normal, Lungs clear to auscul. and Crackles Absent
GI: Soft, Distention absent, Non tender and Normal bowel sounds
Neuro/Psych: Alert, Oriented and AO x 3
Other: Cardiac Device Site
Data Reviewed
-
Date of Service: December 16, 2023
Medical Decision Making: Reviewed Test Results, Independent Historian Assessment, Test Interpretation and Review of Case with other Provider
EKG: Tracing Personally Visualized and interpreted
Echo: Report Reviewed by me
Labs: Labs Reviewed by me
Old Records: Reviewed
--- NOTE | 2023-12-16 07:52 | PN.DE.MGMTRT ---
Insulin Management
- -
12/04/2023 Diabetes Management Consult
Patient admitted s/p cardiac arrest, currently on ventilator. PMH includes type 2 diabetes, cardiomyopathy. Prior to admission was taking Farxiga 10 mg daily, Rybelsus 3 mg daily metformin 500 mg BID.. reports he really was not that good
with his diabetes,did not check blood sugar. He does see Dr. Bravo, endocrine, and is due for a follow up soon. A1C on admission 9.5%, cr .8, egfr >60.
Glucose has been > 200 on corrective insulin only. Will start Lantus 15 units now and daily and continue corrective insulin Q 6 hours. Spoke with Meteorological Aide, if patient is not extubated by end of day and glucose is not improved will start
glycemic protocol.
12/05/2023 Diabetes Management Follow up
Patient remains intubated. Received Lantus 15 units in AM started yesterday with corrective insulin. Glucose remained stable overnight requiring 1 to 3 units corrective insulin Q 6 hours. Will continue Lantus 15 units in AM and add NovoLog 3
units Q 6 hours. Will change moderate corrective to low.
12/06/2023: Diabetes Management F/U:
Pt was extubated yesterday but remains NPO with ice chips, awaiting speech eval.
Was started on NovoLog 3 units Q6 hrs due to persistent Hyperglycemia. Glucose has improved, FBG 162 this AM.
Will make no changes to current regimen: Lantus 15 units in AM and NovoLog 3 units Q6H with low corrective Q6 hrs
Will closely follow and make necessary changes from Q6 hrs insulin to his OP regimen in addition to the Lantus once cleared for a diet.
12/09/2023: Diabetes Management F/U:
Pt was started on a diet, appetite is poor, states he feels better today. Family at bedside.
Glucose stable, FBG 120 this AM, premeal 81 to 138.
Will make no changes to current regimen: Lantus 15 units in AM and NovoLog 3 units AC with low corrective
Pt states that he was having a lot of GI adverse rxns to oral regimen which is why he stopped taking the Rybelsus and Metformin. He is requesting no oral meds and states he is willing to continue insulin injections at discharge.
12/10/2023 Diabetes management Follow up
Glucose remains stable, 81 to 127 with one elevation 197 @ hs most likely due to taking hs medication with applesauce and jello. Patient appetite poor yesterday but did take small amount lunch and dinner. Fasting this AM 108. Patient for procedure
today. Will make no change to current regimen Lantus 15 units in AM with 3 units NovoLog AC. Will follow.
12/11/2023 Diabetes management Follow up
S/P ICD placement yesterday, doing well. Glucose remains stable 87 to 113. Will make no change to current regimen, Lantus 15 units in AM with NovoLog 3 units AC. Required no corrective insulin for past 48 hours.
12/12/2023 Diabetes Management Follow up
Patient glucose 73 pre lunch yesterday, glucose range 109 to 146. Will reduce AM Lantus to 12 units and continue 3 units NovoLog AC with low corrective insulin.
12/13/2023: Diabetes Management F/U:
Lantus reduce yesterday to 12 units, NO FBG done this AM. All other glucose remains stable and in range 93 to 170.
Will make no changes to current regimen, Lantus 12 units in AM and NovoLog 3 units AC with low corrective insulin.
12/16/2023: Diabetes Management F/U:
Pt awaiting placement. Glucose remains stable and in range, premeal 124 to 173, FBG 117 this AM.
Will make no changes to current regimen, Farxiga 10mg daily, Lantus 12 units in AM and NovoLog 3 units AC with low corrective insulin.
Diabetes History
- -
Type of Diabetes: 2 requiring insulin
Pre-Admission Diabetes Regimen
12/16/23
05:22
Creatinine 0.8
Lab Results
Hemoglobin A1c 9.5 % (4.0-5.6) H 12/04/23 04:14
Insulin Pump Settings
IP Diabetes Regimen
12/15/23 12/15/23 12/15/23
08:02 12:13 16:51
Glucose
POC Glucose 124 H 173 H 149 H
12/16/23
05:22
Glucose 117 H
POC Glucose
Meal type: Dinner
Meal type: Lunch
Meal type: Breakfast
Amount consumed: 100%
Amount consumed: 100%
Amount consumed: 100%
Patient Education
[2023-12-16] MEDS: PROTONIX 40 MG PO (08:14)
[2023-12-16] MEDS: ELIQUIS 5 MG PO ×2 (08:14→20:02)
[2023-12-16] MEDS: MUCINEX 600 MG PO ×2 (08:14→20:02)
[2023-12-16] MEDS: LANTUS 0.119999999999999996 UNITS SC (08:14)
[2023-12-16] MEDS: PACERONE 400 MG PO ×2 (08:14→20:02)
[2023-12-16] MEDS: BUSPAR 10 MG PO ×2 (08:14→20:02)
[2023-12-16] MEDS: MYCELEX TROCHE 10 MG PO ×2 (08:14→16:14)
[2023-12-16] MEDS: PLAVIX 75 MG PO (08:14)
[2023-12-16] MEDS: FARXIGA 10 MG PO (08:14)
[2023-12-16 08:15] LABS: Glucose - Point of Care 142 mg/dl (70-99)
[2023-12-16] MEDS: NOVOLOG FLEXPEN 3 UNITS SC ×3 (08:15→18:26)
[2023-12-16] MEDS: NOVOLOG FLEXPEN-LOW RESISTANCE SC ×3 (08:15→18:24)
--- NOTE | 2023-12-16 09:36 | W.PN.HOSP.TC ---
Today's Communication/Plan
-
DC planning
Assessment / Plan
Assessment / Plan
Assessment/Plan
Cardiac arrest due to VT, shock delivered by AED
Non-Sustained Ventricular Tachycardia
Cardiogenic Shock
-1 AED shock in the field (refused ICD in the past for chronic NICM/HFrEF)
-ER noted patient to have gag reflex.� Vp Outcomes recommended cooling protocol.� ER spoke with household cook and cardiac catheterization was not recommended.�Pt was cooled for about 40min.
-with NSTEMI and cardiogenic shock (POA)
-h/o NICM with EF 10% nonischemic cardiomyopathy with reduced EF. Echo above with EF 15-20%.
-Transaminitis/shock liver secondary to cardiac arrest
-was on Levophed/vasopressin/propofol/fentanyl/bicarb infusion, now off of all of these meds
-extubated 12/05/23AM
-was on heparin gtt, now off
-was on stress dose steroids, now off
-cath 12/06/23 as above, notable for placement of 2 stents, depressed cardiac index on vasopressor/inotrope consistent with cardiogenic shock, moderate pulmonary hypertension
-cont ASA/Plavix/Eliquis plan for triple therapy completed for a week. Now on Eliquis /Plavix. Plan for Eliquis alone from December 2024 if no change, as per cardiology
-Last dose of Aspirin was on 12/13/23
-ICD placed on 12/10/23 morning - Medtronic dual chamber 12/10/23
-Continue Amiodarone
Acute on Chronic HFrEF
-Improved weight. Not short of breath. Not hypoxic.
-Continue Farxiga 10 po qd
-Lasix QD prn per cards
-Patient should have all GDMT as tolerated added over time (not all at once): SGLT2-I, MRA, HF BB, RAAS (REEMA-i or ARB or ARNI) as tolerated
Atrial Fibrillation with Rapid Ventricular Response
-s/p cardioversion on 12/06/23
-on 12/07/23 pt was in afib to 140s, Amio gtt, converted back to SR
-Continue Amiodarone 400 mg PO BID and Eliquis
-Last dose of Aspirin was on 12/13/23
ACUTE OCCLUSIVE THROMBOSIS throughout the LEFT CEPHALIC VEIN in the left upper arm
-Continue Eliquis
Right Foot Drop likely secondary to right deep peroneal injury likely secondary to compression
-Multi-Podus boots when in bed with kickstand laterally, as per audio/video engineer
Other problems:
Leukocytosis: with elevated procal, bacterial pneumonia is likely. Pt was on empiric Zosyn (started 12/04/23AM), cont on Rocephin completed on 12/10/23; Doxy dc'd due to GI symptoms (nausea and dry heaving). BCxs NGTD. Leukocytosis has now resolved.
Repeat CXR in 4-6 weeks to follow his PNA to resolution.
Hypokalemia, resolved. Note Mg normal.
DM2 with hyperglycemia: a1c 9.5%, cont Lantus/Novolog Q6H, SSI/accuchecks. Diabetes DIRECTOR OF MEDICARE following. (Patient stated that he was having a lot of gastrointestinal adverse reactions to oral regimen which is why he stopped taking the Rybelsus and
Metformin. He is requesting no oral meds and states he is willing to continue insulin injections at discharge).
Anxiety - Continue Buspar as per certified genetic counselor
PT eval today and start dispo plan.
FULL/Eliquis
Anticipated Discharge: Today
Subjective/Interval History
-
Date of Service: December 16, 2023
Denies any dizziness with ambulation.
Wondering if he can go home with therapies than to rehab.
Denies chest pain or shortness of breath.
Today's weight 161lb has been the lowest weight for height in the recent times.
Objective Data
-
Labs:
Laboratory Results
12/16/23
05:22
Sodium 132 L
Potassium 3.9
Chloride 102
Carbon Dioxide 28
BUN 16
Creatinine 0.8
Glucose 117 H
Calcium 8.2 L
AST 27
ALT 22
Vital Signs:
Vital Signs
Temp Pulse Resp BP Pulse Ox
97.8 F 84 18 90/65 96
12/16/23 07:30 12/16/23 08:14 12/16/23 07:30 12/16/23 08:14 12/16/23 07:30
I&O
12/15/23 12/16/23 12/17/23
06:59 06:59 06:59
Intake Total 960 / 960 720 / 720
Output Total 200 / 200 600 / 600
Balance 760 / 760 120 / 120
Review of Systems
-
Constitutional: Denies Fever
EENT: Denies Sore Throat
Respiratory: Denies Trouble Breathing
Cardiac: Denies Chest Pain (has some pain from chest wall where he had ICD inserted)
Abdomen/GI: Denies Abdominal Pain, Nausea or Vomiting
Neuro: Denies Dizzy
Physical Exam
-
General: No Apparent Distress
HEENT: Normocephalic
Respiratory: Clear to Auscultation
Cardiac: Regular Rhythm and S1/S2
GI: Soft and Nontender
Musculoskeletal: No Edema
Neuro: Awake and AO x 3
Psych: Calm; Negative Confused
Data Reviewed
-
Labs: Labs Reviewed by me
--- NOTE | 2023-12-16 11:30 | PTOTSP ---
ST Dysphagia Follow up/Tx session
Oropharyngeal function appears intact at the bedside
Pt received awake/alert sitting upright in bed. Self fed trials of regular solids and thin liquds. Reports still some soreness in his throat but it is getting better. Demo grossly functional mastication and bolus was orally cleared. Thin liquids by
straw sip swallow appears prompt. No overt s/sx of aspiration observed.
Recommend
1. Continue Regular solids / Thin liquids
2. Standard aspiration and KATIUSKA/reflux precautions
3. Small bites, moisten solids with gravy/sauce as needed
4. Meds oral per pt preference
5. AVIATION TECHNICIAN signing off please reconsult as needed
[2023-12-16 11:52] LABS: Glucose - Point of Care 137 mg/dl (70-99)
[2023-12-16] MEDS: MYCELEX TROCHE PO ×3 (12:13→21:10)
--- NOTE | 2023-12-16 12:17 | CM ---
Addendum entered by Radha Montgomery 12/16/23 13:50:
Received fax from Jimmy Cao who approved SNF/Rehab. for five days staring on Saturday12/17/23. Met with Mr. Aldana to update him on SNF/ Auth. Also reviewed wheelchair van and out of pocket cost. Telephone call to transfer center to get cost
of wheelchair van. Left message.
Addendum entered by Radha Montgomery 12/16/23 12:47:
Telephone call to [facility] to start pre-cert for SNF/Auth. The pending reference number is [id number]. Faxed clinical to [facility] for review. Awaiting decision for SNF/Rehab.
Original Note:
Reviewed chart. Telephone call to [facility]. to let them know insurance decision. Sent denial to Physician Advisor to see if he wants to do a Peer to Peer. Awaiting his decision. Met with Mr. Aldana to review discharge plans. Reviewed SNF/Rehab
and VNA services. He was agreeable to having referral sent to [facility] and [facility]. Referrals sent to [facility] and [facility]. Telephone call to [facility] and [facility] to make the referral. [facility]
admissions states they do not accept [facility] Medicare. [facility] Admission states they can accept him if approved for admission. Will start the pre-cert process. Medical work-up in progress. [facility]
[place] if Physician advisor feels a Peer To Peer can be done versus SNF at [facility] if approved by insurance when medically stable .
--- NOTE | 2023-12-16 13:45 | PTCARENOTE ---
BP 89/58, pt asymptomatic. RN made Angela WHITE aware. Will continue to monitor.
[2023-12-16 18:25] LABS: Glucose - Point of Care 109 mg/dl (70-99)
[2023-12-16 21:41] LABS: Glucose - Point of Care 190 mg/dl (70-99)
[2023-12-16] MEDS: TYLENOL 650 MG PO (21:50)
[2023-12-17 03:42] VITALS: BP 101/66
[2023-12-17 04:24] LABS: Hematocrit 30.3 % (39.0-52.0); Hemoglobin 10.3 g/dL (13.0-18.0); Mean Corpuscular Hgb 28.4 pg (27.0-31.0); Mean Corpuscular Volume 83.5 fL (80.0-94.0); Mean Platelet Volume 10.1 fL (7.4-10.4); Platelet Count 311 10^3/uL (130-400); Red Blood Cell Count 3.63 10^6/uL (4.70-6.10); Red Cell Dist. Width 15.6 % (11.5-14.5)
[2023-12-17 04:46] LABS: ALT (SGPT) 21 U/L (0-50); AST (SGOT) 18 U/L (17-59); Blood Urea Nitrogen 16 mg/dl (9-20); Calcium 8.4 mg/dl (8.4-10.2); Carbon Dioxide 29 mmol/L (22-30); Chloride 100 mmol/L (98-107); Estimated Creatinine Clearance 77 ml/min; Glucose 110 mg/dl (70-99); Potassium 3.8 mmol/L (3.5-5.1); Sodium 134 mmol/L (135-145); eGFR > 60.00
--- NOTE | 2023-12-17 04:52 | PTCARENOTE ---
No complaints pain/discomfort, VSS, NSR on the monitor. Pt. slept most of the night. Looking forward to probable discharge later today.
[2023-12-17 06:57] VITALS: BP 100/67
[2023-12-17 07:18] LABS: Glucose - Point of Care 79 mg/dl (70-99)
--- NOTE | 2023-12-17 07:30 | W.PN.CD ---
Today's Communication / Plan
-
- start Toprol 12.5 mg QD
Impression / Plan
-
Impression: 73M with NICM 10% with cardiac arrest at home - possible PEA and got CPR from and was noted to have pulse at the arrival of paramedics and developed shockable rhythm s/p shock
Plan
Cardiac arrest, shock delivered by AED (see above)
- s/p ICD - Medtronic dual chamber 12/10/23
- Amio for at least 12 months
- ICD a week ago. - wound checked. Remove the Aquacel dressing today.
Paroxysmal AFib
- Now in NSR after more amiodarone
- Amiodarone with cardiac arrest -for 1 year is reasonable
- On Eliquis 5 BID
Hypokalemia
-s/p supplemented. G
-Normal Cr, will give another dose this evening.
CAD
- S/p PCI to mLCx and an OM on 12/06/2023
- Residual 100% RCA
- s/p ASA, Plavix and Eliquis for a week. Now on Eliquis /Plavix. Plan for Eliquis alone from december 2024 if no change.
- Last dose of ASA on 12/13/23.
Acute HFrEF
- at cath 12/06/2023: LVEDP = 24 mmHg, PCWP = 32 mmHg at 78.0 kg - s/p diuresed.
- heart failure stable.
- He should have all GDMT as tolerated added over time (currently on Aldactone, Farxiga, and amiodarone/Lasix.
- Will add Metoprolol 12.5 mg QD. (limited due to hypotension. Plan for Entresto as outpatient once BP is stabilized.
- appears well compensated now.
- lower Lasix to 40 mg oral QD prn as outpatient regimen.
Dispo
- awaiting placement.
- MEDS: Plavix 75 po qd, Eliquis 5 po BID, Lasix 40 po QD prn, KCl 20 meq with lasix, Farxiga 10 po qd, spironolactone 25 po qd, amiodarone 400 QD, Metoprolol 12.5 mg QD for now
- Follow up: [facility] in one week after discharge with follow up at [place].
Laboratory Data
12/12/23 12/13/23
05:41
Hgb 10.3 L
Potassium 3.3 L
Generic Name Dose Route Start Last Admin
Trade Name Freq PRN Reason Stop Dose Admin
Aspirin 81 mg 12/05/23 08:00
Aspirin 81 Mg Chewable Tablet TUBE 01/02/24 07:59
DAILY SAMANTHA
Clopidogrel Bisulfate 75 mg 12/07/23 08:00
Clopidogrel 75 Mg Tablet PO 01/04/24 07:59
DAILY SAMANTHA
Apixaban 5 mg 12/06/23 20:00
Apixaban (Eliquis) 5 Mg Tablet PO 01/03/24 19:59
BID SAMANTHA
Furosemide 40 mg 12/07/23 12:00
Furosemide 40 Mg (10 Mg/Ml) 4 Ml Vial IV 01/04/24 11:59
BID AT 0800,1600 SAMANTHA
Dapagliflozin 10 mg 12/09/23 08:00
Dapagliflozin (Farxiga) 10 Mg Tablet PO 01/06/24 07:59
DAILY SAMANTHA
Spironolactone 25 mg 12/08/23 11:00
Spironolactone 25 Mg Tablet PO 01/05/24 10:59
DAILY SAMANTHA
Amiodarone HCl 400 mg 12/09/23 08:00
Amiodarone 200 Mg Tablet PO 01/06/24 07:59
BID SAMANTHA
Physical Exam
Vital Signs/Labs
Vital Signs
Temp Pulse Resp BP Pulse Ox
98 F 89 16 101/66 94
12/17/23 06:55 12/17/23 06:55 12/17/23 06:55 12/17/23 03:42 12/17/23 06:55
12/16/23 12/17/23 12/18/23
06:59 06:59 06:59
Actual Weight 73.8 kg
12/17/23 03:54
12/17/23 03:54
PT 15.7 Sec (11.4-14.6) H 12/03/23 18:53
INR 1.27 12/03/23 18:53
APTT 81.4 Sec (23.4-35.0) H 12/04/23 10:44
Magnesium 2.3 mg/dl (1.6-2.3) 12/14/23 13:56
Triglycerides 348 mg/dl (10-149) H 12/04/23 01:15
12/04/23 12/11/23
04:14 04:16
Bjt-N-[id number] Pept 4590 7520
Physical Exam
Constitutional: No acute distress and Comfortable
EENT: Anicteric and Moist mucous membranes
Cardiovascular: Rhythm & rate is regular, Pedal edema is absent, JVD pressure is normal and Systolic murmur absent
Respiratory: Respiratory effort normal, Wheeze Absent and Crackles Absent
GI: Soft, Distention absent, Non tender and Normal bowel sounds
Neuro/Psych: Alert, Oriented and AO x 3
Data Reviewed
-
Date of Service: December 17, 2023
Medical Decision Making: Reviewed Test Results, Tests Ordered, Independent Historian Assessment and Test Interpretation
EKG: Tracing Personally Visualized and interpreted
Echo: Report Reviewed by me
Labs: Labs Reviewed by me
Old Records: Reviewed
[2023-12-17] MEDS: NOVOLOG FLEXPEN-LOW RESISTANCE SC (08:06)
--- NOTE | 2023-12-17 08:47 | PN.DE.MGMTRT ---
Insulin Management
- -
12/04/2023 Diabetes Management Consult
Patient admitted s/p cardiac arrest, currently on ventilator. PMH includes type 2 diabetes, cardiomyopathy. Prior to admission was taking Farxiga 10 mg daily, Rybelsus 3 mg daily metformin 500 mg BID.. reports he really was not that good
with his diabetes,did not check blood sugar. He does see Dr. Bravo, endocrine, and is due for a follow up soon. A1C on admission 9.5%, cr .8, egfr >60.
Glucose has been > 200 on corrective insulin only. Will start Lantus 15 units now and daily and continue corrective insulin Q 6 hours. Spoke with Treating Plant Supervisor, if patient is not extubated by end of day and glucose is not improved will start
glycemic protocol.
12/05/2023 Diabetes Management Follow up
Patient remains intubated. Received Lantus 15 units in AM started yesterday with corrective insulin. Glucose remained stable overnight requiring 1 to 3 units corrective insulin Q 6 hours. Will continue Lantus 15 units in AM and add NovoLog 3
units Q 6 hours. Will change moderate corrective to low.
12/06/2023: Diabetes Management F/U:
Pt was extubated yesterday but remains NPO with ice chips, awaiting speech eval.
Was started on NovoLog 3 units Q6 hrs due to persistent Hyperglycemia. Glucose has improved, FBG 162 this AM.
Will make no changes to current regimen: Lantus 15 units in AM and NovoLog 3 units Q6H with low corrective Q6 hrs
Will closely follow and make necessary changes from Q6 hrs insulin to his OP regimen in addition to the Lantus once cleared for a diet.
12/09/2023: Diabetes Management F/U:
Pt was started on a diet, appetite is poor, states he feels better today. Family at bedside.
Glucose stable, FBG 120 this AM, premeal 81 to 138.
Will make no changes to current regimen: Lantus 15 units in AM and NovoLog 3 units AC with low corrective
Pt states that he was having a lot of GI adverse rxns to oral regimen which is why he stopped taking the Rybelsus and Metformin. He is requesting no oral meds and states he is willing to continue insulin injections at discharge.
12/10/2023 Diabetes management Follow up
Glucose remains stable, 81 to 127 with one elevation 197 @ hs most likely due to taking hs medication with applesauce and jello. Patient appetite poor yesterday but did take small amount lunch and dinner. Fasting this AM 108. Patient for procedure
today. Will make no change to current regimen Lantus 15 units in AM with 3 units NovoLog AC. Will follow.
12/11/2023 Diabetes management Follow up
S/P ICD placement yesterday, doing well. Glucose remains stable 87 to 113. Will make no change to current regimen, Lantus 15 units in AM with NovoLog 3 units AC. Required no corrective insulin for past 48 hours.
12/12/2023 Diabetes Management Follow up
Patient glucose 73 pre lunch yesterday, glucose range 109 to 146. Will reduce AM Lantus to 12 units and continue 3 units NovoLog AC with low corrective insulin.
12/13/2023: Diabetes Management F/U:
Lantus reduce yesterday to 12 units, NO FBG done this AM. All other glucose remains stable and in range 93 to 170.
Will make no changes to current regimen, Lantus 12 units in AM and NovoLog 3 units AC with low corrective insulin.
12/16/2023: Diabetes Management F/U:
Pt awaiting placement. Glucose remains stable and in range, premeal 124 to 173, FBG 117 this AM.
Will make no changes to current regimen, Farxiga 10mg daily, Lantus 12 units in AM and NovoLog 3 units AC with low corrective insulin.
12/17/2023 Diabetes Management Follow up
Patient glucose stable, 109 to 142 with one elevation 190 @ hs. Fasting this AM 110 venous 79 POC. Will continue lantus 12 units in AM with novolog 3 units AC and Farxiga 10 mg daily. Patient for possible transfer to SNF today.
Diabetes History
- -
Type of Diabetes: 2 requiring insulin
Pre-Admission Diabetes Regimen
12/17/23
03:54
Creatinine 0.9
Lab Results
Hemoglobin A1c 9.5 % (4.0-5.6) H 12/04/23 04:14
Insulin Pump Settings
IP Diabetes Regimen
12/16/23 12/16/23 12/16/23
11:51 18:23 21:39
Glucose
POC Glucose 137 H 109 H 190 H
12/17/23 12/17/23
03:54 07:16
Glucose 110 H
POC Glucose 79
Meal type: Dinner
Amount consumed: 75%
Patient Education
--- NOTE | 2023-12-17 09:30 | W.PN.HOSP.TC ---
Today's Communication/Plan
-
DC after seen by cardiology
Assessment / Plan
Assessment / Plan
Assessment/Plan
Cardiac arrest due to VT, shock delivered by AED
Non-Sustained Ventricular Tachycardia
Cardiogenic Shock
-1 AED shock in the field (refused ICD in the past for chronic NICM/HFrEF)
-with NSTEMI and cardiogenic shock (POA)
-h/o NICM with EF 10% nonischemic cardiomyopathy with reduced EF. Echo above with EF 15-20%.
-Transaminitis/shock liver secondary to cardiac arrest
-was on Levophed/vasopressin/propofol/fentanyl/bicarb infusion, now off of all of these meds
-extubated 12/05/23AM
-was on heparin gtt, now off
-was on stress dose steroids, now off
-cath 12/06/23 as above, notable for placement of 2 stents, depressed cardiac index on vasopressor/inotrope consistent with cardiogenic shock, moderate pulmonary hypertension
-cont ASA/Plavix/Eliquis plan for triple therapy completed for a week. Now on Eliquis /Plavix. Plan for Eliquis alone from December 2024 if no change, as per cardiology
-Last dose of Aspirin was on 12/13/23
-ICD placed on 12/10/23 morning - Medtronic dual chamber 12/10/23
-Continue Amiodarone
- On Metoprolol , plan to change to Coreg today by cardiology
Acute on Chronic HFrEF
-Improved weight. Not short of breath. Not hypoxic.
-Continue Farxiga 10 po qd
-Lasix QD prn per cards
-Patient should have all GDMT as tolerated added over time (not all at once): SGLT2-I, MRA, HF BB, RAAS (REEMA-i or ARB or ARNI) as tolerated
Atrial Fibrillation with Rapid Ventricular Response
-s/p cardioversion on 12/06/23
-on 12/07/23 pt was in afib to 140s, Amio gtt, converted back to SR
-Continue Amiodarone 400 mg PO BID and Eliquis
-Last dose of Aspirin was on 12/13/23
ACUTE OCCLUSIVE THROMBOSIS throughout the LEFT CEPHALIC VEIN in the left upper arm
-Continue Eliquis
Right Foot Drop likely secondary to right deep peroneal injury likely secondary to compression
-Multi-Podus boots when in bed with kickstand laterally, as per all around gear machine operator
Other problems:
Leukocytosis: with elevated procal, bacterial pneumonia is likely. Pt was on empiric Zosyn (started 12/04/23AM), cont on Rocephin completed on 12/10/23; Doxy dc'd due to GI symptoms (nausea and dry heaving). BCxs NGTD. Leukocytosis has now resolved.
Repeat CXR in 4-6 weeks to follow his PNA to resolution.
Hypokalemia, resolved. Note Mg normal.
DM2 with hyperglycemia: a1c 9.5%, cont Lantus/Novolog Q6H, SSI/accuchecks. Diabetes PACKAGE LINER following. (Patient stated that he was having a lot of gastrointestinal adverse reactions to oral regimen which is why he stopped taking the Rybelsus and
Metformin. He is requesting no oral meds and states he is willing to continue insulin injections at discharge).
Anxiety - Continue Buspar as per pump assembler
FULL/Eliquis
Medically stable for discharge.
Patient agreeable for rehab. Patient is a bed for rehab today for 5 days.
DC to rehab after seen by cardiology today
Total time of dc 32 min
Anticipated Discharge: Today
Subjective/Interval History
-
Date of Service: December 17, 2023
No dizziness.
Blood pressure better.
Denies any chest pains or palpitations. Not short of breath.
No nausea vomiting.
No fever chills.
Objective Data
-
Labs:
Laboratory Results
12/17/23
03:54
WBC 11.0 H
Hgb 10.3 L
Hct 30.3 L
Plt Count 311
Sodium 134 L
Potassium 3.8
Chloride 100
Carbon Dioxide 29
BUN 16
Creatinine 0.9
Glucose 110 H
Calcium 8.4
AST 18
ALT 21
Vital Signs:
Vital Signs
Temp Pulse Resp BP Pulse Ox
98 F 89 16 100/67 94
12/17/23 06:55 12/17/23 07:00 12/17/23 06:55 12/17/23 06:57 12/17/23 06:55
I&O
12/16/23 12/17/23 12/18/23
06:59 06:59 06:59
Intake Total 720 / 720 720 / 720
Output Total 600 / 600
Balance 120 / 120 720 / 720
Review of Systems
-
Constitutional: Denies Fever
Respiratory: Denies Cough
Abdomen/GI: Denies Abdominal Pain
Physical Exam
-
General: No Apparent Distress
HEENT: Moist Mucous Membranes
Respiratory: Clear to Auscultation
Cardiac: Regular Rhythm and S1/S2
GI: Soft
Musculoskeletal: No Edema
Neuro: AO x 3
Psych: Calm; Negative Confused
Data Reviewed
-
Labs: Labs Reviewed by me
[2023-12-17 09:40] LABS: Glucose - Point of Care 124 mg/dl (70-99)
[2023-12-17] MEDS: TOPROL XL 12.5 MG PO (09:41)
[2023-12-17] MEDS: NOVOLOG FLEXPEN 3 UNITS SC (09:41)
[2023-12-17] MEDS: MYCELEX TROCHE 10 MG PO (09:41)
[2023-12-17] MEDS: PROTONIX 40 MG PO (09:41)
[2023-12-17] MEDS: ELIQUIS 5 MG PO (09:42)
[2023-12-17] MEDS: BUSPAR 10 MG PO (09:42)
[2023-12-17] MEDS: PACERONE 200 MG PO (09:42)
[2023-12-17] MEDS: LANTUS 0.119999999999999996 UNITS SC (09:42)
[2023-12-17] MEDS: PLAVIX 75 MG PO (09:42)
[2023-12-17] MEDS: MUCINEX 600 MG PO (09:42)
[2023-12-17] MEDS: FARXIGA 10 MG PO (09:42)
[2023-12-17 09:44] VITALS: BMI 22.5
--- NOTE | 2023-12-17 10:00 | W.DS.TRANS ---
DC Summary - Map And Chart Mounter
-
Discharge Instructions:
Sleep Apnea Risk Intermediate
Discharge Diagnosis/Procedures Nonischemic cardiomyopathy with cardiac arrest
at home
CAD-angioplasty with stent to left circumflex
artery (12/06/23),
Medtronic dual-chamber ICD implant (12/10/23)
Paroxysmal atrial fibrillation
Diabetes mellitus type 2
Diet Low Cholesterol,Diabetic, Carb Controlled,2 Gram
Sodium
Activity As tolerated
Driving Restrictions No driving for 2 weeks
Bathing Restrictions OK to Shower
Other Services Cardiac Rehab
Specialty Instructions Weigh Daily
Instructions:
Stand-Alone Forms: DC Instructions- Cath/EP Lab
DC Inst - Implanted Device
Changes to Home Medications: Yes
Discharge Medications:
DC Medications w/original date entered in [employer]
atorvastatin 80 mg tablet 40 mg PO DAILY High Cholesterol 12/03/23
dapagliflozin propanediol 10 mg tablet (Farxiga) 10 mg PO DAILY Diabetes 12/03/23
multivitamin 1 tab PO DAILY Supplement 12/03/23
omega [id number]-[id number]-fish oil 1,000 mg (120 mg-180 mg) capsule (Fish Oil) 1 cap PO DAILY Supplement 12/03/23
Insulin Glargine Lantus [Lantus] 12 units As Directed mls/hr SC DAILY 12/17/23
acetaminophen 325 mg tablet 650 mg PO Q4HPRN PRN MILD PAIN #1 tab 12/17/23
amiodarone 200 mg tablet (Pacerone) 200 mg PO DAILY #1 tab 12/17/23
apixaban 5 mg tablet (Eliquis) 5 mg PO BID #1 tab 12/17/23
buspirone 10 mg tablet 10 mg PO BID #1 tab 12/17/23
clopidogrel 75 mg tablet 75 mg PO DAILY #1 tab 12/17/23
furosemide 40 mg tablet 40 mg PO DAILY PRN Fluid Retention/Swelling #0 tabs 12/17/23
insulin aspart U-100 100 unit/mL (3 mL) subcutaneous pen 3 unit (0.03 mL) SC AC #15 mL 12/17/23
metoprolol succinate 25 mg tablet,extended release 24 hr 12.5 mg PO DAILY #1 tab 12/17/23
spironolactone 25 mg tablet 25 mg PO DAILY #1 tab 12/17/23
Home Medication Changes
Change in medication-Lasix as needed
Discontinue medication-Coreg, Entresto, aspirin, Rybelsus, metformin
New medication-Lantus, nutritional insulin, amiodarone, Eliquis, BuSpar, Plavix
Pending Results: No
--- NOTE | 2023-12-17 10:34 | CM ---
Reviewed chart. Met with Mr. Aldana to review discharge plans. He is agreeable to going to [facility] for SNF/Rehab. He was approved five days starting on 12/17/23. The auth. number is [id number]. Telephone call to [facility]
admissions to give auth. number and confirm bed availability. Bed is available today. Spouse is going to transport him today at 11:30 a.m. The report number i ([phone]) and the fax number is ([phone]). Updated [facility] with
transfer date and time. Medical work-up in progress. The discharge plan is to go to [facility] when medically stable.
--- NOTE | 2023-12-17 12:39 | PTCARENOTE ---
Pt discharged to [facility] w/, Christina providing transportation. Discharge instructions discussed w/pt & spouse & extra copy of instructions provided to pt's spouse. Envelope w/transfer paperwork & discharge information for
[facility] given to to give to facility. Pt left w/personal belongings including clothing, cell phone, & ranch helper.
== END 2023-12-17 12:44 | DRG 275 ==
LOC: IVU 20:54
PROVIDERS: Hospitalist; Internal Medicine; Internal Medicine Cardiovascular Disease; Internal Medicine Critical Care Medicine; Nurse Practitioner Primary Care; Registered Nurse; Student in an Organized Health Care Education/Training Program; ADMITTING PHYSICIAN Hospitalist; ATTENDING PHYSICIAN Internal Medicine; CONSULT PHYSICIAN Internal Medicine Cardiovascular Disease; CONSULT PHYSICIAN Physical Medicine & Rehabilitation; EMERGENCY PHYSICIAN Emergency Medicine; FAMILY PHYSICIAN Family Medicine; OTHER PHYSICIAN Internal Medicine Critical Care Medicine
PROC: 5A1945Z Respiratory Ventilation, 24-96 Consecutive Hours (ICD-10-PCS; 2023-12-03)
PROC: 02HV33Z Insertion of Infusion Device into Superior Vena Cava, Percutaneous Approach (ICD-10-PCS; 2023-12-03)
PROC: 03HY32Z Insertion of Monitoring Device into Upper Artery, Percutaneous Approach (ICD-10-PCS; 2023-12-03)
PROC: B2111ZZ Fluoroscopy of Multiple Coronary Arteries using Low Osmolar Contrast (ICD-10-PCS; 2023-12-06)
PROC: 5A2204Z Restoration of Cardiac Rhythm, Single (ICD-10-PCS; 2023-12-06)
PROC: 4A023N8 Measurement of Cardiac Sampling and Pressure, Bilateral, Percutaneous Approach (ICD-10-PCS; 2023-12-06)
PROC: 027035Z Dilation of Coronary Artery, One Artery with Two Drug-eluting Intraluminal Devices, Percutaneous Approach (ICD-10-PCS; 2023-12-06)
PROC: 0JH608Z Insertion of Defibrillator Generator into Chest Subcutaneous Tissue and Fascia, Open Approach (ICD-10-PCS; 2023-12-10)
PROC: 02HK3KZ Insertion of Defibrillator Lead into Right Ventricle, Percutaneous Approach (ICD-10-PCS; 2023-12-10)
PROC: 02H63KZ Insertion of Defibrillator Lead into Right Atrium, Percutaneous Approach (ICD-10-PCS; 2023-12-10)
DX: I21.4 Non-ST elevation (NSTEMI) myocardial infarction (principal); I46.2 Cardiac arrest due to underlying cardiac condition; J18.9 Pneumonia, unspecified organism; R57.0 Cardiogenic shock; K72.00 Acute and subacute hepatic failure without coma; I50.23 Acute on chronic systolic (congestive) heart failure; J96.01 Acute respiratory failure with hypoxia; E87.20 Acidosis, unspecified; I42.8 Other cardiomyopathies; I47.20 Ventricular tachycardia, unspecified; I82.622 Acute embolism and thrombosis of deep veins of left upper extremity; B37.0 Candidal stomatitis; I11.0 Hypertensive heart disease with heart failure; E87.6 Hypokalemia; I48.0 Paroxysmal atrial fibrillation; E11.65 Type 2 diabetes mellitus with hyperglycemia; E83.42 Hypomagnesemia; E78.5 Hyperlipidemia, unspecified; I25.10 Atherosclerotic heart disease of native coronary artery without angina pectoris; M21.371 Foot drop, right foot; D64.9 Anemia, unspecified; I27.22 Pulmonary hypertension due to left heart disease; F41.9 Anxiety disorder, unspecified; Z11.52 Encounter for screening for COVID-19; Z79.82 Long term (current) use of aspirin; Z79.84 Long term (current) use of oral hypoglycemic drugs; Z79.899 Other long term (current) drug therapy; Z86.16 Personal history of COVID-19; Z87.891 Personal history of nicotine dependence
CPT/HCPCS: 33249; 70450; 71045; 71275; 74018; 80048; 80053; 81003; 82040; 82248; 82330; 82533; 82805; 82962; 83036; 83605; 83690; 83735; 83880; 84100; 84132; 84134; 84145; 84302; 84443; 84450; 84460; 84478; 84484; 85025; 85027; 85347; 85610; 85730; 87040; 87070; 87205; 87502; 87811; 92526; 92610; 92960; 93005; 93306; 93460; 93970; 93971; 94002; 94003; 96361; 96374; 96375; 97163; 97167; 97530; 97535; 99285; C1721; C1725; C1777; C1874; C1892; C1894; C1898; C9600; Q9957; Q9967

== ENCOUNTER 2024-01-10 13:47 | Outpatient (RCR) | payer OTHER, SELFPAY | END 2024-01-10 23:59 | disposition home or self-care (01) | LOC: CRHB 13:47 | PROVIDERS: ATTENDING PHYSICIAN Internal Medicine Cardiovascular Disease; FAMILY PHYSICIAN Family Medicine | DX: I21.01 ST elevation (STEMI) myocardial infarction involving left main coronary artery (principal); Z95.5 Presence of coronary angioplasty implant and graft; I25.10 Atherosclerotic heart disease of native coronary artery without angina pectoris | CPT/HCPCS: G0422; G0423 ==

== ENCOUNTER → 2024-01-13 09:54 | Outpatient (REF) | payer OTHER, SELFPAY | LOC: RAD 09:54 | PROVIDERS: ATTENDING PHYSICIAN Physician Assistant; FAMILY PHYSICIAN Family Medicine | DX: I82.622 Acute embolism and thrombosis of deep veins of left upper extremity (principal) | CPT/HCPCS: 93971 ==

== ENCOUNTER 2024-02-10 09:58 | Outpatient (RCR) | payer OTHER, SELFPAY ==
[2024-01-15 09:46] LABS: Glucose - Point of Care 176 mg/dl (70-99)
[2024-01-15 10:24] LABS: Glucose - Point of Care 164 mg/dl (70-99)
[2024-01-17 09:26] LABS: Glucose - Point of Care 141 mg/dl (70-99)
[2024-01-17 10:17] LABS: Glucose - Point of Care 137 mg/dl (70-99)
[2024-01-20 09:28] LABS: Glucose - Point of Care 202 mg/dl (70-99)
[2024-01-20 10:14] LABS: Glucose - Point of Care 157 mg/dl (70-99)
[2024-01-22 09:22] LABS: Glucose - Point of Care 219 mg/dl (70-99)
[2024-01-22 10:08] LABS: Glucose - Point of Care 195 mg/dl (70-99)
[2024-01-24 09:20] LABS: Glucose - Point of Care 144 mg/dl (70-99)
[2024-01-24 10:07] LABS: Glucose - Point of Care 134 mg/dl (70-99)
[2024-01-29 09:20] LABS: Glucose - Point of Care 199 mg/dl (70-99)
[2024-01-29 10:20] LABS: Glucose - Point of Care 160 mg/dl (70-99)
[2024-02-07 09:27] LABS: Glucose - Point of Care 119 mg/dl (70-99)
== END 2024-02-10 23:59 | disposition home or self-care (01) ==
LOC: CRHB 09:58
PROVIDERS: ATTENDING PHYSICIAN Internal Medicine Cardiovascular Disease; FAMILY PHYSICIAN Family Medicine
DX: I25.10 Atherosclerotic heart disease of native coronary artery without angina pectoris (principal); I21.01 ST elevation (STEMI) myocardial infarction involving left main coronary artery; Z95.5 Presence of coronary angioplasty implant and graft
CPT/HCPCS: 82962; G0422; G0423

== ENCOUNTER 2024-03-13 11:32 | Outpatient (RCR) | payer OTHER, SELFPAY | END 2024-03-13 23:59 | disposition home or self-care (01) | LOC: CRHB 11:32 | PROVIDERS: ATTENDING PHYSICIAN Internal Medicine Cardiovascular Disease; FAMILY PHYSICIAN Family Medicine | DX: I21.01 ST elevation (STEMI) myocardial infarction involving left main coronary artery (principal); Z95.5 Presence of coronary angioplasty implant and graft; I25.10 Atherosclerotic heart disease of native coronary artery without angina pectoris | CPT/HCPCS: G0422; G0423 ==

== ENCOUNTER 2024-03-27 17:39 | Outpatient (RCR) | payer OTHER, SELFPAY | END 2024-03-27 23:59 | disposition home or self-care (01) | LOC: CRHB 17:39 | PROVIDERS: ATTENDING PHYSICIAN Internal Medicine Cardiovascular Disease; FAMILY PHYSICIAN Family Medicine | DX: I25.10 Atherosclerotic heart disease of native coronary artery without angina pectoris (principal); Z95.5 Presence of coronary angioplasty implant and graft; I25.2 Old myocardial infarction | CPT/HCPCS: G0422; G0423 ==

== ENCOUNTER → 2024-07-02 07:19 | Outpatient (REF) | payer OTHER, SELFPAY | LOC: RCS 07:19 | PROVIDERS: ATTENDING PHYSICIAN Internal Medicine Cardiovascular Disease; FAMILY PHYSICIAN Family Medicine | DX: I48.0 Paroxysmal atrial fibrillation (principal); I50.20 Unspecified systolic (congestive) heart failure; I42.8 Other cardiomyopathies | CPT/HCPCS: 93306 ==

== ENCOUNTER → 2024-07-07 08:46 | Outpatient (REF) | payer OTHER, SELFPAY | LOC: RSP 08:46 | PROVIDERS: ATTENDING PHYSICIAN Internal Medicine Cardiovascular Disease; FAMILY PHYSICIAN Family Medicine | DX: I48.0 Paroxysmal atrial fibrillation (principal); I50.20 Unspecified systolic (congestive) heart failure; I42.8 Other cardiomyopathies; Z79.899 Other long term (current) drug therapy | CPT/HCPCS: 94727; 94729; 88738; 94010 ==

== ENCOUNTER → 2025-04-29 15:01 | Outpatient (REF) | payer OTHER, SELFPAY ==
--- NOTE | 2025-04-29 15:58 | CARDSERVDEF ---
Echocardiogram with Definity completed after protocol screening completed. Allergies verified.
Patent IV site: _Left hand 22 g PC site clear____
IV site flushed with 0.9% NaCl pre and post administration.
Diluted bolus method utilized to enhance visualization of ventricular crockett.
Total volume given: __3__ mL
Patient tolerated all procedures well without complications.
Heplock D/C ed at 1556, site clear, no redness, no edema. Pressure held, no bleeding,2x2 applied and taped. Pt offers no complaints.
== END ==
LOC: RCS 15:01
PROVIDERS: ATTENDING PHYSICIAN Internal Medicine Cardiovascular Disease; FAMILY PHYSICIAN Physician Assistant Medical
DX: I48.0 Paroxysmal atrial fibrillation (principal); I50.20 Unspecified systolic (congestive) heart failure
CPT/HCPCS: 93306; Q9957

== ENCOUNTER 2025-05-29 09:05 | Emergency (ER) | payer OTHER, SELFPAY ==
[2025-05-29 09:14] VITALS: BP 124/68
--- NOTE | 2025-05-29 10:23 | ED.GENMED ---
History of Present Illness
<Chip Powell PA-C - Last Filed: 05/29/25 14:33>
General
Chief Complaint: Swelling
Source: patient
Exam Limitations: none
Time Seen by Provider: 05/29/25 10:12
History of Present Illness
History of Present Illness:
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 This started this morning. No
vision change. He is a diabetic. He states his blood sugar is slightly low because he has not had anything to eat this morning. No fevers. He notes a chronic nasal drip. No rash..
Past History
<BLANK Cintron Last Filed: 05/29/25 14:33>
Past History
ED Past Medical History: Other (Nonischemic cardiomyopathy)
Phy Exam
<BLANK Cintron Last Filed: 05/29/25 14:33>
Physical Exam
Physical Exam:
General: Well-appearing male no acute respiratory distress
HEENT: Normocephalic atraumatic tender swelling noted to the left lateral neck.
Heart: Regular rate and rhythm
Lungs: Clear no wheeze
Vascular: 2+ radial pulse bilaterally neurologic exam:
No drift on exam no facial asymmetry normal gait conversing appropriately good strength
Extremities: No cyanosis
Scores
<BLANK Cintron Last Filed: 05/29/25 14:33>
Heart Failure Risk
Heart Failure Risk Score: Not Applicable
Course
<BLANK Cintron Last Filed: 05/29/25 14:33>
Orders/Labs/Results
Orders:
Orders
05/29/25 09:08
EKG [Electrocardiogram (*1)] Urgent
Reason for Study: Chest Pain
EKG- Treatment ONCE
05/29/25 10:22
CT Head & Neck Angio W/wo IV Urgent
Comment:
Reason For Exam: headache, left neck pain/swelling, left arm weakne
05/29/25 10:44
Complete Blood Count/With Diff Urgent
Comprehensive Metabolic Panel Urgent
Troponin I Urgent
Abnormal Lab Results
05/29/25
10:44
Abs Immat Gran (auto) 0.1 H 10^3/uL
(0-0.05)
Absolute Monos (auto) 0.9 H 10^3/uL
(0.1-0.6)
Immature Gran % 1.0 H %
(0-0.5)
Monocytes % 11.4 H %
(1.7-9.3)
Chloride 108 H mmol/L
(98-107)
BUN 28 H mg/dl
(9-20)
Glucose 101 H mg/dl
(70-99)
05/29/25 10:44
05/29/25 10:44
Vital Signs
Initial and Last Documented VS:
Initial Vital Signs
Temp Pulse Resp BP Pulse Ox
98.3 F 72 16 124/68 98
05/29/25 09:14 05/29/25 09:14 05/29/25 09:14 05/29/25 09:14 05/29/25 09:14
Last Documented Vital Signs
Temp Pulse Resp BP Pulse Ox
98 F 66 13 125/64 98
05/29/25 10:48 05/29/25 12:45 05/29/25 12:45 05/29/25 11:00 05/29/25 12:45
<Diego Stubbs MD - Last Filed: 05/29/25 11:31>
Orders/Labs/Results
Orders:
Orders
05/29/25 09:08
EKG [Electrocardiogram (*1)] Urgent
Reason for Study: Chest Pain
EKG- Treatment ONCE
05/29/25 10:22
CT Head & Neck Angio W/wo IV Urgent
Comment:
Reason For Exam: headache, left neck pain/swelling, left arm weakne
05/29/25 10:44
Complete Blood Count/With Diff Urgent
Comprehensive Metabolic Panel Urgent
Troponin I Urgent
Abnormal Lab Results
05/29/25
10:44
Abs Immat Gran (auto) 0.1 H 10^3/uL
(0-0.05)
Absolute Monos (auto) 0.9 H 10^3/uL
(0.1-0.6)
Immature Gran % 1.0 H %
(0-0.5)
Monocytes % 11.4 H %
(1.7-9.3)
Chloride 108 H mmol/L
(98-107)
BUN 28 H mg/dl
(9-20)
Glucose 101 H mg/dl
(70-99)
05/29/25 10:44
05/29/25 10:44
Vital Signs
Initial and Last Documented VS:
Initial Vital Signs
Temp Pulse Resp BP Pulse Ox
98.3 F 72 16 124/68 98
05/29/25 09:14 05/29/25 09:14 05/29/25 09:14 05/29/25 09:14 05/29/25 09:14
Last Documented Vital Signs
Temp Pulse Resp BP Pulse Ox
98 F 66 13 125/64 98
05/29/25 10:48 05/29/25 12:45 05/29/25 12:45 05/29/25 11:00 05/29/25 12:45
<Chip Powell PA-C - Last Filed: 05/29/25 14:33>
MDM/Problems Addressed
Differential Diagnosis Includes:
Patient with painful swelling to the left side of the neck with associated headache and notes to the left arm. He is on Eliquis. Question possible lymphadenopathy. Family and patient concerned about potential carotid abnormality given his prior
history.
Check labs. EKG shows sinus rhythm
CT angio of the head and neck ordered
<Chip Powell PA-C - Last Filed: 05/29/25 14:33>
*Pulse Oximetry
SaO2: 98
Oxygen Mode of Delivery: Room air
Patient hypoxic: no
*Critical Care Note
Total Time (30-74mins, 75-104mins- exclusive of procedures): Not Applicable
<Chip Powell PA-C - Last Filed: 05/29/25 14:33>
Update Note
Update Note:
CT angio of the head and neck were performed without significant occlusion or stenosis. Questionable lesion noted of the left thyroid lobe. Outpatient imaging recommended. Objectively no signs of stroke or deficit on neurologic exam. Cardiac
workup otherwise negative. Discussed with emergency room attending to call the patient as well. At this point no indication for admission. He will follow-up with his physicians
ED Attending Note
<Chip Powell PA-C - Last Filed: 05/29/25 14:33>
-
Portions of this chart may have been created with voice recognition software.� Occasional wrong word or��sound alike� substitutions may have occurred due to the inherent limitations of voice recognition software.
<Diego Stubbs MD - Last Filed: 05/29/25 11:31>
ED Attending Note
Patient seen and examined by attending physician: Yes
I performed the substantive portion of visit, reviewed & personally made and approve the management plan that is documented in note by myself or ESTEFANY.: Yes
-
Portions of this chart may have been created with voice recognition software.� Occasional wrong word or��sound alike� substitutions may have occurred due to the inherent limitations of voice recognition software.
Patient woke with left-sided neck pain and some funny feeling in his left arm. Also some mild headache. Some nausea. No chest pain shortness of breath or other complaints. Noted this morning upon wakening.
On exam patient is nontoxic in no distress. Normocephalic atraumatic. Neck is supple. Mild left paracervical tenderness towards the sternocleidomastoid muscle. Small nodules noted there. No carotid bruit. No respiratory distress. AICD upper
chest wall. Speech is normal. Cranial nerves II through XII intact. No drift. Ddptma-ra-oxfu normal. Good sack filler. Interosseous intact. Fhfs-vw-altg normal. Light touch intact. Pinprick intact. Graphesthesia intact.
Impression is left-sided neck pain with subjective paresthesias to the left arm. Unlikely to be stroke. Would consider dissection. CT angio pending. If all negative will have discussion with patient and family concerning the remote possibility
of a central neurologic issue causing the symptoms versus outpatient follow-up
Highly doubt cardiac etiology although he will receive an EKG troponin and we will interrogate his pacer
Discharge Plan
Departure
Patient Disposition: Home (Routine Discharge)
Date of Disposition: 05/29/25
Time of Disposition: 14:32
Patient with high blood pressure during this ER visit?: No
Discharge Problem:
Neck pain
Prescriptions:
No Action
atorvastatin 80 mg tablet
40 mg PO DAILY
multivitamin Tablet
1 tab PO DAILY
omega 7-bsf-tgn-fish oil [Fish Oil] 1,000 mg (120 mg-180 mg) Capsule
1 cap PO DAILY
dapagliflozin propanediol [Farxiga] 10 mg tablet
10 mg PO DAILY
acetaminophen 325 mg Tablet
650 mg PO Q4HPRN PRN (Reason: MILD PAIN) Qty: 1 0RF
clopidogrel 75 mg Tablet
75 mg PO DAILY Qty: 1 0RF
metoprolol succinate 25 mg Tablet Extended Release 24 Hr
12.5 mg PO DAILY Qty: 1 0RF
insulin aspart U-100 100 unit/mL (3 mL) Insulin Pen
3 unit SC AC Qty: 15 0RF
spironolactone 25 mg Tablet
25 mg PO DAILY Qty: 1 0RF
buspirone 10 mg Tablet
10 mg PO BID Qty: 1 0RF
Eliquis 5 mg Tablet
5 mg PO BID Qty: 1 0RF
Insulin Glargine Lantus [Lantus] 12 UNITS
Subcutaneous Insulin Syringe [Syringe-Insulin] 0 UNIT
As Directed mls/hr SC DAILY
Ordered By: Ang Avila MD
Last Taken: Unknown
furosemide 40 mg tablet
40 mg PO DAILY PRN (Reason: Fluid Retention/Swelling) Qty: 0 0RF
Rx Instructions:
Her weight gain of more than 3 pounds in a day or 5 pounds in a week
amiodarone 200 mg tablet
200 mg PO BID Qty: 1 0RF
Referrals:
Kathi Doyle PA [Family Provider, General]
Activity Restrictions/Additional Instructions:
Continue current medication regimen. Return here if worse otherwise follow-up with your doctor
Interventions
Interventions:
*Risk Screen - Suicide Last Done: 05/29/25 09:14
*General Assessment Last Done: 05/29/25 10:39
*Neglect/Abuse Screening Last Done: 05/29/25 09:14
*ED- Fall Risk Assessment Last Done: 05/29/25 10:39
*ED COVID-19 Vaccine History Last Done: 05/29/25 10:39
ED- Cardiac Assessment Last Done: 05/29/25 10:37
ED- Pulmonary Assessment Last Done: 05/29/25 10:37
ED-Skin Assessment Last Done: 05/29/25 10:49
Discharge Date and Time
Print Language: M[place]ENEGR[place]
[2025-05-29 10:29] VITALS: BMI 27.8
[2025-05-29 10:34] VITALS: BP 129/74
[2025-05-29 11:00] VITALS: BP 125/64
[2025-05-29 11:03] LABS: Hematocrit 43.3 % (39.0-52.0); Hemoglobin 14.3 g/dL (13.0-18.0); Mean Corp Hgb Conc. 33.0 g/dL (33.0-37.0); Mean Corpuscular Volume 86.4 fL (80.0-94.0); Nucleated Red Blood Cells % 0 % (-); Platelet Count 291 10^3/uL (130-400); Red Cell Dist. Width 13.7 % (11.5-14.5)
[2025-05-29 11:09] LABS: ALT (SGPT) 29 U/L (0-50); AST (SGOT) 24 U/L (17-59); Albumin 4.5 g/dl (3.5-5.0); Alkaline Phosphatase 76 U/L (38-126); Blood Urea Nitrogen 28 mg/dl (9-20); Calcium 9.3 mg/dl (8.4-10.2); Carbon Dioxide 26 mmol/L (22-30); Chloride 108 mmol/L (98-107); Estimated Creatinine Clearance 78 ml/min; Glucose 101 mg/dl (70-99); Potassium 4.5 mmol/L (3.5-5.1); Sodium 140 mmol/L (135-145); Total Protein 7.4 g/dl (6.3-8.2); eGFR > 60.00
[2025-05-29 11:20] LABS: Troponin I < 0.012 ng/ml
[2025-05-29 14:09] VITALS: BP 111/90
== END 2025-05-29 14:55 | disposition home or self-care (01) ==
LOC: EMR 09:05
PROVIDERS: Physician Assistant; EMERGENCY PHYSICIAN Emergency Medicine; FAMILY PHYSICIAN Physician Assistant Medical
DX: M54.2 Cervicalgia (principal); E11.9 Type 2 diabetes mellitus without complications; Z79.01 Long term (current) use of anticoagulants; Z79.82 Long term (current) use of aspirin; Z79.02 Long term (current) use of antithrombotics/antiplatelets; Z79.4 Long term (current) use of insulin; Z86.74 Personal history of sudden cardiac arrest; Z86.79 Personal history of other diseases of the circulatory system; Z95.810 Presence of automatic (implantable) cardiac defibrillator
CPT/HCPCS: 99284; 70496; 70498; 80053; 84484; 85025; 93005; Q9967

== ENCOUNTER → 2025-07-12 10:02 | Outpatient (REF) | payer OTHER, SELFPAY | LOC: WDC 10:02 | PROVIDERS: ATTENDING PHYSICIAN Physician Assistant Medical | DX: N64.4 Mastodynia (principal) | CPT/HCPCS: 76642; 77062; 77066 ==

== ENCOUNTER → 2025-08-03 12:57 | Outpatient (REF) | payer OTHER, SELFPAY | LOC: RSP 12:57 | PROVIDERS: ATTENDING PHYSICIAN Internal Medicine Cardiovascular Disease; FAMILY PHYSICIAN Physician Assistant Medical | DX: I48.0 Paroxysmal atrial fibrillation (principal) | CPT/HCPCS: 88738; 94010; 94727; 94729 ==

== ENCOUNTER → 2025-08-26 14:00 | Outpatient (REF) | payer OTHER, SELFPAY | LOC: HWRAD 14:00 | PROVIDERS: ATTENDING PHYSICIAN Internal Medicine Critical Care Medicine; FAMILY PHYSICIAN Physician Assistant Medical | DX: R94.2 Abnormal results of pulmonary function studies (principal); Z79.899 Other long term (current) drug therapy; R91.8 Other nonspecific abnormal finding of lung field; R06.02 Shortness of breath | CPT/HCPCS: 71250 ==

== ENCOUNTER 2025-08-27 11:28 | Emergency (ER) | payer OTHER, SELFPAY ==
[2025-08-27 11:39] VITALS: BP 126/66
[2025-08-27 12:29] LABS: Hematocrit 40.7 % (39.0-52.0); Hemoglobin 13.4 g/dL (13.0-18.0); Mean Corp Hgb Conc. 32.9 g/dL (33.0-37.0); Mean Corpuscular Volume 87.9 fL (80.0-94.0); Nucleated Red Blood Cells % 0 % (-); Platelet Count 290 10^3/uL (130-400); Red Cell Dist. Width 14.6 % (11.5-14.5)
[2025-08-27 12:54] LABS: ALT (SGPT) 29 U/L (0-50); AST (SGOT) 23 U/L (17-59); Albumin 4.2 g/dl (3.5-5.0); Alkaline Phosphatase 85 U/L (38-126); Blood Urea Nitrogen 24 mg/dl (9-20); Calcium 9.2 mg/dl (8.4-10.2); Carbon Dioxide 25 mmol/L (22-30); Chloride 106 mmol/L (98-107); Glucose 223 mg/dl (70-99); Potassium 4.7 mmol/L (3.5-5.1); Sodium 138 mmol/L (135-145); Total Protein 7.0 g/dl (6.3-8.2); eGFR > 60.00
[2025-08-27 13:04] LABS: Troponin I 0.016 ng/ml
[2025-08-27 15:10] VITALS: BP 124/64
[2025-08-27 15:11] VITALS: BMI 25.8
--- NOTE | 2025-08-27 15:58 | ED.GENMED ---
History of Present Illness
General
Chief Complaint: Breathing Problem
Source: patient
Exam Limitations: none
Time Seen by Provider: 08/27/25 15:28
Nursing documentation reviewed up to this point in time: agreed with
History of Present Illness
History of Present Illness:
Patient to the emergency department for evaluation of facial swelling. Symptoms started yesterday. He reports this morning his eyes and lips were swollen. This has since resolved. He also notes swelling to the soft tissue of his neck. He denies
any difficulty breathing or swallowing. No prior history of same. He denies fever or chills. States he developed left nipple tenderness approximately 1.5 weeks ago. Spironolactone was discontinued as it was thought that this was the cause of his
tenderness. He reports the nipple tenderness has diminished. He is unsure if his symptoms today are related to a possible late reaction to the spironolactone. Brought to the emergency department by his for evaluation.
Past History
Past History
ED Past Medical History: HTN, Hypercholesterolemia, NIDDM and Other (Nonischemic cardiomyopathy)
Review of Systems
Review of Systems
Allergies reviewed?: Yes
All Other Systems: ROS reviewed and negative except as documented in HPI and ROS
Constitutional: Reports no symptoms
EENT: Reports other (Nasal congestion last p.m.)
Respiratory: Reports no symptoms
Cardiac: Reports no symptoms
ABD/GI: Reports no symptoms
Musculoskeletal: Reports no symptoms
Skin: Reports other (Reports swelling to bilateral orbits and his lips this a.m. Reports swelling to the soft tissue of his neck.)
Neurological: Reports no symptoms
Psychiatric: Reports no symptoms
Phy Exam
General Physical Exam
General Presentation: well appearing and no apparent distress
General age: appears stated age
General Skin: warm and dry
General Habitus: normal
General Mental: alert
ENT Exam
ENT Exam: EOMI, pharynx normal, neck supple and swallowing well
Cardiovascular Exam
Cardiovascular Exam: regular rate/rhythm and no edema
Pulmonary Exam
Pulmonary Exam: lungs clear and no respiratory distress
Musculoskeletal Exam
Musculoskeletal Exam: full ROM and neuro vasc intact
Skin Exam
Skin Exam: normal color, warm/dry, no rash and other (No swelling noted to orbits or lips. Patient reports neck swelling has diminished but he feels that it is still minimally swollen)
Psychiatric Exam
Psychiatric Exam: normal mood/affect
Scores
Heart Failure Risk
Heart Failure Risk Score: Not Applicable
Course
Orders/Labs/Results
Orders:
Orders
08/27/25 11:44
Electrocardiogram (*1) Urgent
Reason for Study: Other
Other Reason for Exam: Respiratory Distress
Cardiac Monitoring- Treatment ONCE
EKG- Treatment ONCE
IV Insert/Care/Rem.- Treatment PRN
O2 Therapy [RESP] Urgent
Titrate/Wean O2 to maintain O2 sat greater than (%): 93
Special Instructions: TO MAINTAIN CONTINUOUS O2 SATS >/= 93%
Pulse Ox/cont/shift [RESP] Urgent
Quantity: 1
Special Instructions: continuous pulse ox
08/27/25 12:15
Complete Blood Count/With Diff Urgent
Comprehensive Metabolic Panel Urgent
NT-proBNP Urgent
Troponin I Urgent
Abnormal Lab Results
08/27/25
12:15
RBC 4.63 L 10^6/uL
(4.70-6.10)
MCHC 32.9 L g/dL
(33.0-37.0)
RDW 14.6 H %
(11.5-14.5)
MPV 10.5 H fL
(7.4-10.4)
Abs Immat Gran (auto) 0.1 H 10^3/uL
(0-0.05)
Absolute Monos (auto) 0.9 H 10^3/uL
(0.1-0.6)
Immature Gran % 0.8 H %
(0-0.5)
Monocytes % 12.5 H %
(1.7-9.3)
BUN 24 H mg/dl
(9-20)
Glucose 223 H mg/dl
(70-99)
08/27/25 12:15
08/27/25 12:15
Vital Signs
Initial and Last Documented VS:
Initial Vital Signs
Temp Pulse Resp BP Pulse Ox
98.2 F 82 20 126/66 98
08/27/25 11:39 08/27/25 11:39 08/27/25 11:39 08/27/25 11:39 08/27/25 11:39
Last Documented Vital Signs
Temp Pulse Resp BP Pulse Ox
98.2 F 74 13 124/64 99
08/27/25 11:39 08/27/25 15:10 08/27/25 15:10 08/27/25 15:10 08/27/25 16:02
*Pulse Oximetry
SaO2: 99
Oxygen Mode of Delivery: Room air
Patient hypoxic: no
*Critical Care Note
Total Time (30-74mins, 75-104mins- exclusive of procedures): Not Applicable
Update Note
Update Note:
Patient to the emergency department for evaluation of swelling to both eyes and his lips. Symptoms started yesterday and continued today. He also reported swelling to the soft tissue of his neck. Swelling to eyes and lips has resolved. He
reports soft tissue of his neck is still minimally swollen. He has no difficulty breathing or swallowing, he has no difficulty with range of motion to his neck. ENT exam unremarkable. Uvula is midline and there is no evidence of swelling. He is
swallowing without difficulty no stridor noted. Lungs are clear to auscultation. Labs reviewed, no concerning findings. EKG NSR. No concerning findings on exam today. Swelling does not appear to be related to any heart issues or respiratory
issues. Vital signs are stable and he remains afebrile. He is in no distress. Will discharge home. He will follow-up with his clinical support nurse on Saturday as scheduled. He was given instructions on signs and symptoms to return to the emergency
department and he is agreeable to this plan.
ED Attending Note
-
Portions of this chart may have been created with voice recognition software.� Occasional wrong word or��sound alike� substitutions may have occurred due to the inherent limitations of voice recognition software.
Discharge Plan
Departure
Patient Disposition: Home (Routine Discharge)
Date of Disposition: 08/27/25
Time of Disposition: 16:02
Patient with high blood pressure during this ER visit?: No
Condition: Good
Covid-19: Not Applicable
Discharge Problem:
Facial swelling
Instructions: Swelling
Prescriptions:
No Action
atorvastatin 80 mg tablet
40 mg PO DAILY
multivitamin Tablet
1 tab PO DAILY
omega 7-xrp-iny-fish oil [Fish Oil] 1,000 mg (120 mg-180 mg) Capsule
1 cap PO DAILY
dapagliflozin propanediol [Farxiga] 10 mg tablet
10 mg PO DAILY
acetaminophen 325 mg Tablet
650 mg PO Q4HPRN PRN (Reason: MILD PAIN) Qty: 1 0RF
clopidogrel 75 mg Tablet
75 mg PO DAILY Qty: 1 0RF
metoprolol succinate 25 mg Tablet Extended Release 24 Hr
12.5 mg PO DAILY Qty: 1 0RF
insulin aspart U-100 100 unit/mL (3 mL) Insulin Pen
3 unit SC AC Qty: 15 0RF
spironolactone 25 mg Tablet
25 mg PO DAILY Qty: 1 0RF
buspirone 10 mg Tablet
10 mg PO BID Qty: 1 0RF
Eliquis 5 mg Tablet
5 mg PO BID Qty: 1 0RF
Insulin Glargine Lantus [Lantus] 12 UNITS
Subcutaneous Insulin Syringe [Syringe-Insulin] 0 UNIT
As Directed mls/hr SC DAILY
Ordered By: Ang Avila MD
Last Taken: Unknown
furosemide 40 mg tablet
40 mg PO DAILY PRN (Reason: Fluid Retention/Swelling) Qty: 0 0RF
Rx Instructions:
Her weight gain of more than 3 pounds in a day or 5 pounds in a week
amiodarone 200 mg tablet
200 mg PO BID Qty: 1 0RF
Referrals:
Kathi Doyle PA [Family Provider, General]
Activity Restrictions/Additional Instructions:
Follow-up with Dr. Bryant as scheduled. Return emergency department immediately for any difficulty breathing or swallowing.
Interventions
Interventions:
*Risk Screen - Suicide Last Done: 08/27/25 11:43
*General Assessment Last Done: 08/27/25 15:12
*Neglect/Abuse Screening Last Done: 08/27/25 15:12
*ED- Fall Risk Assessment Last Done: 08/27/25 15:12
*ED COVID-19 Vaccine History Last Done: 08/27/25 15:12
*ED Influenza Vaccine History Last Done: 08/27/25 15:12
ED- Cardiac Assessment Last Done: 08/27/25 15:12
ED- Pulmonary Assessment Last Done: 08/27/25 15:12
Discharge Date and Time
Print Language: SWISS
[2025-08-27 16:00] VITALS: BP 135/76
== END 2025-08-27 16:30 | disposition home or self-care (01) ==
LOC: EMR 11:28
PROVIDERS: Emergency Medicine; EMERGENCY PHYSICIAN Student in an Organized Health Care Education/Training Program; FAMILY PHYSICIAN Physician Assistant Medical
DX: R22.0 Localized swelling, mass and lump, head (principal); E11.9 Type 2 diabetes mellitus without complications; I10 Essential (primary) hypertension; E78.00 Pure hypercholesterolemia, unspecified; I42.8 Other cardiomyopathies; Z79.84 Long term (current) use of oral hypoglycemic drugs; Z79.4 Long term (current) use of insulin; Z79.02 Long term (current) use of antithrombotics/antiplatelets
CPT/HCPCS: 99284; 80053; 83880; 84484; 85025; 93005

== ENCOUNTER 2025-08-29 11:56 | Inpatient (IN) | payer OTHER, SELFPAY ==
[2025-08-29] VITALS (7 sets, daily range): BP systolic 92–152; BP diastolic 55–77; BMI 25.1; BMI 25.6
[2025-08-29 08:09] LABS: Hematocrit 41.1 % (39.0-52.0); Hemoglobin 13.7 g/dL (13.0-18.0); Mean Corp Hgb Conc. 33.3 g/dL (33.0-37.0); Mean Corpuscular Volume 87.3 fL (80.0-94.0); Nucleated Red Blood Cells % 0 % (-); Platelet Count 299 10^3/uL (130-400); Red Cell Dist. Width 14.6 % (11.5-14.5)
[2025-08-29 08:21] LABS: ALT (SGPT) 30 U/L (0-50); AST (SGOT) 25 U/L (17-59); Albumin 4.3 g/dl (3.5-5.0); Alkaline Phosphatase 93 U/L (38-126); Blood Urea Nitrogen 21 mg/dl (9-20); Calcium 8.8 mg/dl (8.4-10.2); Carbon Dioxide 26 mmol/L (22-30); Chloride 104 mmol/L (98-107); Estimated Creatinine Clearance 76 ml/min; Glucose 121 mg/dl (70-99); Potassium 4.1 mmol/L (3.5-5.1); Sodium 135 mmol/L (135-145); Total Protein 7.4 g/dl (6.3-8.2); eGFR > 60.00
--- NOTE | 2025-08-29 08:41 | ED.GENMED ---
History of Present Illness
General
Chief Complaint: Swelling
Source: patient
Exam Limitations: none
Time Seen by Provider: 08/29/25 07:47
Nursing documentation reviewed up to this point in time: agreed with
History of Present Illness
History of Present Illness:
75-year-old male with extensive medical history as noted presents to the emergency department now for the second time with concerns of swelling in the face and neck. Patient reports symptoms started and have been persistent since then. He
describes that he has been congested, mild sore throat and he feels a fullness in his neck and face. He says that facial fullness/swelling seems to be worse in the morning and it improves as the day goes on. He has not noticed any trouble
breathing, tongue or lip swelling. He has not noticed any fever or chills. Denies any chest pain. He has not had any swelling in the arms of the legs. He denies similar symptoms before. He was seen in the ER few days ago with unremarkable
workup.
Past History
Past History
ED Past Medical History: HTN, Hypercholesterolemia, NIDDM and Other (Nonischemic cardiomyopathy)
Review of Systems
Review of Systems
All Other Systems: ROS reviewed and negative except as documented in HPI and ROS
Constitutional: Denies fever or chills
EENT: Reports sore throat and other (congestion)
Respiratory: Reports cough; Denies trouble breathing
Cardiac: Denies chest pain
ABD/GI: Denies abdominal pain, nausea or vomiting
: Denies flank pain
Musculoskeletal: Denies edema or back pain
Neurological: Denies headache
Phy Exam
Physical Exam
Physical Exam:
General: Awake, alert, oriented x3; no acute distress
Head: Normocephalic, atraumatic
Eyes: Conjunctiva normal, EOMI; some very slight periorbital edema
Throat: Airway intact, handling secretions, no trismus, no tongue elevation; he has some slight erythema in the pharynx but no tonsillar enlargement or exudate and no deviation of the uvula
Neck: Trachea midline, supple without meningismus; on exam of the anterior neck he has some fullness of the submandibular/submental region region with no palpable adenopathy; he does have some mild bilateral anterior cervical chain adenopathy
Lungs: Clear to auscultation bilaterally, no wheezing, rales, rhonchi
Heart: Regular rate and rhythm, no murmurs, gallops, or rubs appreciated
Abd: Soft, non distended, nontender with no edema
Neuro: Grossly intact
Skin: Warm and dry, no redness or rash on the face
Extremities: No edema noted in upper or lower extremities bilaterally, equal pulses in all extremities
Scores
Heart Failure Risk
Heart Failure Risk Score: Not Applicable
Heart Score for Chest Pain Patients
STEMI patient?: Not applicable
Withdrawal Assessment of Alcohol
Withdrawal Assessment Completed?: Not applicable
Course
Orders/Labs/Results
Orders:
Orders
08/29/25 07:59
Complete Blood Count/With Diff Urgent
Comprehensive Metabolic Panel Urgent
08/29/25 08:27
Monotest Urgent
Urinalysis Reflex To Culture Urgent
Date Specimen was Collected: 08/29/25
Time Specimen was Collected: 08:26
Urine Microscopic Reflex Cult Urgent
Rapid Strep Group A Urgent
ARPAN Source: Throat/Pharynx
Specimen Description:
Date Specimen was Collected: 08/29/25
Time Specimen was Collected: 08:26
08/29/25 08:43
CT Neck With Iv Contrast Urgent
Comment:
Reason For Exam: throat pain, neck swelling
08/29/25 09:24
COVID-19 Antigen Urgent
Source: Nasal Swab
Influenza A+B Rapid Molecular Urgent
ARPAN Source: Nasal Swab
Specimen Description:
08/29/25 10:11
Dexamethasone Sod Phosphate [Decadron] 10 mg IV NOW STA
08/29/25 10:12
ENT CONSULT Urgent
Consulting Provider: Clay Oden
Was physician already notified: Yes
Ampicillin/Sulbactam 3 G [Unasyn] 3 gm 0.9% Sodium Chloride 100 ml [Nss] 100 ml IV NOW
Abnormal Lab Results
08/29/25 08/29/25
07:59 08:27
RDW 14.6 H %
(11.5-14.5)
Abs Immat Gran (auto) 0.1 H 10^3/uL
(0-0.05)
Absolute Monos (auto) 0.9 H 10^3/uL
(0.1-0.6)
Immature Gran % 0.9 H %
(0-0.5)
Monocytes % 13.9 H %
(1.7-9.3)
BUN 21 H mg/dl
(9-20)
Glucose 121 H mg/dl
(70-99)
Urine Glucose 4+ A
(Negative)
Urine Albumin (Reflex) 2+ A
(Neg - Trace)
08/29/25 07:59
08/29/25 07:59
Vital Signs
Initial and Last Documented VS:
Initial Vital Signs
Temp Pulse Resp BP Pulse Ox
36.4 C 97 16 150/77 98
08/29/25 07:11 08/29/25 07:11 08/29/25 07:11 08/29/25 07:11 08/29/25 07:11
Last Documented Vital Signs
Temp Pulse Resp BP Pulse Ox
36.4 C 70 10 136/65 96
08/29/25 07:11 08/29/25 09:45 08/29/25 09:45 08/29/25 09:23 08/29/25 09:45
MDM/Problems Addressed
Differential Diagnosis Includes:
Viral URI with adenopathy, Adolfo's angina, angioedema, nephrotic syndrome, SVC syndrome, parotitis
MDM/Problems Addressed:
75-year-old male presents for evaluation of URI symptoms and waxing and waning facial swelling with sensation of fullness in his neck. No breathing issues, airway seems to be intact. Hypertensive but otherwise normal vitals. Overall patient at
baseline seems to have a large neck�he was able to show me pictures for comparison but he does have some slight fullness in the submental region. He does have some anterior cervical chain adenopathy. There is some erythema in the oropharynx but
midline uvula with no deviation and no tongue elevation. Lower suspicion that this is emergent pathology such as Adolfo's angina however I think with second visit CT of the neck is a reasonable study. Repeat labs. Will send viral swabs can check
Monospot as well. Send urinalysis. He had imaging of his chest a few days ago�he says this was routine follow-up CT. Results reviewed and showed small nodule but no mass noted which goes against SVC syndrome and overall his swelling is quite mild
and very low suspicion for this diagnosis clinically. Will monitor patient closely reassess after above.
Labs reviewed: CBC unremarkable, CMP no clinically significant abnormalities. His urinalysis is essentially bland. [place] negative. COVID and flu negative. CT neck positive for retropharyngeal cellulitis/phlegmon but no focal collection, no soft
tissue gas noted. Will discuss case with ENT for recommendations.
Discussed with ENT recommended IV Unasyn, IV Decadron. Will admit for continued treatment and monitoring�at this point no signs of airway compromise by imaging or clinically. Discussed case with hospitalist for admission.
Chronic conditions affecting care:
CHF
Acute Exacerbation and/or Progression of Chronic Illness: HTN
*Radiology
Radiology exam reviewed: radiology read reviewed
*Pulse Oximetry
SaO2: 100
Oxygen Mode of Delivery: Room air
Patient hypoxic: no (100%)
*Critical Care Note
Total Time (30-74mins, 75-104mins- exclusive of procedures): Not Applicable
Data Reviewed
Review of Other/Old Records Reveals: Labs and Records
Source: patient and records
Patient Management
Discussion with other providers: Hospitalist (Discussed with hospitalist), Head Of It (Discussed with ENT physician) and Radiologist (Discussed with radiologist)
Escalation/DeEscalation of care consider admission/obs:
Admission indicated
ED Attending Note
-
Portions of this chart may have been created with voice recognition software.� Occasional wrong word or��sound alike� substitutions may have occurred due to the inherent limitations of voice recognition software.
Discharge Plan
Departure
Patient Disposition: Admit
Date of Disposition: 08/29/25
Time of Disposition: 10:14
Admit to doctor: Glo
Presentation/result/management discussed w/ accepting MD/DO: Hospitalist
Discharge Problem:
Retropharyngeal abscess
Prescriptions:
No Action
atorvastatin 80 mg tablet
40 mg PO DAILY
multivitamin Tablet
1 tab PO DAILY
omega 3-bdt-vzi-fish oil [Fish Oil] 1,000 mg (120 mg-180 mg) Capsule
1 cap PO DAILY
dapagliflozin propanediol [Farxiga] 10 mg tablet
10 mg PO DAILY
acetaminophen 325 mg Tablet
650 mg PO Q4HPRN PRN (Reason: MILD PAIN) Qty: 1 0RF
clopidogrel 75 mg Tablet
75 mg PO DAILY Qty: 1 0RF
metoprolol succinate 25 mg Tablet Extended Release 24 Hr
12.5 mg PO DAILY Qty: 1 0RF
insulin aspart U-100 100 unit/mL (3 mL) Insulin Pen
3 unit SC AC Qty: 15 0RF
spironolactone 25 mg Tablet
25 mg PO DAILY Qty: 1 0RF
buspirone 10 mg Tablet
10 mg PO BID Qty: 1 0RF
Eliquis 5 mg Tablet
5 mg PO BID Qty: 1 0RF
Insulin Glargine Lantus [Lantus] 12 UNITS
Subcutaneous Insulin Syringe [Syringe-Insulin] 0 UNIT
As Directed mls/hr SC DAILY
Ordered By: Ang Avila MD
Last Taken: Unknown
furosemide 40 mg tablet
40 mg PO DAILY PRN (Reason: Fluid Retention/Swelling) Qty: 0 0RF
Rx Instructions:
Her weight gain of more than 3 pounds in a day or 5 pounds in a week
amiodarone 200 mg tablet
200 mg PO BID Qty: 1 0RF
Referrals:
Kathi Doyle PA [Family Provider, General]
Interventions
Interventions:
*Risk Screen - Suicide Last Done: 08/29/25 07:13
*General Assessment Last Done: 08/29/25 07:57
*Neglect/Abuse Screening Last Done: 08/29/25 07:13
ED- Cardiac Assessment Last Done: 08/29/25 07:57
ED- Pulmonary Assessment Last Done: 08/29/25 07:57
ED-Skin Assessment Last Done: 08/29/25 07:57
Discharge Date and Time
Print Language: BERMUDIAN
[2025-08-29 08:51] LABS: Urine Character Clear (Clear)
[2025-08-29 08:59] LABS: Urine Red Blood Cell 0-2 /HPF (0-2); Urine Squamous Cell None seen /LPF (Few); Urine White Cell 0-2 /HPF (0-5)
[2025-08-29 10:04] LABS: COVID-19 Antigen Negative (Negative)
--- NOTE | 2025-08-29 10:26 | HPS.HSE ---
Addendum entered and electronically signed by Jose Mireles MD 08/29/25 13:03:
I personally performed a history and physical exam of the patient and discussed management with the resident. I reviewed the resident's note and agree with the documented findings and plan of care HPI/CC.
Patient is a 75-year-old male with past medical history of chronic systolic congestive heart failure with EF of 25%, hyperlipidemia, A-fib on Eliquis/amiodarone, type 2 diabetes mellitus, essential hypertension, history of VT/cardiac arrest, history
of ICD placement came to ER with worsening neck and facial swelling. Patient initially had an upper respiratory viral illness with signs of sinusitis/nasal congestion which improved followed by patient noticing some facial swelling early in the
morning on . Patient was in ER 48 hours before and was discharged home as symptoms of swelling had resolved in the ER. Patient started noticing some sore throat and phlegm in the throat which patient was not able to clear. Started to
having some bilateral neck pain going up to the base of the mandible. Came to ER for repeat evaluation and on CT neck was found to having a retropharyngeal phlegmon versus early abscess. Patient denies of having any dyspnea/sensation of throat
closing/odynophagia/difficulty swallowing/drooling. Patient does have problem with teeth cavities although nothing recently active. Denies of having any episodes of fever episode
HEENT: Neck swelling. tenderness around the base of mandible. no tonsillitis. no tongue/submandibular swelling . no stridor on auscultation
RESPIRATORY: Lungs clear to auscultation.
CVS: S1, S2 normal. RRR. No murmur, rub or gallop.
ABDOMEN: Soft, non-tender. No distension
EXTREMITIES: No peripheral cyanosis or edema.
[employer]: AOx3. No focal deficits.
Retropharyngeal phlegmon/infection
- Patient is afebrile/no leukocytosis
- No signs of dyspnea/sensation of throat closing. No stridor on examination
- CT neck showing retropharyngeal phlegmon/soft tissue inflammation
- No clear source except preceding sinusitis and may have Sino genic infection
- Patient got Unasyn and Decadron 10 mg in the ER. Continue on Vanco and Unasyn
- Admit to telemetry for further monitoring
- ENT and ID has been involved in care
Chronic systolic congestive heart failure
History of CAD
- No signs of heart exacerbation
- Not on lasix? monitor
- Continue on aspirin/statin/metoprolol
Paroxysmal A-fib
History of VT/cardiac arrest
Status post ICD
- Continue telemetry monitoring
- Continue on Pacerone/Eliquis
Type II DM
Hypoglycemia
-Patient hypoglycemic in ER with, CGM showing blood glucose approximately 60
-Patient got apple juice/glucose pills, D50/glucagon pushes ordered if not improved
-As patient have poor oral intake in light of ongoing throat issues, maintain on sliding scale only for today can be slowly resumed back on home regimen as appropriate
Full code
Eliquis
Total time spent : 77 mins
I personally saw and examined the patient.
I have reviewed all diagnostic interpretations and treatment plans as written.
Time includes patient management by me, time spent at the patients bedside, time to review lab and imaging results, discussing patient care, documentation in the medical record, and time spent with the family or caregiver and discussing care plan
with RN/Consultants.
Original Note:
Family Physician
-
Family Physician: RENAY Benson
Chief Complaint
-
Neck swelling
History of Present Illness
75-year-old male with past medical history of HFrEF, CAD s/p stent, ICD, type II DM, presents to the ER for evaluation of swelling in the face and neck. Patient reports that the symptoms have started 4 days ago, the swelling and fullness have
worsened until now. He reports having sore throat. No history of trouble breathing, fever/chills, chest pain, no swelling anywhere else in the body. He was seen in the ER 2 days ago, with unremarkable workup.
ED course�vital stable, mildly hypertensive at presentation 150/77. Patient is afebrile.
CBC, CMP unremarkable. COVID/flu negative. Monospot negative.
CT neck with evidence of retropharyngeal cellulitis/phlegmon.
Patient received a dose of Unasyn, Decadron.
Medical History
Past Medical History
Past Medical History: Reports CAD, CHF, HTN, Hypercholesterolemia and IDDM
Past Surgical History: Reports Other (stents)
Social History
Tobacco: Non-smoker
Alcohol: Occasional
Drug: None
Family History
Family History: Not pertinent
Allergies / Home Medications
Allergies reflects when Allergies were last updated in [facility].
Home Medications with original date entered in [facility]
Allergy/Medication List:
Allergies
Allergy/AdvReac Type Severity Reaction Status Date / Time
Sulfa (Sulfonamide Allergy Unknown Verified 08/27/25 11:37
Antibiotics)
sulfamethoxazole (From Allergy Unknown Verified 08/27/25 11:37
Bactrim)
trimethoprim (From Bactrim) Allergy Unknown Verified 08/27/25 11:37
Home Medications
atorvastatin 80 mg tablet 40 mg PO DAILY High Cholesterol 12/03/23
dapagliflozin propanediol 10 mg tablet (Farxiga) 10 mg PO DAILY Diabetes 12/03/23
multivitamin 1 tab PO DAILY Supplement 12/03/23
omega 4-gsy-yew-fish oil 1,000 mg (120 mg-180 mg) capsule (Fish Oil) 1 cap PO DAILY Supplement 12/03/23
Insulin Glargine Lantus [Lantus] 12 units As Directed mls/hr SC DAILY 12/17/23
acetaminophen 325 mg tablet 650 mg (2 x 325 mg) PO Q4HPRN PRN MILD PAIN #1 tab 12/17/23
amiodarone 200 mg tablet 200 mg PO BID #1 tab 12/17/23
apixaban 5 mg tablet (Eliquis) 5 mg PO BID #1 tab 12/17/23
buspirone 10 mg tablet 10 mg PO BID #1 tab 12/17/23
clopidogrel 75 mg tablet 75 mg PO DAILY #1 tab 12/17/23
furosemide 40 mg tablet 40 mg PO DAILY PRN Fluid Retention/Swelling #0 tabs 12/17/23
insulin aspart U-100 100 unit/mL (3 mL) subcutaneous pen 3 unit (0.03 mL) SC AC #15 mL 12/17/23
metoprolol succinate 25 mg tablet,extended release 24 hr 12.5 mg (1/2 x 25 mg) PO DAILY #1 tab 12/17/23
spironolactone 25 mg tablet 25 mg PO DAILY #1 tab 12/17/23
Review of Systems
-
A 12 point ROS was completed and negative except as noted: Yes
Physical Exam
Vital Signs
Vital Signs
Temp Pulse Resp BP Pulse Ox
97.5 F 70 10 136/65 96
08/29/25 07:11 08/29/25 09:45 08/29/25 09:45 08/29/25 09:23 08/29/25 09:45
Physical Exam
General: Well Developed and Well Nourished
HEENT: NormoCephalic, Atraumatic and Other (Facial swelling with tearing from eyes, neck swelling, tenderness to palpation on the lateral side of the neck bilaterally, no erythema noted, no TTP in the submental submandibular space, examination of
the oral cavity-uvula in midline, mild erythema on the pharynx. Tongue midline, no elevation.)
Respiratory: Clear
Cardiac: S1/S2 and Regular Rhythm
GI: Soft, Non Tender, Non Distended and Normal Bowel Sounds
Neuro: Awake, Alert, Oriented and AO x 3
Psych: Calm
Laboratory Results
-
08/29/25 07:59
08/29/25 07:59
Laboratory Results
Total Bilirubin 0.8 mg/dl (0.2-1.3) 08/29/25 07:59
AST 25 U/L (17-59) 08/29/25 07:59
ALT 30 U/L (0-50) 08/29/25 07:59
Alkaline Phosphatase 93 U/L (38-126) 08/29/25 07:59
Impression/Plan
-
IMPRESSION:
75-year-old male with history of HFrEF, CAD s/p stent, DM type II on insulin, hypertension, hyperlipidemia presenting with neck pain and swelling.
PLAN:
#Retropharyngeal space infection
Normal white count, afebrile
CT neck�retropharyngeal cellulitis/phlegmon. No focal collection identified. No soft tissue gas or radiopaque foreign body. No airway compromise.
ENT on board
Will start Unasyn
Start vancomycin
ID consulted
Monitor fever curve, white count
Speech consult
Adequate pain control with Tylenol, oxycodone
N.p.o. until cleared by speech, carb controlled diet pending speech eval
#DM type II
Patient on home insulin
Lantus 12, aspart AC 3
Patient hypoglycemic in the ER
Will hold Lantus
Start basal bolus�low with hypoglycemic protocol
Check HbA1c
#Hyperlipidemia
Continue atorvastatin
#HFrEF
Not in acute exacerbation
Continue GDMT with metoprolol, dapagliflozin,, except for spironolactone
Spironolactone held for left nipple pain previously
#CAD s/p stent
No chest pain
Continue aspirin
Plavix was DC'd 6 months ago
#Atrial fibrillation
Currently in sinus rhythm
Continue amiodarone
Continue Eliquis
Monitor telemetry
DVT prophylaxis�Eliquis
Diet�n.p.o. until speech consult, carb controlled pending speech eval
Full code
[2025-08-29] MEDS: UNASYN IV ×3 (10:36→21:48)
[2025-08-29] MEDS: DECADRON 10 MG IV (10:36)
[2025-08-29 11:32] LABS: Glucose - Point of Care 112 mg/dl (70-99)
--- NOTE | 2025-08-29 12:07 | EDCM ---
Reviewed chart and met with pt bedside in ED. Lives with his , 2 SH, 1 JOLIE, has first floor half bath, full split flight (6 steps, landing, 6 steps) to second floor bedroom and full bath.
Independent in ADLs, personal care and ambulation at baseline, no assistive device. Only DME is Blood glucose monitor.
Confirms prescription coverage.
No hx VN, has been to OP therapy at [facility]
PCP: Kathi Doyle
Pharmacy: [facility]
Anticipate discharge home, no needs. CM will continue to follow for any discharge planning needs.
--- NOTE | 2025-08-29 12:28 | PHA.VAN.IN ---
Assessment
- Assessment
Renal Function: Appears similar to baseline
Concomitant Antimicrobials: ampicillin/sulbactam
AUC Dosing Plan
- Dosing Variables
Dosing Weight (kg): 80.5
Dosing CrCl (ml/min): 76
Vd coefficient (L/kg): 0.7
- Empiric Dosing
Initial / Loading Dose: 2000mg - administration pending
Maintenance Regimen: Vanc 750mg Q12H starting 08/30 0600
Estimated AUC (mcg*h/mL): 408
Estimated Peak (mcg*h/mL): 24
Estimated Trough (mcg/ml): 11.4
Estimated Half Life (H): 10.3
- Monitoring
No levels ordered at this time: consider levels in next few days
Pharmacokinetics Vancomycin I
- -
Patient Age: 75
Patient Sex: Male
Vancomycin Day #: 1
Indication: Skin And Soft Tissue
Requesting Provider: Dr. Leighton Mireles (resident)
Pertinent Antimicrobial Allergies:
sulfamethoxazole/trimethoprim - unknown
Height / Weight:
Height 5 ft 10.5 in
Actual Weight 80.5 kg
Pertinent Past Medical History: DM II
- Vital Signs / Lab Results
Temp Pulse Resp BP Pulse Ox
97.5 F 70 10 136/65 96
08/29/25 07:11 08/29/25 09:45 08/29/25 09:45 08/29/25 09:23 08/29/25 09:45
Lab Results - Hematology
08/29/25
07:59
WBC 6.6
Lab Results - Chemistry
08/29/25
07:59
BUN 21 H
Creatinine 0.9
Estimated Creat Clear 76
Albumin 4.3
Lab Results - Urine
08/29/25
08:27
Urine Nitrite (Reflex) Negative
Leukocyte Esterase Rfl Negative
Urine WBC (Reflex) 0-2
Ur Squamous Epith Cells None seen
Microbiology Results
08/29/25 09:24 Influenza Types A & B (ELLIOT) - Final
Nasal Swab Negative for Influenza A & B, NAAT
Negative results must be combined with clinical observations
and patient history.
Nucleic Acid Amplification test (NAAT)performed on the
[employer] platform.
08/29/25 08:27 Streptococcus Rapid Screen - Final
Throat/Pharynx Rapid Strep Screen (Group A) Negative
--- NOTE | 2025-08-29 12:39 | CON.ID ---
Consultation
-
Date/Time Consultation Requested: 08/29/25 12:09
Date/Time Consultation Performed: 08/29/25 12:40
Requesting Provider: Dr Edge
Performing Provider: Dr Lucia
Reason for Consultation: retropharyngeal abscess
Chief Complaint / Past History
Chief Complaint
neck swelling
History of Present Illness
Mr Shepherd is a 75 year old male with history notable for DM2 who presented here for swelling of the neck and face. Symptoms first began 4 days ago with a sore throat and neck swelling. no fevers, chills or dyspnea. No difficulty breathing or
swallowing. No lip or tongue swelling. No chest pain. he was initially seen in the ER on 08/27; he was felt to have a normal exam, a CT of the chest was only notable for a pulmonary nodule and there was no medication prescribed. He now
represents for worsening swelling of the neck and face.
Since arrival here he has been afebrile, bp stable, wbc 6.6, hgb 13.7, plt 299, no left shift, na 135, cr 0.9, t bili 0.8, ast 25, alt 30, alk phos 93, a UA had no pyuria but 4+ glucosuria, covid ag negative, a monospot was done and was also
negative, a ct of the neck with IV contrast had retropharyngeal cellulitis/phlegmon no focal collection and no airway compromise, a strep swab has been done and was negative, influenza screen negative, he has been started on vancomycin and unasyn.
He had a dose of dexamethasone in the ER. ID is consulted for assistance with management.
Past History
Additional Past Medical History:
CAD, CHF, HTN, Hypercholesterolemia and IDDM
Additional Past Surgical History:
stents
Allergy History:
Sulfa (Sulfonamide Antibiotics) Allergy (Verified 08/27/25 11:37)
Unknown
sulfamethoxazole (From Bactrim) Allergy (Verified 08/27/25 11:37)
Unknown
trimethoprim (From Bactrim) Allergy (Verified 08/27/25 11:37)
Unknown
Medications Reviewed: Yes
Social History
Tobacco: Non-Smoker
Alcohol: Occasional
Drug: None
Family History
Family History: Not Pertinent
Review of Systems
Review of Systems
Constitutional: Denies fever or chills
EENT: Reports sore throat and other (congestion)
Respiratory: Reports cough; Denies trouble breathing
Cardiac: Denies chest pain
ABD/GI: Denies abdominal pain, nausea or vomiting
: Denies flank pain
Musculoskeletal: Denies edema or back pain
Neurological: Denies headache
Vital Signs
Temp Pulse Resp BP Pulse Ox
97.5 F 70 10 136/65 96
08/29/25 07:11 08/29/25 09:45 08/29/25 09:45 08/29/25 09:23 08/29/25 09:45
Physical Exam
Physical Exam
Constitutional: No Acute Distress
Pharynx: Other (slight erythema of the posterior oropharynx, unable to visualize the tonsils; tenderness over the bilateral lateral neck, no lymphadenopathy appreciated)
Cardiovascular: Regular Rate and S1/S2; Negative Murmur or Rub
Pulmonary: Clear and Symmetric; Negative Wheezes, Rales or Rhonchi
Gastrointestinal: Soft, Non Tender, Non Distended and Normal Bowel Sounds
Skin: Warm and Dry; Negative Rash or Jaundice
Lab / Diagnostic Study Results
08/29/25 07:59
08/29/25 07:59
Abs Immat Gran (auto) 0.1 10^3/uL (0-0.05) H 08/29/25 07:59
Absolute Neuts (auto) 3.6 10^3/uL (1.4-6.5) 08/29/25 07:59
Absolute Lymphs (auto) 1.8 10^3/uL (1.2-3.4) 08/29/25 07:59
Absolute Monos (auto) 0.9 10^3/uL (0.1-0.6) H 08/29/25 07:59
Absolute Basos (auto) 0.1 10^3/uL (0-0.2) 08/29/25 07:59
Immature Gran % 0.9 % (0-0.5) H 08/29/25 07:59
Neutrophils % 53.7 % (42.2-75.2) 08/29/25 07:59
Lymphocytes % 27.4 % (20.5-51.1) 08/29/25 07:59
Monocytes % 13.9 % (1.7-9.3) H 08/29/25 07:59
Eosinophils % 3.0 % (0-6) 08/29/25 07:59
Basophils % 1.1 % (0-2) 08/29/25 07:59
Ur Squamous Epith Cells None seen /LPF (Few) 08/29/25 08:27
Microbiology Results
Micro:
08/29/25 09:24 Influenza Types A & B (ELLIOT) - Final
Nasal Swab Negative for Influenza A & B, NAAT
Negative results must be combined with clinical observations
and patient history.
Nucleic Acid Amplification test (NAAT)performed on the
[employer] platform.
08/29/25 08:27 Streptococcus Screen (ARPAN) - Pending
Throat/Pharynx Streptococcus Rapid Screen - Final
Rapid Strep Screen (Group A) Negative
Assessment / Plan
Retropharyngeal phlegmon
- low likelihood of bacteremia, blood cultures not indicated
- agree with unasyn
- stopped vancomycin
- ENT is consulted
- follow clinically
--- NOTE | 2025-08-29 14:38 | PTOTSP ---
Speech Language Pathology
Pt seen for clinical bedside swallow evaluation. Pt denied any change with swallowing. P.O. trials of puree, regular solids, and thin liquids provided. Adequate mastication, bolus formation, and A-P transit noted with no oral residue. No overt
signs of aspiration.
Recommend:
(1) Initiate regular solids/thin liquids
(2) General aspiration precautions
(3) Meds as tolerated
(4) CREDIT OPERATIONS PROCESSOR to sign off. Please reconsult as indicated
[2025-08-29] MEDS: VANCOCIN 540 MG IV (14:46)
[2025-08-29 16:31] LABS: Glucose - Point of Care 179 mg/dl (70-99)
[2025-08-29] MEDS: NOVOLOG FLEXPEN 3 UNITS SC (17:10)
[2025-08-29] MEDS: NOVOLOG FLEXPEN-LOW RESISTANCE 1 UNITS SC (17:14)
[2025-08-29] MEDS: ELIQUIS 5 MG PO ×2 (17:14→19:52)
[2025-08-29] MEDS: TOPROL XL 12.5 MG PO (17:14)
[2025-08-29] MEDS: NOVOLOG FLEXPEN-LOW RESISTANCE SC (18:18)
[2025-08-29] MEDS: PACERONE 200 MG PO (19:58)
[2025-08-29 22:08] LABS: Glucose - Point of Care 184 mg/dl (70-99)
[2025-08-30] MEDS: UNASYN IV ×4 (03:27→21:40)
[2025-08-30 03:49] VITALS: BP 128/68
[2025-08-30 06:00] VITALS: BMI 25.7
[2025-08-30 07:40] VITALS: BP 120/62
[2025-08-30 07:45] LABS: Glucose - Point of Care 171 mg/dl (70-99)
--- NOTE | 2025-08-30 08:04 | W.PN.HOSP.TC ---
Today's Communication/Plan
-
See plan
Assessment / Plan
Assessment / Plan
Physical Exam
General: Well Developed and Well Nourished
HEENT: Normocephalic, Atraumatic
Respiratory: Clear
Cardiac: S1/S2 and Regular Rhythm
GI: Soft, Non Tender, Non Distended and Normal Bowel Sounds
Neuro: Awake, Alert, Oriented and AO x 3
Psych: Calm
Assessment/Plan
75-year-old male with past medical history of HFrEF, CAD s/p stent, ICD, type II DM, presented to the ER for evaluation of swelling in the face and neck. Patient reports that the symptoms started about 4 days prior to presentation, the swelling and
fullness have worsened until now. He reported having sore throat. No history of trouble breathing, fever/chills, chest pain, no swelling anywhere else in the body. He was seen in the ER [address] neck with evidence of retropharyngeal cellulitis/phlegmon.
Patient received a dose of Unasyn, Decadron.
#Retropharyngeal space infection
Normal white count, afebrile
CT neck�retropharyngeal cellulitis/phlegmon. No focal collection identified. No soft tissue gas or radiopaque foreign body. No airway compromise.
ENT on board -- last dose of IV steroids on 08/30/25, start PO steroids (i.e. Prednisone 30 mg for two days followed by 20 mg for two days then 10 mg for two days) on 08/31/25
Continue Unasyn
ID consult appreciated
Monitor fever curve, white count
Speech consult -- okay for regular solids/thin liquids
Adequate pain control
#DM type II
Patient on home insulin
Lantus 12, aspart AC 3
Patient hypoglycemic in the ER
Will hold Lantus
Start basal bolus�low with hypoglycemic protocol
HbA1c 7.5%
#Hyperlipidemia
Continue atorvastatin
#HFrEF
Not in acute exacerbation
Continue GDMT with metoprolol, dapagliflozin, except for spironolactone
Spironolactone held for left nipple pain previously
Continue Entresto
#CAD s/p stent
No chest pain
Continue aspirin
Plavix was DC'd 6 months ago
#Atrial fibrillation
Currently in sinus rhythm
Continue amiodarone
Continue Eliquis
Monitor telemetry
DVT prophylaxis�Eliquis
Diet�Diabetic Diet
Full code
Total time spent on care for the patient today, including chart review, communicating with ecological modeler and infectious disease, placing orders, seeing and examining the patient, speaking extensively with patient and his , was 65 minutes.
Anticipated Discharge: 24 - 48 hours
Subjective/Interval History
-
Date of Service: August 30, 2025
Patient was seen and examined. He reported feeling okay, denied any new symptoms or complaints.
Objective Data
-
Labs:
Laboratory Results
08/30/25
06:35
WBC Pending
Hgb Pending
Hct Pending
Plt Count Pending
Sodium Pending
Potassium Pending
Chloride Pending
Carbon Dioxide Pending
BUN Pending
Creatinine Pending
Glucose Pending
Calcium Pending
Total Bilirubin Pending
AST Pending
ALT Pending
Alkaline Phosphatase Pending
Vital Signs:
Vital Signs
Temp Pulse Resp BP Pulse Ox
97.7 F 81 16 128/68 99
08/30/25 03:49 08/30/25 03:49 08/30/25 03:49 08/30/25 03:49 08/30/25 03:49
I&O
08/29/25 08/30/25 08/31/25
06:59 06:59 06:59
Intake Total 240 / 240
Balance 240 / 240
[2025-08-30 08:14] LABS: Hematocrit 39.3 % (39.0-52.0); Hemoglobin 12.7 g/dL (13.0-18.0); Mean Corp Hgb Conc. 32.3 g/dL (33.0-37.0); Mean Corpuscular Volume 89.9 fL (80.0-94.0); Nucleated Red Blood Cells % 0 % (-); Platelet Count 300 10^3/uL (130-400); Red Cell Dist. Width 14.4 % (11.5-14.5)
[2025-08-30] MEDS: LIPITOR 40 MG PO (08:25)
[2025-08-30] MEDS: PACERONE 200 MG PO (08:25)
[2025-08-30] MEDS: THERAGRAN 1 TABLET PO (08:25)
[2025-08-30] MEDS: TOPROL XL 12.5 MG PO (08:25)
[2025-08-30] MEDS: ELIQUIS 5 MG PO ×2 (08:25→19:38)
[2025-08-30] MEDS: FARXIGA 10 MG PO (08:25)
[2025-08-30] MEDS: NOVOLOG FLEXPEN 3 UNITS SC ×3 (08:26→17:19)
[2025-08-30] MEDS: NOVOLOG FLEXPEN-LOW RESISTANCE 1 UNITS SC (08:26)
[2025-08-30] MEDS: TYLENOL 650 MG PO ×2 (08:36→18:29)
--- NOTE | 2025-08-30 08:45 | W.PN.UPDATE ---
Update Note
Progress Note Update
Patient seen and evaluated at the bedside.
Full consult to follow.
A/P- [age]-year-old male with acute pharyngitis and retropharyngeal phlegmon.
- Patient has been on Unasyn overnight, dosed with vancomycin yesterday.
- Also given steroids yesterday.
- Improved overall today.
- Speaking normally, able to swallow, mild pain persists.
- Exam appears relatively clear today, scope performed at the bedside, no significant pharyngeal edema noted, airway patent.
- Would continue Unasyn IV x 24 hours longer.
- Continue Decadron IV.
- Plan on discharge tomorrow with Augmentin 875 p.o. twice daily x 10 days.
- Would give tapering dose of steroids orally upon discharge as well.
- Patient can follow-up as an outpatient.
- Please call if patient's status changes.
- Discussed with patient and his at the bedside.
[2025-08-30 09:29] LABS: Glycohemoglobin (HgbA1c) 7.5 % (4.0-5.9)
--- NOTE | 2025-08-30 09:43 | CON.CAR ---
Consultation
Consultation Request
Date/Time Consultation Requested:
Date/Time Consultation Performed: 08/30/2025
Reason for Consultation: Cardiomyopathy, HFrEF
Medical History
-
History of Present Illness:
75-year-old male with a history of nonischemic cardiomyopathy with severely reduced biventricular function, cardiac arrest November 2023, ICD 2023, paroxysmal atrial fibrillation, coronary artery disease, stenting of left circumflex 12/06/2023
patient presented with neck and facial swelling. Patient stated on his neck felt a bit sore patient points to areas below the angle of his jaw. He also stated he had a lot of phlegm. On Saturday his had called me with concerns that he
had increased facial swelling and had concern regarding heart failure. Symptoms did not fit with heart failure so I directed them to the ER. Patient had an ER evaluation and was subsequently discharged but then returned on Saturday due to reported
increased face and neck swelling. Chest CT 08/26/2025 without acute abnormality. There was a 0.8 cm ground glass pulmonary nodule, and a 1.3 cm hypoattenuating focus in the right hepatic lobe. When patient returned to the ER in 08/29/[address]
suggested retropharyngeal cellulitis/phlegmon with no focal collection. Patient was admitted he has been placed on IV antibiotics with Unasyn and treated with steroids. Consultations by both ID and ENT
Patient feels better today still some soreness on lateral active specks of his neck bilaterally points below the angle of the jaw bilaterally. No issues swallowing and no problems with shortness of breath no lower extremity edema.
Note that as an outpatient he reported left breast tenderness and had been taken off spironolactone recently there was a discussion regarding placing him on eplerenone which has not been initiated yet
.
Past medical history
Nonischemic cardiomyopathy
Cardiac arrest November 2023 patient underwent left circumflex stenting and implantation of an ICD that hospitalization
ICD
Left circumflex stenting 2023
Type 2 diabetes
Hypertension
Hypercholesterolemia
PAF
Social history nonsmoker. 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
Past Medical History
Past Medical History: Other
Family History
Family History: Reviewed & Not Pertinent
Allergies / Home Medications
Allergy/AdvReac Type Severity Reaction Status Date / Time
Sulfa (Sulfonamide Allergy Unknown Verified 08/27/25 11:37
Antibiotics)
sulfamethoxazole (From Allergy Unknown Verified 08/27/25 11:37
Bactrim)
trimethoprim (From Bactrim) Allergy Unknown Verified 08/27/25 11:37
�Medication �Instructions �Recorded �Confirmed �Type
dapagliflozin propanediol 10 mg 10 mg PO DAILY Diabetes 12/03/23 08/29/25 History
tablet (Farxiga)
apixaban 5 mg tablet (Eliquis) 5 mg PO BID #1 tab 12/17/23 08/29/25 Rx
metoprolol succinate 25 mg 12.5 mg (1/2 x 25 mg) PO DAILY #1 12/17/23 08/29/25 Rx
tablet,extended release 24 hr tab
amiodarone 200 mg tablet 200 mg PO DAILY 08/29/25 08/29/25 History
aspirin 81 mg tablet 81 mg PO DAILY 08/29/25 08/29/25 History
atorvastatin 40 mg tablet 40 mg PO QPM 08/29/25 08/29/25 History
insulin aspart U-100 100 unit/mL 5 unit SC TID 08/29/25 08/29/25 History
(3 mL) subcutaneous pen (Novolog
FlexPen U-100 Insulin aspart)
insulin glargine 100 unit/mL (3 10 unit SC HS 08/29/25 08/29/25 History
mL) subcutaneous pen (Basaglar
KwikPen U-100 Insulin)
sacubitril 24 mg-valsartan 26 mg 1 tab PO BID 08/29/25 08/29/25 History
tablet (Entresto)
Review of Systems
-
All other systems: Negative unless noted
Physical Exam
Vital Signs
Temp Pulse Resp BP Pulse Ox
97.6 F 82 16 120/62 98
08/30/25 07:40 08/30/25 07:40 08/30/25 07:40 08/30/25 07:40 08/30/25 07:40
Lab Results
08/30/25 06:35
Physical Exam
General: Well Developed, Well Nourished and No Apparent Distress
HEENT: Normocephalic, Anicteric and Other (Neck has some muscle soreness with palpation below the angle of the jaw bilaterally without clear adenopathy.. No JVD no bruit)
Respiratory: Other (No wheezes rales or rhonchi)
Cardiac: Regular Rhythm
GI: Non Tender, Non Distended and Normal Bowel Sounds
Musculoskeletal: No Clubbing, No Cyanosis and No Edema
Neuro: Awake, Alert and Oriented
Hematologic/Lymphatic: No Lymphadenopathy
Psych: Calm
Impression / Plan
-
Pharyngitis and retropharyngeal phlegmon
- Abnormalities as noted by CT
- Continued management as directed by ENT, ID and hospitalist
- Patient with some improvement today being treated with antibiotics and steroids.
.
Heart failure reduced ejection fraction
- Chronic.
- Appears euvolemic and well compensated no evidence of decompensated heart failure.
- continue current therapy
.
Cardiomyopathy.
- Continue current medical therapy
- Patient with recent discontinuation of spironolactone due to some breast tenderness would eventually consider eplerenone but would not add new medication with ongoing issues above.
.
CAD/left circumflex stenting 2023. Stable without angina continue current therapy
.
PAF. Stable continue anticoagulation with Eliquis
-Currently on amiodarone.
-Continue amiodarone follow-up. Patient's had some abnormalities on PFTs and just saw monogram maker within the last 2 weeks. Additional follow-up as schedul
.
History of cardiac arrest 2023
- ICD
- Remains on amiodarone
--- NOTE | 2025-08-30 09:45 | W.PN.ID1 ---
Date of Service
Date of Service: August 30, 2025
Today's Communication
- agree with unasyn for 24 more hours followed by augmentin 875 mg PO BID x10 days
Assessment / Plan
Retropharyngeal phlegmon
DM2
- agree with unasyn for 24 more hours followed by augmentin 875 mg PO BID x10 days
- steroids per ENT
- ENT is consulted
- follow clinically
Chief Complaint
-: Other (retropharyngeal abscess)
Subjective / Review of Systems
afebrile
bp stable
able to swallow, mild pain
ENT preformed scope and no signification pharyngeal edema noted
Vital Signs / Physical Exam
Vital Signs
Vital Signs
Temp Pulse Resp BP Pulse Ox
97.6 F 82 16 120/62 98
08/30/25 07:40 08/30/25 07:40 08/30/25 07:40 08/30/25 07:40 08/30/25 07:40
Physical Exam
Constitutional: No Acute Distress
Oropharyngeal: Other (tenderness of the bilateral neck, no lymphadenopathy, no neck swelling)
Cardiovascular: Regular Rate and S1/S2; Negative Murmur or Rub
Pulmonary: Clear and Symmetric; Negative Wheezes or Rales
Gastrointestinal: Soft, Non Tender, Non Distended and Normal Bowel Sounds
Skin: Warm and Dry; Negative Rash or Jaundice
Objective Data
Lab Data
Lab Results
08/30/25 06:35
Estimated Creat Clear 76 ml/min 08/29/25 07:59
Total Bilirubin 0.8 mg/dl (0.2-1.3) 08/29/25 07:59
AST 25 U/L (17-59) 08/29/25 07:59
ALT 30 U/L (0-50) 08/29/25 07:59
Alkaline Phosphatase 93 U/L (38-126) 08/29/25 07:59
Most recent labs reviewed.
a1c 7.5
Micro Results:
08/29/25 08:27 Streptococcus Screen (ARPAN) - Preliminary
Throat/Pharynx Culture in Progress
Streptococcus Rapid Screen - Final
Rapid Strep Screen (Group A) Negative
08/29/25 09:24 Influenza Types A & B (ELLIOT) - Final
Nasal Swab Negative for Influenza A & B, NAAT
Negative results must be combined with clinical observations
and patient history.
Nucleic Acid Amplification test (NAAT)performed on the
[employer] platform.
[2025-08-30 10:07] LABS: ALT (SGPT) 25 U/L (0-50); AST (SGOT) 19 U/L (17-59); Albumin 3.9 g/dl (3.5-5.0); Alkaline Phosphatase 84 U/L (38-126); Blood Urea Nitrogen 25 mg/dl (9-20); Calcium 8.6 mg/dl (8.4-10.2); Carbon Dioxide 23 mmol/L (22-30); Chloride 104 mmol/L (98-107); Estimated Creatinine Clearance 69 ml/min; Glucose 150 mg/dl (70-99); Potassium 4.5 mmol/L (3.5-5.1); Sodium 134 mmol/L (135-145); Total Protein 6.6 g/dl (6.3-8.2); eGFR > 60.00
[2025-08-30] MEDS: DECADRON 6 MG IV (10:23)
[2025-08-30 11:30] VITALS: BP 136/67
[2025-08-30] MEDS: ENTRESTO 24 MG/26 MG 1 TAB PO ×2 (11:35→19:38)
[2025-08-30] MEDS: LOW STRENGTH ASPIRIN 81 MG PO (11:35)
[2025-08-30 12:08] LABS: Glucose - Point of Care 208 mg/dl (70-99)
[2025-08-30] MEDS: NOVOLOG FLEXPEN-LOW RESISTANCE 2 UNITS SC (12:30)
[2025-08-30 15:50] VITALS: BP 123/54
[2025-08-30 17:03] LABS: Glucose - Point of Care 264 mg/dl (70-99)
[2025-08-30] MEDS: NOVOLOG FLEXPEN-LOW RESISTANCE 3 UNITS SC (17:19)
--- NOTE | 2025-08-30 17:31 | W.CON.OTO ---
Otolaryngology Consult
Chief Complaint
Facial and neck swelling and pain
History of Present Illness
Patient is a 75-year-old male who on began to experience some nasal congestion as well as a sore throat and neck pain. His symptoms worsened on Saturday. Having a previous cardiac history he was brought to the emergency room for evaluation.
The patient was found to be relatively unremarkable and discharged home. His symptoms progressed over the weekend. He complained of increased facial swelling, lip and mouth swelling, and neck swelling along with pain and discomfort. He did have
difficulty speaking and swallowing. He therefore came back to the emergency room on Saturday. A CT scan was performed which showed a questionable retropharyngeal phlegmon. No abscess noted. Strep and flu testing were both negative. The patient
was admitted for presumed pharyngitis. He has been treated overnight with Unasyn as well as a dose of vancomycin and intravenous Decadron. This morning he does feel better. The patient states that he has less pain, although still has some
discomfort on the sides of his neck. He is much less swollen overall. He is able to breathe normally and speak normally. He has no difficulty swallowing and ate breakfast without a problem. He denies any significant nasal congestion. There is
no reported coughing or phlegm. He has no recent illness prior to .
Medical History
Additional Past Medical History:
CAD, CHF, HTN, Hypercholesterolemia and IDDM
Additional Past Surgical History:
Coronary stents, implantable cardiac defibrillator
Patient Allergies:
Allergies
Allergy/AdvReac Type Severity Reaction Status Date / Time
Sulfa (Sulfonamide Allergy Unknown Verified 08/27/25 11:37
Antibiotics)
sulfamethoxazole (From Allergy Unknown Verified 08/27/25 11:37
Bactrim)
trimethoprim (From Bactrim) Allergy Unknown Verified 08/27/25 11:37
Home Medications / Current Medications:
�Medication �Instructions �Recorded
amiodarone 200 mg tablet 200 mg PO DAILY 08/29/25
aspirin 81 mg tablet 81 mg PO DAILY 08/29/25
atorvastatin 40 mg tablet 40 mg PO QPM 08/29/25
insulin aspart U-100 100 unit/mL 5 unit SC TID 08/29/25
(3 mL) subcutaneous pen (Novolog
FlexPen U-100 Insulin aspart)
insulin glargine 100 unit/mL (3 10 unit SC HS 08/29/25
mL) subcutaneous pen (Basaglar
KwikPen U-100 Insulin)
sacubitril 24 mg-valsartan 26 mg 1 tab PO BID 08/29/25
tablet (Entresto)
Physical Exam
Vitals / Labs:
Vital Signs
Temp 97.9 F 08/30/25 15:50
Temp route: Oral 08/30/25 15:50
Pulse 78 08/30/25 15:50
Rhythm: Normal sinus rhythm 08/30/25 16:33
With- First Degree Heart Block 08/30/25 16:33
Resp Rate 16 08/30/25 15:50
Blood pressure 123/54 08/30/25 15:50
Blood pressure extremity used: Left upper arm 08/30/25 15:50
Position: Sitting 08/30/25 15:50
MAP (cuff-Shanta Monitor) 87 08/29/25 09:23
SaO2 98 08/30/25 15:50
Oxygen Mode of Delivery Room air 08/30/25 15:50
Can the patient verbally communicate their pain? Yes 08/30/25 16:33
Pain scale ratin 08/30/25 16:33
Actual Weight 83.416 kg 08/30/25 06:00
Body Mass Index (BMI) 25.7 08/30/25 06:00
Lab Results
08/30/25 06:35
08/30/25 06:35
Exam:
Patient is awake, alert, oriented, in no acute distress.
Head is normocephalic and atraumatic.
Nasal cavity clear anteriorly, deviated nasal septum to the right noted.
Oral cavity and oropharynx unremarkable. No erythema or exudate present. No mucosal edema noted.
Neck with some tender jugulodigastric lymphadenopathy. No significant masses noted. Neck otherwise soft and supple, No soft tissue edema or crepitus present.
Flexible fiberoptic laryngoscopy was performed at the bedside. The scope was easily passed through the left side of the patient's nasal cavity. The nasopharynx was unremarkable. The oropharynx was clear. The base of tongue, vallecula,
epiglottis, aryepiglottic folds, arytenoids, piriform sinuses, and postcricoid area were clear. The lateral and posterior pharyngeal crockett were unremarkable. The true and false vocal folds were clear as well. Both vocal folds were mobile. The
airway was widely patent.
Assessment / Plan
75-year-old male with acute pharyngitis, likely viral but possibly bacterial.
- CT scan reviewed. Possible retropharyngeal phlegmon is changes noted.
- Patient has been on Unasyn and Decadron with good improvement overnight.
- Would continue IV antibiotics and steroids for 24 more hours as an inpatient.
- Could likely be discharged home tomorrow on Augmentin 875 p.o. twice daily for 10 days.
- Would also discharge patient home on prednisone 30 mg x 2 days, 20 mg x 2 days, 10 mg x 2 days.
- Patient can follow-up as outpatient.
Data Reviewed
CT Scan: Image Personally Visualized and interpreted
[2025-08-30 19:00] VITALS: BP 118/60
[2025-08-30 21:38] LABS: Glucose - Point of Care 221 mg/dl (70-99)
[2025-08-30] MEDS: LANTUS 0.1 UNITS SC (21:41)
[2025-08-30 23:00] VITALS: BP 111/60
[2025-08-31 03:00] VITALS: BP 119/72
[2025-08-31] MEDS: UNASYN IV ×2 (03:04→09:19)
[2025-08-31 06:00] VITALS: BMI 25.7
[2025-08-31 07:00] VITALS: BP 123/63
[2025-08-31 07:51] LABS: Glucose - Point of Care 145 mg/dl (70-99)
[2025-08-31 07:58] LABS: Hematocrit 39.5 % (39.0-52.0); Hemoglobin 12.9 g/dL (13.0-18.0); Mean Corp Hgb Conc. 32.7 g/dL (33.0-37.0); Mean Corpuscular Volume 89.6 fL (80.0-94.0); Platelet Count 328 10^3/uL (130-400); Red Cell Dist. Width 14.1 % (11.5-14.5)
--- NOTE | 2025-08-31 08:12 | W.PN.CD ---
Today's Communication / Plan
-
stable from cardiology/ HF standpoint
continue tx as directed by ENT, ID and hospitalists
Patietn will monitor daily weights at home after discharge
Impression / Plan
-
Pharyngitis and retropharyngeal phlegmon
- Abnormalities as noted by CT
- Continued management as directed by ENT, ID and hospitalist
- Patient with some improvement since admit. still some neck/ throat soreness being treated with antibiotics and steroids.
.
Heart failure reduced ejection fraction
- Chronic.
- Appears euvolemic and well compensated no evidence of decompensated heart failure.
- continue current therapy
.
Cardiomyopathy.
- Continue current medical therapy
- Patient with recent discontinuation of spironolactone due to some breast tenderness would eventually consider eplerenone but would not add new medication with ongoing issues above.
.
CAD/left circumflex stenting 2023. Stable without angina continue current therapy
.
PAF. Stable continue anticoagulation with Eliquis
-Currently on amiodarone.
-Continue amiodarone follow-up. Patient's had some abnormalities on PFTs and just saw escalation engineer within the last 2 weeks. Additional follow-up as schedule
.
History of cardiac arrest 2023
- ICD
- Remains on amiodarone
Physical Exam
Vital Signs/Labs
Vital Signs
Temp Pulse Resp BP Pulse Ox
97.5 F 86 18 119/72 96
08/31/25 03:00 08/31/25 03:00 08/31/25 03:00 08/31/25 03:00 08/31/25 03:00
08/30/25 08/31/25 09/01/25
06:59 06:59 06:59
Actual Weight 83.416 kg 83.574 kg
08/31/25 07:30
Physical Exam
Constitutional: No acute distress
Cardiovascular: Rhythm & rate is regular
Respiratory: Wheeze Absent and Rhonchi Absent
GI: Soft
Data Reviewed
-
Date of Service: August 31, 2025
Medical Decision Making: Reviewed Test Results
X-Ray/CT/US/MRI/NUC/PET: Report Reviewed by me
Medical Tests (PFT, Pathology etc): Report Reviewed by me
Labs: Labs Reviewed by me
[2025-08-31 08:17] LABS: Blood Urea Nitrogen 29 mg/dl (9-20); Calcium 8.7 mg/dl (8.4-10.2); Carbon Dioxide 22 mmol/L (22-30); Chloride 105 mmol/L (98-107); Estimated Creatinine Clearance 69 ml/min; Glucose 148 mg/dl (70-99); Magnesium 2.4 mg/dl (1.6-2.3); Potassium 4.1 mmol/L (3.5-5.1); Sodium 136 mmol/L (135-145); eGFR > 60.00
[2025-08-31] MEDS: NOVOLOG FLEXPEN-LOW RESISTANCE SC (08:41)
[2025-08-31] MEDS: NOVOLOG FLEXPEN 3 UNITS SC ×2 (08:42→11:48)
[2025-08-31] MEDS: FARXIGA 10 MG PO (08:43)
[2025-08-31] MEDS: ELIQUIS 5 MG PO (08:44)
[2025-08-31] MEDS: TOPROL XL 12.5 MG PO (08:44)
[2025-08-31] MEDS: ENTRESTO 24 MG/26 MG 1 TAB PO (08:44)
[2025-08-31] MEDS: LOW STRENGTH ASPIRIN 81 MG PO (08:44)
[2025-08-31] MEDS: DELTASONE 30 MG PO (08:45)
[2025-08-31] MEDS: PACERONE 200 MG PO (08:46)
[2025-08-31] MEDS: TYLENOL 650 MG PO (08:58)
--- NOTE | 2025-08-31 09:21 | W.PN.HOSP.TC ---
Today's Communication/Plan
-
Discharge today
Assessment / Plan
Assessment / Plan
Physical Exam
General: Well Developed and Well Nourished
HEENT: Normocephalic, Atraumatic
Respiratory: Clear
Cardiac: S1/S2 and Regular Rhythm
GI: Soft, Non Tender, Non Distended and Normal Bowel Sounds
Neuro: Awake, Alert, Oriented and AO x 3
Psych: Calm
Assessment/Plan
75-year-old male with past medical history of HFrEF, CAD s/p stent, ICD, type II DM, presented to the ER for evaluation of swelling in the face and neck. Patient reports that the symptoms started about 4 days prior to presentation, the swelling and
fullness have worsened until now. He reported having sore throat. No history of trouble breathing, fever/chills, chest pain, no swelling anywhere else in the body. He was seen in the ER [address] neck with evidence of retropharyngeal cellulitis/phlegmon.
Patient received a dose of Unasyn, Decadron.
#Retropharyngeal space infection/Retropharyngeal phlegmon
Normal white count, afebrile
CT neck�retropharyngeal cellulitis/phlegmon. No focal collection identified. No soft tissue gas or radiopaque foreign body. No airway compromise.
ENT on board -- last dose of IV steroids on 08/30/25, started PO steroids (i.e. Prednisone 30 mg for two days followed by 20 mg for two days then 10 mg for two days) on 08/31/25
On discharge, switch to Augmentin 875 mg PO BID x10 days
ID consult appreciated
Monitor fever curve, white count
Speech consult -- okay for regular solids/thin liquids, follow general aspiration precautions
Adequate pain control
-I communicated via [place] [employer] with ENT physician Dr. Oden today, and he recommended (since patient is able to breath, swallow and speak normally, and has not had any fever) discharging the patient
today
-Dr. Oden also recommended holding patient's Entresto until patient recovers
-Follow-up with Dr. Oden's office follow-up in the ENT office on September 03, 2025.
#DM type II
Patient on home insulin
Lantus 12, aspart AC 3
Resume Lantus and premeal on discharge -- monitor glucose at home and adjust Insulin dosing
Start basal bolus�low with hypoglycemic protocol
HbA1c 7.5%
#Hyperlipidemia
Continue atorvastatin
#HFrEF
Not in acute exacerbation
Continue GDMT with metoprolol, dapagliflozin, except for spironolactone
Spironolactone held for left nipple pain previously
Hold Entresto as above
#CAD s/p stent
No chest pain
Continue aspirin
Plavix was DC'd 6 months ago
#Atrial fibrillation
Currently in sinus rhythm
Continue amiodarone
Continue Eliquis
Monitor telemetry
DVT prophylaxis�Eliquis
Diet�Diabetic Diet
Full code
More than 30 minutes spent in discharge including
Final examination of the patient
Summarizing hospital stay
Instructions for continuing care to all relevant caregivers
Preparation of discharge records, prescriptions, and referral forms
Total time spent (in minutes): 43
Anticipated Discharge: Today
Subjective/Interval History
-
Date of Service: August 31, 2025
Patient was seen and examined. He reported a bit more swelling, pain near his ears and throat and sore throat more so than yesterday, but overall has improved compared to previously. He denied any fever, and is able to speak, breath and swallow
normally.
Objective Data
-
Labs:
Laboratory Results
08/31/25
07:30
WBC 12.2 H
Hgb 12.9 L
Hct 39.5
Plt Count 328
Sodium 136
Potassium 4.1
Chloride 105
Carbon Dioxide 22
BUN 29 H
Creatinine 1.0
Glucose 148 H
Calcium 8.7
Vital Signs:
Vital Signs
Temp Pulse Resp BP Pulse Ox
97.6 F 71 16 123/63 97
08/31/25 07:00 08/31/25 07:00 08/31/25 07:00 08/31/25 07:00 08/31/25 07:00
I&O
08/30/25 08/31/25 09/01/25
06:59 06:59 06:59
Intake Total 240 / 240 1080 / 1080
Balance 240 / 240 1080 / 1080
--- NOTE | 2025-08-31 09:39 | W.PN.ID1 ---
Date of Service
Date of Service: August 31, 2025
Today's Communication
- switch to augmentin 875 mg PO BID x10 days
- steroids per ENT/primary team
- follow up with ENT
Assessment / Plan
Retropharyngeal phlegmon
DM2
- switch to augmentin 875 mg PO BID x10 days
- steroids per ENT/primary team
- follow up with ENT
Chief Complaint
-: Other (retropharyngeal abscess)
Subjective / Review of Systems
afebrile
bp stable
no events overnight
reports increase pain in the throat at rest but no difficulty swallowing liquids or solids
Vital Signs / Physical Exam
Vital Signs
Vital Signs
Temp Pulse Resp BP Pulse Ox
97.6 F 71 16 123/63 97
08/31/25 07:00 08/31/25 07:00 08/31/25 07:00 08/31/25 07:00 08/31/25 07:00
Physical Exam
Constitutional: No Acute Distress
Cardiovascular: Regular Rate and S1/S2; Negative Murmur or Rub
Pulmonary: Clear and Symmetric; Negative Wheezes or Rales
Gastrointestinal: Soft, Non Tender, Non Distended and Normal Bowel Sounds
Skin: Warm and Dry; Negative Rash or Jaundice
Objective Data
Lab Data
Lab Results
08/31/25 07:30
08/31/25 07:30
Estimated Creat Clear 69 ml/min 08/31/25 07:30
Total Bilirubin 1.0 mg/dl (0.2-1.3) 08/30/25 06:35
AST 19 U/L (17-59) 08/30/25 06:35
ALT 25 U/L (0-50) 08/30/25 06:35
Alkaline Phosphatase 84 U/L (38-126) 08/30/25 06:35
Most recent labs reviewed.
Micro Results:
08/29/25 08:27 Streptococcus Screen (ARPAN) - Final
Throat/Pharynx No Beta Hemolytic Streptococci Isolated
Streptococcus Rapid Screen - Final
Rapid Strep Screen (Group A) Negative
08/29/25 09:24 Influenza Types A & B (ELLIOT) - Final
Nasal Swab Negative for Influenza A & B, NAAT
Negative results must be combined with clinical observations
and patient history.
Nucleic Acid Amplification test (NAAT)performed on the
[employer] platform.
Care Review
Plan reviewed with: Physician (Dr Roberts and Dr Oden - disposition, transition to oral antibiotics)
[2025-08-31 11:00] VITALS: BP 134/64
[2025-08-31 11:40] LABS: Glucose - Point of Care 300 mg/dl (70-99)
[2025-08-31] MEDS: NOVOLOG FLEXPEN-LOW RESISTANCE 4 UNITS SC (11:48)
[2025-08-31] MEDS: AUGMENTIN 875 MG/125 MG 1 TABLET PO (11:51)
--- NOTE | 2025-08-31 13:01 | CM ---
Patient will d/c home today
Met w/ patient bedside, aware of d/c. Per patient, spouse works in the hospital and can transport him home
IMM verbally reviewed, copy provided, copy on chart
No CM needs at this time
Plan: Home, no needs
== END 2025-08-31 14:07 | disposition home or self-care (01) | DRG 153 ==
LOC: 4 WEST ACU 11:56
PROVIDERS: Student in an Organized Health Care Education/Training Program; ADMITTING PHYSICIAN Hospitalist; ATTENDING PHYSICIAN Hospitalist; CONSULT PHYSICIAN Otolaryngology; CONSULT PHYSICIAN Student in an Organized Health Care Education/Training Program; EMERGENCY PHYSICIAN Emergency Medicine; FAMILY PHYSICIAN Physician Assistant Medical
DX: J39.0 Retropharyngeal and parapharyngeal abscess (principal); I50.22 Chronic systolic (congestive) heart failure; I42.8 Other cardiomyopathies; Z11.52 Encounter for screening for COVID-19; I11.0 Hypertensive heart disease with heart failure; I48.0 Paroxysmal atrial fibrillation; E11.649 Type 2 diabetes mellitus with hypoglycemia without coma; Z79.01 Long term (current) use of anticoagulants
CPT/HCPCS: 70491; 80048; 80053; 81003; 81015; 82962; 83036; 83735; 85025; 85027; 86308; 87070; 87502; 87811; 87880; 92610; 96365; 96375; 99285; Q9967